=== PATIENT | female | born 1990 | race Caucasian/White ===

== ENCOUNTER 2024-05-09 13:50 | Outpatient (AMB) | payer BC, SELFPAY ==
[2024-05-09 14:04] VITALS: BP 120/70; PULSE 84; O2SAT 98; BMI 37.8
--- NOTE | 2024-05-09 14:04 | A.OFFVIS_ITS ---
Vital Signs 05/09/24 14:04 Height 5 ft 4 in Weight 220 lb 3.869 oz BMI 37.8 BP 120/70 Blood Pressure Location Lt brachial Position Sitting Pulse 84 Pulse Source Pulse Oximeter Pulse Oximetry (%) 98 Oxygen Delivery Method Room Air Intake Visit Reasons: Lupus//RECORDS RECEVED Allergies No Known Allergies Allergy (Verified 05/09/24 14:04) HPI [facility] Lupus//RECORDS RECEVED: Details: History systemic lupus erythematosus on hydroxychloroquine 400 mg daily and Raynaud's phenomenon on amlodipine 5 mg daily. She currently feels well. She has noted in the last couple of weeks as she has had erythema on her cheeks with pruritus. Denies fevers, oral ulcers, urinary symptoms, dyspnea, chest pain. Records reviewed from arthritis treatment center. Rheumatology history: Systemic lupus erythematosus onset 2010. 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 During she had thrombocytopenia and leukopenia prior to SOB diagnosis. G6PD deficiency. Hydroxychloroquine started 2014. Benlysta treatment 2015 to 06/09/2021 -she did not restart when she established care at [facility] from [facility] as patient was clinically quiescent. Methotrexate added for inflammatory arthritis but DC 2 month after due to leukopenia noted on labs (white cell count did not decrease significantly). Review of Systems Const All systems reviewed & are unremarkable except as noted in HPI and below Physical Exam Vital Signs: Last Vital Signs Pulse 84 05/09/24 14:04 BP 120/70 05/09/24 14:04 Pulse Ox 98 05/09/24 14:04 Oxygen Delivery Method Room Air 05/09/24 14:04 BMI result Body Mass Index 37.8 Resp Effort & Inspection: normal respiratory effort Auscultation: clear to auscultation bilaterally Cardio Rate: regular rate Rhythm: regular rhythm Heart sounds: S1 normal heart sound present and S2 normal heart sound present Skin Other: Slight malar erythema. Extrem Other: No synovitis. No tender joints. Range of motion intact in upper extremity lower extremity. Results Reviewed Results Reviewed: Labs reviewed from [facility]. Assessment & Plan Assessment & Plan (1) Systemic lupus erythematosus (SLE) in adult: Comment: Slight exacerbation of malar rash. Code(s): M32.9 - Systemic lupus erythematosus, unspecified Category: Medical Plan: Labs for disease and drug monitoring ordered. We discussed her skin care routine. She will use at least 50 SPF. She will apply 1% hydrocortisone to her cheeks daily for 2 weeks maximum Continue hydroxychloroquine 300 mg daily. She will be calling Dr. Ellsworth's office for eye exam for hydroxychloroquine surveillance. Return to clinic 3 months (2) Other fpc (current) drug therapy: Code(s): Z79.899 - Other assistant terminal manager (current) drug therapy Category: Medical Plan: See above (3) Raynaud disease: Comment: Controlled on amlodipine 5 mg daily Code(s): I73.00 - Raynaud's syndrome without gangrene Category: Medical Plan: Continue amlodipine 5 mg daily Plan . Orders: Orders Alanine Aminotransferase 05/09/24 I73.00 - Raynaud's syndrome without gangrene, M32.9 - Systemic lupus erythematosus, unspecified, Z79.899 - Other assistant terminal manager (current) drug therapy Anti DNA DS Antibody 05/09/24 M32.9 - Systemic lupus erythematosus, unspecified, Z79.899 - Other assistant terminal manager (current) drug therapy C Reactive Protein 05/09/24 I73.00 - Raynaud's syndrome without gangrene, M32.9 - Systemic lupus erythematosus, unspecified, Z79.899 - Other fpc (current) drug therapy Complement C3 05/09/24 I73.00 - Raynaud's syndrome without gangrene, M32.9 - Systemic lupus erythematosus, unspecified, Z79.899 - Other assistant terminal manager (current) drug therapy Complete Blood Count Auto Diff 05/09/24 I73.00 - Raynaud's syndrome without gangrene, M32.9 - Systemic lupus erythematosus, unspecified, Z79.899 - Other fpc (current) drug therapy Protein Creatinine Ratio, Ur 05/09/24 I73.00 - Raynaud's syndrome without gangrene, M32.9 - Systemic lupus erythematosus, unspecified, Z79.899 - Other assistant terminal manager (current) drug therapy Hepatitis B,C Profile 05/09/24 I73.00 - Raynaud's syndrome without gangrene, M32.9 - Systemic lupus erythematosus, unspecified, Z79.899 - Other fpc (current) drug therapy Aspartate Amino Transferase 05/09/24 I73.00 - Raynaud's syndrome without gangrene, M32.9 - Systemic lupus erythematosus, unspecified, Z79.899 - Other fpc (current) drug therapy Complement C4 05/09/24 I73.00 - Raynaud's syndrome without gangrene, M32.9 - Systemic lupus erythematosus, unspecified, Z79.899 - Other assistant terminal manager (current) drug therapy Creatinine 05/09/24 I73.00 - Raynaud's syndrome without gangrene, M32.9 - Systemic lupus erythematosus, unspecified, Z79.899 - Other fpc (current) drug therapy Erythrocyte Sedimentation Rate 05/09/24 I73.00 - Raynaud's syndrome without gangrene, M32.9 - Systemic lupus erythematosus, unspecified, Z79.899 - Other fpc (current) drug therapy T Spot TB 05/09/24 I73.00 - Raynaud's syndrome without gangrene, M32.9 - Systemic lupus erythematosus, unspecified, Z79.899 - Other fpc (current) drug therapy UA w Microscopic 05/09/24 I73.00 - Raynaud's syndrome without gangrene, M32.9 - Systemic lupus erythematosus, unspecified, Z79.899 - Other assistant terminal manager (current) drug therapy Medications: New amlodipine Take 1 tablet daily 5 mg PO DAILY 30 tabs 11RF Coding Level of Care Code Est Pt Level 4 (80538) Complex EM visit Add On G2211 Diagnoses Systemic lupus erythematosus (SLE) in adult M32.9 Other fpc (current) drug therapy Z79.899 Raynaud disease I73.00
== END 2024-05-09 14:40 | disposition home or self-care (01) ==
PROVIDERS: Visit Provider Internal Medicine Rheumatology
DX: M32.9 Systemic lupus erythematosus, unspecified (principal); Z79.899 Other long term (current) drug therapy; I73.00 Raynaud's syndrome without gangrene
CPT/HCPCS: 99214

== ENCOUNTER 2024-05-12 09:42 | Outpatient (REF) | payer BC, SELFPAY ==
[2024-05-12 10:57] LABS: Appearance Urine Clear; Color Urine Yellow; Glucose Urine UA Negative (Negative); Leukocyte Esterase Urine Negative (Negative); Nitrite Urine Negative (Negative); PH 5.5 (5.0-9.0); Specific Gravity - Urine 1.025 (1.005-1.025); Urine Blood Negative (Negative); Urine Ketones Negative (Negative); Urine Protein Negative (Neg-Trace)
[2024-05-12 11:00] LABS: Bacteria Urine None Seen (None Seen); Hyaline Casts Urine 0-2 /LPF (0-2); RBC Urine 0-2 /HPF (0-2); WBC Urine 0-5 /HPF (0-5)
[2024-05-12 11:26] LABS: Basophils Percent Auto 0.5 % (0-2); Eosinophils Absolute Auto 0.1 X10*3/uL (0.0-0.4); Eosinophils Percent Auto 4.1 % (0-4); Hematocrit 36.1 % (37.0-47.0); Hemoglobin 12.4 g/dl (12.0-16.0); Lymphocytes Absolute Auto 1.1 X10*3/uL (1.2-4.9); Lymphocytes Percent Auto 48.9 % (20-40); MANUAL DIFF FLAG SCAN; Mean Corpuscular HGB Conc 34.3 g/dl (31.0-35.0); Mean Corpuscular Hemoglobin 30.3 pg (27.0-33.0); Mean Corpuscular Volume 88.3 fL (80.0-98.0); Mean Platelet Volume 10.8 fL (9.4-12.3); Monocytes Absolute Auto 0.3 X10*3/uL (0.1-1.2); Monocytes Percent Auto 13.6 % (2-11); Neutrophils Absolute Auto 0.7 x10*3/uL (2.0-8.3); Neutrophils Percent Auto 32.9 % (45-73); Platelet Count 182 X10*3/uL (160-400); Red Blood Count 4.09 X10*6/uL (4.20-5.50); Red Cell Distribution Width 11.6 % (11.0-16.0); SCAN SMEAR FLAG 1
[2024-05-12 11:30] LABS: Estimated Average Glucose 82 mg/dL; Hemoglobin A1C 84.4525 umol/L; Hemoglobin A1c % 4.5 % (<6.0); Total Hemoglobin (HGBA1C) 3230.7957 umol/L
[2024-05-12 11:31] LABS: White Blood Count 2.2 X10*3/uL (4.8-10.8)
[2024-05-12 12:11] LABS: SLIDE REVIEW VERIFIED
[2024-05-12 12:17] LABS: Erythrocyte Sedimentation Rate 9 MM/HR (0-20)
[2024-05-12 12:21] LABS: Creatinine Urine 201.22 mg/dL; Protein/Creatinine Ratio, Ur 0.04 (<0.2); Total Protein Urine Random 8 mg/dL (<12)
[2024-05-12 12:23] LABS: Alanine Aminotransferase 14 U/L (0-31); Aspartate Amino Transferase 18 U/L (5-31); C Reactive Protein 0.52 mg/dL (< or = 0.50); Estimated Glomerular Filt Rate > 60
[2024-05-12 12:28] LABS: TSH reflex Free T4 1.86 uIU/mL (0.32-4.0)
[2024-05-12 12:32] LABS: HBc Num1 0.19 S/CO (0.00-0.79); HBsAGNum1 0.39 S/CO (0.00-0.99); Hepatitis B Core Antibody Nonreactive (Nonreactive); Hepatitis B Surface Antigen Negative (Negative); ~HepC Num1 0.18 S/CO (0.00-0.79); ~Hepatitis B Surface Antibody NONREACTIVE (Nonreactive); ~Hepatitis C Antibody Nonreactive (Nonreactive)
[2024-05-15 09:04] LABS: Complement C3 79 mg/dL (83-193)
[2024-05-15 10:43] LABS: TS Negative Control Passed; TS Panel A 0; TS Panel B 0; TS Positive Control Passed; TSpotTB Negative (Negative)
[2024-05-16 14:03] LABS: Anti DNA DS Antibody 73 IU/mL
== END 2024-05-12 09:43 | disposition home or self-care (01) ==
LOC: HO.HHCL 09:42
PROVIDERS: General Practice; Visit Provider Internal Medicine Rheumatology
DX: E66.812 Obesity, class 2 (principal); Z68.37 Body mass index [BMI] 37.0-37.9, adult; M32.9 Systemic lupus erythematosus, unspecified; Z79.899 Other long term (current) drug therapy; I73.00 Raynaud's syndrome without gangrene
CPT/HCPCS: 36415; 81001; 82565; 82570; 83036; 84156; 84443; 84450; 84460; 85025; 85652; 86140; 86160; 86225; 86481; 86704; 86706; 86803; 87340

== ENCOUNTER 2024-07-31 13:25 | Outpatient (REF) | payer BC, SELFPAY ==
--- OUTSIDE RECORDS SUMMARY | 2024-07-31 14:26 | XMS_ITS | Data Portability ---
Author Organization RAYMOND Whittaker [facility], [address] Address [address] [place] [address] Assessment No assessment recorded. Plan of Treatment Reminders Order Date Submit Date Provider Last Modified By Organization Details Last Modified Time Details Appointments None recorded. Lab rapid strep group A, throat 2022 023 [email or web address] [facility] [address], [address] [place], [address], 3 10:04:56 streptococc us group A, culture, throat 2022 023 AIKEN [facility] ([facility], [address] [place] [address], [place], [address], 3 10:06:02 rapid flu (A+B) 2023 024 [email or web address] [facility] [address], [address] [place], [address], 4 10:08:03 SARS CoV 2 (COVID-19) Ag, QL, IA, upper respiratory specimen 2023 024 [email or web address] [facility] [address], [address] [place], [address], 4 10:08:02 Referral None recorded. Procedures None recorded. Surgeries None recorded. Imaging None recorded. Medication Orders polymyxin B sulfate 10,000 unit-trimet hoprim 1 mg/mL eye drops [address] [id number], [address] [place], [address], 4 09:07:51 fexofenadin e-pseudoeph edrine ER 180 mg-240 mg tablet,ext. release [address] [id number], [address] [place], [address], 4 09:08:10 prednisone 20 mg tablet [facility] [id number], [address] [place], [address], 4 09:07:47 Patient TargetsNo targets recorded. Patient Instructions Encounter Date Encounter Id Patient Instructions Last Modified By Organization Details Last Modified Time 07/24/2022 [id number] sore throat: car e instructions [email or web address] Not available 07/24/2022 10:04:56 - Use the medications prescribed. - Decongestants if tolerated. - Recommend recheck if fever develops or no improvement in 5-7 days. - Use saline nasal spray or neti-pot flushes once to twice a day to loosen mucus in sinuses. - I recommend having your ear rechecked in in 2 weeks with your primary provider to verify infection has resolved. -.Use a cool mist humidifier in the room that you sleep to add moisture to the air, which should soothe the airways and help loosen any mucus that may be present. -Call 911 or proceed to nearest Emergency Department if you develop shortness of breath, chest pain, severe headache or other symptoms that concern you. [email or web address] Not available 07/24/2022 10:03:28 Apply warm, mois t compresses over closed eyes 3-4 times per day for 10-15 minutes at a time. Do not return to work until after using the antibiotic drops for 24 hours. If your symptoms do not improve, worsen at any time, or if intense pain, redness, or burning occurs with use of the eye drops, stop the drops immediately and go to the ER. If you wear contact lenses, do not wear them for 2 days. after symptoms resolved. If you have disposable contacts, discard the pair you were wearing and start with a new pair. If they are not disposable, clean thoroughly before using again. Use over the counter medications for your sore throat. Basic lozenges (cough drops) or lozenges with an anesthetic (numbing agent) can be used as needed for quick results; look for the active ingredient, benzocaine, for numbing lozenges (like Cepacol Extra or Chloraseptic Max). Gargling with warm salt water can also relieve pain. Dissolve 1/4 to 1/2 teaspoon in 8-ounces of warm water; gargle and spit salt solution every hour, as needed. Sore throat pain can also be reduced by taking regular doses of acetaminophen (tylenol) or ibuprofen (Advil); if you are given a prescription of PREDNISONE, you may continue to take acetaminophen, but do not take ibuprofen or naprosyn. While this isn't quick, it can significantly reduce pain within an hour after taking. Please switch toothbrush after being on antibiotic for 24 hrs. You should follow-up with your PCP in days, or at any time if your condition does not improve or worsens. Any acute change should prompt a visit to the nearest Emergency Department. . [email or web address] Not available 07/24/2022 10:03:45 08/15/2023 [id number] upper respirator y infection (cold): care instructions Not available 08/15/2023 10:08:01 As we discussed your symptoms are consistent with a viral respiratory infection other than COVID or flu. Treatment is symptomatic which your body takes care of the virus. Drink plenty of fluids and rest when you can. Treat fever or pain with tylenol and or ibuprofen. You can try other over the counter medications to target certain symptoms if you want. Follow up with your PCP. Not available 08/15/2023 10:08:00 Reason for Referral None Reported. Results Created Date Observation Date Name Description Value Unit Range Abnormal Flag Note LastModifiedBy Organization Detail LastModifiedTime 07/24/19 23 07/27/2022 BETA STREP GP A CULTU RE beta strep gp A culture NEGATI VE Refer ence Range : Negat ricardo Not Available [facility] ([facility]) [address] [place], [address], 07/27/2022 10:06:02 07/24/19 23 07/24/2022 rapid strep group A, throa t Unknown Analyte Normal = Negati ve Not Available [facility] [address] [place], [address], 07/24/2022 09:35:00 07/24/19 23 07/24/2022 rapid strep group A, throa t Unknown Analyte negati ve Not Available [facility] [address] [place], [address], 07/24/2022 09:35:00 08/15/19 24 08/15/2023 SARS CoV 2 (COVI D-19) Ag, QL, IA, upper respi rator y speci men Unknown Analyte negati ve Not Available [facility] [address] [place], [address], 08/15/2023 09:34:18 08/15/19 24 08/15/2023 SARS CoV 2 (COVI D-19) Ag, QL, IA, upper respi rator y speci men Unknown Analyte negati ve Not Available [facility] [address] [place], [address], 08/15/2023 09:34:18 08/15/19 24 08/15/2023 SARS CoV 2 (COVI D-19) Ag, QL, IA, upper respi rator y speci men Unknown Analyte yes Not Available [facility] [address] [place], [address], 08/15/2023 09:34:18 08/15/19 24 08/15/2023 rapid flu (A+B) Unknown Analyte negati ve Not Available [facility] [address] [place], [address], 08/15/2023 09:33:44 08/15/19 24 08/15/2023 rapid flu (A+B) Unknown Analyte negati ve Not Available [facility] [address] [place], [address], 08/15/2023 09:33:44 08/15/19 24 08/15/2023 rapid flu (A+B) Unknown Analyte negati ve Not Available [address] [address] [address] [place], [address], 08/15/2023 09:33:44 08/15/19 24 08/15/2023 rapid flu (A+B) Unknown Analyte yes Not Available [facility] [address] [place], [address], 08/15/2023 09:33:44 Result Notes None recorded. Problems Name Problem SNOMED Code Status Onset Date Resolution Date Notes Provider Name and Address Organization Details Recorded Time Raynaud's disease 385435001 Active 2023 RAYMOND Pettit [facility] 4 09:08:49 Lupus erythematosus 868008247 Active 2022 DEVANG merritt PA [facility] 3 09:37:23 Gastroesophag eal reflux disease 399763539 Active 2022 DEVANG merritt PA - [facility] 3 09:37:28 Problem Notes None recorded. Procedures Surgical History Date Name Laterality Status Provider Name and Address Organization Details Recorded Time section completed DEVANG Whittaker [facility] 07/24/2022 09:37:42 Imaging Results None recorded. Procedure Notes None recorded. Medical Equipment None Reported. Allergies No known drug allergies Medications Name Sig Start Date Stop Date Status Note LastModified by Organization Details LastModified Time acetic acid 2 % ear solution USE 5 DROP(S) AFFECTED EAR TWO TIMES A DAY FOR 5 DAYS 07/24 completed Not Available Not Available Not Available prednisone 20 mg tablet Take 2 tablets every day by oral route in the morning for 4 days. 08/15 completed Not Available Not Available Not Available amlodipine 2.5 mg tablet Take 1 tablet every day by oral route. active Not Available Not Available No t Available pantoprazol e 20 mg tablet,waqas yed release TAKE 1 TABLET BY MOUTH EVERY DAY active Not Available Not Available No t Available polymyxin B sulfate 10,000 unit-trimet hoprim 1 mg/mL eye drops INSTILL 1 DROP INTO AFFECTED EYE(S) BY OPHTHALMI C ROUTE EVERY 6 HOURS 08/15 completed Not Available Not Available Not Available hydroxychlo roquine 200 mg tablet TAKE 2 TABLETS BY MOUTH EVERY DAY active Not Available Not Available No t Available amoxicillin 875 mg-potassiu m clavulanate 125 mg tablet TAKE 1 TABLET BY MOUTH 2 TIMES PER DAY FOR 10 DAYS WITH FOOD 07/24 completed Not Available Not Available Not Available ciprofloxac in 0.3 %-dexametha sone 0.1 % ear drops,suspe nsion INSTILL 4 DROPS INTO AFFECTED EAR(S) TWICE DAILY FOR 7 DAYS 07/24 completed Not Available Not Available Not Available fexofenadin e-pseudoeph edrine ER 180 mg-240 mg tablet,ext. release 24 hr Take 1 tablet every day by oral route in the evening for 10 days. 08/15 completed Not Available Not Available Not Available Nexplanon active Not Available Not Alana ilable Not Available Vitals Date Recorded Body height Body mass index (BMI) Body weight Pain severity - 0-10 verbal numeric rating [Score] - Reported Respiratory rate Body temperature Heart rate Oxygen saturation Oxygen saturation in Arterial blood by Pulse oximetry Systolic blood pressure Diastolic blood pressure Provider Name and Address Organization Details Last Updated DateTime 4 162.56 cm 36.9 kg/m2 88996.3 6 g 6 18 /min 98.1 [degF] 86 /min 97 % 97 % 120 mm[Hg] 82 mm[Hg] Erna ANDRADE - [facility] 4 09:13:12 Date Recorded Body height Body mass index (BMI) Body weight Oxygen saturation Oxygen saturation in Arterial blood by Pulse oximetry Heart rate Respiratory rate Body temperature Pain severity - 0-10 verbal numeric rating [Score] - Reported Systolic blood pressure Diastolic blood pressure Provider Name and Address Organization Details Last Updated DateTime 3 162.56 cm 36.9 kg/m2 40371.3 6 g 99 % 99 % 83 /min 16 /min 98.1 [degF] 5 118 mm[Hg] 82 mm[Hg] DEVANG KHOI PA - [facility] 09:36:06 Social History Question Answer Notes LastModified by Organizat ion Details LastModified Time Tobacco Smoking Status Never Smoker DEVANG merritt, PA - [facility] 07/24/2022 09:37:37 What Is Your Level Of Alcohol Consumption? Occasional Socially Information not available 08/15/2023 Which Illicit Or Recreational Drugs Have You Used? Recreational Marijuana Information not available 07/24/2022 Have You Had Direct Contact, Or Contact During Intimacy, With Monkeypox Rash, Scabs, Or Body Fluids From A Person With Monkeypox? No Information not available 08/15/2023 What Was The Date Of Your Most Recent Tobacco Screening? 08/15/2023 Information not available 08/15/2023 Do You Use Any Illicit Or Recreational Drugs? Yes Information not available 07/24/2022 Have You Recently Traveled Abroad? No Information not available 07/24/2022 Do You Or Have You Ever Used Any Other Forms Of Tobacco Or Nicotine? No Information not available 07/24/2022 Sex: Unknown Functional Status None recorded. Mental Status None recorded. Family History Relationship Description Onset Age of this Age Resolved Age Notes LastModified by Organization Details LastModified Time Father No current problems or disability [email or web address] Not available 07/24 09:37:30 Mother No current problems or disability [email or web address] Not available 07/24 09:37:30 Medical History No medical history recorded. Gynecological History Statement/Question Response Date of LMP 08/10/2023 Is there any chance of ? No Obstetrics History GPAL:G 0 P 0 0 0 0 Immunizations Vaccine Type Date Status Note Provider Nam e and Address Organization Details Recorded Time Influenza, MDCK, quadrivalent, PF 0 completed DEVANG MACHNACZ null, PA - [facility] 07/24/2022 09:36:33 Influenza, MDCK, quadrivalent, PF 1 completed DEVANG MACHNACZ null, PA - [facility] 07/24/2022 09:36:33 Influenza, MDCK, quadrivalent, preservative 2 completed DEVANG MACHNACZ null, PA - [facility] 07/24/2022 09:36:33 COVID-19, mRNA, LNP-S, PF, 30 mcg/0.3 mL dose 1 completed DEVANG MACHNACZ null, PA - [facility] 07/24/2022 09:36:33 COVID-19, mRNA, LNP-S, PF, 30 mcg/0.3 mL dose 1 completed DEVANG MACHNACZ null, PA - [facility] 07/24/2022 09:36:33 COVID-19, mRNA, LNP-S, PF, 30 mcg/0.3 mL dose, ron-sucrose 2 completed DEVANG MACHNACZ null, PA - [facility] 07/24/2022 09:36:33 Influenza, MDCK, quadrivalent, PF 9 completed Ernasamantha Smith null, PA - [facility] 08/15/2023 09:07:27 Influenza, MDCK, quadrivalent, preservative 8 completed Erna Smith null, PA - [facility] 08/15/2023 09:07:27 MMR 2 completed Erna Smith null, PA - [facility] 08/15/2023 09:07:27 pneumococcal polysaccharide PPV23 5 completed Ernasamantha Broussarder null, PA - [facility] 08/15/2023 09:07:27 Hep B, unspecified formulation 2 completed Erna Smith null, PA - [facility] 08/15/2023 09:07:27 Influenza, split virus, trivalent, preservative 6 completed [facility] 08/15/2023 09:07:27 Influenza, split virus, trivalent, preservative 5 completed RAYMOND Pettit [facility] 08/15/2023 09:07:27 Past Encounters Encounter ID Performer Location Encounter Start Date Encounter Closed Date Diagnosis/Indication Diagnosis SNOMED-CT Code Diagnosis ICD10 Code Diagnosis Note [id number] [address] [place] [address] 12/20/2020 15:53:04 12/20/2020 19:11:57 [id number] [address] [place] [address] 12/12/2021 08:51:04 12/12/2021 16:06:55 [id number] [address] [place] [address] 01/14/2022 11:38:31 01/14/2022 11:58:35 [id number] Harish Lemos, RECONDITIONING ASSOCIATE [address] [place] [address] 07/24/2022 08:37:38 07/24/2022 10:08:18 Pharyngitis 679671079 J02.9 Acute sinusitis 77373080 J01.90 Acute conj unctivitis of bilateral eyes 2332554936 04169 H10.33 [id number] RAYMOND Stoll [address] [place] [address] 08/15/2023 08:44:09 08/15/2023 10:08:54 Acute pharyngitis 665201500 J02.9 Upper resp iratory infection 35868477 J06.9 Health Concerns Section Related Observation LastModified by Organization Detai ls LastModified Time None Recorded Concern Status LastModified by Organization Details LastModified Time None Recorded Advance Directives Directive None Recorded Payers Encounter Date Sequence Insurance Name Policy Number Policy Schaefer Covered Member ID Schaefer Member ID Guarantor Name 12/20/2020 1 [facility] [id number] Marni Hernandez [id number] Marni Hernandez 12/12/2021 1 [facility] [id number] Marni Hernandez [id number] Marni Hernandez 07/24/2022 1 [facility] [id number] Marni Hernandez [id number] Marni Hernandez 08/15/2023 1 [id number] Marni Hernandez [id number] Marni Hernandez Notes Date Note Type Note Provider Name and Address Organization Details Recorded Time 07/24/19 23 text/htm l Eye problemsReported bypatient.source of patient informationInformation obtained from patient; Patient arrived at Urgent Care ambulatory; learning styles: auditory Location:[facility] Symptoms:no pain in the eyes;sensitivity to light;redness;blurred vision;discharge Severity:moderate Onset/Timindays Modifying Factors:nothing gives relief aretha Aggravating factors:bright light makes it worseCongestionReported bypatient.Notes:nasal congestion with post nasal drip x 3 days. denies any fever or fever with chills. no SOB or respiratory distress. Harish Lemos NP [address] [place], [address], [employer] 07/24/2022 10:05:28 08/15/19 24 text/htm l CongestionReported bypatient.Quality:pressure; ache Severity:moderate Duration:3 days Context:states get sinus infection 2-3 times per year Aggravating Factors:none Alleviating Factors:none Associated Symptoms:no fever; no chills; no hemoptysis; no shortness of breath;cough; sore throat RAYMOND Mercado [address] [place], [address], [employer] 08/15/2023 10:08:22 OBGyn Episode No OBEpisode recorded.
--- OUTSIDE RECORDS SUMMARY | 2024-07-31 14:26 | XMS_ITS | Clinical Summary ---
[facility] Organization [facility] Address [address] [place] [address] Care Team Providers Care Line Tender Name Role Phone Unavailable Primary Care Provider Unavailabl e Allergies No known active allergies Medications Medication Sig Dispensed Refills Start Date End Date Status etonogestrel (NEXPLANON) 68 MG IMPL subcutaneous implant Inject under the skin. 0 Active hydroxychloroquine (PLAQUENIL) 200 MG tablet Take 1 tablet by mouth daily. 0 01/30/2021 Active Active Problems Problem Noted Date Diagnosed Date Other neutropenia 06/25/2021 Anxiety and depression 02/16/2019 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 Raynaud's phenomenon without gangrene 07/23/2017 Pulmonary nodules/lesions, multiple 09/12/2015 Overview: Stable [address] Systemic lupus erythematosus with glomerular dis ease 04/18/2015 Overview: Onset ~ 2010 Hydroxychloroquine 2015,for a while then restarted 2016- eye exam OK 11/07, 11/2020 Treatment with azathioprine avoided because of baseline leukopenia Benlysta (IV) since January 2018 (SC did not work as well) - added to hydroxychloroquine Class V lupus nephritis on kidney biopsy in March 2015. 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 Family History Medical History Relation Name Comments No Sig Med Hx Father Ovarian cancer Maternal Grandmother Stroke Mother Other Sister kidney stones Relation Name Status Comments Child G6PD deficiency Alive Father Alive Maternal Grandmother Mother Alive Sister Alive Social History Tobacco Use Types Packs/Day Years Used Date Smoking Tobacco: Never Smokeless Tobacco: Never Alcohol Use Standard Drinks/Week Comments Yes 0 (1 standard drink = 0.6 oz pur e alcohol) socially Sex and Gender Information Value Date Recorded Sex Assigned at Not on file Gender Identity Not on file Sexual Orientation Not on file Last Filed Vital Signs Vital Sign Reading Time Taken Comments Blood Pressure 140/73 07/18/2021 10:04 AM EST Pulse 107 07/18/2021 10:04 AM EST Temperature 36.8 ??C (98.3 ??F) 07/18/2021 10:[address] Respiratory Rate - - Oxygen Saturation 98% 07/18/2021 10:04 AM EST Inhaled Oxygen Concentration - - Weight 94.8 kg (209 lb) 07/18/2021 10:04 AM EST Height 165.1 cm (5' 5 ) 07/18/2021 10:04 AM EST Body Mass Index 34.78 07/18/2021 10:04 AM EST Plan of Treatment Health Maintenance Due Date Last Done Comments Hepatitis B Vaccines (1 of 3 - 3-dose series) 1992 Hepatitis C Screening 1992 COVID-19 Vaccine (#1) 1997 Depression Screening 2004 Preventative Health Evaluation 2010 DTap / Tdap / Td (1 - Tdap) 2011 Cervical Cancer Screening (Pap Smear) 2013 Pneumococcal Vaccine (2 of 2 - PCV) 06/17/2016 06/17/2015 Influenza Vaccine (#1) 2024 1, 02/20/2020, 02/24/2019, Additional history exists RSV Ped < 20 months Aged Out No longe r eligible based on patient's age to complete this topic
--- OUTSIDE RECORDS SUMMARY | 2024-07-31 14:26 | XMS_ITS | Encounter Summary ---
Author Organization [employer] Address [address] [place] [address] Care Team Providers Care Audit Machine Operator Name Role Phone Chioma Connelly MD Primary Care Provider [phone] Reason for Visit * Reason Comments UTI Encounter Details Date Type Department Care Team ([facility] st Contact Info) Description 07/31/2024 9:40 AM EST Office Visit [facility] [address] [place] [address] [phone] Shamika Guillen MD [address] [place] [id number] Acute cystitis with hematuria (Primary Dx); Dysuria Social History Tobacco Use Types Packs/Day Years Used Date Smoking Tobacco: Never Passive Smoke Exposure: Never Smokeless Tobacco: Never Tobacco Cessation:Counseling Given: Not Answered Alcohol Use Standard Drinks/Week Comments Yes 0 (1 standard drink = 0.6 oz pur e alcohol) oc Depression Answer Date Recorded Patient Health Questionnaire-9 Score 0 05/12/2024 Patient Health Questionnaire-9 Score 0 05/12/2024 Last PHQ-9: Questionnaire Data Not on file 1 07/12/2023 Housing Stability Answer Date Recorded What is your housing situation today? I have valentino kaplan 05/12/[address] you li ve. Do you have problems with any of the following? None of the above 05/12/2024 Food Insecurity Answer Date Recorded Within the past 12 months, y ou worried that your food would run out before you got money to buy more: Never True 05/12/2024 Within the past 12 months,th e food you bought just didn't last and you didn't have enough money to get more: Never True Transportation Answer Date Recorded In the past 12 months, has l ack of transportation kept you from medical appts, meetings, work or from getting things needed for daily living? No 05/12/2024 Utilities Answer Date Recorded In the past 12 months, has t he electric, gas, oil or water company threatened to shut off services in your home? No 05/12/2024 Depression Answer Date Recorded Patient Health Questionnaire-2 Score 0 05/12/2024 Internet Access Answer Date Recorded Internet Access Q1 Yes 07/11/2024 Internet Access Q2 I do not want or need it 06/22 Comments No Sex and Gender Information Value Date Recorded Sex Assigned at Female 01/25/2024 1:32 PM EDT Legal Sex Female 1:27 PM EDT Gender Identity Female 05/12/2024 9:05 AM EST Sexual Orientation Straight 05/10/2024 9: 52 AM EST documented as of this encounter Last Filed Vital Signs Vital Sign Reading Time Taken Comments Blood Pressure 121/86 07/31/2024 9:19 AM EST Pulse 106 07/31/2024 9:19 AM EST Temperature 37.1 ??C (98.7 ??F) 07/31/2024 9:19 AM ES T Respiratory Rate 16 07/31/2024 9:19 AM EST Oxygen Saturation - - Inhaled Oxygen Concentration - - Weight 97.3 kg (214 lb 9.6 oz) 07/31/2024 9:19 A M EST Height 162.6 cm (5' 4 ) 07/31/2024 9:19 AM EST Body Mass Index 36.84 07/31/2024 9:19 AM EST documented in this encounter Progress Notes * Shamika Guillen MD - 07/31/2024 9:40 AM EST SUBJECTIVE: Marni Hernandez is a 34 y.o. year old female who presents for Walk In Center/uti sxs . Denies recent illness, injury, or hospitalization. Acute Concerns: Patient complaining of increased urinary frequency x 3 days associated to lower abdominal pain. No vaginal discharge, no vaginal pruritus, negative low back pain, fever, chills. LMP 2w ago, has Nexplanon for BC. She took OTC UTI kit from the pharmacy and symptoms did not improve. 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 Review of Systems Constitutional: Negative for chills, fatigue and fever. HENT: Negative for congestion, ear pain, nosebleeds, rhinorrhea, sinus pressure, sore throat and trouble swallowing. Eyes: Negative for pain and discharge. Respiratory: Negative for cough, chest tightness and shortness of breath. Cardiovascular: Negative for chest pain, palpitations and leg swelling. Gastrointestinal: Negative for abdominal pain, blood in stool, constipation, diarrhea and nausea. Endocrine: Negative for polydipsia and polyuria. Genitourinary: Positive for frequency and urgency. Negative for dysuria, genital sores, pelvic painand vaginal discharge. Musculoskeletal: Negative for back pain and neck pain. Skin: Negative for rash. Allergic/Immunologic: Negative for environmental allergies. Neurological: Negative for dizziness, seizures, weakness, light-headedness and headaches. Hematological: Negative for adenopathy. Psychiatric/Behavioral: Negative for agitation, behavioral problems, self-injury and suicidal ideas. OBJECTIVE: Vitals: 07/31/24 0919 BP: 121/86 Pulse: 106 Resp: 16 Temp: 98.7 ??F (37.1 ??C) Physical Exam HENT: Right Ear: Tympanic membrane and ear canal normal. Left Ear: Tympanic membrane and ear canal normal. Mouth/Throat: Mouth: Mucous membranes are moist. Pharynx: No oropharyngeal exudate or posterior oropharyngeal erythema. Eyes: Pupils: Pupils are equal, round, and reactive to light. Cardiovascular: Rate and Rhythm: Regular rhythm. Pulses: Normal pulses. Heart sounds: Normal heart sounds. No murmur heard. Pulmonary: Breath sounds: Normal breath sounds. Abdominal: General: Bowel sounds are normal. Palpations: Abdomen is soft. Tenderness: There is abdominal tenderness in the suprapubic area. There is no right CVA tenderness or left CVA tenderness. Musculoskeletal: General: Normal range of motion. Cervical back: Neck supple. Skin: General: Skin is warm. Neurological: General: No focal deficit present. Mental Status: She is alert and oriented to person, place, and time. Psychiatric: Mood and Affect: Mood normal. Behavior: Behavior normal. Office Visit on 07/31/2024 Component Date Value Ref Range Status Color, UA 07/31/2024 Dark Mayelin Final Clarity, UA 07/31/2024 Cloudy Final Glucose, UA 07/31/2024 Negative Final Bilirubin, UA 07/31/2024 Negative Final Ketones, UA 07/31/2024 Negative Final Spec Grav, UA 07/31/2024 1.030 Final Blood, UA 07/31/2024 Positive (A) Negative, None Detected Final LARGE pH, UA 07/31/2024 6.0 Final Protein, UA 07/31/2024 Trace Final 300 mg/dl Urobilinogen, UA 07/31/2024 0.2 Final Leukocytes, UA 07/31/2024 Moderate (A) Negative, Rare, Trace Final LARGE Nitrite, UA 07/31/2024 Negative Negative, None Detected Final Preg Test, Ur 07/31/2024 Negative Negative, Indeterminate, None Detected, Invalid, Specimen unsatisfactory for evaluation, Weakly Positive Final Problem List Items Addressed This Visit Acute cystitis with hematuria - Primary Advised to drink p.o. fluids and cranberry juice. Use Bactrim DS x 5 days, advised about potential increased vaginal discharge/vaginal candidiasis, she can get OTC antifungal vaginal cream or call back as needed Take Tylenol as needed abdominal pain Other Visit Diagnoses Dysuria Relevant Orders POCT urinalysis dipstick manually resulted (Completed) Culture, Urine, Routine POCT , urine manually resulted (Completed) Follow Up: Current Outpatient Medications on File Prior to Visit Medication Sig Dispense Refill amLODIPine (Norvasc) 2.5 MG tablet Take 2.5 mg by mouth Once per day. amLODIPine (Norvasc) 5 MG tablet Take 5 mg by mouth Once per day. cetirizine (ZyrTEC) 10 MG tablet Take 1 tablet (10 mg) by mouth Once per day. 90 tablet 2 Etonogestrel (NEXPLANON SC) fluticasone (Flonase) 50 MCG/ACT nasal spray Administer 1-2 sprays into each nostril Once per day. Shake gently. Before first use, prime pump. After use, clean tip and replace cap. 16 g 3 hydroxychloroquine (Plaquenil) 200 MG tablet Take 2 tablets by mouth Once per day. omeprazole (PriLOSEC) [address] capsule Take 1 capsule by mouth Once per day. Omeprazole 20 MG tablet delayed-release Take 1 tablet (20 mg) by mouth Once per day. 90 tablet 3 pantoprazole (ProtoNix) 20 MG EC tablet Take 20 mg by mouth Once per day. phentermine 15 MG capsule Take 1 capsule (15 mg) by mouth before breakfast. 90 capsule 0 predniSONE (Deltasone) 5 MG tablet TAKE 2 TABLETS BY MOUTH EVERY DAY FOR 1 WEEK, THEN 1 TABLET EVERY DAY FOR 1 WEEK. THEN STOP. TAKE WITH FOOD No current facility-administered medications on file prior to visit. documented in this encounter Miscellaneous Notes * Assessment & Plan Note - Shamika Guillen MD - 07/31/2024 12:05 PM EST Associated Problem(s): Acute cystitis with hematuria Advised to drink p.o. fluids and cranberry juice. Use Bactrim DS x 5 days, advised about potential increased vaginal discharge/vaginal candidiasis, she can get OTC antifungal vaginal cream or call back as needed Take Tylenol as needed abdominal pain documented in this encounter Plan of Treatment Scheduled Orders Name Type Priority Associated Diagnoses Orde r Schedule Culture, Urine, Routine Microbiology Routine Dysuria Ordered: 07/31/2024 documented as of this encounter Procedures Procedure Name Priority Date/Time Associated Diagnosis Comments POCT , URINE Routine 07/31/2024 9:28 AM EST Dysuria POCT URINALYSIS DIPSTICK Routine 07/31/2024 9:26 AM EST Dysuria documented in this encounter Results * POCT , urine manually resulted (07/31/2024 9:28 AM EST) Preg Test, Ur Negative Negative, Indeterminate, None Detected, Invalid, Specimen unsatisfactory for evaluation, Weakly Positive Urine 07/31/2024 9:28 AM EST Shamika Guillen MD POINT OF CARE TEST ENTER /EDIT ORDERABLES Final Result * (ABNORMAL) POCT urinalysis dipstick manually resulted (07/31/2024 9:26 AM EST) Color, UA Dark Mayelin Clarity, UA Cloudy Glucose, UA Negative Bilirubin, UA Negative Ketones, UA Negative Spec Grav, UA 1.030 Blood, UA Positive(A) Negative, None Detected Comment:LARGE pH, UA 6.0 Protein, UA Trace Comment:300 mg/dl Urobilinogen, UA 0.2 Leukocytes, UA Moderate(A) Negative, Rare, Trace Comment:LARGE Nitrite, UA Negative Negative, None Detected Urine 07/31/2024 9:26 AM EST Shamika Guillen MD POINT OF CARE TEST ENTER /EDIT ORDERABLES Final Result documented in this encounter Visit Diagnoses Diagnosis Acute cystitis with hematuria- Primary Dysuria documented in this encounter Additional Health Concerns Assessment Noted Time PHQ-9 Depression Total Score: 0 05/12/20 9:01 AM EST documented as of this encounter Care Teams Audit Machine Operator Relationship Specialty Start Date End Date Chioma Connelly MD [address] [place] [id number] PCP - General Family Medicine 05/12/24 documented as of this encounter
--- OUTSIDE RECORDS SUMMARY | 2024-07-31 14:26 | XMS_ITS | Encounter Summary ---
Author Organization [employer] Address [address] [facility] [address] [place] [address] Care Team Providers Care Universal Worker Assisted Living Name Role Phone Chioma Connelly MD Primary Care Provider [phone] Reason for Visit * Reason Onset Date Comments Med Refill 07/31/2024 Encounter Details Date Type Department Care Team ([facility] st Contact Info) Description 07/31/2024 Refill [facility] [address] [place], [place] [phone] Chioma Connelly MD [address] [place] [address] Body mass index (BMI) 36.0-36.9, adult Social History Tobacco Use Types Packs/Day Years Used Date Smoking Tobacco: Never Passive Smoke Exposure: Never Smokeless Tobacco: Never Alcohol Use Standard [...] AM EST documented as of this encounter Plan of Treatment Not on file documented as of this encounter Visit Diagnoses Diagnosis Body mass index (BMI) 36.0-36.9, adult documented in this encounter Additional Health Concerns Assessment Noted Time PHQ-9 Depression Total Score: 0 05/12/20 9:01 AM EST documented as of this encounter Care Teams Universal Worker Assisted Living Relationship Specialty Start Date End Date Chioma Connelly MD [address] [place] [id number] PCP - General Family Medicine 05/12/24 documented as of this encounter
--- OUTSIDE RECORDS SUMMARY | 2024-07-31 14:26 | XMS_ITS | Clinical Summary ---
[facility] Organization [facility] Address [address] [place] [address] Care Team Providers Care Goring Cutter Name Role Phone Janie Pulliam MD Primary Care Provider [phone] Allergies No known active allergies Medications etonogestrel-eluti ng contraceptive device 68 mg implant subdermal implant Inject under the skin. Active hydroxychloroquine (PLAQUENIL) 200 mg tablet Take 1 tablet (200 mg total) by mouth 1 (one) time each day. 1 Active pantoprazole (PROTONIX) 20 mg EC tablet Take 1 tablet (20 mg total) by mouth 1 (one) time each day. 2 Active Active Problems Problem Noted Date Diagnosed Date G6PD deficiency 12/29/2021 Generalized abdominal pain 01/30/2021 Overview (06/11/2024): Last Assessment & Plan: I explained cyst is unlikely related based on imaging and location of pain. I agree that ongoing GI evaluation would likely be helpful. Right ovarian cyst 01/30/2021 Overview (06/11/2024): Last Assessment & Plan: Again reviewed likely a follicle. She will have repeat US in May and will discuss results when available. COVID-19 virus infection 09/13/2020 Overview (06/11/2024): Tested positive 09/13/20at [facility] pharmacy. Leukopenia 07/28/2019 Overview (06/11/2024): Chronic, no depression of other cell lines, both lymphocytes and neutrophils are low. Probably due to SLE. Anxiety and depression 02/16/2019 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 Raynaud's phenomenon without gangrene 07/23/2017 Pulmonary nodules/lesions, multiple 09/12/2015 Overview (06/11/2024): Stable [address] SLE (systemic lupus erythematosus) 04/18/2015 Overview (06/11/2024): Onset ~ 2010 Hydroxychloroquine 2015,for a while then restarted 2016- eye exam OK 11/07, 11/2020 Treatment with azathioprine avoided because of baseline leukopenia Benlysta (IV) since January 2018 (SC did not work as well) - added to hydroxychloroquine Class V lupus nephritis on kidney biopsy in March 2015. 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 Immunizations Name Administration Dates Next Due Influenza Quadravalent, MDCK , 0.5ml, preservative free (Flucelvax) 6mo and older 04/23/2021,02/20/2020,02/24/2019,03/28 Influenza Quadravalent, MDCK , 0.5ml, with preservative (Flucelvax) 6mo and older 02/24/2018 Influenza trivalent, with pr eservative (Fluzone; Afluria) 6mo and older 03/17/2016,04/18/2015 PPD Test 09/29/2017,03/07/2015 Pneumococcal polysaccharide 23 valent (Pneumovax 23) 2yo and older 06/17/2015 Surgical History Surgery Date Site/Laterality Comments SECTION 06/2010 PROCEDURE: HISTORICAL OTHER SURGICAL HISTORY 03/25/2015 Left PROCEDURE: IA RENAL BIOPSY SURG EXPOSURE KIDNEY; COMMENT: lupus nephritis, membranous type, ISN/RPS class V; chronic changes of parenchyma (done at [facility]) SECTION 2017 PROCEDURE: HISTORICAL DELIVERY ESOPHAGOGASTRODUODENOSCOPY 03/12/2021 PROCEDURE: IA EGD TRANSORAL BIOPSY SINGLE/MULTIPLE; COMMENT: biopsy shows no specific pathologic changes. Negative for H. pylori or Alejandre's esophagus. Medical History Medical History Date Comments Anemia DX:Anemia Depression with anxiety DX:Depre ssion with anxiety; COMMENT: nondiagnosed Lupus DX:Lupus; COMMEN T: gets mouth ulcers, joint problems Leukopenia 07/28/2019 DX:Leukopenia; C OMMENT: Chronic, no depression of other cell lines, both lymphocytes and neutrophils are low. Probably due to SLE. G6PD deficiency 12/29/2021 DX:G6PD deficien cy Family History Medical History Relation Name Comments Other: ovarian cancer Maternal Grandmother s/p surgical management Ovarian cancer Maternal Grandmother passe d from leukemia Asthma Mother Depression Mother's side aunts and uncl es Diabetes Paternal Grandmother Hypertension Paternal Grandmother Breast cancer Neg Hx Colon cancer Neg Hx Pancreatic cancer Neg Hx Prostate cancer Neg Hx Uterine cancer Neg Hx Relation Name Status Comments Brother Alive Father Alive Maternal Grandmother Mother Alive Mother's side Paternal Grandmother Sister Alive kidney problems Son Alive Social History Tobacco Use Types Packs/Day Years Used Date Smoking Tobacco: Never Smokeless Tobacco: Never Alcohol Use Standard Drinks/Week Comments Yes 0 (1 standard drink = 0.6 oz pur e alcohol) Comments Unknown Sex and Gender Information Value Date Recorded Sex Assigned at Not on file Legal Sex Female 6:15 PM EST Gender Identity Not on file Sexual Orientation Not on file Obstetrics History Plan of Treatment Health Maintenance Due Date Last Done Comments DTaP,Tdap,and Td Vaccines (1 - Tdap) 1999 Hepatitis B Vaccines (1 of 3 - 19+ 3-dose series) 2011 Pneumococcal Vaccine: Pediatrics (0 to 5 Years) and At-Risk Patients (6 to 64 Years) (2 of 2 - PCV) 06/17/2016 06/17/2015 COVID-19 Vaccine (3 - Pfizer risk series) 12/17/2020 11/19/2020, 10/29/2020 Depression Screening 05/23/2022 Social Influencers of Health Screening 05/23/2022 Influenza Vaccine (#1) 2024 , 02/20/2020, 02/24/2019, Additional history exists Cervical Cancer Screening: Pap Smear 04/23/2024 04/23/2021, 04/23/2021 HIV Screening Completed 09/20/2017 Hepatitis C Screening Completed 09/20/2017 HIB Vaccines Aged Out No longer eligi ble based on patient's age to complete this topic HPV Vaccines Aged Out No longer eligi ble based on patient's age to complete this topic Hepatitis A Vaccines Aged Out No long er eligible based on patient's age to complete this topic IPV Vaccines Aged Out No longer eligi ble based on patient's age to complete this topic MMR Vaccines Aged Out No longer eligi ble based on patient's age to complete this topic Meningococcal ACWY Vaccine Aged Out N o longer eligible based on patient's age to complete this topic Meningococcal B Vacine Aged Out No lo nger eligible based on patient's age to complete this topic RSV Immunization Patients Under 20 months Aged Out No longer eligible based on patient's age to complete this topic Varicella Vaccines Aged Out No longer eligible based on patient's age to complete this topic Procedures Procedure Name Priority Date/Time Associated Diagnosis Comments PAP SMEAR Routine 04/23/2021 HEPATITIS C SCREENING Routine 09/20/2017 HIV SCREENING Routine 09/20/2017 from Last 3 Months or Most Recently Relevant to Health Maintenance Results * Pap smear (04/23/2021) 04/23/2021 Narrative HISTORICAL TESTING LAB RESULTING AGENCY - 05/09/2021 3:21 PM EST [id number] THINPREP PAP, IMAGED: NEGATIVE FOR SQUAMOUS INTRAEPITHELIAL LESION AND MALIGNANCY . CHASITY IS PRESENT. NOTE: THE PAP TEST IS A SCREENING TEST WITH AN INHERENT FALSE NEGATIVE RATE. AUTOMATED PRESCREENING OF ALL LIQUID BASED SPECIMENS IS PERFORMED BY THE THINPREP IMAGING SYSTEM UNLESS OTHERWISE STATED. PHUONG SWAN(ASCP) (CASE ELECTRONICALLY SIGNED 05 09 2021) ADEQUACY: SATISFACTORY ENDOCERVICAL/TRANSFORMATION ZONE COMPONENT PRESENT. SOURCE: THINPREP PAP HPV IF ASCUS, CERVICAL, IMAGED CLINICAL INFORMATION: HPV IF DIAGNOSIS OF ASCUS. Z12.4 Ella Jonas MD LAB CYTOLOGY ORDERABLES Fin al Result HISTORICAL TESTING LAB RESULTING AGENCY * HIV Screening (09/20/2017) Pathologist [facility] HIV Screening ABSTRACTED Historical Provider HEALTH MAINTENANCE Final Result * Hepatitis C Screening (09/20/2017) Hepatitis C Screening ABSTRACTED us Historical Provider HEALTH MAINTENANCE Final Result from Last 3 Months or Most Recently Relevant to Health Maintenance Care Teams Goring Cutter Relationship Specialty Start Date End Date Janie Pulliam MD PCP - General Internal Medicine 01/26/22
--- OUTSIDE RECORDS SUMMARY | 2024-07-31 14:26 | XMS_ITS | Clinical Summary ---
Author Organization [employer] Address [address] [facility] 7t [place] [address] Care Team Providers Care Hand Meat Salter Name Role Phone Chioma Connelly MD Primary Care Provider Allergies No known active allergies Medications Omeprazole 20 MG tablet delayed-releas e Take 1 tablet (20 mg) by mouth Once per day. 90 tablet 3 05/12/20 24 025 Active amLODIPine (Norvasc) 5 MG tablet Take 5 mg by mouth Once per day. 04/05/20 24 Active Etonogestrel (NEXPLANON SC) Activ e hydroxychloroq uine (Plaquenil) 200 MG tablet Take 2 tablets by mouth Once per day. 01/31/20 21 Active phentermine 15 MG capsuleIndicat ions:Body mass index (BMI) 36.0-36.9, adult Take 1 capsule (15 mg) by mouth before breakfast. 90 capsule 07/21/19 25 025 Active fluticasone (Flonase) 50 MCG/ACT nasal spray Administer 1-2 sprays into each nostril Once per day. Shake gently. Before first use, prime pump. After use, clean tip and replace cap. 16 g 3 07/21/19 25 026 Active cetirizine (ZyrTEC) 10 MG tablet Take 1 tablet (10 mg) by mouth Once per day. 90 tablet 2 07/21/19 25 025 Active pantoprazole (ProtoNix) 20 MG EC tablet Take 20 mg by mouth Once per day. 12/30/19 22 Active predniSONE (Deltasone) 5 MG tablet TAKE 2 TABLETS BY MOUTH EVERY DAY FOR 1 WEEK, THEN 1 TABLET EVERY DAY FOR 1 WEEK. THEN STOP. TAKE WITH FOOD 05/22/20 Active amLODIPine (Norvasc) 2.5 MG tablet Take 2.5 mg by mouth Once per day. Active omeprazole (PriLOSEC) [address] capsule Take 1 capsule by mouth Once per day. 05/12/20 24 Active sulfamethoxazo le-trimethopri m (Bactrim DS) 800-160 MG tablet Take 1 tablet by mouth 2 times daily for 5 days. 10 tablet 07/31/19 25 025 Active phentermine 15 MG capsuleIndicat ions:Class 2 severe obesity with serious comorbidity and body mass index (BMI) of 37.0 to 37.9 in adult, unspecified obesity type (CMS/HCC) Take 1 capsule (15 mg) by mouth before breakfast. 30 capsule 07/03/19 025 Discontinued(Re order (will not trigger notification to Pharmacy)) Active Problems Problem Noted Date Diagnosed Date Acute cystitis with hematuria 07/31/2024 Assessment & Plan (07/31/2024 12:05 PM EST): Advised to drink p.o. fluids and cranberry juice. Use Bactrim DS x 5 days, advised about potential increased vaginal discharge/vaginal candidiasis, she can get OTC antifungal vaginal cream or call back as needed Take Tylenol as needed abdominal pain Body mass index (BMI) 36.0-36.9, adult 5 Gastroesophageal reflux disease 07/24/2022 G6PD deficiency 12/29/2021 Other neutropenia 06/25/2021 Generalized abdominal pain 01/30/2021 Overview (05/14/2024): S/p normal EGD and colonscopy Assessment & Plan (05/14/2024 4:25 PM EST): Continue PPI prn Consider food diary and nutritional approaches to pain Nexplanon in place 01/30/2021 Overview (05/14/2024): Placed 11/2017 Pt is happy with method Will have replaced in 11/2024 Right ovarian cyst 01/30/2021 Overview (05/14/2024): Last Assessment & Plan: Again reviewed likely a follicle. She will have repeat US in May and will discuss results when available. COVID-19 virus infection 09/13/2020 Overview (05/14/2024): Tested positive 09/13/20at [facility] pharmacy. Leukopenia 07/28/2019 Overview (05/14/2024): Chronic, no depression of other cell lines, both lymphocytes and neutrophils are low. Probably due to SLE. 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 Resolved Problems Problem Noted Date Diagnosed Date Resolved Date Other forms of systemic lupus erythematosus 05/14/2024 05/14/2024 Raynaud's disease 08/15/2023 05/14/2024 Encounters Date Type Department Care Team Description 07/31/2024 9:40 AM EST Office Visit [facility] [address] [place] [phone] Shamika Guillen MD Acute cystitis with hematuria (Primary Dx); Dysuria 07/31/2024 Refill [facility] [address] [place] [phone] Chioma Connelly MD Body mass index (BMI) 36.0-36.9, adult 07/21/2024 9:45 AM EST Office Visit [address] [address] Chioma Connelly MD Raynaud's phenomenon without gangrene (Primary Dx); Encounter for immunization; Body mass index (BMI) 36.0-36.9, adult; Dietary counseling; Exercise counseling; Lupus nephritis, ISN/RPS class V (CMS/HCC); Pulmonary nodules/lesions, multiple; 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, unspecified SLE type (CMS/HCC) 07/21/2024 Travel 07/20/[address] [address] Chioma Connelly MD chart prep 07/19/2024 Travel 07/11/2024 Patient Outreach [address] [address] Chioma Connelly MD Pre-visit Planning (SDOH screening negative and tobacco screening negative) 07/03/2024 Orders Only [address] [address] Chioma Connelly MD Class 2 severe obesity with serious comorbidity and body mass index (BMI) of 37.0 to 37.9 in adult, unspecified obesity type (CMS/HCC) (Primary Dx) 06/13/[address] [address] Cris Campa [place] Lab Orders 06/13/2024 Orders Only [address] [address] Chioma Connelly MD Need for viral immunization (Primary Dx) 06/12/[address] [address] Cris Campa [place] Appointment Request 05/12/2024 9:00 AM EST Office Visit [address] [address] Chioma Connelly MD Class 2 obesity without serious comorbidity with body mass index (BMI) of 37.0 to 37.9 in adult, unspecified obesity type (Primary Dx); Dietary counseling; Exercise counseling; Inadequate housing utilities; 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, unspecified SLE type (CMS/HCC); Nexplanon in place; Lupus nephritis, ISN/RPS class V (CMS/HCC); Generalized abdominal pain; Raynaud's phenomenon without gangrene 05/12/2024 Travel 05/04/2024 Patient Outreach [facility] [address] [place] [address] [phone] Chioma Connelly MD Pre-visit Planning ((Unable to reach for PVP screening, LVM)) from Last 3 Months Immunizations Name Administration Dates Next Due Hep B, Unspecified 12/01/2011 Hep B, adult 07/21/2024 INFLUENZA INJECTABLE QUADRIV ALANT CCIIV4 MDCK Multi-dose vial 06/11/2022,02/24/2018 Influenza Injectable Quadriv alant Preservative Free IIV4 MDCK 04/23/2021,02/20/2020,02/24/2019,03/28 Influenza, IIV3, injectable 03/17/2016, 5 Influenza, seasonal, injecta ble, preservative free 07/21/2024,03/17/2016,04/18/2015 MMR 12/01/2011 PPD Test 09/29/2017,03/07/2015 Pneumococcal Conjugate PCV 20 07/21/2024 Pneumococcal Polysaccharide PPSV23 06/17/2015 Tdap 07/21/2024 Social History Tobacco Use Types Packs/Day Years [...] Orientation Straight 05/10/2024 9: 52 AM EST Last Filed Vital Signs Vital Sign Reading Time Taken Comments Blood Pressure 121/86 07/31/2024 9:19 AM EST Pulse 106 07/31/2024 9:19 AM EST Temperature 37.1 ??C (98.7 ??F) 07/31/2024 9:19 AM ES T Respiratory Rate 16 07/31/2024 9:19 AM EST Oxygen Saturation 98% 07/21/2024 9:57 AM EST Inhaled Oxygen Concentration - - Weight 97.3 kg (214 lb 9.6 oz) 07/31/2024 9:19 A M EST Height 162.6 cm (5' 4 ) 07/31/2024 9:19 AM EST Body Mass Index 36.84 07/31/2024 9:19 AM EST Plan of Treatment Health Maintenance Due Date Last Done Comments HIV Screening 1992 Lipid Panel 1992 Hepatitis C Screening 2010 Zoster Vaccines (1 of 2) 2011 Pap Smear 2013 Cervical Cancer Screening 2022 HPV/Cotest 2022 COVID-19 Vaccine ( season) 2024 08/29/2021, 11/19/2020, 10/29/2020 Hepatitis B Vaccines (3 of 3 - 19+ 3-dose series) 09/15/2024 07/21/2024, 12/01/2011 Alcohol/Substance Use Screening 05/12/2025 05/12/2024 Depression Screening 05/12/2025 05/12/2024, 05/12/20 24 SDOH Screening 07/11/2025 07/11/2024 Family Planning (PISQ) 07/21/2025 07/21/2024 Tobacco Screening 07/31/2025 07/31/2024 DTaP/Tdap/Td Vaccines (2 - Td or Tdap) 07/21/2034 07/21/2024 RSV Patients and Patients Aged 60 years or older (1 - 1-dose 75+ series) 2067 Influenza Vaccine Completed 07/21/2024, , 04/23/2021, Additional history exists Pneumococcal Vaccine: Pediatrics (0 to 5 Years) and At-Risk Patients (6 to 49) Years) Completed 07/21/2024, 06/17/2015 HIB Vaccines Aged Out No longer eligi [...] patient's age to complete this topic Meningococcal Vaccine Aged Out No simin richard eligible based on patient's age to complete this topic RSV under 20 months Aged Out No longe r eligible based on patient's age to complete this topic Rotavirus Vaccines Aged Out No longer eligible based on patient's age to complete this topic Procedures Procedure Name Priority Date/Time Associated Diagnosis Comments POCT , URINE Routine 07/31/2024 9:28 AM EST Dysuria POCT URINALYSIS DIPSTICK Routine 07/31/2024 9:26 AM EST Dysuria HEPATITIS B SURFACE ANTIBODY, QUALITATIVE Routine 07/04/2024 9:30 AM EST Need for viral immunization HEMOGLOBIN A1C Routine 05/12/2024 9:46 AM EST Class 2 obesity without serious comorbidity with body mass index (BMI) of 37.0 to 37.9 in adult, unspecified obesity type from Last 3 Months Results * POCT , urine manually resulted (07/31/2024 9:28 AM EST) Preg Test, Ur Negative Negative, Indeterminate, None Detected, Invalid, Specimen unsatisfactory for evaluation, Weakly Positive Urine 07/31/2024 9:28 AM EST Shamika Guillen MD POINT OF CARE TEST ENTER /EDIT ORDERABLES Final Result * (ABNORMAL) POCT urinalysis dipstick manually resulted (07/31/2024 9:26 AM EST) Pathologist [facility] Color, UA Dark Mayelin Clarity, UA Cloudy [...] TEST ENTER /EDIT ORDERABLES Final Result * Hepatitis B Surface Antibody, Qualitative (07/04/2024 9:30 AM EST) Pathologist [facility] ~Hepatitis B Surface Antibody NONREACTIVE Nonreactive [facility] Comment:Nonreactive: < 8.00 mIU/mL Blood Venous blood specimen / Unknown 07/04/2024 9:30 AM EST 07/04/2024 11:19 AM EST Chioma Connelly MD LAB BLOOD ORDERABLES Final Res ult [facility] [address] [place] [phone] * Hemoglobin A1c (05/12/2024 9:46 AM EST) Hemoglobin A1c 4.5 <6.0 % [facility] Comment:Hemoglobin A1C Refer ence Range Adults: 4.8 - 6.0 % Non diabetic: < 6.0 % Goal: < 7.0 %Additional Action Suggested: > 8.0 %Note: Hemoglobin A1c results are invalid for patients with abnormal amounts of HbF. Blood transfusions may impact the HbA1c concentration in the patient sample. Estimated Average Glucose 82 mg/dL [facility] Comment:eAG = Estimated ave rage glucose which is %A1C expressed asaverage glucose, using the formula of the G2W-DplqgmuKxgglmp Glucose study (ADAG), Diabetes Care, Vol.31,#8,2007 Blood Venous blood specimen / Unknown 05/12/2024 9:46 AM EST 05/12/2024 10:55 AM EST us Chioma Connelly MD LAB BLOOD ORDERABLES Final Res ult Performing Organization Address City/State/[facility] Co de Phone Number [facility] [address] [place] [address] [phone] from Last 3 Months Insurance [facility] PPO Care Teams Hand Meat Salter Relationship Specialty Start Date End Date Chioma Connelly MD [address] [place] [phone] PCP - General Family Medicine 05/12/24
--- OUTSIDE RECORDS SUMMARY | 2024-07-31 14:26 | XMS_ITS | Encounter Summary ---
Author Organization [employer] Address [address] [facility] 7t [place] [address] Care Team Providers Care Hand Shoe Cutter Name Role Phone Chioma Connelly MD Primary Care Provider [phone] Encounter Details Date Type Department Care Team (Late st Contact Info) Description 06/13/2024 Orders Only [facility] [address] [place], [place] [phone] Chioma Connelly MD [address] [place], [place] [phone] Need for viral immunization (Primary Dx) Social History Tobacco Use Types Packs/Day Years [...] Access Answer Date Recorded Internet Access Q1 No 05/12/2024 Internet Access Q2 I do not want or need it 04/22 Comments No Sex and Gender Information Value Date Recorded Sex Assigned at Female 01/25/2024 1:32 PM EDT Legal Sex Female 1:27 PM EDT Gender Identity Female 05/12/2024 9:05 AM EST Sexual Orientation Straight 05/10/2024 9: 52 AM EST documented as of this encounter Plan of Treatment Not on file documented as of this encounter Procedures Procedure Name Priority Date/Time Associated Diagnosis Comments HEPATITIS B SURFACE ANTIBODY, QUALITATIVE Routine 07/04/2024 9:30 AM EST Need for viral immunization documented in this encounter Results * Hepatitis B Surface Antibody, Qualitative (07/04/2024 9:30 AM EST) ~Hepatitis B Surface Antibody NONREACTIVE Nonreactive [facility] Comment:Nonreactive: < 8.00 mIU/mL Blood Venous blood specimen / Unknown 07/04/2024 9:30 AM EST 07/04/2024 11:19 AM EST us Chioma Connelly MD LAB BLOOD ORDERABLES Final Res ult [facility] [address] [place] [address] [phone] documented in this encounter Visit Diagnoses Diagnosis Need for viral immunization- Primary Need for prophylactic vaccination and inoculation against other viral diseases documented in this encounter Additional Health Concerns Assessment Noted Time PHQ-9 Depression Total Score: 0 05/12/20 9:01 AM EST documented as of this encounter Care Teams Hand Shoe Cutter Relationship Specialty Start Date End Date Chioma Connelly MD [address] [place] [phone] PCP - General Family Medicine 05/12/24 documented as of this encounter
--- OUTSIDE RECORDS SUMMARY | 2024-07-31 14:27 | XMS_ITS | Encounter Summary ---
Author Organization [facility] [employer] Address [address] [facility] 7t [place] [address] Care Team Providers Care Outside Sales Account Representative Name Role Phone Chioma Connelly MD Primary Care Provider [phone] Reason for Visit * Reason Comments Pre-visit Planning SDOH screening negat ricardo and tobacco screening negative Encounter Details Date Type Department Care Team ([facility] st Contact Info) Description 07/11/2024 Patient Outreach [facility] [address] [place] [address] [phone] Chioma Connelly MD [address] [place], [place] [phone] Pre-visit Planning (SDOH screening negative and tobacco screening negative) Social History Tobacco Use Types Packs/Day Years [...] is your housing situation today? I have valentinokuldeep kaplan 05/12/[address] you [...] AM EST documented as of this encounter Progress Notes * Carissa Mann - 07/11/2024 12:53 PM EST CC Carissa placed successful outbound call to patient for pre-visit planning. Patient name and confirmed. Patient confirms appt date and time, and has transportation. Biggest concern for appointment at this time is none Patient advised to bring to appointment a photo id and insurance card. Appropriate screenings completed in anticipation of appointment. documented in this encounter Plan of Treatment Not on file documented as of this encounter Visit Diagnoses Not on filedocumented in this encounter Additional Health Concerns Assessment Noted Time PHQ-9 Depression Total Score: 0 05/12/20 9:01 AM EST documented as of this encounter Care Teams Outside Sales Account Representative Relationship Specialty Start Date End Date Chioma Connelly MD [address] [place] [address] PCP - General Family Medicine 05/12/24 documented as of this encounter
--- OUTSIDE RECORDS SUMMARY | 2024-07-31 14:27 | XMS_ITS | Encounter Summary ---
Author Organization [employer] Address [address] [facility] 7t [place] [address] Care Team Providers Care Fry Cook Name Role Phone Chioma Connelly MD Primary Care Provider [phone] Reason for Visit * Reason Onset Date Comments chart prep 07/20/2024 Encounter Details Date Type Department Care Team ([facility] st Contact Info) Description 07/20/[address] [facility] [address] [place], [place] [phone] Chioma Connelly MD [address] [place], [place] [phone] chart prep Social History Tobacco Use Types Packs/Day Years [...] AM EST documented as of this encounter Miscellaneous Notes * Telephone Encounter - Renetta Recinos MA - 07/20/2024 11:09 AM EST Chart Prep Labs: done Images: not applicable Vaccines due: yes Referrals: NA Screenings: pap smear Overdue care gaps: Sbirt, PHQ-9, Oral Health documented in this encounter Plan of Treatment Not on file documented as of this encounter Visit Diagnoses Not on filedocumented in this encounter Additional Health Concerns Assessment Noted Time PHQ-9 Depression Total Score: 0 05/12/20 9:01 AM EST documented as of this encounter Care Teams Fry Cook Relationship Specialty Start Date End Date Chioma Connelly MD [address] [place] [phone] PCP - General Family Medicine 05/12/24 documented as of this encounter
--- OUTSIDE RECORDS SUMMARY | 2024-07-31 14:27 | XMS_ITS | Encounter Summary ---
Author Organization [employer] Address [address] [facility] 7t [place] [address] Care Team Providers Care Shop Clerk Name Role Phone Chioma Connelly MD Primary Care Provider [phone] Reason for Visit * Reason Comments Follow-up Encounter Details Date Type Department Care Team (Latest Contact Info) Description 07/21/2024 9:45 AM EST Office Visit [facility] [address] [place], [place] [phone] Chioma Connelly MD [address] [place], [place] [phone] Raynaud's phenomenon without gangrene (Primary Dx); Encounter for immunization; Body mass index (BMI) 36.0-36.9, adult; Dietary counseling; Exercise counseling; Lupus nephritis, ISN/RPS class V (CMS/HCC); Pulmonary nodules/lesions, multiple; 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, unspecified SLE type (CMS/HCC) Social History Tobacco Use Types Packs/Day Years [...] the past 12 months, has t he [employer], gas, oil or water [employer] threatened to shut off services in your [...] Sign Reading Time Taken Comments Blood Pressure 112/76 07/21/2024 9:57 AM EST Pulse 88 07/21/2024 9:57 AM EST Temperature 36.9 ??C (98.4 ??F) 07/21/2024 9:57 AM ES T Respiratory Rate 15 07/21/2024 9:57 AM EST Oxygen Saturation 98% 07/21/2024 9:57 AM EST Inhaled Oxygen Concentration - - Weight 97.3 kg (214 lb 6.4 oz) 07/21/2024 9:57 A M EST Height 162.6 cm (5' 4 ) 07/21/2024 9:57 AM EST Body Mass Index 36.8 07/21/2024 9:57 AM EST documented in this encounter Progress Notes * Chioma Connelly MD - 07/21/2024 9:45 AM EST SUBJECTIVE: Marni Hernandez is a 34 y.o. year old female who presents for acute visit. Denies recent illness, ER visit, or hospitalization. Acute Concerns: Needs Hep B, Flu, PCV20, Td Interim Updates: SLE Field Scout is Dr. Gutierrez, moved her care [place] [facility] Increased Amlodipine to 7.5mg to address Raynauds Plaquenil 400mg BID Weight Losing weight with Phentermine 15mg Denies SE of [place], stomach upset, palpitations, anxiety Will continue with 90 day supply FH: thyroid, GM leukemia and maybe ovarian cancer, mother with fibroids and endometriosis Patient Active Problem List Diagnosis Anxiety and depression COVID-19 virus infection G6PD deficiency Gastroesophageal reflux disease Generalized abdominal pain Lupus nephritis, ISN/RPS class V (CMS/HCC) Nexplanon in place Leukopenia Other neutropenia (CMS/HCC) Pulmonary nodules/lesions, multiple Raynaud's phenomenon without gangrene Right ovarian cyst Systemic lupus erythematosus (CMS/HCC) Body mass index (BMI) 36.0-36.9, adult Past Surgical History: Procedure Laterality Date SECTION, LOW TRANSVERSE No family history on file. 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 Respiratory: Negative. Cardiovascular: Negative. Gastrointestinal: Negative. Psychiatric/Behavioral: Negative. OBJECTIVE: Vitals: 07/21/24 0957 BP: 112/76 BP Location: Left arm Patient Position: Sitting BP Cuff Size: Adult Pulse: 88 Resp: 15 Temp: 98.4 ??F (36.9 ??C) TempSrc: Temporal SpO2: 98% Weight: 214 lb 6.4 oz (97.3 kg) Height: 5' 4 (1.626 m) Physical Exam Vitals and nursing note reviewed. Constitutional: Appearance: Normal appearance. HENT: Head: Normocephalic and atraumatic. Pulmonary: Effort: Pulmonary effort is normal. Breath sounds: Normal breath sounds. Skin: General: Skin is warm and dry. Neurological: General: No focal deficit present. Mental Status: She is alert and oriented to person, place, and time. Psychiatric: Mood and Affect: Mood normal. Behavior: Behavior normal. ASSESSMENT/PLAN Problem List Items Addressed This Visit Lupus nephritis, ISN/RPS class V (CMS/HCC) Pulmonary nodules/lesions, multiple Overview Stable 2016 [address]scan Raynaud's phenomenon without gangrene - Primary Systemic lupus erythematosus (CMS/HCC) Overview Onset ~ 2010 Hydroxychloroquine 2015,for a while then restarted 2017- eye exam OK 11/07, 11/2020 Treatment with azathioprine avoided because of baseline leukopenia Benlysta (IV) since January 2018 (SC did not work as well) - added to hydroxychloroquine Class V lupus nephritis on kidney biopsy in March 2015. 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 Body mass index (BMI) 36.0-36.9, adult Relevant Medications phentermine 15 MG capsule Other Visit Diagnoses Encounter for immunization Relevant Orders Hepatitis B vaccine adult IM (Completed) Tdap vaccine greater than or equal to 7 years old IM (Completed) Flu vaccine greater than or equal to 6 months old, preservative free IM (Completed) PCV-20 VACCINE 6 wks + (Completed) Dietary counseling Exercise counseling Follow Up: 6 months or sooner prn No Known Allergies Current Outpatient Medications: omeprazole (PriLOSEC) [address] capsule, Take 1 capsule by mouth Once per day., Disp: , Rfl: pantoprazole (ProtoNix) 20 MG EC tablet, Take 20 mg by mouth Once per day., Disp: , Rfl: predniSONE (Deltasone) 5 MG tablet, TAKE 2 TABLETS BY MOUTH EVERY DAY FOR 1 WEEK, THEN 1 TABLET EVERY DAY FOR 1 WEEK. THEN STOP. TAKE WITH FOOD, Disp: , Rfl: amLODIPine (Norvasc) 2.5 MG tablet, Take 2.5 mg by mouth Once per day., Disp: , Rfl: amLODIPine (Norvasc) 5 MG tablet, Take 5 mg by mouth Once per day., Disp: , Rfl: cetirizine (ZyrTEC) 10 MG tablet, Take 1 tablet (10 mg) by mouth Once per day., Disp: 90 tablet, Rfl: 2 Etonogestrel (NEXPLANON SC), , Disp: , Rfl: fluticasone (Flonase) 50 MCG/ACT nasal spray, Administer 1-2 sprays into each nostril Once per day.Shake gently. Before first use, prime pump. After use, clean tip and replace cap., Disp: 16 g, Rfl:3 hydroxychloroquine (Plaquenil) 200 MG tablet, Take 2 tablets by mouth Once per day., Disp: , Rfl: Omeprazole 20 MG tablet delayed-release, Take 1 tablet (20 mg) by mouth Once per day., Disp: 90 tablet, Rfl: 3 phentermine 15 MG capsule, Take 1 capsule (15 mg) by mouth before breakfast., Disp: 90 capsule, Rfl: 0 Finnish Translation: Patient is bilingual and declines translation services documented in this encounter Plan of Treatment Not on file documented as of this encounter Visit Diagnoses Diagnosis Raynaud's phenomenon without gangrene- Primary Encounter for immunization Body mass index (BMI) 36.0-36.9, adult Dietary counseling Dietary surveillance and counseling Exercise counseling Lupus nephritis, ISN/RPS class V (CMS/HCC) Pulmonary nodules/lesions, multiple Other diseases of lung, not elsewhere classified 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
--- OUTSIDE RECORDS SUMMARY | 2024-07-31 14:27 | XMS_ITS | Encounter Summary ---
Author Organization [employer] Address [address] [facility] 7t [place] [address] Care Team Providers Care Utility Division Project Manager Name Role Phone Chioma Connelly MD Primary Care Provider [phone] Encounter Details Date Type Department Care Team (Latest Contact Info) Description 07/21/2024 Travel Social History Tobacco Use Types Packs/Day Years [...] documented as of this encounter Care Teams Utility Division Project Manager Relationship Specialty Start Date End Date Chioma Connelly MD [address] [place] [address] PCP - General Family Medicine 05/12/24 documented as of this encounter
--- OUTSIDE RECORDS SUMMARY | 2024-07-31 14:27 | XMS_ITS | Encounter Summary ---
Author Organization [employer] Address [address] [facility] 7t [place] [address] Care Team Providers Care Spectral Scientist Name Role Phone Chioma Connelly MD Primary Care Provider [phone] Encounter Details Date Type Department Care Team (Latest Contact Info) Description 07/19/2024 Travel Social History Tobacco Use Types Packs/Day [...] documented as of this encounter Care Teams Spectral Scientist Relationship Specialty Start Date End Date Chioma Connelly MD [address] [place] [address] PCP - General Family Medicine 05/12/24 documented as of this encounter
--- OUTSIDE RECORDS SUMMARY | 2024-07-31 14:27 | XMS_ITS | Encounter Summary ---
Author Organization [employer] Address [address] [facility] 7t [place] [address] Care Team Providers Care Director Biomedical Engineering Name Role Phone Chioma Connelly MD Primary Care Provider [phone] Encounter Details Date Type Department Care Team (Late st Contact Info) Description 07/03/2024 Orders Only [facility] MEDICINE [address] [place], [place] [phone] Chioma Connelly MD [address] [place], [place] [phone] Class 2 severe obesity with serious comorbidity and body mass index (BMI) of 37.0 to 37.9 in adult, unspecified obesity type (CMS/HCC) (Primary Dx) Social History Tobacco Use Types [...] as of this encounter Visit Diagnoses Diagnosis Class 2 severe obesity with serious comorbidity and body mass index (BMI) of 37.0 to 37.9 in adult, unspecified obesity type (CMS/HCC)- Primary documented in this encounter Additional Health Concerns Assessment Noted Time PHQ-9 Depression Total Score: 0 05/12/20 9:01 AM EST documented as of this encounter Care Teams Director Biomedical Engineering Relationship Specialty Start Date End Date Chioma Connelly MD [address] [place] [id number] PCP - General Family Medicine 05/12/24 documented as of this encounter
== END 2024-07-31 13:26 | disposition home or self-care (01) ==
LOC: HO.HHCLNP 13:25
PROVIDERS: Visit Provider Internal Medicine
DX: R30.0 Dysuria (principal)
CPT/HCPCS: 87086; 87088; 87186

== ENCOUNTER 2024-08-08 13:05 | Outpatient (AMB) | payer BC, SELFPAY ==
--- NOTE | 2024-08-08 13:06 | MHC.OFFVIS ---
Vital Signs 08/08/24 13:08 Height 5 ft 4 in Weight 213 lb BMI 36.6 BP 104/80 Blood Pressure Location Lt brachial Position Sitting Pulse 98 Pulse Source Pulse Oximeter Pulse Oximetry (%) 99 Oxygen Delivery Method Room Air Intake Visit Reasons: Follow Up 3mo Intake Note: Pt present today for Lupus. Parcel Carrier Required: No Allergies No Known Allergies Allergy (Verified 08/08/24 13:07) HPI HPI Follow Up 3mo: Details: In the last month she has been having red spots appear on her hands and toes. Red spots are painful. It usually occurs every winter but not to this extent. She usually has a few red spots, which are tolerable. In the past she was diagnosed with Raynaud's syndrome with a similar presentation. Sometimes her toes will be more pale but never purplish or red. Denies fevers, weight loss, oral ulcers, dyspnea, cough, pleurisy, urinary symptoms, sicca symptoms. There has been no change in symptoms in her hands and feet with increasing amlodipine from 5 mg daily to 7.5 mg daily. Over the weekend she felt very tired and was sleeping a lot. Denies any recent infections. She has been having joint pains more recently and has been using ibuprofen as needed for joint pain. Denies joint swelling. No sick contacts at home. Review of Systems Const All systems reviewed & are unremarkable except as noted in HPI and below Physical Exam Vital Signs: Last Vital Signs Pulse 98 08/08/24 13:08 BP 104/80 08/08/24 13:08 Pulse Ox 99 08/08/24 13:08 Oxygen Delivery Method Room Air 08/08/24 13:08 BMI result Body Mass Index 36.6 Const Other: General: Comfortable CVS: RRR Respiratory: clear to auscultation bilaterally. Good respiratory effort Skin: She has erythematous flat circles on multiple fingers and tips of toes. She has erythematous lesions on her malar region and along the nasal bridge appear similar to acne. No digital ulcers. No discoloration of fingertips or toes. MSK: No tenderness of any joints. No synovitis. Good range of motion of upper extremities and lower extremities. Assessment & Plan Assessment & Plan (1) Systemic lupus erythematosus (SLE) in adult: Comment: In the last month she has developed painful flat erythematous circles on palmar aspect of fingers and tips of toes of unclear etiology. These lesions occur every winter but not to this extent. These lesions do not represent classic Raynaud's phenomenon, which was discussed with patient. She has not had a recent viral illness to suggest vial related rash but they do appear similar to lesions seen and Coxsackie virus. I will further workup for possibility of small-vessel vasculitis with laboratory workup. I am recommending dermatology urgent evaluation and further management. Labs from 04/2024 revealed lupus disease activity with leukopenia, hypocomplementemia C3, elevated double-stranded DNA, and elevated inflammatory markers. I will be repeating labs this visit. Code(s): M32.9 - Systemic lupus erythematosus, unspecified Category: Medical Plan: Continue hydroxychloroquine 300 mg daily Labs ordered to evaluate for lupus disease activity and cryoglobulins Reduce amlodipine 5 mg daily Dermatology evaluation urgent. Requesting dermatology evaluation with MD/DO. Return to clinic in 1 month (2) Skin lesions: Code(s): L98.9 - Disorder of the skin and subcutaneous tissue, unspecified Category: Medical Plan: See above (3) Other adjunct faculty for medical terminology (current) drug therapy: Code(s): Z79.899 - Other half-way (current) drug therapy Category: Medical Plan: See above Plan See above Orders: Orders Alanine Aminotransferase Today Z79.60 - detention (current) use of unspecified immunomodulators and immunosuppressants Aspartate Amino Transferase Today Z79.60 - detention (current) use of unspecified immunomodulators and immunosuppressants Complete Blood Count Auto Diff Today Z79.60 - detention (current) use of unspecified immunomodulators and immunosuppressants Creatinine Today Z79.60 - middle or intermediate school principal (current) use of unspecified immunomodulators and immunosuppressants Erythrocyte Sedimentation Rate Today M32.9 - Systemic lupus erythematosus, unspecified C Reactive Protein Today M32.9 - Systemic lupus erythematosus, unspecified, Z79.899 - Other adjunct faculty for medical terminology (current) drug therapy Complement C3 Today M32.9 - Systemic lupus erythematosus, unspecified, Z79.899 - Other adjunct faculty for medical terminology (current) drug therapy Complement C4 Today M32.9 - Systemic lupus erythematosus, unspecified, Z79.899 - Other half-way (current) drug therapy Anti DNA DS Antibody Today M32.9 - Systemic lupus erythematosus, unspecified, Z79.899 - Other adjunct faculty for medical terminology (current) drug therapy Protein Creatinine Ratio, Ur Today M32.9 - Systemic lupus erythematosus, unspecified, Z79.899 - Other half-way (current) drug therapy UA w Microscopic Today M32.9 - Systemic lupus erythematosus, unspecified, Z79.899 - Other adjunct faculty for medical terminology (current) drug therapy Cryoglobulin Today M32.9 - Systemic lupus erythematosus, unspecified, Z79.899 - Other adjunct faculty for medical terminology (current) drug therapy Referrals Dermatology Referral L98.9 - Disorder of the skin and subcutaneous tissue, unspecified Coding Level of Care Code Est Pt Level 4 (08242) Complex EM visit Add On G2211 Diagnoses Systemic lupus erythematosus (SLE) in adult M32.9 Skin lesions L98.9 Other half-way (current) drug therapy Z79.899
[2024-08-08 13:08] VITALS: BP 104/80; PULSE 98; O2SAT 99; BMI 36.6
--- OUTSIDE RECORDS SUMMARY | 2024-08-08 14:02 | XMS_ITS | Encounter Summary ---
Author Organization [employer] Address [address] [facility] 7t [place] [address] Care Team Providers Care Guest Relations Receptionist Name Role Phone Chioma Connelly MD Primary Care Provider [phone] Reason for Visit * Reason Onset Date Comments Med Refill 07/31/2024 Encounter Details Date Type Department Care Team ([facility] st Contact Info) Description 07/31/2024 Refill [facility] MEDICINE [address] [place], [place] [phone] Chioma Connelly MD [address] [place] [address] Body mass index (BMI) 36.0-36.9, adult Social [...] documented as of this encounter Care Teams Guest Relations Receptionist Relationship Specialty Start Date End Date Chioma Connelly MD [address] [place] [id number] PCP - General Family Medicine 05/12/24 documented as of this encounter
--- OUTSIDE RECORDS SUMMARY | 2024-08-08 14:02 | XMS_ITS | Clinical Summary ---
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 Family History Medical History Relation Name Comments [...]
--- OUTSIDE RECORDS SUMMARY | 2024-08-08 14:02 | XMS_ITS | Clinical Summary ---
Author Organization [facility] Address [address] [place] [address] Care Team Providers Care Medical I D Sales Name Role Phone Janie Pulliam MD Primary Care Provider [phone] Allergies No known active allergies Medications etonogestrel-eluti [...] infection 09/13/2020 Overview (06/11/2024): Tested positive 09/13/20at [facility] pharmacy. 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 Immunizations Name Administration Dates Next Due Influenza [...] HISTORICAL OTHER SURGICAL HISTORY 03/25/2015 Left PROCEDURE: WI RENAL BIOPSY SURG EXPOSURE KIDNEY; COMMENT: lupus nephritis, membranous type, ISN/RPS class V; chronic changes of parenchyma (done at [facility]) SECTION 2017 PROCEDURE: HISTORICAL DELIVERY ESOPHAGOGASTRODUODENOSCOPY 03/12/2021 PROCEDURE: WI EGD TRANSORAL BIOPSY SINGLE/MULTIPLE; COMMENT: biopsy shows [...] Comments DTaP,Tdap,and Td Vaccines (1 - Tdap) 2011 Hepatitis B Vaccines (1 of 3 - [...] RESULTING AGENCY - 05/09/2021 3:21 PM EST [id number] THINPREP PAP, IMAGED: NEGATIVE FOR SQUAMOUS INTRAEPITHELIAL [...] RESULTING AGENCY * HIV Screening (09/20/2017) Pathologist [facility] HIV Screening ABSTRACTED Historical Provider HEALTH MAINTENANCE Final Result * Hepatitis C Screening (09/20/2017) Hepatitis C Screening ABSTRACTED us Historical Provider HEALTH MAINTENANCE Final Result from Last 3 Months or Most Recently Relevant to Health Maintenance Care Teams Medical I D Sales Relationship Specialty Start Date End Date Janie Pulliam MD PCP - General Internal Medicine 01/26/22
--- OUTSIDE RECORDS SUMMARY | 2024-08-08 14:02 | XMS_ITS | Encounter Summary ---
Author Organization [employer] Address [address] [facility] 7t [place] [address] Care Team Providers Care Computational Geneticist Name Role Phone Chioma Connelly MD Primary Care Provider [phone] Encounter Details Date Type Department Care Team (Late st Contact Info) Description 07/03/2024 Orders Only [facility] MEDICINE [address] [place], [place] [phone] Chioma Connelly MD [address] [place], [place] [phone] Class 2 severe obesity with serious comorbidity [...] documented as of this encounter Care Teams Computational Geneticist Relationship Specialty Start Date End Date Chioma Connelly MD [address] [place] [id number] PCP - General Family Medicine 05/12/24 documented as of this encounter
--- OUTSIDE RECORDS SUMMARY | 2024-08-08 14:02 | XMS_ITS | Encounter Summary ---
Author Organization [employer] Address [address] [facility] 7t [place] [address] Care Team Providers Care Facilities Custodian Name Role Phone Chioma Connelly MD Primary Care Provider [phone] Encounter Details Date Type Department Care Team [...] documented as of this encounter Care Teams Facilities Custodian Relationship Specialty Start Date End Date Chioma Connelly MD [address] [place] [address] PCP - General Family Medicine 05/12/24 documented as of this encounter
--- OUTSIDE RECORDS SUMMARY | 2024-08-08 14:02 | XMS_ITS | Encounter Summary ---
Author Organization [employer] Address [address] [facility] 7t [place] [address] Care Team Providers Care Core Analyst Name Role Phone Chioma Connelly MD Primary Care Provider [phone] Encounter Details Date Type Department Care Team (Late st Contact Info) Description 06/13/2024 Orders Only [facility] MEDICINE [address] [place], [place] [phone] Chioma Connelly MD [address] [place], [place] [phone] Need for viral immunization (Primary Dx) Social [...] EST) ~Hepatitis B Surface Antibody NONREACTIVE Nonreactive [facility] Comment:Nonreactive: < 8.00 mIU/mL Blood Venous blood specimen / Unknown 07/04/2024 9:30 AM EST 07/04/2024 11:19 AM EST us Chioma Connelly MD LAB BLOOD ORDERABLES Final Res ult [facility] [address] [place] [address] [phone] documented in this encounter Visit Diagnoses Diagnosis Need for viral immunization- Primary Need for prophylactic vaccination and inoculation against other viral diseases documented in this encounter Additional Health Concerns Assessment Noted Time PHQ-9 Depression Total Score: 0 05/12/20 9:01 AM EST documented as of this encounter Care Teams Core Analyst Relationship Specialty Start Date End Date Chioma Connelly MD [address] [place] [address] PCP - General Family Medicine 05/12/24 documented as of this encounter
--- OUTSIDE RECORDS SUMMARY | 2024-08-08 14:02 | XMS_ITS | Encounter Summary ---
Author Organization [employer] Address [address] [facility] [address]t [place] [address] Care Team Providers Care Insurance Specialist Name Role Phone Chioma Connelly MD Primary Care Provider [phone] Reason for Visit * Reason Comments Follow-up Encounter Details Date Type Department Care Team (Latest Contact Info) Description 07/21/2024 9:45 AM EST Office Visit [facility] MED[facility]INE [address] [place], [place] [phone] Chioma Connelly MD [address] [place], [place] [phone] Raynaud's phenomenon without gangrene (Primary Dx); Encounter [...] the past 12 months, has t he [employer], gas, oil or water [employer] threatened to shut off services in your [...] B, Flu, PCV20, Td Interim Updates: SLE Collection Systems Modeler is Dr. 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 Body mass index (BMI) 36.0-36.9, adult Relevant [...] before breakfast., Disp: 90 capsule, Rfl: 0 Israeli Translation: Patient is bilingual and declines translation [...] documented as of this encounter Care Teams Insurance Specialist Relationship Specialty Start Date End Date Chioma Connelly MD [address] [place] [address] PCP - General Family Medicine 05/12/24 documented as of this encounter
--- OUTSIDE RECORDS SUMMARY | 2024-08-08 14:02 | XMS_ITS | Encounter Summary ---
Author Organization [employer] Address [address] [facility] 7t [place] [address] Care Team Providers Care Divorce Attorney Name Role Phone Chioma Connelly MD Primary Care Provider [phone] Reason for Visit * Reason Comments UTI Encounter Details Date Type Department Care Team ([facility] st Contact Info) Description 07/31/2024 9:40 AM EST Office Visit [facility] [address] [place] [address] [phone] Shamika Guillen MD [address] [place] [phone] Acute cystitis with hematuria (Primary Dx); Dysuria [...] partner, 2 kids 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, 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 [...] DIPSTICK Routine 07/31/2024 9:26 AM EST Dysuria CULTURE, URINE, ROUTINE Routine 07/31/2024 9:26 AM EST Dysuria documented in this encounter Results * POCT , urine manually resulted (07/31/2024 9:28 AM EST) Preg Test, Ur Negative Negative, Indeterminate, None Detected, Invalid, Specimen unsatisfactory for evaluation, Weakly Positive Urine 07/31/2024 9:28 AM EST Shamika Guillen MD POINT OF CARE TEST ENTER /EDIT ORDERABLES Final Result * Culture, Urine, Routine (07/31/2024 9:26 AM EST) Urine Urine specimen obtained by clean catch procedure / Unknown 07/31/2024 9:26 AM EST 07/31/2024 1:26 PM EST Comment:UACC Narrative [facility] - 08/03/2024 7:56 AM EST Escherichia coli Quant 10,000 to 50,000 cfu/mL Escherichia coli: Ampicillin <=2(S) Escherichia coli: Cefazolin (Urine) <=1(S) Escherichia coli: Cefepime <=0.12(S) Escherichia coli: Ceftriaxone <=0.25(S) Escherichia coli: Ciprofloxacin <=0.06(S) Escherichia coli: Gentamicin <=1(S) Escherichia coli: Nitrofurantoin <=16(S) Escherichia coli: Trimethoprim/Sulfamethoxazole <=20(S) Specimen Source: Urine clean catch Shamika Guillen MD LAB MICROBIOLOGY - GENER AL ORDERABLES Final Result [facility] [address] [place] [address] [phone] * (ABNORMAL) POCT urinalysis dipstick manually resulted [...] documented as of this encounter Care Teams Divorce Attorney Relationship Specialty Start Date End Date Chioma Connelly MD [address] [place] [address] PCP - General Family Medicine 05/12/24 documented as of this encounter
--- OUTSIDE RECORDS SUMMARY | 2024-08-08 14:02 | XMS_ITS | Data Portability ---
Author Organization RAYMOND Whittaker [facility], [address] Address [address] [place] [address] Assessment No assessment recorded. Plan of Treatment Reminders Order Date Submit Date Provider Last Modified By Organization Details Last Modified Time Details Appointments None recorded. Lab rapid flu (A+B) 2023 024 [email or web address], [address] [place], [address], 4 10:08:03 SARS CoV 2 (COVID-19) Ag, QL, IA, upper respiratory specimen 2023 024 [email or web address], [address] [place], [address], 4 10:08:02 rapid strep group A, throat 2022 023 [email or web address] [facility], [address] [place], [address], 3 10:04:56 streptococc us group A, culture, throat 2022 023 [place], [address] [place] [address], [place], [address], 3 10:06:02 Referral None recorded. Procedures None recorded. Surgeries None recorded. Imaging None recorded. Medication Orders polymyxin B sulfate 10,000 unit-trimet hoprim 1 mg/mL eye drops 2022 023 [facility] #[id number], [address] [place], [address], 4 09:07:51 fexofenadin e-pseudoeph edrine ER 180 mg-240 mg tablet,ext. release 24 hr 2022 023 [facility][id number], [address] [place], [address], 4 09:08:10 prednisone 20 mg tablet 2022 023 [email or web address] #[id number], [address] [place], [address], 4 09:07:47 Patient TargetsNo targets recorded. Patient Instructions Encounter Date Encounter Id Patient Instructions Last Modified By Organization Details Last Modified Time 07/24/2022 [id number] sore throat: car e instructions [email or web address] Not [...] . [email or web address] Not available 07/24/2022 10:03:45 08/15/2023 [id number] upper respirator y infection (cold): care instructions [...] Range : Negat ricardo Not Available [facility] ([facility]) [address] [place], [address], 07/27/2022 10:06:02 07/24/19 23 07/24/2022 rapid strep group A, throa t Unknown Analyte Normal = Negati ve Not Available [facility] [address] [place], [address], 07/24/2022 09:35:00 07/24/19 23 07/24/2022 rapid strep group A, throa t Unknown Analyte negati ve Not Available [facility] [address] [place], [address], 07/24/2022 09:35:00 08/15/19 24 08/15/2023 SARS CoV 2 (COVI D-19) Ag, QL, IA, upper respi rator y speci men Unknown Analyte negati ve Not Available [facility] [address] [place], [address], 08/15/2023 09:34:18 08/15/19 24 08/15/2023 SARS CoV 2 (COVI D-19) Ag, QL, IA, upper respi rator y speci men Unknown Analyte negati ve Not Available [facility] [address] [place], [address], 08/15/2023 09:34:18 08/15/19 24 08/15/2023 SARS CoV 2 (COVI D-19) Ag, QL, IA, upper respi rator y speci men Unknown Analyte yes Not Available [facility] [address] [place], [address], 08/15/2023 09:34:18 08/15/19 24 08/15/2023 rapid flu (A+B) Unknown Analyte negati ve Not Available [facility] [address] [place], [address], 08/15/2023 09:33:44 08/15/19 24 08/15/2023 rapid flu (A+B) Unknown Analyte negati ve Not Available [facility] [address] [place], [address], 08/15/2023 09:33:44 08/15/19 24 08/15/2023 rapid flu (A+B) Unknown Analyte negati ve Not Available [facility] [address] [place], [address], 08/15/2023 09:33:44 08/15/19 24 08/15/2023 rapid flu (A+B) Unknown Analyte yes Not Available [facility] [address] [place], [address], 08/15/2023 09:33:44 Result Notes None recorded. Problems Name Problem SNOMED Code Status Onset Date Resolution Date Notes Provider Name and Address Organization Details Recorded Time Raynaud's disease 614771357 Active 2023 RAYMOND Pettit [facility] 4 09:08:49 Lupus erythematosus 741516150 Active 2022 DEVANG merritt PA [facility] 3 09:37:23 Gastroesophag eal reflux disease 599839278 Active 2022 DEVANG merritt PA - [facility] [...] Updated DateTime 4 162.56 cm 36.9 kg/m2 02720.3 6 g 6 18 /min 98.1 [degF] [...] Updated DateTime 3 162.56 cm 36.9 kg/m2 35924.3 6 g 99 % 99 % 83 /min 16 /min 98.1 [degF] 5 118 mm[Hg] 82 mm[Hg] DEVANG KHOI PA - [facility] 09:36:06 Social History Question Answer Notes [...] SNOMED-CT Code Diagnosis ICD10 Code Diagnosis Note [id number] [address] [facility] [place] [address] 12/20/2020 15:53:04 12/20/2020 19:11:57 [id number] [address] [facility] [place] [address] 12/12/2021 08:51:04 12/12/2021 16:06:55 [id number] [address] [facility] [place] [address] 01/14/2022 11:38:31 01/14/2022 11:58:35 [id number] Harish Lemos, STOCKHOLDER [address] [facility] [place] [address] 07/24/2022 08:37:38 07/24/2022 10:08:18 Pharyngitis 716395299 J02.9 Acute sinusitis 26861506 J01.90 Acute conj unctivitis of bilateral eyes 1028188635 61457 H10.33 [id number] RAYMOND Stoll [address] [facility] [place] [address] 08/15/2023 08:44:09 08/15/2023 10:08:54 Acute pharyngitis 429282274 J02.9 Upper resp iratory infection 96608781 J06.9 Health Concerns Section Related Observation LastModified by Organization Detai ls LastModified Time None Recorded Concern Status LastModified by Organization Details LastModified Time None Recorded Advance Directives Directive None Recorded Payers Encounter Date Sequence Insurance Name Policy Number Policy Schaefer Covered Member ID Schaefer Member ID Guarantor Name 12/20/2020 1 [facility] [id number] Marni Hernandez [id number] Marni Hernandez 12/12/2021 1 [facility] [id number] Marni Hernandez [id number] Marni Hernandez 07/24/2022 1 [facility] [id number] Marni Hernandez [id number] Marni Hernandez 08/15/2023 1 [id number] Marni Hernandez [id number] Marni Hernandez Notes Date Note Type Note [...] or respiratory distress. Harish Lemos NP [address] [place], [address], [employer] 07/24/2022 10:05:28 08/15/19 24 text/htm l CongestionReported bypatient.Quality:pressure; ache Severity:moderate Duration:3 days Context:states get sinus infection 2-3 times per year Aggravating Factors:none Alleviating Factors:none Associated Symptoms:no fever; no chills; no hemoptysis; no shortness of breath;cough; sore throat RAYMOND Mercado [address] [place], [address], Interview [facility] 08/15/2023 10:08:22 OBGyn Episode No OBEpisode recorded.
--- OUTSIDE RECORDS SUMMARY | 2024-08-08 14:02 | XMS_ITS | Clinical Summary ---
Author Organization [employer] Address [address] [facility] 7t [place] [address] Care Team Providers Care Hotel Baggage Handler Name Role Phone Chioma Connelly MD Primary Care Provider [phone] Allergies No known active allergies Medications Omeprazole [...] capsule by mouth Once per day. 05/12/20 Active phentermine 15 MG capsuleIndicat ions:Class 2 severe obesity with serious comorbidity and body mass index (BMI) of 37.0 to 37.9 in adult, unspecified obesity type (CMS/HCC) Take 1 capsule (15 mg) by mouth before breakfast. 30 capsule 07/03/19 25 025 Discontinued(Re order (will not trigger notification to Pharmacy)) sulfamethoxazo le-trimethopri m (Bactrim DS) 800-160 MG tablet Take 1 tablet by mouth 2 times daily for 5 days. 10 tablet 07/31/19 25 025 Active Problems Problem Noted Date Diagnosed Date [...] infection 09/13/2020 Overview (05/14/2024): Tested positive 09/13/20at [facility] pharmacy. 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 Resolved Problems Problem Noted Date Diagnosed Date Resolved Date Other forms of systemic lupus erythematosus 05/14/2024 05/14/2024 Raynaud's disease 08/15/2023 05/14/2024 Encounters Date Type Department Care Team Description 07/31/2024 9:40 AM EST Office Visit [facility] [address] [place] [address] Shamika Guillen MD Acute cystitis with hematuria (Primary Dx); Dysuria 07/31/2024 Refill [facility] [address] [place] [address] Chioma Connelly MD Body mass index (BMI) 36.0-36.9, adult 07/21/2024 9:45 AM EST Office Visit [address] [address] Chioma Connelly MD Raynaud's phenomenon without gangrene (Primary Dx); Encounter for immunization; Body mass index (BMI) 36.0-36.9, adult; Dietary counseling; Exercise counseling; Lupus nephritis, ISN/RPS class V (CMS/HCC); Pulmonary nodules/lesions, multiple; 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, unspecified SLE type (CMS/HCC) 07/21/2024 Travel 07/20/[address] [address] Chioma Connelly MD chart prep 07/19/2024 Travel 07/11/2024 Patient Outreach [address] [address] Chioma Connelly MD Pre-visit Planning (SDOH screening negative and tobacco screening negative) 07/03/2024 Orders Only [address] [address] Chioma Connelly MD Class 2 severe obesity with serious comorbidity and body mass index (BMI) of 37.0 to 37.9 in adult, unspecified obesity type (CMS/HCC) (Primary Dx) 06/13/[address] [address] Cris Campa [place] Lab Orders 06/13/2024 Orders Only [address] [address] Chioma Connelly MD Need for viral immunization (Primary Dx) 06/12/[address] [address] Cris [place] Appointment Request 05/12/2024 9:00 AM EST Office Visit [address] [address] Chioma Connelly MD Class 2 obesity without serious comorbidity with body mass index (BMI) of 37.0 to 37.9 in adult, unspecified obesity type (Primary Dx); Dietary counseling; Exercise counseling; Inadequate housing utilities; 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, unspecified SLE type (CMS/HCC); Nexplanon in place; Lupus nephritis, ISN/RPS class V (CMS/HCC); Generalized abdominal pain; Raynaud's phenomenon without gangrene 05/12/2024 Travel from Last 3 Months Immunizations Name Administration [...] 05/12/2025 05/12/2024 Depression Screening 05/12/2025 05/12/2024, 05/12/20 SDOH Screening 07/11/2025 07/11/2024 Family Planning (PISQ) [...] ROUTINE Routine 07/31/2024 9:26 AM EST Dysuria HEPATITIS [...] 9:26 AM EST 07/31/2024 1:26 PM EST Comment:[facility] Narrative [facility] - 08/03/2024 7:56 AM EST Escherichia coli Quant 10,000 to 50,000 cfu/mL Escherichia coli: Ampicillin <=2(S) Escherichia coli: Cefazolin (Urine) <=1(S) Escherichia coli: Cefepime <=0.12(S) Escherichia coli: Ceftriaxone <=0.25(S) Escherichia coli: Ciprofloxacin <=0.06(S) Escherichia coli: Gentamicin <=1(S) Escherichia coli: Nitrofurantoin <=16(S) Escherichia coli: Trimethoprim/Sulfamethoxazole <=20(S) Specimen Source: Urine clean catch Shamika Guillen MD LAB MICROBIOLOGY - GENER AL ORDERABLES Final Result Performing Organization Address [facility] Co de Phone Number [facility] [address] [place] [phone] * Hepatitis B Surface Antibody, Qualitative (07/04/2024 9:30 AM EST) ~Hepatitis B Surface Antibody NONREACTIVE Nonreactive [facility] Comment:Nonreactive: < 8.00 mIU/mL Blood Venous blood specimen / Unknown 07/04/2024 9:30 AM EST 07/04/2024 11:19 AM EST Chioma Connelly MD LAB BLOOD ORDERABLES Final Res ult Performing Organization Address [facility] Phone Number [facility] [address] [place] [phone] * Hemoglobin A1c (05/12/2024 9:46 AM EST) Hemoglobin A1c 4.5 <6.0 % [facility] Comment:Hemoglobin A1C Refer ence Range Adults: 4.8 - 6.0 % Non diabetic: < 6.0 % Goal: < 7.0 %Additional Action Suggested: > 8.0 %Note: Hemoglobin A1c results are invalid for patients with abnormal amounts of HbF. Blood transfusions may impact the HbA1c concentration in the patient sample. Estimated Average Glucose 82 mg/dL [facility] Comment:eAG = Estimated ave rage glucose which is %A1C expressed asaverage glucose, using the formula of the A8L-JytxxatQmqtogs Glucose study (ADAG), Diabetes Care, Vol.31,#8,Jan. 2007 Blood Venous blood specimen / Unknown 05/12/2024 9:46 AM EST 05/12/2024 10:55 AM EST Chioma Connelly MD LAB BLOOD ORDERABLES Final Res ult Performing Organization Address [facility] de Phone Number [facility] [address] [place] [phone] from Last 3 Months Insurance [facility] PPO Care Teams Hotel Baggage Handler Relationship Specialty Start Date End Date Chioma Connelly MD [address] [place] [phone] PCP - General Family Medicine 05/12/24
--- OUTSIDE RECORDS SUMMARY | 2024-08-08 14:03 | XMS_ITS | Encounter Summary ---
Author Organization [employer] Address [address] [facility] 7t [place] [address] Care Team Providers Care Communication Lecturer Name Role Phone Chioma Connelly MD Primary Care Provider [phone] Reason for Visit * Reason Onset Date Comments chart prep 07/20/2024 Encounter Details Date Type Department Care Team ([facility] st Contact Info) Description 07/20/2024 Telephone [facility] [address] [place], [place] [phone] Chioma Connelly MD [address] [place], [place] [phone] chart prep Social History Tobacco Use Types [...] documented as of this encounter Care Teams Communication Lecturer Relationship Specialty Start Date End Date Chioma Connelly MD [address] [place] [phone] PCP - General Family Medicine 05/12/24 documented as of this encounter
--- OUTSIDE RECORDS SUMMARY | 2024-08-08 14:03 | XMS_ITS | Encounter Summary ---
Author Organization [employer] Address [address] [facility] 7t [place] [address] Care Team Providers Care Negative Turner Apprentice Name Role Phone Chioma Connelly MD Primary Care Provider [phone] Encounter Details Date Type Department Care Team [...] documented as of this encounter Care Teams Negative Turner Apprentice Relationship Specialty Start Date End Date Chioma Connelly MD [address] [place] [address] PCP - General Family Medicine 05/12/24 documented as of this encounter
--- OUTSIDE RECORDS SUMMARY | 2024-08-08 14:03 | XMS_ITS | Encounter Summary ---
Author Organization [employer] Address [address] [facility] 7t [place] [address] Care Team Providers Care Human Geography Instructor Name Role Phone Chioma Connelly MD Primary Care Provider [phone] Reason for Visit * Reason Comments Pre-visit Planning SDOH screening negat ricardo and tobacco screening negative Encounter Details Date Type Department Care Team ([facility] st Contact Info) Description 07/11/2024 Patient Outreach [facility] [address] [place] [address] [phone] Chioma Connelly MD [address] [place], [place] [phone] Pre-visit Planning (SDOH screening negative and tobacco [...] documented as of this encounter Care Teams Human Geography Instructor Relationship Specialty Start Date End Date Chioma Connelly MD [address] [place] [address] PCP - General Family Medicine 05/12/24 documented as of this encounter
== END 2024-08-08 13:44 | disposition home or self-care (01) ==
PROVIDERS: PCP Physician Assistant; Visit Provider Internal Medicine Rheumatology
DX: M32.9 Systemic lupus erythematosus, unspecified (principal); L98.9 Disorder of the skin and subcutaneous tissue, unspecified; Z79.899 Other long term (current) drug therapy
CPT/HCPCS: 99214

== ENCOUNTER → 2024-08-08 13:05 | Outpatient (BNVA) | payer BC, SELFPAY | PROVIDERS: Visit Provider Internal Medicine Rheumatology ==

== ENCOUNTER 2024-08-08 14:22 | Outpatient (REF) | payer BC, SELFPAY ==
--- OUTSIDE RECORDS SUMMARY | 2024-08-08 15:24 | XMS_ITS | Encounter Summary ---
Author Organization [employer] Address 75 [facility] 7t [place] [address] Care Team Providers Care Etl Application Developer Name Role Phone Chioma Connelly MD Primary Care Provider [phone] Reason for Visit * Reason Comments UTI Encounter Details Date Type Department Care Team ([facility] st Contact Info) Description 07/31/2024 9:40 AM EST Office Visit 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 [...] * Assessment & Plan Note - Shamika Giullen MD - 07/31/2024 12:05 PM EST Associated [...] EST 07/31/2024 1:26 PM EST Comment:[facility] Narrative [facility] - 08/03/2024 7:56 AM EST Escherichia coli Quant 10,000 to 50,000 cfu/mL Escherichia coli: Ampicillin <=2(S) Escherichia coli: Cefazolin (Urine) <=1(S) Escherichia coli: Cefepime <=0.12(S) Escherichia coli: Ceftriaxone <=0.25(S) Escherichia coli: Ciprofloxacin <=0.06(S) Escherichia coli: Gentamicin <=1(S) Escherichia coli: Nitrofurantoin <=16(S) Escherichia coli: Trimethoprim/Sulfamethoxazole <=20(S) Specimen Source: Urine clean catch Shamika Guillen MD LAB MICROBIOLOGY - GENER AL ORDERABLES Final Result [facility] [address] [place] [address] [phone] * (ABNORMAL) POCT urinalysis dipstick manually [...] None Detected Urine 07/31/2024 9:26 AM EST Shamiak Guillen MD POINT OF CARE TEST ENTER /EDIT ORDERABLES Final Result documented in this encounter Visit Diagnoses Diagnosis Acute cystitis with hematuria- Primary Dysuria documented in this encounter Additional Health Concerns Assessment Noted Time PHQ-9 Depression Total Score: 0 05/12/20 9:01 AM EST documented as of this encounter Care Teams Etl Application Developer Relationship Specialty Start Date End Date Chioma Connelly MD [address] [place] [address] PCP - General Family Medicine 05/12/24 documented as of this encounter
--- OUTSIDE RECORDS SUMMARY | 2024-08-08 15:24 | XMS_ITS | Encounter Summary ---
Author Organization [employer] Address 75 [facility] 7t [place] [address] Care Team Providers Care Print Shop Stenographer Name Role Phone Chioma Connelly MD Primary Care Provider [phone] Encounter Details Date Type Department Care Team [...] documented as of this encounter Care Teams Print Shop Stenographer Relationship Specialty Start Date End Date Chioma Connelly MD [address] [place] [address] PCP - General Family Medicine 05/12/24 documented as of this encounter
--- OUTSIDE RECORDS SUMMARY | 2024-08-08 15:24 | XMS_ITS | Encounter Summary ---
Author Organization [email or web address] Address 75 [facility] 7t [place] [address] Care Team Providers Care Premium Card Cancellation Clerk Name Role Phone Cihoma Connelly MD Primary Care Provider [phone] Reason for Visit * Reason Onset Date Comments chart prep 07/20/2024 Encounter Details Date Type Department Care Team ([facility] st Contact Info) Description 07/20/2024 Telephone [facility] [address] [place], [place] [phone] Chioma Connelly MD [address] [place], [place] [phone] chart prep Social History Tobacco Use Types [...] documented as of this encounter Care Teams Premium Card Cancellation Clerk Relationship Specialty Start Date End Date Chioma Connelly MD [address] [place] [phone] PCP - General Family Medicine 05/12/24 documented as of this encounter
--- OUTSIDE RECORDS SUMMARY | 2024-08-08 15:24 | XMS_ITS | Encounter Summary ---
Author Organization [employer] Address [address] [facility] 7t [place] [address] Care Team Providers Care Tube Backer Name Role Phone Chioma Connelly MD Primary Care Provider [phone] Encounter Details Date Type Department Care Team (Late st Contact Info) Description 07/03/2024 Orders Only [facility] [address] [place], [place] [phone] Chioma Connelly MD [address] [place], [place] [phone] Class 2 severe obesity with serious comorbidity [...] documented as of this encounter Care Teams Tube Backer Relationship Specialty Start Date End Date Chioma Connelly MD [address] [place] [phone] PCP - General Family Medicine 05/12/24 documented as of this encounter
--- OUTSIDE RECORDS SUMMARY | 2024-08-08 15:24 | XMS_ITS | Clinical Summary ---
Author Organization [facility] Address [address] [place] [address] Care Team Providers Care Coverage Specialist Name Role Phone Janie Pulliam MD Primary Care Provider [phone] Allergies No known active allergies Medications etonogestrel-eluti [...] infection 09/13/2020 Overview (06/11/2024): Tested positive 09/13/20at [facility] pharmacy. 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 Immunizations Name Administration Dates Next Due Influenza [...] HISTORICAL OTHER SURGICAL HISTORY 03/25/2015 Left PROCEDURE: DE RENAL BIOPSY SURG EXPOSURE KIDNEY; COMMENT: lupus nephritis, membranous type, ISN/RPS class V; chronic changes of parenchyma (done at [facility]) SECTION 2017 PROCEDURE: HISTORICAL DELIVERY ESOPHAGOGASTRODUODENOSCOPY 03/12/2021 PROCEDURE: DE EGD TRANSORAL BIOPSY SINGLE/MULTIPLE; COMMENT: biopsy shows [...] RESULTING AGENCY - 05/09/2021 3:21 PM EST [id number] THINPREP PAP, IMAGED: NEGATIVE FOR SQUAMOUS INTRAEPITHELIAL [...] RESULTING AGENCY * HIV Screening (09/20/2017) Pathologist [facility] HIV Screening ABSTRACTED Historical Provider HEALTH MAINTENANCE Final Result * Hepatitis C Screening (09/20/2017) Hepatitis C Screening ABSTRACTED us Historical Provider HEALTH MAINTENANCE Final Result from Last 3 Months or Most Recently Relevant to Health Maintenance Care Teams Coverage Specialist Relationship Specialty Start Date End Date Janie Pulliam MD PCP - General Internal Medicine 01/26/22
--- OUTSIDE RECORDS SUMMARY | 2024-08-08 15:24 | XMS_ITS | Clinical Summary ---
Author Organization [employer] Address [address] [facility] 7t [place] [address] Care Team Providers Care Gang Knife Fish Chopper Name Role Phone Chioma Connelly MD Primary Care Provider [phone] Allergies No known active allergies Medications Omeprazole [...] infection 09/13/2020 Overview (05/14/2024): Tested positive 09/13/20at [facility] pharmacy. 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 Resolved Problems Problem Noted Date Diagnosed Date Resolved Date Other forms of systemic lupus erythematosus 05/14/2024 05/14/2024 Raynaud's disease 08/15/2023 05/14/2024 Encounters Date Type Department Care Team Description 07/31/2024 9:40 AM EST Office Visit [facility] [address] [place] [address] Shamika Guillen MD Acute cystitis with hematuria (Primary Dx); Dysuria 07/31/2024 Refill [facility] [address] [place] [address] Chioma Connelly MD Body mass index (BMI) 36.0-36.9, adult 07/21/2024 9:45 AM EST Office Visit [address] [address] Chioma Connelly MD Raynaud's phenomenon without gangrene (Primary Dx); Encounter for immunization; Body mass index (BMI) 36.0-36.9, adult; Dietary counseling; Exercise counseling; Lupus nephritis, ISN/RPS class V (CMS/HCC); Pulmonary nodules/lesions, multiple; 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, unspecified SLE type (CMS/HCC) 07/21/2024 Travel 07/20/[address] [address] Chioma Connelly MD chart prep 07/19/2024 Travel 07/11/2024 Patient Outreach [address] [address] Chioma Connelly MD Pre-visit Planning (SDOH screening negative and tobacco screening negative) 07/03/2024 Orders Only [address] [address] Chioma Connelly MD Class 2 severe obesity with serious comorbidity and body mass index (BMI) of 37.0 to 37.9 in adult, unspecified obesity type (CMS/HCC) (Primary Dx) 06/13/[address] [address] Cris Campa [place] Lab Orders 06/13/2024 Orders Only [address] [address] Chioma Connelly MD Need for viral immunization (Primary Dx) 06/12/[address] [address] Cris Campa [place] Appointment Request 05/12/2024 9:00 AM EST Office Visit [address] [address] Chioma Connelly MD Class 2 obesity without [...] 9:26 AM EST 07/31/2024 1:26 PM EST Comment:[facility] Narrative [facility] - 08/03/2024 7:56 AM EST [...] AL ORDERABLES Final Result Performing Organization Address [facility] Co de Phone Number [facility] [address] [place] [phone] * Hepatitis B Surface Antibody, Qualitative (07/04/2024 9:30 AM EST) ~Hepatitis B Surface Antibody NONREACTIVE Nonreactive [facility] Comment:Nonreactive: < 8.00 mIU/mL Blood Venous blood specimen / Unknown 07/04/2024 9:30 AM EST 07/04/2024 11:19 AM EST Chioma Connelly MD LAB BLOOD ORDERABLES Final Res ult Performing Organization Address [facility] Phone Number [facility] [address] [place] [phone] * Hemoglobin A1c (05/12/2024 9:46 AM EST) Hemoglobin A1c 4.5 <6.0 % [facility] Comment:Hemoglobin A1C Refer ence Range Adults: 4.8 - 6.0 % Non diabetic: < 6.0 % Goal: < 7.0 %Additional Action Suggested: > 8.0 %Note: Hemoglobin A1c results are invalid for patients with abnormal amounts of HbF. Blood transfusions may impact the HbA1c concentration in the patient sample. Estimated Average Glucose 82 mg/dL [facility] Comment:eAG = Estimated ave rage glucose which is %A1C expressed asaverage glucose, using the formula of the C1H-AwnixigQiszeob Glucose study (ADAG), Diabetes Care, Vol.31,#8,Jan. 2007 Blood Venous blood specimen / Unknown 05/12/2024 9:46 AM EST 05/12/2024 10:55 AM EST Chioma Connelly MD LAB BLOOD ORDERABLES Final Res ult Performing Organization Address [facility] de Phone Number [facility] [address] [place] [phone] from Last 3 Months Insurance [facility] PPO Care Teams Gang Knife Fish Chopper Relationship Specialty Start Date End Date Chioma Connelly MD [address] [place] [phone] PCP - General Family Medicine 05/12/24
--- OUTSIDE RECORDS SUMMARY | 2024-08-08 15:24 | XMS_ITS | Encounter Summary ---
Author Organization [employer] Address [address] [facility] 7t [place] [address] Care Team Providers Care Reception Interviewer Name Role Phone Chioma Connelly MD Primary Care Provider [phone] Encounter Details Date Type Department Care Team (Late st Contact Info) Description 06/13/2024 Orders Only [facility] [address] [place], [place] [phone] Chioma Connelly MD [address] [place], [place] [phone] Need for viral immunization (Primary Dx) Social [...] EST) ~Hepatitis B Surface Antibody NONREACTIVE Nonreactive [facility] Comment:Nonreactive: < 8.00 mIU/mL Blood Venous blood specimen / Unknown 07/04/2024 9:30 AM EST 07/04/2024 11:19 AM EST us Chioma Connelly MD LAB BLOOD ORDERABLES Final Res ult [facility] [address] [place] [address] [phone] documented in this encounter Visit Diagnoses Diagnosis Need for viral immunization- Primary Need for prophylactic vaccination and inoculation against other viral diseases documented in this encounter Additional Health Concerns Assessment Noted Time PHQ-9 Depression Total Score: 0 05/12/20 9:01 AM EST documented as of this encounter Care Teams Reception Interviewer Relationship Specialty Start Date End Date Chioma Connelly MD [address] [place] [address] PCP - General Family Medicine 05/12/24 documented as of this encounter
--- OUTSIDE RECORDS SUMMARY | 2024-08-08 15:24 | XMS_ITS | Encounter Summary ---
Author Organization [employer] Address 75 [facility] 7t [place] [address] Care Team Providers Care Elementary School Music Teacher Name Role Phone Chioma Connelly MD Primary Care Provider Reason for Visit * Reason Onset Date Comments Med Refill 07/31/2024 Encounter Details Date Type Department Care Team ([facility] st Contact Info) Description 07/31/2024 Refill [facility] [address] [place], [place] [phone] Chioma Connelly MD [address] [place] [address] Body mass index (BMI) 36.0-36.9, adult Social [...] documented as of this encounter Care Teams Elementary School Music Teacher Relationship Specialty Start Date End Date Chioma Connelly MD [address] [place] [address] PCP - General Family Medicine 05/12/24 documented as of this encounter
--- OUTSIDE RECORDS SUMMARY | 2024-08-08 15:24 | XMS_ITS | Encounter Summary ---
Author Organization [employer] Address [address] [facility] 7t [place] [address] Care Team Providers Care Practical Nursing Instructor Name Role Phone Chioma Connelly MD Primary Care Provider [phone] Reason for Visit * Reason Comments Follow-up Encounter Details Date Type Department Care Team (Latest Contact Info) Description 07/21/2024 9:45 AM EST Office Visit [facility] [address] [place], [place] [phone] Chioma Connelly MD [address] [place], [place] [phone] Raynaud's phenomenon without gangrene (Primary Dx); Encounter [...] the past 12 months, has t he [employer], gas, oil or water [employer] threatened to shut off services in your [...] B, Flu, PCV20, Td Interim Updates: SLE Artificial Marble Worker is Dr. 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 Body mass index (BMI) 36.0-36.9, adult Relevant [...] before breakfast., Disp: 90 capsule, Rfl: 0 Mauritanian Translation: Patient is bilingual and declines translation [...] documented as of this encounter Care Teams Practical Nursing Instructor Relationship Specialty Start Date End Date Chioma Connelly MD [address] [place] [address] PCP - General Family Medicine 05/12/24 documented as of this encounter
--- OUTSIDE RECORDS SUMMARY | 2024-08-08 15:24 | XMS_ITS | Encounter Summary ---
Author Organization [employer] Address [address] [facility] 7t [place] [address] Care Team Providers Care Stitch Wheeler Name Role Phone Chioma Connelly MD Primary Care Provider [phone] Encounter Details Date Type Department Care Team [...] documented as of this encounter Care Teams Stitch Wheeler Relationship Specialty Start Date End Date Chioma Connelly MD [address] [place] [address] PCP - General Family Medicine 05/12/24 documented as of this encounter
--- OUTSIDE RECORDS SUMMARY | 2024-08-08 15:24 | XMS_ITS | Clinical Summary ---
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 Family History Medical History Relation Name Comments [...]
--- OUTSIDE RECORDS SUMMARY | 2024-08-08 15:24 | XMS_ITS | Encounter Summary ---
Author Organization [employer] Address 75 [facility] 7t [place] [address] Care Team Providers Care Entry Level Marketing Assistant Name Role Phone Chioma Connelly MD Primary Care Provider [phone] Reason for Visit * Reason Comments Pre-visit Planning SDOH screening negat ricardo and tobacco screening negative Encounter Details Date Type Department Care Team ([facility] st Contact Info) Description 07/11/2024 Patient Outreach [facility] [address] [place] [address] [phone] Chioma Connelly MD [address] [place], [place] [phone] Pre-visit Planning (SDOH screening negative and tobacco [...] documented as of this encounter Care Teams Entry Level Marketing Assistant Relationship Specialty Start Date End Date Chioma Connelly MD [address] [place] [address] PCP - General Family Medicine 05/12/24 documented as of this encounter
[2024-08-08 15:35] LABS: Basophils Percent Auto 0.8 % (0-2); Eosinophils Absolute Auto 0.1 X10*3/uL (0.0-0.4); Eosinophils Percent Auto 2.9 % (0-4); Hematocrit 31.7 % (37.0-47.0); Lymphocytes Absolute Auto 1.2 X10*3/uL (1.2-4.9); MANUAL DIFF FLAG SCAN; Mean Corpuscular HGB Conc 34.7 g/dl (31.0-35.0); Mean Corpuscular Hemoglobin 30.1 pg (27.0-33.0); Mean Corpuscular Volume 86.8 fL (80.0-98.0); Mean Platelet Volume 10.6 fL (9.4-12.3); Monocytes Absolute Auto 0.2 X10*3/uL (0.1-1.2); Neutrophils Absolute Auto 0.9 x10*3/uL (2.0-8.3); Neutrophils Percent Auto 35.3 % (45-73); Platelet Count 165 X10*3/uL (160-400); Red Blood Count 3.65 X10*6/uL (4.20-5.50); Red Cell Distribution Width 11.6 % (11.0-16.0); SCAN SMEAR FLAG 1
[2024-08-08 15:41] LABS: White Blood Count 2.4 X10*3/uL (4.8-10.8)
[2024-08-08 16:00] LABS: SLIDE REVIEW VERIFIED
[2024-08-08 16:04] LABS: Alanine Aminotransferase 24 U/L (0-31); Aspartate Amino Transferase 27 U/L (5-31); C Reactive Protein 0.49 mg/dL (< or = 0.50); Estimated Glomerular Filt Rate > 60
[2024-08-08 16:19] LABS: Erythrocyte Sedimentation Rate 12 MM/HR (0-20)
[2024-08-09 21:18] LABS: Anti DNA DS Antibody 64 IU/mL
[2024-08-09 22:54] LABS: Complement C3 70 mg/dL (83-193)
[2024-08-14 22:14] LABS: Cryoglobulin, Qual Negative (Negative)
== END 2024-08-08 14:23 | disposition home or self-care (01) ==
LOC: HO.HHCL 14:22
PROVIDERS: Visit Provider Internal Medicine Rheumatology
DX: M32.9 Systemic lupus erythematosus, unspecified (principal); L98.9 Disorder of the skin and subcutaneous tissue, unspecified; Z79.60 Long term (current) use of unspecified immunomodulators and immunosuppressants; Z79.899 Other long term (current) drug therapy
CPT/HCPCS: 36415; 82565; 82595; 84450; 84460; 85025; 85652; 86140; 86160; 86225

== ENCOUNTER 2024-08-10 14:42 | Outpatient (REF) | payer BC, SELFPAY ==
[2024-08-10 15:51] LABS: Bilirubin Direct 0.1 mg/dL (0.0-0.5); Bilirubin Total 0.3 mg/dL (0.0-1.0); Haptoglobin 147 mg/dL (35-250); Lactate Dehydrogenase 182 U/L (122-220)
[2024-08-10 15:54] LABS: Rheumatoid Factor < 13.0 IU/mL (<15.0)
--- OUTSIDE RECORDS SUMMARY | 2024-08-10 15:54 | XMS_ITS | Encounter Summary ---
Author Organization [employer] Address [address] [facility] 7t [place] [address] Care Team Providers Care Heel Caser Name Role Phone Chioma Connelly MD Primary Care Provider [phone] Reason for Visit * Reason Comments Follow-up Encounter Details Date Type Department Care Team (Latest Contact Info) Description 07/21/2024 9:45 AM EST Office Visit [facility] [address] [place], [place] [phone] Chioma Connelly MD [address] [place], [place] [phone] Raynaud's phenomenon without gangrene (Primary Dx); Encounter [...] the past 12 months, has t he [employer], gas, oil or water [employer] threatened to shut off services in your [...] B, Flu, PCV20, Td Interim Updates: SLE Crystalizer Tender is Dr. 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 Body mass index (BMI) 36.0-36.9, adult Relevant [...] before breakfast., Disp: 90 capsule, Rfl: 0 Citizen [place] Translation: Patient is bilingual and declines translation [...] documented as of this encounter Care Teams Heel Caser Relationship Specialty Start Date End Date Chioma Connelly MD [address] [place] [address] PCP - General Family Medicine 05/12/24 documented as of this encounter
--- OUTSIDE RECORDS SUMMARY | 2024-08-10 15:54 | XMS_ITS | Encounter Summary ---
Author Organization [employer] Address [address] [facility] 7t [place] [address] Care Team Providers Care Publications Manager Name Role Phone Chioma Connelly MD Primary Care Provider [phone] Encounter Details Date Type Department Care Team [...] documented as of this encounter Care Teams Publications Manager Relationship Specialty Start Date End Date Chioma Connelly MD [address] [place] [address] PCP - General Family Medicine 05/12/24 documented as of this encounter
--- OUTSIDE RECORDS SUMMARY | 2024-08-10 15:54 | XMS_ITS | Encounter Summary ---
Author Organization [employer] Address [address] [facility] 7t [place] [address] Care Team Providers Care Resume Specialist Name Role Phone Chioma Connelly MD Primary Care Provider [phone] Encounter Details Date Type Department Care Team (Late st Contact Info) Description 06/13/2024 Orders Only [facility] [address] [place], [place] [phone] Chioma Connelly MD [address] [place], [place] [phone] Need for viral immunization (Primary Dx) Social [...] EST) ~Hepatitis B Surface Antibody NONREACTIVE Nonreactive [facility] Comment:Nonreactive: < 8.00 mIU/mL Blood Venous blood specimen / Unknown 07/04/2024 9:30 AM EST 07/04/2024 11:19 AM EST us Chioma Connelly MD LAB BLOOD ORDERABLES Final Res ult [facility] [address] [place] [phone] [phone] documented in this encounter Visit Diagnoses Diagnosis Need for viral immunization- Primary Need for prophylactic vaccination and inoculation against other viral diseases documented in this encounter Additional Health Concerns Assessment Noted Time PHQ-9 Depression Total Score: 0 05/12/20 9:01 AM EST documented as of this encounter Care Teams Resume Specialist Relationship Specialty Start Date End Date Chioma Connelly MD [address] [place] [address] PCP - General Family Medicine 05/12/24 documented as of this encounter
--- OUTSIDE RECORDS SUMMARY | 2024-08-10 15:54 | XMS_ITS | Encounter Summary ---
Author Organization [employer] Address [address] [facility] 7t [place] [address] Care Team Providers Care Predictive Maintenance Technician Name Role Phone Chioma Connelly MD Primary Care Provider [phone] Encounter Details Date Type Department Care Team [...] documented as of this encounter Care Teams Predictive Maintenance Technician Relationship Specialty Start Date End Date Chioma Connelly MD [address] [place] [address] PCP - General Family Medicine 05/12/24 documented as of this encounter
--- OUTSIDE RECORDS SUMMARY | 2024-08-10 15:54 | XMS_ITS | Data Portability ---
Author Organization RAYMOND Whittaker [facility] Address [address] [place] [address] Assessment No assessment recorded. Plan of Treatment Reminders Order Date Submit Date Provider Last Modified By Organization Details Last Modified Time Details Appointments None recorded. Lab rapid flu (A+B) 2023 024 [email or web address], [address] [place], [address], 4 10:08:03 SARS CoV 2 (COVID-19) Ag, QL, IA, upper respiratory specimen 2023 024 [email or web address], [address] [place], [address], 4 10:08:02 rapid strep group A, throat 2022 023 [email or web address], [address] [place], [address], 3 10:04:56 streptococc us group A, culture, throat 2022 023 [facility], [address] [place] [address], [place], [address], 3 10:06:02 Referral None recorded. Procedures None recorded. Surgeries None recorded. Imaging None recorded. Medication Orders polymyxin B sulfate 10,000 unit-trimet hoprim 1 mg/mL eye drops 2022 023 [id number], [address] [place], [address], 4 09:07:51 fexofenadin e-pseudoeph edrine ER 180 mg-240 mg tablet,ext. release 24 hr 2022 023 [id number], [address] [place], [address], 4 09:08:10 prednisone 20 mg tablet 2022 023 [id number], [address] [place], [address], 4 09:07:47 Patient TargetsNo targets recorded. Patient Instructions Encounter Date Encounter Id Patient Instructions Last Modified By Organization Details Last Modified Time 07/24/2022 [id number] sore throat: car e instructions [email or web address] Not [...] . [email or web address] Not available 07/24/2022 10:03:45 08/15/2023 [id number] upper respirator y infection (cold): care instructions [...] Range : Negat ricardo Not Available [facility] ([facility]) [address] [place], [address], 07/27/2022 10:06:02 07/24/19 23 07/24/2022 rapid strep group A, throa t Unknown Analyte Normal = Negati ve Not Available [facility] [address] [place], [address], 07/24/2022 09:35:00 07/24/19 23 07/24/2022 rapid strep group A, throa t Unknown Analyte negati ve Not Available [facility] [address] [place], [address], 07/24/2022 09:35:00 08/15/19 24 08/15/2023 SARS CoV 2 (COVI D-19) Ag, QL, IA, upper respi rator y speci men Unknown Analyte negati ve Not Available [facility] [address] [place], [address], 08/15/2023 09:34:18 08/15/19 24 08/15/2023 SARS CoV 2 (COVI D-19) Ag, QL, IA, upper respi rator y speci men Unknown Analyte negati ve Not Available [facility] [address] [place], [address], 08/15/2023 09:34:18 08/15/19 24 08/15/2023 SARS CoV 2 (COVI D-19) Ag, QL, IA, upper respi rator y speci men Unknown Analyte yes Not Available [facility] [address] [address] [place], [address], 08/15/2023 09:34:18 08/15/19 24 08/15/2023 rapid flu (A+B) Unknown Analyte negati ve Not Available [facility] [address] [place], [address], 08/15/2023 09:33:44 08/15/19 24 08/15/2023 rapid flu (A+B) Unknown Analyte negati ve Not Available [facility] [address] [place], [address], 08/15/2023 09:33:44 08/15/19 24 08/15/2023 rapid flu (A+B) Unknown Analyte negati ve Not Available [facility] [address] [place], [address], 08/15/2023 09:33:44 08/15/19 24 08/15/2023 rapid flu (A+B) Unknown Analyte yes Not Available [facility] [address] [address] [place], [address], 08/15/2023 09:33:44 Result Notes None recorded. Problems Name Problem SNOMED Code Status Onset Date Resolution Date Notes Provider Name and Address Organization Details Recorded Time Raynaud's disease 055362411 Active 2023 RAYMOND Pettit [facility] 4 09:08:49 Lupus erythematosus 937587440 Active 2022 DEVANG merritt PA [employer] [facility] 3 09:37:23 Gastroesophag eal reflux disease 555174414 Active 2022 DEVANG merritt PA - [facility] [...] Updated DateTime 4 162.56 cm 36.9 kg/m2 34164.3 6 g 6 18 /min 98.1 [degF] [...] Updated DateTime 3 162.56 cm 36.9 kg/m2 03194.3 6 g 99 % 99 % 83 /min 16 /min 98.1 [degF] 5 118 mm[Hg] 82 mm[Hg] DEVANG KHOI PA - [facility] 09:36:06 Social History Question Answer Notes [...] SNOMED-CT Code Diagnosis ICD10 Code Diagnosis Note [id number] [address] [facility] [place] [address] 12/20/2020 15:53:04 12/20/2020 19:11:57 [id number] [address] [facility] [place] [address] 12/12/2021 08:51:04 12/12/2021 16:06:55 [id number] [address] [facility] [place] [address] 01/14/2022 11:38:31 01/14/2022 11:58:35 [id number] Harish Lemos, ELECTRONICS ENGINEERING TECHNOLOGIST [address] [facility] [place] [address] 07/24/2022 08:37:38 07/24/2022 10:08:18 Pharyngitis 029345634 J02.9 Acute sinusitis 02234585 J01.90 Acute conj unctivitis of bilateral eyes 3284051269 28577 H10.33 [id number] RAYMOND Stoll [address] [facility] [place] [address] 08/15/2023 08:44:09 08/15/2023 10:08:54 Acute pharyngitis 304174707 J02.9 Upper resp iratory infection 66405301 J06.9 Health Concerns Section Related Observation LastModified by Organization Detai ls LastModified Time None Recorded Concern Status LastModified by Organization Details LastModified Time None Recorded Advance Directives Directive None Recorded Payers Encounter Date Sequence Insurance Name Policy Number Policy Schaefer Covered Member ID Schaefer Member ID Guarantor Name 12/20/2020 1 [facility] [id number] Marni Hernandez [id number] Marni Hernandez 12/12/2021 1 [facility] [id number] Marni Hernandez [id number] Marni Hernandez 07/24/2022 1 [facility] [id number] Marni Hernandez [id number] Marni Hernandez 08/15/2023 1 [id number] Marni Hernandez [id number] Marni Hernandez Notes Date Note Type Note [...] [address] [place], [address], [facility] [employer] [facility] 07/24/2022 10:05:28 08/15/19 24 text/htm l CongestionReported bypatient.Quality:pressure; ache Severity:moderate Duration:3 days Context:states get sinus infection 2-3 times per year Aggravating Factors:none Alleviating Factors:none Associated Symptoms:no fever; no chills; no hemoptysis; no shortness of breath;cough; sore throat RAYMOND Mercado [address] [place], [address], [facility] 08/15/2023 10:08:22 OBGyn Episode No OBEpisode recorded.
--- OUTSIDE RECORDS SUMMARY | 2024-08-10 15:54 | XMS_ITS | Encounter Summary ---
Author Organization [employer] Address 75 [facility] 7t [place] [address] Care Team Providers Care Field Crop I Farmworker Name Role Phone Chioma Connelly MD Primary Care Provider [phone] Reason for Visit * Reason Comments Pre-visit Planning SDOH screening negat ricardo and tobacco screening negative Encounter Details Date Type Department Care Team ([facility] st Contact Info) Description 07/11/2024 Patient Outreach [facility] [address] [place] [phone] Chioma Connelly MD [address] [place], [place] [phone] Pre-visit Planning (SDOH screening negative and tobacco [...] documented as of this encounter Care Teams Field Crop I Farmworker Relationship Specialty Start Date End Date Chioma Connelly MD [address] [place] [address] PCP - General Family Medicine 05/12/24 documented as of this encounter
--- OUTSIDE RECORDS SUMMARY | 2024-08-10 15:54 | XMS_ITS | Encounter Summary ---
Author Organization [employer] Address 75 [facility] 7t [place] [address] Care Team Providers Care Air Crew Supervisor Name Role Phone Chioma Connelly MD Primary Care Provider [phone] Reason for Visit * Reason Onset Date Comments chart prep 07/20/2024 Encounter Details Date Type Department Care Team ([facility] st Contact Info) Description 07/20/2024 Telephone [facility] [address] [place], [place] [phone] Chioma Connelly MD 230 [place], [place] [phone] chart prep Social History Tobacco Use Types [...] documented as of this encounter Care Teams Air Crew Supervisor Relationship Specialty Start Date End Date Chioma Connelly MD [address] [place] [address] PCP - General Family Medicine 05/12/24 documented as of this encounter
--- OUTSIDE RECORDS SUMMARY | 2024-08-10 15:54 | XMS_ITS | Clinical Summary ---
Author Organization [facility] Address [address] [place] [address] Care Team Providers Care Engineering Technologist Name Role Phone Janie Pulliam MD Primary Care Provider [phone] Allergies No known active allergies Medications etonogestrel-eluti [...] infection 09/13/2020 Overview (06/11/2024): Tested positive 09/13/20at [facility] pharmacy. 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 Immunizations Name Administration Dates Next Due Influenza [...] V; chronic changes of parenchyma (done at [facility]) SECTION 2017 PROCEDURE: HISTORICAL DELIVERY ESOPHAGOGASTRODUODENOSCOPY 03/12/2021 [...] RESULTING AGENCY - 05/09/2021 3:21 PM EST [id number] THINPREP PAP, IMAGED: NEGATIVE FOR SQUAMOUS INTRAEPITHELIAL [...] RESULTING AGENCY * HIV Screening (09/20/2017) Pathologist [facility] HIV Screening ABSTRACTED Historical Provider HEALTH MAINTENANCE Final Result * Hepatitis C Screening (09/20/2017) Hepatitis C Screening ABSTRACTED us Historical Provider HEALTH MAINTENANCE Final Result from Last 3 Months or Most Recently Relevant to Health Maintenance Care Teams Engineering Technologist Relationship Specialty Start Date End Date Janie Pulliam MD PCP - General Internal Medicine 01/26/22
--- OUTSIDE RECORDS SUMMARY | 2024-08-10 15:54 | XMS_ITS | Encounter Summary ---
Author Organization [employer] Address 75 [facility] 7t [place] [address] Care Team Providers Care Transit Mixer Driver Name Role Phone Chioma Connelly MD Primary Care Provider [phone] Reason for Visit * Reason Onset Date Comments Med Refill 07/31/2024 Encounter Details Date Type Department Care Team ([facility] st Contact Info) Description 07/31/2024 Refill [facility] [address] [place], [place] [phone] Chioma Connelly MD 230 [place] [address] Body mass index (BMI) 36.0-36.9, adult Social [...] documented as of this encounter Care Teams Transit Mixer Driver Relationship Specialty Start Date End Date Chioma Connelly MD [address] [place] [address] PCP - General Family Medicine 05/12/24 documented as of this encounter
--- OUTSIDE RECORDS SUMMARY | 2024-08-10 15:54 | XMS_ITS | Clinical Summary ---
Author Organization [employer] Address [address] [facility] 7t [place] [address] Care Team Providers Care Director Of Strategic Initiatives Name Role Phone Chioma Connelly MD Primary Care Provider [phone] Allergies No known active allergies Medications Omeprazole [...] infection 09/13/2020 Overview (05/14/2024): Tested positive 09/13/20at [facility] pharmacy. 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 Resolved Problems Problem Noted Date Diagnosed Date Resolved Date Other forms of systemic lupus erythematosus 05/14/2024 05/14/2024 Raynaud's disease 08/15/2023 05/14/2024 Encounters Date Type Department Care Team Description 08/10/2024 Orders Only GENERIC EXTERNAL DATA DEPARTMENT Provider, Generic External Data 07/31/2024 9:40 AM EST Office Visit [facility] [address] [place] [address] Shamika Guillen MD Acute cystitis with hematuria (Primary Dx); Dysuria 07/31/2024 Refill [facility] [address] [place] [address] Chioma Connelly MD Body mass index (BMI) 36.0-36.9, adult 07/21/2024 9:45 AM EST Office Visit [address] [address] Chioma Connelly MD Raynaud's phenomenon without gangrene (Primary Dx); Encounter for immunization; Body mass index (BMI) 36.0-36.9, adult; Dietary counseling; Exercise counseling; Lupus nephritis, 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); Pulmonary nodules/lesions, multiple; 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, unspecified SLE type (CMS/HCC) 07/21/2024 Travel 07/20/[address] [address] Chioma Connelly MD chart prep 07/19/2024 Travel 07/11/2024 Patient Outreach [address] [address] Chioma Connelly MD Pre-visit Planning (SDOH screening negative and tobacco screening negative) 07/03/2024 Orders Only [address] [address] Chioma Connelly MD Class 2 severe obesity with serious comorbidity and body mass index (BMI) of 37.0 to 37.9 in adult, unspecified obesity type (CMS/HCC) (Primary Dx) 06/13/[address] [address] Cris Campa [place] Lab Orders 06/13/2024 Orders Only [address] [address] Chioma Connelly MD Need for viral immunization (Primary Dx) 06/12/[address] [address] Cris Camp[place] Appointment Request 05/12/2024 9:00 AM EST Office Visit [address] [address] Chioma Connelly MD Class 2 obesity without serious comorbidity with body mass index (BMI) of 37.0 to 37.9 in adult, unspecified obesity type (Primary Dx); Dietary counseling; Exercise counseling; Inadequate housing utilities; 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, unspecified SLE type ([facility]); Nexplanon in place; Lupus nephritis, ISN/RPS class V ([facility]); Generalized abdominal pain; Raynaud's phenomenon without gangrene [...] Procedure Name Priority Date/Time Associated Diagnosis Comments HAPTOGLOBIN Routine 08/10/2024 3:02 PM EST LD Routine 08/10/2024 3:02 PM EST BILIRUBIN, DIRECT Routine 08/10/2024 3:0 2 PM EST BILIRUBIN, TOTAL Routine 08/10/2024 3:02 PM EST POCT , URINE Routine 07/31/2024 9:28 AM [...] type from Last 3 Months Results * Lactate Dehydrogenase (LD) (08/10/2024 3:02 PM EST) Lactate Dehydrogenase 182 122 - 220 U/L [facility] 08/10/2024 3:02 PM EST 08/10/2024 3:02 PM EST Generic External Data Provider LAB BLOOD ORDERAB LES Final Result Performing Organization Address [facility]/ZIP Co de Phone Number [facility] [address] [place] [phone] * Haptoglobin (08/10/2024 3:02 PM EST) Haptoglobin 147 35 - 250 mg/dL [facility] 08/10/2024 3:02 PM EST 08/10/2024 3:02 PM EST Generic External Data Provider LAB BLOOD ORDERAB LES Final Result Performing Organization Address [facility]/RUST Co de Phone Number [facility] [address] [place] [phone] * Bilirubin, Direct (08/10/2024 3:02 PM EST) Bilirubin, Direct 0.1 0.0 - 0.5 mg/dL [facility] 08/10/2024 3:02 PM EST 08/10/2024 3:02 PM EST us Generic External Data Provider LAB BLOOD ORDERAB LES Final Result Performing Organization Address City/[facility]/ZIP Co de Phone Number [facility] [address] [place] [phone] * Bilirubin, Total (08/10/2024 3:02 PM EST) Bilirubin, Total 0.3 0.0 - 1.0 mg/dL [facility] 08/10/2024 3:02 PM EST 08/10/2024 3:02 PM EST Generic External Data Provider LAB BLOOD ORDERAB LES Final Result Performing Organization Address [facility]/RUST Co de Phone Number [facility] [address] [place] [phone] * POCT , urine manually resulted (07/31/2024 9:28 AM EST) Preg Test, Ur Negative Negative, Indeterminate, None Detected, Invalid, Specimen unsatisfactory for evaluation, Weakly Positive Urine 07/31/2024 9:28 AM EST Result [facility] Shamika Guillen MD POINT OF CARE TEST ENTER /EDIT ORDERABLES Final Result * (ABNORMAL) POCT urinalysis dipstick manually resulted (07/31/2024 9:26 AM EST) Pathologist [facility] Color, UA Dark Mayelin Clarity, UA Cloudy [...] EST 07/31/2024 1:26 PM EST Comment:UACC Narrative [facility] - 08/03/2024 7:56 AM EST Escherichia coli Quant 10,000 to 50,000 cfu/mL Escherichia coli: Ampicillin <=2(S) Escherichia coli: Cefazolin (Urine) <=1(S) Escherichia coli: Cefepime <=0.12(S) Escherichia coli: Ceftriaxone <=0.25(S) Escherichia coli: Ciprofloxacin <=0.06(S) Escherichia coli: Gentamicin <=1(S) Escherichia coli: Nitrofurantoin <=16(S) Escherichia coli: Trimethoprim/Sulfamethoxazole <=20(S) Specimen Source: Urine clean catch us Shamika Guillen MD LAB MICROBIOLOGY - GENER AL ORDERABLES Final Result Performing Organization Address City/[facility]/ZIP Co de Phone Number [facility] [address] [place] [phone] * Hepatitis B Surface Antibody, Qualitative (07/04/2024 9:30 AM EST) ~Hepatitis B Surface Antibody NONREACTIVE Nonreactive [facility] Comment:Nonreactive: < 8.00 mIU/mL Blood Venous blood specimen / Unknown 07/04/2024 9:30 AM EST 07/04/2024 11:19 AM EST us Chioma Connelly MD LAB BLOOD ORDERABLES Final Res ult Performing Organization Address [facility]/ZIP Co de Phone Number [facility] [address] [place] [phone] * Hemoglobin A1c (05/12/2024 9:46 AM EST) Hemoglobin A1c 4.5 <6.0 % [facility] Comment:Hemoglobin A1C Refer ence Range Adults: 4.8 - 6.0 % Non diabetic: < 6.0 % Goal: < 7.0 %Additional Action Suggested: > 8.0 %Note: Hemoglobin A1c results are invalid for patients with abnormal amounts of HbF. Blood transfusions may impact the HbA1c concentration in the patient sample. Estimated Average Glucose 82 mg/dL [facility] Comment:eAG = Estimated ave rage glucose which is %A1C expressed asaverage glucose, using the formula of the S3A-PsuaxcrGubsbud Glucose study (ADAG), Diabetes Care, Vol.31,#8,2007 Blood Venous blood specimen / Unknown 05/12/2024 9:46 AM EST 05/12/2024 10:55 AM EST us Chioma Connelly MD LAB BLOOD ORDERABLES Final Res ult [facility] [address] [place] [phone] from Last 3 Months Insurance BCBS PPO Care Teams Director Of Strategic Initiatives Relationship Specialty Start Date End Date Chioma Connelly MD [address] [place] [address] PCP - General Family Medicine 05/12/24
--- OUTSIDE RECORDS SUMMARY | 2024-08-10 15:54 | XMS_ITS | Encounter Summary ---
Author Organization [employer] Address 75 [facility] 7t [place] [address] Care Team Providers Care Warp Dyeing Vat Tender Name Role Phone Chioma Connelly MD Primary Care Provider [phone] Encounter Details Date Type Department Care Team (Late st Contact Info) Description 07/03/2024 Orders Only [facility] [address] [place], [place] [phone] Chioma Connelly MD [address] [place], [place] [phone] Class 2 severe obesity with serious comorbidity [...] documented as of this encounter Care Teams Warp Dyeing Vat Tender Relationship Specialty Start Date End Date Chioma Connelly MD [address] [place] [address] PCP - General Family Medicine 05/12/24 documented as of this encounter
--- OUTSIDE RECORDS SUMMARY | 2024-08-10 15:54 | XMS_ITS | Clinical Summary ---
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 Family History Medical History Relation Name Comments [...]
--- OUTSIDE RECORDS SUMMARY | 2024-08-10 15:54 | XMS_ITS | Encounter Summary ---
Author Organization [employer] Address 75 [facility] 7t [place] [address] Care Team Providers Care Police Service Technician Name Role Phone Chioma Connelly MD Primary Care Provider [phone] Reason for Visit * Reason Comments UTI Encounter Details Date Type Department Care Team ([facility] st Contact Info) Description 07/31/2024 9:40 AM EST Office Visit [facility] [address] [place] [address] [phone] Shamika Guillen MD [address] [place] [phone] Acute cystitis with hematuria (Primary Dx); Dysuria [...] MD - 07/31/2024 9:40 AM EST SUBJECTIVE: Mrani Hernandez is a 34 y.o. 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 [...] EST 07/31/2024 1:26 PM EST Comment:UACC Narrative [facility] - 08/03/2024 7:56 AM EST Escherichia coli Quant 10,000 to 50,000 cfu/mL Escherichia coli: Ampicillin <=2(S) Escherichia coli: Cefazolin (Urine) <=1(S) Escherichia coli: Cefepime <=0.12(S) Escherichia coli: Ceftriaxone <=0.25(S) Escherichia coli: Ciprofloxacin <=0.06(S) Escherichia coli: Gentamicin <=1(S) Escherichia coli: Nitrofurantoin <=16(S) Escherichia coli: Trimethoprim/Sulfamethoxazole <=20(S) Specimen Source: Urine clean catch Shamika Guillen MD LAB MICROBIOLOGY - GENER AL ORDERABLES Final Result [facility] [address] [place] [address] [phone] * (ABNORMAL) POCT urinalysis dipstick manually [...] documented as of this encounter Care Teams Police Service Technician Relationship Specialty Start Date End Date Chioma Connelly MD [address] [place] [address] PCP - General Family Medicine 05/12/24 documented as of this encounter
[2024-08-11 21:13] LABS: Antibody to SS-A Antigen >8.0 POS AI (<1.0 NEG); Antibody to SS-B Antigen <1.0 NEG AI (<1.0 NEG); Cardiolipin IgG Ab <2.0 GPL-U/mL; Cardiolipin IgM Ab <2.0 MPL-U/mL
[2024-08-11 22:54] LABS: Prot Elec - Albumin 3.8 g/dL (3.8-4.8); Prot Elec - Alpha1 0.3 g/dL (0.2-0.3); Prot Elec - Alpha2 0.6 g/dL (0.5-0.9); Prot Elec - Beta 1 0.4 g/dL (0.4-0.6); Prot Elec - Beta 2 0.2 g/dL (0.2-0.5); Prot Elec - Gamma 1.3 g/dL (0.8-1.7); Prot Elec - Total Protein 6.6 g/dL (6.1-8.1)
[2024-08-13 22:33] LABS: Beta-2 Glycoprotein IgA <2.0 U/mL (<20.0); Beta-2 Glycoprotein IgG <2.0 U/mL (<20.0); Beta-2 Glycoprotein IgM <2.0 U/mL (<20.0)
[2024-08-14 01:23] LABS: IgA 183 mg/dL (47-310); IgG 1571 mg/dL (600-1640); IgM 60 mg/dL (50-300)
[2024-08-17 09:04] LABS: PTT (LAC) Screen 32 sec (<=40)
== END 2024-08-10 14:43 | disposition home or self-care (01) ==
LOC: HO.LAB 14:42
PROVIDERS: PCP General Practice; Visit Provider Internal Medicine Rheumatology
DX: L98.9 Disorder of the skin and subcutaneous tissue, unspecified (principal); M32.9 Systemic lupus erythematosus, unspecified; D64.9 Anemia, unspecified
CPT/HCPCS: 36415; 82247; 82248; 82784; 83010; 83615; 84165; 85597; 85598; 85613; 85730; 86146; 86147; 86235; 86334; 86431; 86880

== ENCOUNTER 2024-08-14 10:12 | Outpatient (REF) | payer BC, SELFPAY ==
[2024-08-14 11:15] LABS: Appearance Urine Clear; Color Urine Yellow; Glucose Urine UA Negative (Negative); Leukocyte Esterase Urine Negative (Negative); Nitrite Urine Negative (Negative); Specific Gravity - Urine 1.025 (1.005-1.025); Urine Blood Negative (Negative); Urine Ketones Negative (Negative); Urine Protein Trace mg/dL (Neg-Trace)
[2024-08-14 11:18] LABS: Bacteria Urine None Seen (None Seen); Hyaline Casts Urine 0-2 /LPF (0-2); RBC Urine 0-2 /HPF (0-2); Squamous Epithelial Cell Urine 0-2 /HPF (0-2); WBC Urine 0-5 /HPF (0-5)
--- OUTSIDE RECORDS SUMMARY | 2024-08-14 11:25 | XMS_ITS | Encounter Summary ---
Author Organization [employer] Address 75 [facility] 7t [place] [address] Care Team Providers Care Religious Education Director Name Role Phone Chioma Connelly MD Primary Care Provider [phone] Encounter Details Date Type Department Care Team (Late st Contact Info) Description 07/03/2024 Orders Only [facility] [address] [place], [place] [phone] Chioma Connelly MD [address] [place], [place] [phone] Class 2 severe obesity with serious comorbidity [...] documented as of this encounter Care Teams Religious Education Director Relationship Specialty Start Date End Date Chioma Connelly MD [address] [place] [address] PCP - General Family Medicine 05/12/24 documented as of this encounter
--- OUTSIDE RECORDS SUMMARY | 2024-08-14 11:25 | XMS_ITS | Encounter Summary ---
Author Organization [employer] Address 75 [facility] 7t [place] [address] Care Team Providers Care Color Paste Mixer Name Role Phone Chioma Connelly MD Primary Care Provider [phone] Reason for Visit * Reason Onset Date Comments chart prep 07/20/2024 Encounter Details Date Type Department Care Team ([facility] st Contact Info) Description 07/20/2024 Telephone [facility] [address] [place], [place] [phone] Chioma Connelly MD [address] [place], [place] [phone] chart prep Social History Tobacco Use Types [...] is your housing situation today? I have valentnio kaplan 05/12/[address] you [...] documented as of this encounter Care Teams Color Paste Mixer Relationship Specialty Start Date End Date Chioma Connelly MD [address] [place] [address] PCP - General Family Medicine 05/12/24 documented as of this encounter
--- OUTSIDE RECORDS SUMMARY | 2024-08-14 11:25 | XMS_ITS | Encounter Summary ---
Author Organization [employer] Address 75 [facility] 7t [place] [address] Care Team Providers Care Farmworker Dairy Name Role Phone Chioma Connelly MD Primary Care Provider [phone] Encounter Details Date Type Department Care Team [...] documented as of this encounter Care Teams Farmworker Dairy Relationship Specialty Start Date End Date Chioma Connelly MD [address] [place] [address] PCP - General Family Medicine 05/12/24 documented as of this encounter
--- OUTSIDE RECORDS SUMMARY | 2024-08-14 11:25 | XMS_ITS | Clinical Summary ---
Author Organization [facility] Address [address] [place] [address] Care Team Providers Care Concrete Paver Name Role Phone Janie Pulliam MD Primary Care Provider [phone] Allergies No known active allergies Medications etonogestrel-eluti [...] infection 09/13/2020 Overview (06/11/2024): Tested positive 09/13/20at [facility] pharmacy. 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 Immunizations Name Administration Dates Next Due Influenza [...] HISTORICAL OTHER SURGICAL HISTORY 03/25/2015 Left PROCEDURE: CO RENAL BIOPSY SURG EXPOSURE KIDNEY; COMMENT: lupus nephritis, membranous type, ISN/RPS class V; chronic changes of parenchyma (done at [facility]) SECTION 2017 PROCEDURE: HISTORICAL DELIVERY ESOPHAGOGASTRODUODENOSCOPY 03/12/2021 PROCEDURE: CO EGD TRANSORAL BIOPSY SINGLE/MULTIPLE; COMMENT: biopsy shows [...] RESULTING AGENCY - 05/09/2021 3:21 PM EST [id number] THINPREP PAP, IMAGED: NEGATIVE FOR SQUAMOUS INTRAEPITHELIAL [...] AGENCY * HIV Screening (09/20/2017) Pathologist [facility] HIV Screening ABSTRACTED Historical Provider HEALTH MAINTENANCE Final Result * Hepatitis C Screening (09/20/2017) Hepatitis C Screening ABSTRACTED us Historical Provider HEALTH MAINTENANCE Final Result from Last 3 Months or Most Recently Relevant to Health Maintenance Care Teams Concrete Paver Relationship Specialty Start Date End Date Janie Pulliam MD PCP - General Internal Medicine 01/26/22
--- OUTSIDE RECORDS SUMMARY | 2024-08-14 11:25 | XMS_ITS | Encounter Summary ---
Author Organization [employer] Address 75 [facility] 7t [place] [address] Care Team Providers Care Submarine Cable Equipment Technician Name Role Phone Chioma Connelly MD Primary Care Provider Encounter Details Date Type Department Care Team [...] documented as of this encounter Care Teams Submarine Cable Equipment Technician Relationship Specialty Start Date End Date Chioma Connelly MD [address] [place] [address] PCP - General Family Medicine 05/12/24 documented as of this encounter
--- OUTSIDE RECORDS SUMMARY | 2024-08-14 11:25 | XMS_ITS | Encounter Summary ---
Author Organization [employer] Address [address] [facility] [address] 7t [place] [address] Care Team Providers Care Boilermaker Helper Name Role Phone Chioma Connelly MD Primary Care Provider [phone] Encounter Details Date Type Department Care Team (Late st Contact Info) Description 06/13/2024 Orders Only [facility] [address] [place], [place] [phone] Chioma Connelly MD 230 [place], [place] [phone] Need for viral immunization (Primary Dx) Social [...] EST) ~Hepatitis B Surface Antibody NONREACTIVE Nonreactive [facility] Comment:Nonreactive: < 8.00 mIU/mL Blood Venous blood specimen / Unknown 07/04/2024 9:30 AM EST 07/04/2024 11:19 AM EST us Chioma Connelly MD LAB BLOOD ORDERABLES Final Res ult [facility] [address] [place] [phone] [phone] documented in this encounter Visit Diagnoses Diagnosis Need for viral immunization- Primary Need for prophylactic vaccination and inoculation against other viral diseases documented in this encounter Additional Health Concerns Assessment Noted Time PHQ-9 Depression Total Score: 0 05/12/20 9:01 AM EST documented as of this encounter Care Teams Boilermaker Helper Relationship Specialty Start Date End Date Chioma Connelly MD [address] [place] [phone] PCP - General Family Medicine 05/12/24 documented as of this encounter
--- OUTSIDE RECORDS SUMMARY | 2024-08-14 11:25 | XMS_ITS | Encounter Summary ---
Author Organization [employer] Address 75 [facility] 7t [place] [address] Care Team Providers Care Critical Systems Technician Name Role Phone Chioma Connelly MD Primary Care Provider [phone] Reason for Visit * Reason Onset Date Comments Med Refill 07/31/2024 Encounter Details Date Type Department Care Team ([facility] st Contact Info) Description 07/31/2024 Refill [facility] [address] [place], [place] [phone] Chioma Connelly MD [address] [place] [address] Body mass index (BMI) 36.0-36.9, adult Social [...] documented as of this encounter Care Teams Critical Systems Technician Relationship Specialty Start Date End Date Chioma Connelly MD [address] [place] [address] PCP - General Family Medicine 05/12/24 documented as of this encounter
--- OUTSIDE RECORDS SUMMARY | 2024-08-14 11:25 | XMS_ITS | Clinical Summary ---
Author Organization [employer] Address [address] [facility] 7t [place] [address] Care Team Providers Care Sales Representative Health Insurance Name Role Phone Chioma Connelly MD Primary Care Provider [phone] Allergies No known active allergies Medications Omeprazole [...] infection 09/13/2020 Overview (05/14/2024): Tested positive 09/13/20at [facility] pharmacy. 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 Resolved Problems Problem Noted Date Diagnosed Date Resolved Date Other forms of systemic lupus erythematosus 05/14/2024 05/14/2024 Raynaud's disease 08/15/2023 05/14/2024 Encounters Date Type Department Care Team Description 08/10/2024 Orders Only GENERIC EXTERNAL DATA DEPARTMENT Provider, Generic External Data 07/31/2024 9:40 AM EST Office Visit [facility] [address] [place] [address] Shamika Guillen MD Acute cystitis with hematuria (Primary Dx); Dysuria 07/31/2024 Refill [facility] MED[facility] [address] [place] [address] Chioma Connelly MD Body mass index (BMI) 36.0-36.9, adult 07/21/2024 9:45 AM EST Office Visit [address] [address] Chioma Connelly MD Raynaud's phenomenon without gangrene (Primary Dx); Encounter for immunization; Body mass index (BMI) 36.0-36.9, adult; Dietary counseling; Exercise counseling; Lupus nephritis, ISN/RPS class V ([facility]/HCC); Pulmonary nodules/lesions, multiple; 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, unspecified SLE type (CMS/HCC) 07/21/2024 Travel 07/20/[address] [address] Chioma Connelly MD chart prep 07/19/2024 Travel 07/11/2024 Patient Outreach [address] [address] Chioma Connelly MD Pre-visit Planning (SDOH screening negative and tobacco screening negative) 07/03/2024 Orders Only [address] [address] Chioma Connelly MD Class 2 severe obesity with serious comorbidity and body mass index (BMI) of 37.0 to 37.9 in adult, unspecified obesity type ([facility]/HCC) (Primary Dx) 06/13/[address] [address] Cris Campa [place] Lab Orders 06/13/2024 Orders Only [address] [address] Chioma Connelly MD Need for viral immunization (Primary Dx) 06/12/[address] [address] Cris Camp[place] Appointment Request from Last 3 Months Immunizations Name Administration [...] Procedure Name Priority Date/Time Associated Diagnosis Comments IMMUNOFIXATION, SERUM Routine 08/10/2024 3:02 PM EST EVPS-9-COLADDEVNZYZ I ANTIBODIES (IGG, IGA, IGM) Routine 08/10/2024 3:02 PM EST PROTEIN, TOTAL AND PROTEIN ELECTROPHORESIS Routine 08/10/2024 3:02 PM EST SJOGREN'S ANTIBODIES (SS-A,SS-B) Routine 08/10/2024 3:02 PM EST CARDIOLIPIN AB (IGA,IGG,IGM) Routine 08/10/2024 3:02 PM EST DIRECT ANTIGLOBULIN TEST (TEREZA) Routine 08/10/2024 3:02 PM EST RHEUMATOID FACTOR Routine 08/10/2024 3:0 2 PM EST HAPTOGLOBIN Routine 08/10/2024 3:02 PM EST LD Routine 08/10/2024 3:02 PM EST BILIRUBIN, DIRECT Routine 08/10/2024 3:0 2 PM EST BILIRUBIN, TOTAL Routine 08/10/2024 3:02 PM EST POCT , URINE Routine 07/31/2024 9:28 AM EST Dysuria POCT URINALYSIS DIPSTICK Routine 07/31/2024 9:26 AM EST Dysuria CULTURE, URINE, ROUTINE Routine 07/31/19 9:26 AM EST Dysuria HEPATITIS B SURFACE ANTIBODY, QUALITATIVE Routine 07/04/2024 9:30 AM EST Need for viral immunization from Last 3 Months Results * Nsvr-3-Rbdetcgryati I Antibodies (IgG, IgA, IgM) (08/10/2024 3:02 PM EST) B2 Glycoprotein I IgG Antibody <2.0 <20.0 U/mL [facility] Comment:Value Interpretation ----- < 20.0 Antibody not detected> or = 20.0 Antibody detected B2 Glycoprotein I IgM Antibody <2.0 <20.0 U/mL [facility] Comment:Value Interpretation ----- < 20.0 Antibody not detected> or = 20.0 Antibody detected B2 Glycoprotein I IgA Antibody <2.0 <20.0 U/mL [facility] Comment: Value ?Interpretation----- ? < 20.0 ? Antibody not detected> or = 20.0 ?Antibody detectedThe antiphospholipid antibody syndrome (APS) is aclinical-pathologic correlation that includes aclinical event (e.g. arterial or venous thrombosis, morbidity) and persistent positiveantiphospholipid antibodies (IgM, IgG Cardiolipin hzb9PQL antibodies greater than the 99th percentile;or a lupus anticoagulant). International consensusguidelines for APS suggest waiting at least 12 weeksbefore retesting to confirm antibody persistence.The Systemic Lupus International Collaborating Clinicsimmunological classification criteria for systemiclupus erythematosus (SLE) include testing forisotype IgA, which has yet to be incorporated intoAPS criteria. Low level antiphospholipid antibodiesmay sometimes be detected in the setting of infection,drug therapy or aging.For additional information, please refer tohttp://education.PixelSteam/faq/MXR783(This link is being provided for informational/educational purposes only.)THIS TEST WAS PERFORMED AT:[facility] [id number] [place], [place] ??[id number] MARTIN MD,PHD 08/10/2024 3:02 PM EST 08/10/2024 3:02 PM EST us Generic External Data Provider LAB BLOOD ORDERAB LES Final Result Performing Organization Address City/State/[facility] Co de Phone Number [facility] [address] [place] [phone] * Cardiolipin Antibodies (IgA,IgG,IgM) (08/10/2024 3:02 PM EST) Cardiolipin Antibody (IgG) <2.0 GPL-U/mL [facility] Comment:Value Interpretation ----- < 20.0 Antibody not detected> or = 20.0 Antibody detected Cardiolipin Antibody (IgM) <2.0 MPL-U/mL [facility] Comment: Value ?Interpretation----- ? < 20.0 ? Antibody not detected> or = 20.0 ?Antibody detectedThe antiphospholipid antibody syndrome (APS) is aclinical-pathologic correlation that includes aclinical event (e.g. arterial or venous thrombosis, morbidity) and persistent positiveantiphospholipid antibodies (IgM, IgG Cardiolipin gwv0VBR antibodies greater than the 99th percentile; ora lupus anticoagulant). International consensusguidelines for APS suggest waiting at least 12 weeksbefore retesting to confirm antibody persistence.The Systemic Lupus International CollaboratingClinics immunological classification criteria forsystemic lupus erythematosus (SLE) include testing forisotype IgA, which has yet to be incorporated intoAPS criteria. Low level antiphospholipid antibodiesmay sometimes be detected in the setting of infection,drug therapy or aging.For additional information, please refer tohttp://education.PixelSteam/faq/OKJ766(This link is being provided for informational/educational purposes only.)THIS TEST WAS PERFORMED AT:[facility] [address] ??[phone]JAYLA LEES MD 08/10/2024 3:02 PM EST 08/10/2024 3:02 PM EST us Generic External Data Provider LAB BLOOD ORDERAB LES Final Result Performing Organization Address [facility] Co de Phone Number [facility] [address] [place] [phone] * Direct Antiglobulin Test (TEREZA) (08/10/2024 3:02 PM EST) TEREZA Result Polyspecific NEGATIVE [facility] TEREZA Result Comment TNP [facility] Comment:TEST NOT INDICATED 08/10/2024 3:02 PM EST 08/10/2024 3:02 PM EST Generic External Data Provider LAB BLOOD ORDERAB LES Final Result Performing Organization Address [facility] de Phone Number [facility] [address] [place] [phone] * Rheumatoid Factor (08/10/2024 3:02 PM EST) Rheumatoid Factor <13.0 <15.0 IU/mL [facility] 08/10/2024 3:02 PM EST 08/10/2024 3:02 PM EST Generic External Data Provider LAB BLOOD ORDERAB LES Final Result Performing Organization Address [facility] Co de Phone Number [facility] [address] [place] [phone] * Lactate Dehydrogenase (LD) (08/10/2024 3:02 PM EST) Lactate Dehydrogenase 182 122 - 220 U/L [facility] 08/10/2024 3:02 PM EST 08/10/2024 3:02 PM EST Generic External Data Provider LAB BLOOD ORDERAB LES Final Result Performing Organization Address City/[facility]/ZIP Co de Phone Number [facility] [address] [place] [phone] * Haptoglobin (08/10/2024 3:02 PM EST) Haptoglobin 147 35 - 250 mg/dL [facility] 08/10/2024 3:02 PM EST 08/10/2024 3:02 PM EST us Generic External Data Provider LAB BLOOD ORDERAB LES Final Result Performing Organization Address [facility] Co de Phone Number [facility] [address] [place] [phone] * Bilirubin, Direct (08/10/2024 3:02 PM EST) Bilirubin, Direct 0.1 0.0 - 0.5 mg/dL [facility] 08/10/2024 3:02 PM EST 08/10/2024 3:02 PM EST Generic External Data Provider LAB BLOOD ORDERAB LES Final Result Performing Organization Address [facility] Co de Phone Number [facility] [address] [place] [phone] * Bilirubin, Total (08/10/2024 3:02 PM EST) Bilirubin, Total 0.3 0.0 - 1.0 mg/dL [facility] 08/10/2024 3:02 PM EST 08/10/2024 3:02 PM EST Generic External Data Provider LAB BLOOD ORDERAB LES Final Result [facility] [address] [place] [phone] * POCT , urine manually resulted [...] EST 07/31/2024 1:26 PM EST Comment:UACC Narrative [facility] - 08/03/2024 7:56 AM EST Escherichia [...] AL ORDERABLES Final Result Performing Organization Address [facility] Co de Phone Number [facility] [address] [place] [phone] * Hepatitis B Surface Antibody, Qualitative (07/04/2024 9:30 AM EST) ~Hepatitis B Surface Antibody NONREACTIVE Nonreactive [facility] Comment:Nonreactive: < 8.00 mIU/mL Blood Venous blood specimen / Unknown 07/04/2024 9:30 AM EST 07/04/2024 11:19 AM EST us Chioma Connelly MD LAB BLOOD ORDERABLES Final Res ult Performing Organization Address [facility] de Phone Number [facility] [address] [place] [phone] from Last 3 Months Insurance [facility] PPO Care Teams Sales Representative Health Insurance Relationship Specialty Start Date End Date Chioma Connelly MD [address] [place] [phone] PCP - General Family Medicine 05/12/24
--- OUTSIDE RECORDS SUMMARY | 2024-08-14 11:25 | XMS_ITS | Encounter Summary ---
Author Organization [employer] Address [address] [facility] [address] [place] [address] Care Team Providers Care Warp Changer Name Role Phone Chioma Connelly MD Primary Care Provider [phone] Reason for Visit * Reason Comments UTI Encounter Details Date Type Department Care Team ([facility] st Contact Info) Description 07/31/2024 9:40 AM EST Office Visit [facility] [address] [place] [phone] Shamika Guillen MD [address] [place] [phone] Acute cystitis with hematuria (Primary Dx); Dysuria [...] AMAB partner, 2 kids 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 Works 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, 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 [...] * Assessment & Plan Note - Shamika Guillne MD - 07/31/2024 12:05 PM EST Associated [...] EST 07/31/2024 1:26 PM EST Comment:UACC Narrative [facility] - 08/03/2024 7:56 AM EST Escherichia coli Quant 10,000 to 50,000 cfu/mL Escherichia coli: Ampicillin <=2(S) Escherichia coli: Cefazolin (Urine) <=1(S) Escherichia coli: Cefepime <=0.12(S) Escherichia coli: Ceftriaxone <=0.25(S) Escherichia coli: Ciprofloxacin <=0.06(S) Escherichia coli: Gentamicin <=1(S) Escherichia coli: Nitrofurantoin <=16(S) Escherichia coli: Trimethoprim/Sulfamethoxazole <=20(S) Specimen Source: Urine clean catch Shamika Guillen MD LAB MICROBIOLOGY - GENER AL ORDERABLES Final Result [facility] [address] [place] [address] [phone] * (ABNORMAL) POCT urinalysis dipstick manually [...] as of this encounter Care Teams Warp Changer Relationship Specialty Start Date End Date Chioma Connelly MD [address] [place] [address] PCP - General Family Medicine 05/12/24 documented as of this encounter
--- OUTSIDE RECORDS SUMMARY | 2024-08-14 11:25 | XMS_ITS | Data Portability ---
Author Organization RAYMOND Whittaker [facility], [address] Address [address] [place] [address] Assessment No assessment recorded. Plan of Treatment Reminders Order Date Submit Date Provider Last Modified By Organization Details Last Modified Time Details Appointments None recorded. Lab rapid flu (A+B) 2023 024 [email or web address] [address], [address] [place], [address], 4 10:08:03 SARS CoV 2 (COVID-19) Ag, QL, IA, upper respiratory specimen 2023 024 [email or web address] [address], [address] [place], [address], 4 10:08:02 rapid strep group A, throat 2022 023 [email or web address] [address], [address] [place], [address], 3 10:04:56 streptococc us group A, culture, throat 2022 023 [facility], [address] [place] [address], [place], [address], 3 10:06:02 Referral None recorded. Procedures None recorded. Surgeries None recorded. Imaging None recorded. Medication Orders polymyxin B sulfate 10,000 unit-trimet hoprim 1 mg/mL eye drops 2022 023 [facility] #[id number], [address] [place], [address], 4 09:07:51 fexofenadin e-pseudoeph edrine ER 180 mg-240 mg tablet,ext. release 24 hr 2022 023 [facility][id number], [address] [place], [address], 4 09:08:10 prednisone 20 mg tablet 2022 023 [id number], [address] [place], [address], 4 09:07:47 Patient TargetsNo targets recorded. Patient Instructions Encounter Date Encounter Id Patient Instructions Last Modified By Organization Details Last Modified Time 07/24/2022 [id number] sore throat: car e instructions [email or web address] Not [...] . [email or web address] Not available 07/24/2022 10:03:45 08/15/2023 [id number] upper respirator y infection (cold): care instructions [...] Range : Negat ricardo Not Available [facility] ([facility]) [address] [place], [address], 07/27/2022 10:06:02 07/24/19 23 07/24/2022 rapid strep group A, throa t Unknown Analyte Normal = Negati ve Not Available [facility] [address] [place], [address], 07/24/2022 09:35:00 07/24/19 23 07/24/2022 rapid strep group A, throa t Unknown Analyte negati ve Not Available [facility] [address] [place], [address], 07/24/2022 09:35:00 08/15/19 24 08/15/2023 SARS CoV 2 (COVI D-19) Ag, QL, IA, upper respi rator y speci men Unknown Analyte negati ve Not Available [facility] [address] [place], [address], 08/15/2023 09:34:18 08/15/19 24 08/15/2023 SARS CoV 2 (COVI D-19) Ag, QL, IA, upper respi rator y speci men Unknown Analyte negati ve Not Available [facility] [address] [place], [address], 08/15/2023 09:34:18 08/15/19 24 08/15/2023 SARS CoV 2 (COVI D-19) Ag, QL, IA, upper respi rator y speci men Unknown Analyte yes Not Available [facility] [address] [place], [address], 08/15/2023 09:34:18 08/15/19 24 08/15/2023 rapid flu (A+B) Unknown Analyte negati ve Not Available [facility] [address] [place], [address], 08/15/2023 09:33:44 08/15/19 24 08/15/2023 rapid flu (A+B) Unknown Analyte negati ve Not Available [facility] [address] [place], [address], 08/15/2023 09:33:44 08/15/19 24 08/15/2023 rapid flu (A+B) Unknown Analyte negati ve Not Available [address] [place], [address], 08/15/2023 09:33:44 08/15/19 24 08/15/2023 rapid flu (A+B) Unknown Analyte yes Not Available [facility] [address] [place], [address], 08/15/2023 09:33:44 Result Notes None recorded. Problems Name Problem SNOMED Code Status Onset Date Resolution Date Notes Provider Name and Address Organization Details Recorded Time Raynaud's disease 456131308 Active 2023 RAYMOND Pettit [facility] 4 09:08:49 Lupus erythematosus 516640038 Active 2022 DEVANG merritt PA [facility] [facility] 3 09:37:23 Gastroesophag eal reflux disease 458932998 Active 2022 DEVANG merritt PA - [facility] [...] Updated DateTime 4 162.56 cm 36.9 kg/m2 13892.3 6 g 6 18 /min 98.1 [degF] [...] Updated DateTime 3 162.56 cm 36.9 kg/m2 97358.3 6 g 99 % 99 % 83 /min 16 /min 98.1 [degF] 5 118 mm[Hg] 82 mm[Hg] DEVANG KHOI PA - [facility] 09:36:06 Social History Question Answer Notes [...] SNOMED-CT Code Diagnosis ICD10 Code Diagnosis Note [id number] [address] [place] [address] 12/20/2020 15:53:04 12/20/2020 19:11:57 [id number] [address] [place] [address] 12/12/2021 08:51:04 12/12/2021 16:06:55 [id number] [address] [place] [address] 01/14/2022 11:38:31 01/14/2022 11:58:35 [id number] Harish Lemos, [employer] SLIP COVER INSTALLER [address] [place] [address] 07/24/2022 08:37:38 07/24/2022 10:08:18 Pharyngitis 888668186 J02.9 Acute sinusitis 93410675 J01.90 Acute conj unctivitis of bilateral eyes 4931552882 45797 H10.33 [id number] RAYMOND Stoll [address] [place] [address] 08/15/2023 08:44:09 08/15/2023 10:08:54 Acute pharyngitis 060611396 J02.9 Upper resp iratory infection 13507396 J06.9 Health Concerns Section Related Observation LastModified by Organization Detai ls LastModified Time None Recorded Concern Status LastModified by Organization Details LastModified Time None Recorded Advance Directives Directive None Recorded Payers Encounter Date Sequence Insurance Name Policy Number Policy Schaefer Covered Member ID Schaefer Member ID Guarantor Name 12/20/2020 1 [facility] [id number] Marni Hernandez [id number] Marni Hernandez 12/12/2021 1 [facility] [id number] Marni Hernandez [id number] Marni Hernandez 07/24/2022 1 [facility] [id number] Marni Hernandez [id number] Marni Hernandez 08/15/2023 1 [id number] Marni Hernandez [id number] Marni Hernandez Notes Date Note Type Note [...] or respiratory distress. Harish Lemos NP [address] [place], [address], [place] 07/24/2022 10:05:28 08/15/19 24 text/htm l CongestionReported bypatient.Quality:pressure; ache Severity:moderate Duration:3 days Context:states get sinus infection 2-3 times per year Aggravating Factors:none Alleviating Factors:none Associated Symptoms:no fever; no chills; no hemoptysis; no shortness of breath;cough; sore throat RAYMOND Mercado [address] [place], [address], [employer] 08/15/2023 10:08:22 OBGyn Episode No OBEpisode recorded.
--- OUTSIDE RECORDS SUMMARY | 2024-08-14 11:25 | XMS_ITS | Encounter Summary ---
Author Organization [employer] Address [address] [facility] [address]t [place] [address] Care Team Providers Care Home Health Physical Therapist Name Role Phone Chioma Connelly MD Primary Care Provider [phone] Reason for Visit * Reason Comments Follow-up Encounter Details Date Type Department Care Team (Latest Contact Info) Description 07/21/2024 9:45 AM EST Office Visit [facility] [address] [place], [place] [phone] Chioma Connelly MD [address] [place], [place] [phone] Raynaud's phenomenon without gangrene (Primary Dx); Encounter [...] the past 12 months, has t he [employer], gas, oil or water [employer] threatened to shut off services in your [...] B, Flu, PCV20, Td Interim Updates: SLE Basketball Assembler is Dr. 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 Body mass index (BMI) 36.0-36.9, adult Relevant [...] before breakfast., Disp: 90 capsule, Rfl: 0 Cuban Translation: Patient is bilingual and declines translation [...] documented as of this encounter Care Teams Home Health Physical Therapist Relationship Specialty Start Date End Date Chioma Connelly MD [address] [place] [address] PCP - General Family Medicine 05/12/24 documented as of this encounter
--- OUTSIDE RECORDS SUMMARY | 2024-08-14 11:25 | XMS_ITS | Encounter Summary ---
Author Organization [facility] Address [address] [facility] 7[address] [place] [address] Care Team Providers Care Pneumatic Drum Sander Name Role Phone Chioma Connelly MD Primary Care Provider [phone] Encounter Details Date Type Department Care Team (Late st Contact Info) Description 08/10/2024 Orders Only GENERIC EXTERNAL DATA DEPARTMENT Provider, Generic External Data Social History Tobacco Use Types Packs/Day Years [...] as of this encounter Plan of Treatment Pending Results Name Type Priority Associated Diagnoses Date /Time Sjogren's Antibodies (SS-A,SS-B) Lab Routine 08/10/2024 3:02 PM EST Protein, Total and Protein??Electrophoresis Lab Routine 025 3:02 PM EST Immunofixation, Serum Lab Routine 3:02 PM EST documented as of this encounter Procedures Procedure Name Priority Date/Time Associated Diagnosis Comments [id number] I ANTIBODIES (IGG, IGA, IGM) Routine 08/10/2024 3:02 PM EST SJOGREN'S ANTIBODIES (SS-A,SS-B) Routine 08/10/2024 3:02 PM EST CARDIOLIPIN AB (IGA,IGG,IGM) Routine 08/10/2024 3:02 PM EST DIRECT ANTIGLOBULIN TEST (TEREZA) Routine 08/10/2024 3:02 PM EST RHEUMATOID FACTOR Routine 08/10/2024 3:0 2 PM EST IMMUNOFIXATION, SERUM Routine 08/10/2024 3:02 PM EST PROTEIN, TOTAL AND PROTEIN ELECTROPHORESIS Routine 08/10/2024 3:02 PM EST LD Routine 08/10/2024 3:02 PM EST HAPTOGLOBIN Routine 08/10/2024 3:02 PM EST BILIRUBIN, DIRECT Routine 08/10/2024 3:0 2 PM EST BILIRUBIN, TOTAL Routine 08/10/2024 3:02 PM EST documented in this encounter Results * Rnhj-9-Nxieqlhtmebh I Antibodies (IgG, IgA, IgM) (08/10/2024 3:02 PM EST) B2 Glycoprotein I IgG Antibody <2.0 <20.0 U/mL [facility] Comment:Value Interpretation ----- < 20.0 Antibody not detected> or = 20.0 Antibody detected B2 Glycoprotein I IgM Antibody <2.0 <20.0 U/mL [facility] Comment:Value Interpretation ----- < 20.0 Antibody not detected> or = 20.0 Antibody detected B2 Glycoprotein I IgA Antibody <2.0 <20.0 U/mL [facility] Comment: Value ?Interpretation----- ? < 20.0 ? Antibody not detected> or = 20.0 ?Antibody detectedThe antiphospholipid antibody syndrome (APS) is aclinical-pathologic correlation that includes aclinical event (e.g. arterial or venous thrombosis, morbidity) and persistent positiveantiphospholipid antibodies (IgM, IgG Cardiolipin znh4UGI antibodies greater than the 99th percentile;or a [...] therapy or aging.For additional information, please refer tohttp://education.[employer]/faq/OEG650(This link is being provided for informational/educational purposes only.)THIS TEST WAS PERFORMED AT:[employer] [id number] [place], [place] ??[id number] W. MASON,MD,PHD 08/10/2024 3:02 PM EST 08/10/2024 3:02 PM EST us Generic External Data Provider LAB BLOOD ORDERAB LES Final Result [facility] [address] [place] [address] [phone] * Cardiolipin Antibodies (IgA,IgG,IgM) (08/10/2024 3:02 PM EST) Cardiolipin Antibody (IgG) <2.0 GPL-U/mL [facility] Comment:Value Interpretation ----- < 20.0 Antibody not detected> or = 20.0 Antibody detected Cardiolipin Antibody (IgM) <2.0 MPL-U/mL [facility] Comment: Value ?Interpretation----- ? < 20.0 ? Antibody not detected> or = 20.0 ?Antibody detectedThe antiphospholipid antibody syndrome (APS) is aclinical-pathologic correlation that includes aclinical event (e.g. arterial or venous thrombosis, morbidity) and persistent positiveantiphospholipid antibodies (IgM, IgG Cardiolipin nah0MBE antibodies greater than the 99th percentile; ora [...] therapy or aging.For additional information, please refer tohttp://education.[employer]/faq/WLB584(This link is being provided for informational/educational purposes only.)THIS TEST WAS PERFORMED AT:[employer] [place] [address] ??[id number] LEES MD 08/10/2024 3:02 PM EST 08/10/2024 3:02 PM EST us Generic External Data Provider LAB BLOOD ORDERAB LES Final Result Performing Organization Address [facility] de Phone Number [facility] [address] [place] [phone] * Direct Antiglobulin Test (TEREZA) (08/10/2024 3:02 PM EST) TEREAZ Result Polyspecific NEGATIVE [facility] TEREZA Result Comment TNP [facility] Comment:TEST NOT INDICATED 08/10/2024 3:02 PM EST 08/10/2024 3:02 PM EST us Generic External Data Provider LAB BLOOD ORDERAB LES Final Result Performing Organization Address [facility] Phone Number [facility] [address] [place] [phone] * Rheumatoid Factor (08/10/2024 3:02 PM EST) Rheumatoid Factor <13.0 <15.0 IU/mL [facility] 08/10/2024 3:02 PM EST 08/10/2024 3:02 PM EST us Generic External Data Provider LAB BLOOD ORDERAB LES Final Result Performing Organization Address [facility] de Phone Number [facility] [address] [place] [phone] * Haptoglobin (08/10/2024 3:02 PM EST) Haptoglobin 147 35 - 250 mg/dL [facility] 08/10/2024 3:02 PM EST 08/10/2024 3:02 PM EST Generic External Data Provider LAB BLOOD ORDERAB LES Final Result Performing Organization Address [facility]/ZIP Co de Phone Number [facility] [address] [place] [phone] * Lactate Dehydrogenase (LD) (08/10/2024 3:02 PM EST) Lactate Dehydrogenase 182 122 - 220 U/L [facility] 08/10/2024 3:02 PM EST 08/10/2024 3:02 PM EST us Generic External Data Provider LAB BLOOD ORDERAB LES Final Result Performing Organization Address [facility] Co de Phone Number [facility] [address] [place] [phone] * Bilirubin, Direct (08/10/2024 3:02 PM EST) Bilirubin, Direct 0.1 0.0 - 0.5 mg/dL [facility] 08/10/2024 3:02 PM EST 08/10/2024 3:02 PM EST us Generic External Data Provider LAB BLOOD ORDERAB LES Final Result Performing Organization Address [facility] Co de Phone Number [facility] [address] [place] [phone] * Bilirubin, Total (08/10/2024 3:02 PM EST) Bilirubin, Total 0.3 0.0 - 1.0 mg/dL [facility] 08/10/2024 3:02 PM EST 08/10/2024 3:02 PM EST us Generic External Data Provider LAB BLOOD ORDERAB LES Final Result Performing Organization Address [facility] Co de Phone Number [facility] [address] [place] [phone] documented in this encounter Visit Diagnoses Not on filedocumented in this encounter Additional Health Concerns Assessment Noted Time PHQ-9 Depression Total Score: 0 05/12/20 24 9:01 AM EST documented as of this encounter Care Teams Pneumatic Drum Sander Relationship Specialty Start Date End Date Chioma Connelly MD [address] [place] [address] PCP - General Family Medicine 05/12/24 documented as of this encounter
[2024-08-14 12:25] LABS: Creatinine Urine 187.48 mg/dL; Protein/Creatinine Ratio, Ur 0.05 (<0.2); Total Protein Urine Random 10 mg/dL (<12)
== END 2024-08-14 10:13 | disposition home or self-care (01) ==
LOC: HO.HHCL 10:12
PROVIDERS: Visit Provider Internal Medicine Rheumatology
DX: M32.9 Systemic lupus erythematosus, unspecified (principal); Z79.899 Other long term (current) drug therapy
CPT/HCPCS: 81001; 82570; 84156

== ENCOUNTER 2024-08-19 14:15 | Outpatient (REF) | payer BC, SELFPAY | END 2024-08-19 14:16 | disposition home or self-care (01) | LOC: HO.HHCLNP 14:15 | PROVIDERS: Visit Provider Family Medicine | DX: R30.0 Dysuria (principal) | CPT/HCPCS: 87086 ==

== ENCOUNTER 2024-08-24 09:15 | Outpatient (AMB) | payer BC, SELFPAY ==
--- NOTE | 2024-08-24 09:20 | MHC.OFFVIS ---
Vital Signs 08/24/24 09:22 Height 5 ft 4 in Weight 213 lb BMI 36.6 BP 90/70 Blood Pressure Location Rt brachial Position Sitting Intake Visit Reasons: blood pressure check Intake Note: bp check pt states that since she has been on nefidipine she has had no pain andis doing really good Allergies No Known Allergies Allergy (Verified 08/24/24 09:21) HPI HPI blood pressure check: Details: She saw Dermatology last Wednesday and had biopsy of left thumb lesion palmar aspect. She was prescribed topical steroid. She has been on nifedipine 30 mg ER with benefit. She has been taking hydroxychloroquine 400 mg daily and now 300 mg daily as prescribed. She saw sheet rock finisher/pharmacist critical care yesterday and has an appointment September 01 and another 1 in September for HCQ surveillance exams. Lesions are not as painful and are improving. Physical Exam Vital Signs: Last Vital Signs BP 90/70 08/24/24 09:22 BMI result Body Mass Index 36.6 Const Other: General: Comfortable Skin: She has erythematous flat circles on multiple fingers and tips of toes. She has erythematous lesions on her malar region and along the nasal bridge appear similar to acne. No digital ulcers. Tips of toes have purplish hue. MSK: No tenderness of any joints. No synovitis. Good range of motion of upper extremities and lower extremities. Assessment & Plan Assessment & Plan (1) Systemic lupus erythematosus (SLE) in adult: Comment: Skin lesions of unclear etiology are improving with topical steroid. She has been on nifedipine 30 mg daily XL. Blood pressure today is 90/70 asymptomatic. Laboratory workup has revealed active lupus disease activity (leukopenia, anemia, hypocomplementemia C3, elevated double-stranded DNA and inflammatory markers). Dermatology evaluated patient last Wednesday with biopsy pending. A PS workup negative. Cryoglobulins negative. Positive SSA antibody. No indication of hemolysis present. Differential diagnosis for cutaneous lesions is broad and includes cutaneous vasculitis such as leukocytoclastic vasculitis, chilblains lupus erythematosus (uncommon variant of cutaneous lupus erythematosus), urticaria vasculitis, less likely cutaneous thrombosis and cutaneous manifestation of cold agglutinin disease based on current workup. History: In the last month she has developed painful flat erythematous circles on palmar aspect of fingers and tips of toes of unclear etiology. These lesions occur every winter but not to this extent. These lesions do not represent classic Raynaud's phenomenon, which was discussed with patient. She has not had a recent viral illness to suggest vial related rash but they do appear similar to lesions seen and Coxsackie virus. I will further workup for possibility of small-vessel vasculitis with laboratory workup. Code(s): M32.9 - Systemic lupus erythematosus, unspecified Category: Medical Plan: Continue hydroxychloroquine 400 mg daily. Patient is in the process of having surveillance exam for HCQ ocular toxicity monitoring Discontinue nifedipine Continue to use topical steroid prescribed by Dermatology. I have asked her to have a follow up with Dermatology to aid in management of malar rash. Return to clinic in 2-3 weeks to follow up on biopsy results (2) Skin lesions: Code(s): L98.9 - Disorder of the skin and subcutaneous tissue, unspecified Category: Medical Plan: See above (3) Other detention (current) drug therapy: Code(s): Z79.899 - Other detention (current) drug therapy Category: Medical Plan: See above Plan See above Medications: Changed From hydroxychloroquine (Plaquenil) 300 mg (1.5 x 200 mg) PO DAILY 135 tabs 0RF To hydroxychloroquine (Plaquenil) 400 mg (2 x 200 mg) PO DAILY 180 tabs 1RF 90 days Discontinued nifedipine ER Replace amlodipine Discontinued Reason: Doctor's Order 30 mg PO DAILY 30 tabs 11RF Coding Level of Care Code Est Pt Level 3 (04900) Complex EM visit Add On G2211 Diagnoses Systemic lupus erythematosus (SLE) in adult M32.9 Skin lesions L98.9 Other superintendent container terminal (current) drug therapy Z79.899
[2024-08-24 09:22] VITALS: BP 90/70; BMI 36.6
--- OUTSIDE RECORDS SUMMARY | 2024-08-24 10:16 | XMS_ITS | Encounter Summary ---
Author Organization [facility] Address [address] [place] [address] Care Team Providers Care Baker Name Role Phone Name, Rony NIXON Primary Care Provider Valeriano Laboy MD Primary Care Provider [phone] Janie Pulliam MD Primary Care Provider [phone] Encounter Details Date Type Department Care Team Description 01/24/2015 Telephone Adult Medicine [address] [address] Name, MD Rony Social History Tobacco Use Types Packs/Day Years Used Date Smoking Tobacco: Never Alcohol Use Standard Drinks/Week Comments Not Asked 0 (1 standard drink = 0.6 oz pur e alcohol) Sex Assigned at Date Recorded Female 05/14/2019 10:11 PM EST Job Start Date Occupation Industry Not on file Not on file Not on file documented as of this encounter Miscellaneous Notes * Telephone Encounter - Jocelyne Campa L.P.N. - 01/24/2015 1:37 PM EDT Message left for patient to return my call. [phone] documented in this encounter Plan of Treatment Not on file documented as of this encounter Visit Diagnoses Not on filedocumented in this encounter Care Teams Baker Relationship Specialty Start Date End Date Name, MD Rony PCP - General Internal Medicine 04/08/12 05/05/15 Valeriano Hawk MD [address] [place] [address] PCP - General Internal Medicine 05/06/15 01/25/22 Janie Pulliam MD [address] [place] [address] PCP - General Internal Medicine 01/26/22 documented as of this encounter
--- OUTSIDE RECORDS SUMMARY | 2024-08-24 10:16 | XMS_ITS | Encounter Summary ---
Author Organization [facility] Address [address] [place] [address] Care Team Providers Care Lead Setter Name Role Phone Valeriano Hawk MD Primary Care Provider [phone] Janie Pulliam MD Primary Care Provider [phone] Reason for Visit * Reason Comments E-prescribe Rx Request Encounter Details Date Type Department Care Team Description 12/27/2021 Refill Gastroenterology - [address] [place] [phone] Grant Sánchez PA-C E-prescribe Rx Request Social History Tobacco Use Types Packs/Day Years Used Date Smoking Tobacco: Never Smokeless Tobacco: Never Alcohol Use Standard Drinks/Week Comments Yes 0 (1 standard drink = 0.6 oz pur e alcohol) occasional Sex Assigned at Date Recorded Female 05/14/2019 10:11 PM EST Job Start Date Occupation Industry Not on file Not on file Not on file documented as of this encounter Miscellaneous Notes * Telephone Encounter - Bri Laguna - 12/29/2021 1:37 PM EDT Left message for pt to book a f/u appt. * Telephone Encounter - James Latham PA-C - 12/29/2021 12:53 PM EDT Refilled. Please have pt be seen in office to f/u. documented in this encounter Plan of Treatment Not on file documented as of this encounter Visit Diagnoses Not on filedocumented in this encounter Care Teams Lead Setter Relationship Specialty Start Date End Date Valeriano Hawk MD [address] [place] [phone] PCP - General Internal Medicine 05/06/15 01/25/22 Janie Pulliam MD [address] [place] [phone] PCP - General Internal Medicine 01/26/22 documented as of this encounter
--- OUTSIDE RECORDS SUMMARY | 2024-08-24 10:16 | XMS_ITS | Encounter Summary ---
Author Organization [facility] Address [address] [place] [address] Care Team Providers Care Tank Setter Name Role Phone Valeriano Hawk MD Primary Care Provider [phone] Janie Pulliam MD Primary Care Provider [phone] Encounter Details Date Type Department Care Team Description 05/04/2018 Pt. Non Urgent Medic al Question Rheumatology - [address] [address] Esther Harrington DO Social History Tobacco Use Types Packs/Day Years Used Date Smoking Tobacco: Never Smokeless Tobacco: Never Alcohol Use Standard Drinks/Week Comments Yes 0 (1 standard drink = 0.6 oz pur e alcohol) occasional Sex Assigned at Date Recorded Female 05/14/2019 10:11 PM EST Job Start Date Occupation Industry Not on file Not on file Not on file documented as of this encounter Progress Notes * Nathaly Ford L.P.N. - 05/04/2018 9:43 AM ESTFrom: Marni Schmitz To: Esther Chaidez DO Sent: 05/04/2018 9:40 AM EST Subject: Care after your departure [place] Doctor Dm Whittaker I was wondering if there are any other doctors/facility you could refer me to for care after your departure next month. Thanks! Nimisha documented in this encounter Plan of Treatment Not on file documented as of this encounter Visit Diagnoses Not on filedocumented in this encounter Care Teams Tank Setter Relationship Specialty Start Date End Date Valeriano Hawk MD [address] [place] [phone] PCP - General Internal Medicine 05/06/15 01/25/22 Janie Pulliam MD [address] [place] [phone] PCP - General Internal Medicine 01/26/22 documented as of this encounter
--- OUTSIDE RECORDS SUMMARY | 2024-08-24 10:16 | XMS_ITS | Encounter Summary ---
Author Organization [facility] Address [address] [place] [address] Care Team Providers Care Solar Development Engineer Name Role Phone Valeriano Hawk MD Primary Care Provider [phone] Janie Pulliam MD Primary Care Provider [phone] Encounter Details Date Type Department Care Team Description 07/24/2019 Transfer Records Medical Records [address] [place] [phone] Abstract, Provider Social History Tobacco Use Types Packs/Day Years Used Date Smoking Tobacco: Never Smokeless Tobacco: Never Alcohol Use Standard Drinks/Week Comments Yes 0 (1 standard drink = 0.6 oz pur e alcohol) occasional Sex Assigned at Date Recorded Female 05/14/2019 10:11 PM EST Job Start Date Occupation Industry Not on file Not on file Not on file documented as of this encounter Plan of Treatment Not on file documented as of this encounter Visit Diagnoses Not on filedocumented in this encounter Care Teams Solar Development Engineer Relationship Specialty Start Date End Date Valeriano Hawk MD [address] [place] [phone] PCP - General Internal Medicine 05/06/15 01/25/22 Janie Pulliam MD [address] [place] [phone] PCP - General Internal Medicine 01/26/22 documented as of this encounter
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
--- OUTSIDE RECORDS SUMMARY | 2024-08-24 10:16 | XMS_ITS | Encounter Summary ---
Author Organization [facility] Address [address] [facility] [address] [place] [address] Care Team Providers Care Psychosocial Rehabilitation Counselor Name Role Phone Chioma Connelly MD Primary Care Provider [phone] Reason for Visit * Reason Comments UTI Encounter Details Date Type Department Care Team ([facility] st Contact Info) Description 07/31/2024 9:40 AM EST Office Visit [facility] [address] [place] [address] [phone] Shamika Guillen MD [address] [place] [phone] Acute cystitis with hematuria (Primary Dx); Dysuria [...] AMAB partner, 2 kids 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, then comes [...] EST 07/31/2024 1:26 PM EST Comment:UACC Narrative [facility] - 08/03/2024 7:56 AM EST Escherichia coli Quant 10,000 to 50,000 cfu/mL Escherichia coli: Ampicillin <=2(S) Escherichia coli: Cefazolin (Urine) <=1(S) Escherichia coli: Cefepime <=0.12(S) Escherichia coli: Ceftriaxone <=0.25(S) Escherichia coli: Ciprofloxacin <=0.06(S) Escherichia coli: Gentamicin <=1(S) Escherichia coli: Nitrofurantoin <=16(S) Escherichia coli: Trimethoprim/Sulfamethoxazole <=20(S) Specimen Source: Urine clean catch Shamika Guillen MD LAB MICROBIOLOGY - GENER AL ORDERABLES Final Result [facility] [address] [place] [phone] * (ABNORMAL) POCT urinalysis dipstick manually [...] documented as of this encounter Care Teams Psychosocial Rehabilitation Counselor Relationship Specialty Start Date End Date Chioma Connelly MD [address] [place] [address] PCP - General Family Medicine 05/12/24 documented as of this encounter
--- OUTSIDE RECORDS SUMMARY | 2024-08-24 10:16 | XMS_ITS | Encounter Summary ---
Author Organization [facility] Address [address] [place] [address] Care Team Providers Care Lead Generation Specialist Name Role Phone Name, Rony NIXON Primary Care Provider Valeriano Laboy MD Primary Care Provider + [phone] Janie Pulliam MD Primary Care Provider [phone] Reason for Visit * Reason Onset Date Comments pain, chest 03/15/2014 Encounter Details Date Type Department Care Team Description 03/15/2014 Telephone Adult [address] [address] Name, MD Rony pain, chest Social History Tobacco Use Types Packs/Day Years [...] encounter Miscellaneous Notes * Telephone Encounter - Denise Briseno R.N. - 03/15/2014 9:23 AM EDT Pt has had cough for 4 Days C/O chest wall pain with deep breath and cough, denies SOB, able to speak in full sentences and hasno audible wheezing, cough is non productive for Sputum, has a fever (100.8) able to take PO with no difficulty, denies N/V/D, Advised homecare following the cough Protocol. RN reinforced telephone consultation and advice. Reviewed with the patient the signs and symptoms to watch for that would require immediate attention. If symptoms change, worsen or increase in intensity, to call back immediately. Appointment at 2:15 today with reilly brian * Telephone Encounter - Hakan Marte - 03/15/2014 8:42 AM EDT Patient called stated her phone didn't ring * Telephone Encounter - Denise Briseno R.N. - 03/15/2014 8:39 AM EDT I left a message for the patient to return my call. * Telephone Encounter - Sherita Pickard - 03/15/2014 8:34 AM EDT Symptoms patient is presenting: having a hard time breathing, feels tight when taking a deep breath How long has patient had these symptoms?: few days PCP: Rony Name Payor: [employer] FFS / Plan: FFS HMO $0 [employer] [id number] / Product Type: MEDICAID RISK documented in this encounter Plan of Treatment Not on file documented as of this encounter Visit Diagnoses Not on filedocumented in this encounter Care Teams Lead Generation Specialist Relationship Specialty Start Date End Date Name, MD Rony PCP - General Internal Medicine 04/08/12 05/05/15 Valeriano Hawk MD [address] [place] [address] PCP - General Internal Medicine 05/06/15 01/25/22 Janie Pulliam MD [address] [place] [address] PCP - General Internal Medicine 01/26/22 documented as of this encounter
--- OUTSIDE RECORDS SUMMARY | 2024-08-24 10:16 | XMS_ITS | Encounter Summary ---
Author Organization [employer] Address [address] [facility] 7t [place] [address] Care Team Providers Care Software Applications Architect Name Role Phone Chioma Connelly MD Primary Care Provider [phone] Encounter Details Date Type Department Care Team [...] Procedure Name Priority Date/Time Associated Diagnosis Comments UBIN-7-BCIMCQEPEGEE I ANTIBODIES (IGG, IGA, IGM) Routine 08/10/2024 3:02 PM EST SJOGREN'S ANTIBODIES (SS-A,SS-B) Routine 08/10/2024 3:02 PM EST LUPUS ANTICOAGULANT EVALUATION WITH REFLEX Routine 08/10/2024 3:02 PM EST CARDIOLIPIN AB [...] EST documented in this encounter Results * Lupus Anticoagulant Evaluation with Reflex (08/10/2024 3:02 PM EST) Pathologist [facility] Lupus Interpretation see note [facility] Comment:A Lupus Anticoagulan t is not detected.Reference Range: Not DetectedFor additional information, please refer tohttp://education.[employer]/faq/YER40w3(This link is being provided for informational/educational purposes only.)This interpretation is based on the following testresults. PTT (LAC) Screen 32 <=40 sec [facility] DRVVT Screen 31 <=45 sec [facility] Comment:THIS TEST WAS PERFOR MED AT:[employer] [id number] [place] [address]KVCDDNRFELIPE MARTIN MD,PHD dRVVT Confirmation TNP [facility] dRVVT 1:1 [facility] 1:1 Mix Interpretation [facility] Hexagonal Phase Neutralization TNP [facility] Thrombin Clotting Time [facility] 08/10/2024 3:02 PM EST 08/10/2024 3:02 PM EST us Generic External Data Provider LAB BLOOD ORDERAB LES Final Result [facility] [address] [place] [address] [phone] * Immunofixation, Serum (08/10/2024 3:02 PM EST) Pathologist [facility] IMMUNOGLOBULIN G 1571 600 - 1640 mg/dL [facility] IMMUNOGLOBULIN A 183 47 - 310 mg/dL [facility] Immunoglobulin M 60 50 - 300 mg/dL [facility] Comment:THIS TEST WAS PERFOR MED AT:[facility] [address] [id number] LEES MD Immunofixation Result SEE NOTE [facility] Comment:Normal pattern. No m onoclonal proteins detected. 08/10/2024 3:02 PM EST 08/10/2024 3:02 PM EST us Generic External Data Provider LAB BLOOD ORDERAB LES Final Result [facility] [address] [place] [address] [phone] * Stas-5-Xzxpdjbjqjjp I Antibodies (IgG, IgA, IgM) (08/10/2024 3:02 PM EST) B2 Glycoprotein I IgG Antibody <2.0 <20.0 U/mL [facility] Comment:Value Interpretatio n----- < 20.0 Antibody not detected> or = 20.0 Antibody detected B2 Glycoprotein I IgM Antibody <2.0 <20.0 U/mL [facility] Comment:Value Interpretation ----- < 20.0 Antibody not detected> or = 20.0 Antibody detected B2 Glycoprotein I IgA Antibody <2.0 <20.0 U/mL [facility] Comment: Value ?Interpretation----- ? < 20.0 ? Antibody not detected> or = 20.0 ?Antibody detectedThe antiphospholipid antibody syndrome (APS) is aclinical-pathologic correlation that includes aclinical event (e.g. arterial or venous thrombosis, morbidity) and persistent positiveantiphospholipid antibodies (IgM, IgG Cardiolipin ktz6HGP antibodies greater than the 99th percentile;or a [...] therapy or aging.For additional information, please refer tohttp://education.quest[employer].com/faq/ACA051(This link is being provided for informational/educational purposes only.)THIS TEST WAS PERFORMED AT:[facility]/[address] [id number] [place], [place] ??[phone] MARTIN MD,PHD 08/10/2024 3:02 PM EST 08/10/2024 3:02 PM EST us Generic External Data Provider LAB BLOOD ORDERAB LES Final Result [facility] [address] [place] [phone] * Protein, Total and Protein??Electrophoresis (08/10/2024 3:02 PM EST) Prot Elec - Total Protein 6.6 6.1 - 8.1 g/dL [facility] Prot Elec - Albumin 3.8 3.8 - 4.8 g/dL [facility] Prot Elec - Alpha1 0.3 0.2 - 0.3 g/dL [facility] Prot Elec - Alpha2 0.6 0.5 - 0.9 g/dL [facility] Prot Elec - Beta 1 0.4 0.4 - 0.6 g/dL [facility] Prot Elec - Beta 2 0.2 0.2 - 0.5 g/dL [facility] Prot Elec - Gamma 1.3 0.8 - 1.7 g/dL [facility] PES - Abn Protein Band 1 WAP [facility] PES-Abn Protein Band 2 [facility] PES-Abn Protein Band 3 [facility] Prot Elec - Interpretation SEE NOTE [facility] Comment:Normal Serum Protein Electrophoresis Pattern.No abnormal protein bands (M-protein) detected.THIS TEST WAS PERFORMED AT:[facility] [address] [phone] LEES MD 08/10/2024 3:02 PM EST 08/10/2024 3:02 PM EST us Generic External Data Provider LAB BLOOD ORDERAB LES Final Result Performing Organization Address [facility] Co de Phone Number [facility] [address] [place] [phone] * (ABNORMAL) Sjogren's Antibodies (SS-A,SS-B) (08/10/2024 3:02 PM EST) Sjogren's Antibody (SS-A) >8.0 POS(A) <1.0 NEG [facility] Sjogren's Antibody (SS-B) <1.0 NEG <1.0 NEG [facility] Comment:THIS TEST WAS PERFOR MED AT:[facility] [place] [phone] LEES MD 08/10/2024 3:02 PM EST 08/10/2024 3:02 PM EST Generic External Data Provider LAB BLOOD ORDERAB LES Final Result Performing Organization Address [facility] Co de Phone Number [facility] [address] [place] [phone] * Cardiolipin Antibodies (IgA,IgG,IgM) (08/10/2024 3:02 PM EST) Cardiolipin Antibody (IgG) <2.0 GPL-U/mL [facility] Comment:Value Interpretation ----- < 20.0 Antibody not detected> or = 20.0 Antibody detected Cardiolipin Antibody (IgM) <2.0 MPL-U/mL [facility] Comment: Value ?Interpretation----- ? < 20.0 ? Antibody not detected> or = 20.0 ?Antibody detectedThe antiphospholipid antibody syndrome (APS) is aclinical-pathologic correlation that includes aclinical event (e.g. arterial or venous thrombosis, morbidity) and persistent positiveantiphospholipid antibodies (IgM, IgG Cardiolipin tkp0HOL antibodies greater than the 99th percentile; ora [...] therapy or aging.For additional information, please refer tohttp://education.[employer]/faq/SOG705(This link is being provided for informational/educational purposes only.)THIS TEST WAS PERFORMED AT:[facility] [place] [address] [phone] LEES MD 08/10/2024 3:02 PM EST 08/10/2024 3:02 PM EST Generic External Data Provider LAB BLOOD ORDERAB LES Final Result Performing Organization Address City/[facility]/ZIP Co de Phone Number [facility] [address] [place] [phone] * Direct Antiglobulin Test (TEREZA) (08/10/2024 3:02 PM EST) Pathologist [facility] TEREZA Result Polyspecific NEGATIVE [facility] TEREZA Result Comment TNP [facility] Comment:TEST NOT INDICATED 08/10/2024 3:02 PM EST 08/10/2024 3:02 PM EST Generic External Data Provider LAB BLOOD ORDERAB LES Final Result Performing Organization Address [facility]/ZIP Co de Phone Number [facility] [address] [place] [phone] * Rheumatoid Factor (08/10/2024 3:02 PM EST) Pathologist [facility] Rheumatoid Factor <13.0 <15.0 IU/mL [facility] 08/10/2024 3:02 PM EST 08/10/2024 3:02 PM EST us Generic External Data Provider LAB BLOOD ORDERAB LES Final Result Performing Organization Address [facility] Co de Phone Number [facility] [address] [place] [phone] * Haptoglobin (08/10/2024 3:02 PM EST) Haptoglobin 147 35 - 250 mg/dL [facility] 08/10/2024 3:02 PM EST 08/10/2024 3:02 PM EST us Generic External Data Provider LAB BLOOD ORDERAB LES Final Result Performing Organization Address [facility] Co de Phone Number [facility] [address] [place] [phone] * Lactate Dehydrogenase (LD) (08/10/2024 3:02 PM EST) Lactate Dehydrogenase 182 122 - 220 U/L [facility] 08/10/2024 3:02 PM EST 08/10/2024 3:02 PM EST us Generic External Data Provider LAB BLOOD ORDERAB LES Final Result Performing Organization Address [facility] Co de Phone Number [facility] [address] [place] [phone] * Bilirubin, Direct (08/10/2024 3:02 PM EST) Bilirubin, Direct 0.1 0.0 - 0.5 mg/dL [facility] 08/10/2024 3:02 PM EST 08/10/2024 3:02 PM EST us Generic External Data Provider LAB BLOOD ORDERAB LES Final Result Performing Organization Address City/[facility] Co de Phone Number [facility] [address] [place] [address] [phone] * Bilirubin, Total (08/10/2024 3:02 PM EST) Bilirubin, Total 0.3 0.0 - 1.0 mg/dL [facility] 08/10/2024 3:02 PM EST 08/10/2024 3:02 PM EST Generic External Data Provider LAB BLOOD ORDERAB LES Final Result Performing Organization Address [facility] de Phone Number [facility] [address] [place] [address] [phone] documented in this encounter Visit Diagnoses Not on filedocumented in this encounter Additional Health Concerns Assessment Noted Time PHQ-9 Depression Total Score: 0 05/12/20 9:01 AM EST documented as of this encounter Care Teams Software Applications Architect Relationship Specialty Start Date End Date Chioma Connelly MD [address] [place] [address] PCP - General Family Medicine 05/12/24 documented as of this encounter
--- OUTSIDE RECORDS SUMMARY | 2024-08-24 10:16 | XMS_ITS | Encounter Summary ---
Author Organization [facility] Address [address] [place] [address] Care Team Providers Care Web Operations Manager Name Role Phone Valeriano Hawk MD Primary Care Provider + [phone] Janie Pulliam MD Primary Care Provider [phone] Reason for Visit * Reason Onset Date Comments Prior Authorization 10/25/2019 Kaylin ELLE ROFÁTIMA Encounter Details Date Type Department Care Team Description 10/25/2019 Telephone Rheumatology - [address] [address] Ced Wen MD Prior Authorization ([employer] APPROVED) Social History Tobacco Use Types Packs/Day Years [...] encounter Miscellaneous Notes * Telephone Encounter - Louise Maldonado M.A. - 10/25/2019 3:36 PM EDT [employer] Vial approved from 10/27/19 to 10/26/20. PA # [id number] PA done through [employer] (paper form) ID# [id number] Script to [facility] on June 2020. Approval faxed to Jahaira at [facility]. Papers filed. Pt notified via [employer] documented in this encounter Plan of Treatment Not on file documented as of this encounter Visit Diagnoses Not on filedocumented in this encounter Care Teams Web Operations Manager Relationship Specialty Start Date End Date Valeriano Hawk MD [address] [place] [address] PCP - General Internal Medicine 05/06/15 01/25/22 Janie Pulliam MD [address] [place] [address] PCP - General Internal Medicine 01/26/22 documented as of this encounter
--- OUTSIDE RECORDS SUMMARY | 2024-08-24 10:16 | XMS_ITS | Encounter Summary ---
Author Organization [employer] Address [address] [facility] [address] [place] [address] Care Team Providers Care Lathe Setup Operator Name Role Phone Chioma Connelly MD Primary Care Provider [phone] Reason for Visit * Reason Onset Date Comments Med Refill 07/31/2024 Encounter Details Date Type Department Care Team (Late st Contact Info) Description 07/31/2024 Refill [facility] [address] [place], [place] [phone] Chioma Connelly MD [address] [place] [address] Body mass index (BMI) 36.0-36.9, adult Social [...] documented as of this encounter Care Teams Lathe Setup Operator Relationship Specialty Start Date End Date Chioma Connelly MD [address] [place] [address] PCP - General Family Medicine 05/12/24 documented as of this encounter
--- OUTSIDE RECORDS SUMMARY | 2024-08-24 10:16 | XMS_ITS | Encounter Summary ---
Author Organization [facility] Address [address] [place] [address] Care Team Providers Care Solar Thermal Technician Name Role Phone Valeriano Hawk MD Primary Care Provider + [phone] Janie Pulliam MD Primary Care Provider [phone] Reason for Visit * Reason Comments E-prescribe Rx Request Encounter Details Date Type Department Care Team Description 01/31/2019 Refill Adult Medicine [address] [address] Mignon Howard PA [address] [place] [address] E-prescribe Rx Request Social History Tobacco Use [...] encounter Miscellaneous Notes * Telephone Encounter - Carolyn Chapin M.A. - 02/01/2019 11:05 AM EDT Faxed to pharmacy * Telephone Encounter - Carolyn Chapin M.A. - 02/01/2019 10:19 AM EDT Please review for Care Team. Lab Results Component Value Date NA 142 11/22/2018 K 4.1 11/22/2018 CO2 25 11/22/2018 CL 111 11/22/2018 BUN 13 11/22/2018 CREAT 0.68 11/22/2018 GLU 81 11/22/2018 CA 8.8 11/22/2018 GFR > 60 11/22/2018 * Telephone Encounter - Shanita Carl - 02/01/2019 8:59 AM EDT Patient would like script to be: E-PRESCRIBED/FAXED TO PHARMACY WHEN WAS THE PATIENT'S LAST APPOINTMENT IN ADULT MEDICINE? 01/26/19 WHEN WAS THE LAST TIME THE PATIENT SAW THEIR PCP? Never Does patient have an upcoming appointment? Yes 02/16/19 (THE MEDICATION REQUESTED IS ON THE MED LIST ABOVE) All of the medications requested were on the CURRENT MEDS list Did you check the Pharmacy information above?: YES Patient wants: 30 -day supply Is this a mail order prescription request ? NO If the refill is from a FAXED refill request what is the RX # listed on the fax? N/A Patients current insurance carrier is: Payor: [employer] / Plan: [employer] INSURANCE / Product Type: OTHER Insurance ID #: [id number] documented in this encounter Plan of Treatment Not on file documented as of this encounter Visit Diagnoses Not on filedocumented in this encounter Care Teams Solar Thermal Technician Relationship Specialty Start Date End Date Valeriano Hawk MD [address] [place] [address] PCP - General Internal Medicine 05/06/15 01/25/22 Janie Pulliam MD [address] [place] [address] PCP - General Internal Medicine 01/26/22 documented as of this encounter
--- OUTSIDE RECORDS SUMMARY | 2024-08-24 10:16 | XMS_ITS | Encounter Summary ---
Author Organization [facility] Address [address] [place] [address] Care Team Providers Care Glass Inspector Name Role Phone Valeriano Hawk MD Primary Care Provider + [phone] Janie Pulliam MD Primary Care Provider [phone] Reason for Visit * Reason Comments E-prescribe Rx Request Encounter Details Date Type Department Care Team Description 06/10/2019 Refill Adult Medicine [address] [address] Mignon Howard PA [address] [place] [address] E-prescribe Rx Request Social History Tobacco Use [...] encounter Miscellaneous Notes * Telephone Encounter - Silvestre Ayala M.A. - 06/15/2019 4:27 PM EST Faxed to pharmacy * Telephone Encounter - RAYMOND Khan - 06/15/2019 3:59 PM EST Rx adjusted and signed * Telephone Encounter - Carolyn Chapin M.A. - 06/15/2019 2:51 PM EST Spoke with pt and she is on the 2 tabs daily, pt requests a 90 day supply if agreeable thank you. Script has been updated. * Telephone Encounter - Carolyn Chapin M.A. - 06/12/2019 3:20 PM EST Telephone Information: LM for pt to return our call [phone], or Mignon Howard's [place]. * Telephone Encounter - RAYMOND Khan - 06/12/2019 2:48 PM EST Yes, this medication was recently added. Please contact patient to ensure that she is now taking 2 tablets daily. If so we will refill at correct dose. * Telephone Encounter - Carolyn Chapin M.A. - 06/12/2019 1:19 PM EST Last refill 05/17/19, looks like this may be a short term script? Please review for refill approval, thank you. * Telephone Encounter - Erna Evans - 06/12/2019 11:45 AM EST Patient would like script to be: E-PRESCRIBED/FAXED TO PHARMACY WHEN WAS THE PATIENT'S LAST APPOINTMENT IN ADULT MEDICINE? 05/19/19 WHEN WAS THE LAST TIME THE PATIENT SAW THEIR PCP? Has not seen pcp Does patient have an upcoming appointment? Yes 06/16/19 (THE MEDICATION REQUESTED IS ON THE MED [...] N/A Patients current insurance carrier is: Payor: [employer] / Plan: [employer] INSURANCE / Product Type: OTHER Insurance ID #: [id number] documented in this encounter Plan of Treatment Not on file documented as of this encounter Visit Diagnoses Not on filedocumented in this encounter Care Teams Glass Inspector Relationship Specialty Start Date End Date Valeriano Hawk MD [address] [place] [address] PCP - General Internal Medicine 05/06/15 01/25/22 Janie Pulliam MD [address] [place] [address] PCP - General Internal Medicine 01/26/22 documented as of this encounter
--- OUTSIDE RECORDS SUMMARY | 2024-08-24 10:16 | XMS_ITS | Encounter Summary ---
Author Organization [facility] Address [address] [place] [address] Care Team Providers Care Instructional Coordinator Name Role Phone Valerinao Hawk MD Primary Care Provider + [phone] Janie Pulliam MD Primary Care Provider [phone] Encounter Details Date Type Department Care Team Description 05/23/2021 Pt. Non Urgent Medical Question Rheumatology - [address] [address] Ced Wen MD Social History Tobacco Use Types Packs/Day Years Used Date Smoking Tobacco: Never Smokeless Tobacco: Never Alcohol Use Standard Drinks/Week Comments Yes 0 (1 standard drink = 0.6 oz pur e alcohol) occasional Sex Assigned at Date Recorded Female 05/14/2019 10:11 PM EST Job Start Date Occupation Industry Not on file Not on file Not on file COVID-19 Exposure Response Date Recorded In the last month, have you been in contact with someone who was confirmed or suspected to have Coronavirus / COVID-19? No / Unsure 04/23/2021 8:49 AM EDT documented as of this encounter Plan of Treatment Not on file documented as of this encounter Visit Diagnoses Not on filedocumented in this encounter Care Teams Instructional Coordinator Relationship Specialty Start Date End Date Valeriano Hawk MD [address] [place] [address] PCP - General Internal Medicine 05/06/15 01/25/22 Janie Pulliam MD [address] [place] [address] PCP - General Internal Medicine 01/26/22 documented as of this encounter
--- OUTSIDE RECORDS SUMMARY | 2024-08-24 10:16 | XMS_ITS | Encounter Summary ---
Author Organization [facility] Address [address] [place] [address] Care Team Providers Care Landscape Manager Name Role Phone Valeriano Hawk MD Primary Care Provider [phone] Janie Pulliam MD Primary Care Provider [phone] Encounter Details Date Type Department Care Team Description 10/25/2018 Briar Cutter Report Medical Records [address] [place] [address] Blanca Pinzon MD Social History Tobacco Use Types Packs/Day [...] on filedocumented in this encounter Care Teams Landscape Manager Relationship Specialty Start Date End Date Valeriano Hawk MD [address] [place] [address] PCP - General Internal Medicine 05/06/15 01/25/22 Janie Pulliam MD [address] [place] [address] PCP - General Internal Medicine 01/26/22 documented as of this encounter
--- OUTSIDE RECORDS SUMMARY | 2024-08-24 10:17 | XMS_ITS | Clinical Summary ---
Author Organization [employer] Address [address] [facility] [address] [place] [address] Care Team Providers Care Community Health Coordinator Name Role Phone Chioma Connelly MD Primary Care Provider [phone] Allergies No known active allergies Medications Omeprazole 20 MG tablet delayed-release Take 1 tablet (20 mg) by mouth Once per day. 90 tablet 3 4 05/12/20 25 Active amLODIPine (Norvasc) 5 MG tablet Take 5 mg by mouth Once per day. 4 Active Etonogestrel (NEXPLANON SC) Activ e hydroxychloroqu ine (Plaquenil) 200 MG tablet Take 2 tablets by mouth Once per day. 1 Active phentermine 15 MG capsuleIndicati ons:Body mass index (BMI) 36.0-36.9, adult Take 1 capsule (15 mg) by mouth before breakfast. 90 capsule 5 10/20/19 25 Active fluticasone (Flonase) 50 MCG/ACT nasal spray Administer 1-2 sprays into each nostril Once per day. Shake gently. Before first use, prime pump. After use, clean tip and replace cap. 16 g 3 5 07/21/19 26 Active cetirizine (ZyrTEC) 10 MG tablet Take 1 tablet (10 mg) by mouth Once per day. 90 tablet 2 5 04/17/20 25 Active pantoprazole (ProtoNix) 20 MG EC tablet Take 20 mg by mouth Once per day. 2 Active predniSONE (Deltasone) 5 MG tablet TAKE 2 TABLETS BY MOUTH EVERY DAY FOR 1 WEEK, THEN 1 TABLET EVERY DAY FOR 1 WEEK. THEN STOP. TAKE WITH FOOD 4 Active amLODIPine (Norvasc) 2.5 MG tablet Take 2.5 mg by mouth Once per day. Active omeprazole (PriLOSEC) [address] capsule Take 1 capsule by mouth Once per day. 4 Active cephalexin (Keflex) 500 MG capsuleIndicati ons:Acute cystitis with hematuria Take 1 capsule (500 mg) by mouth 2 times daily for 7 days. 14 capsule 5 08/27/19 25 Active sulfamethoxazol e-trimethoprim (Bactrim DS) 800-160 MG tablet Take 1 tablet by mouth 2 times daily for 5 days. 10 tablet 5 08/05/19 25 Active Problems Problem Noted Date Diagnosed Date [...] infection 09/13/2020 Overview (05/14/2024): Tested positive 09/13/20at [facility] pharmacy. Leukopenia 07/28/2019 Overview (05/14/2024): [...] , proteinuria, hematurias, + anti Sm, +anti- SAP BASIS. Resolved Problems Problem Noted Date Diagnosed Date Resolved Date Other forms of systemic lupus erythematosus 05/14/2024 05/14/2024 Raynaud's disease 08/15/2023 05/14/2024 Encounters Date Type Department Care Team Description 08/19/2024 12:00 PM EST Office Visit [facility] [address] [place] [address] Bartolo Fragoso MD Acute cystitis with hematuria 08/19/2024 Orders Only [facility] [address] [place] [address] Bartolo Fragoso MD 08/10/2024 Orders Only GENERIC EXTERNAL DATA DEPARTMENT Provider, Generic External Data 07/31/2024 9:40 AM EST Office Visit [facility] [address] [place] [address] Shamika Guillen MD Acute cystitis with hematuria (Primary Dx); Dysuria 07/31/[address] [address] Chioma Connelly MD Body mass index (BMI) 36.0-36.9, adult 07/21/2024 9:45 AM EST Office Visit [address] [place] [address] Chioma Connelly MD Raynaud's phenomenon without gangrene (Primary Dx); Encounter for immunization; Body mass index (BMI) 36.0-36.9, adult; Dietary counseling; Exercise counseling; Lupus nephritis, ISN/RPS class V (CMS/HCC); Pulmonary nodules/lesions, multiple; 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, unspecified SLE type (CMS/HCC) 07/21/2024 Travel 07/20/[address] [address] Chioma Connelly MD chart prep 07/19/2024 Travel 07/11/2024 Patient Outreach [address] [address] Chioma Connelly MD Pre-visit Planning (SDOH screening negative and tobacco screening negative) 07/03/2024 Orders Only [address] [address] Chioma Connelly MD Class 2 severe obesity with serious comorbidity and body mass index (BMI) of 37.0 to 37.9 in adult, unspecified obesity type ([facility]/HCC) (Primary Dx) 06/13/[address] [address] Cris Campa [place] Lab Orders 06/13/2024 Orders Only [address] [address] Chioma Connelly MD Need for viral immunization (Primary Dx) 06/12/[address] [address] Cris Campa [place] Appointment Request from Last [...] Sign Reading Time Taken Comments Blood Pressure 106/71 08/19/2024 11:53 AM EST Pulse 121 08/19/2024 11:53 AM EST Temperature 36.6 ??C (97.9 ??F) 08/19/2024 11:[address] Respiratory Rate 26 08/19/2024 11:53 AM EST Oxygen Saturation 98% 07/21/2024 9:57 AM EST Inhaled Oxygen Concentration - - Weight 99 kg (218 lb 3.2 oz) 08/19/2024 11:53 AM EST Height 162.6 cm (5' 4 ) 08/19/2024 11:53 AM EST Body Mass Index 37.45 08/19/2024 11:53 AM EST Plan of Treatment Health Maintenance [...] Procedure Name Priority Date/Time Associated Diagnosis Comments CULTURE, URINE, ROUTINE Routine 08/20/19 12:13 PM EST POCT URINALYSIS DIPSTICK Routine 08/19/2024 12:07 PM EST Acute cystitis with hematuria LUPUS ANTICOAGULANT EVALUATION WITH REFLEX Routine 08/10/2024 3:02 PM EST IMMUNOFIXATION, SERUM Routine 08/10/2024 3:02 PM EST [id number] I ANTIBODIES (IGG, IGA, IGM) Routine 08/10/2024 [...] immunization from Last 3 Months Results * Culture, Urine, Routine (08/19/2024 12:13 PM EST) Only the most recent of2 resultswithin the time period is included. Urine Urine specimen obtained by clean catch procedure / Unknown 08/19/2024 12:13 PM EST 08/19/2024 2:16 PM EST Comment:[facility] - 08/21/2024 8:45 AM EST Urine Culture Report Result Urine Culture < 10,000 cfu/ml Specimen Source: Urine clean catch us Bartolo Fragoso MD LAB MICROBIOLOGY - GENERAL ORDER CHARLY Final Result [facility] [address] [place] [phone] * (ABNORMAL) POCT Urinalysis (08/19/2024 12:07 PM EST) Only the most recent of2 resultswithin the time period is included. Color, UA Yellow Clarity, UA Clear Glucose, UA Negative Bilirubin, UA Trace Comment:small Ketones, UA Negative Spec Grav, UA 1.030 Blood, UA Positive(A) Negative, None Detected Comment:small pH, UA 6.0 Protein, UA Trace Comment:100mg/dl Urobilinogen, UA 1.0 Leukocytes, UA Many(A) Negative, Rare, Trace Nitrite, UA Negative Negative, None Detected Appearance, UA clear QC Media Lot # [id number] Lot# Expiration Date Urine 08/19/2024 12:0 7 PM EST Bartolo Fragoso MD POINT OF CARE TEST ENTER/EDIT OR DERABLES Final Result * Tvhb-5-Loieakuairwn I Antibodies (IgG, IgA, IgM) (08/10/2024 3:02 PM EST) B2 Glycoprotein I IgG Antibody <2.0 <20.0 U/mL [facility] Comment:Value Interpretation ----- < 20.0 Antibody not detected> or = 20.0 Antibody detected B2 Glycoprotein I IgM Antibody <2.0 <20.0 U/mL [facility] Comment:Value Interpretation ----- < 20.0 Antibody not detected> or = 20.0 Antibody detected B2 Glycoprotein I IgA Antibody <2.0 <20.0 U/mL [facility] Comment: Value ?Interpretation----- ? < 20.0 ? Antibody not detected> or = 20.0 ?Antibody detectedThe antiphospholipid antibody syndrome (APS) is aclinical-pathologic correlation that includes aclinical event (e.g. arterial or venous thrombosis, morbidity) and persistent positiveantiphospholipid antibodies (IgM, IgG Cardiolipin [id number] antibodies greater than the 99th percentile;or a [...] therapy or aging.For additional information, please refer tohttp://education.[employer]/faq/MGJ485(This link is being provided for informational/educational purposes only.)THIS TEST WAS PERFORMED AT:[employer] [id number] [place], [place] ??[phone] W. MASON,MD,PHD 08/10/2024 3:02 PM EST 08/10/2024 3:02 PM EST Generic External Data Provider LAB BLOOD ORDERAB LES Final Result Performing Organization Address [facility]/ZIP Co de Phone Number [facility] [address] [place] [address] [phone] * (ABNORMAL) Sjogren's Antibodies (SS-A,SS-B) (08/10/2024 3:02 PM EST) Sjogren's Antibody (SS-A) >8.0 POS(A) <1.0 NEG AI [facility] Sjogren's Antibody (SS-B) <1.0 NEG <1.0 NEG [facility] Comment:THIS TEST WAS PERFOR MED AT:[employer] [address] [phone] LEES MD 08/10/2024 3:02 PM EST 08/10/2024 3:02 PM EST Generic External Data Provider LAB BLOOD ORDERAB LES Final Result Performing Organization Address [facility]/ZIP Co de Phone Number [facility] [address] [place] [phone] * Lupus Anticoagulant Evaluation with Reflex (08/10/2024 3:02 PM EST) Lupus Interpretation see note [facility] Comment:A Lupus Anticoagulan t is not detected.Reference Range: Not DetectedFor additional information, please refer tohttp://education.[employer]/faq/YKM03i7(This link is being provided for informational/educational purposes only.)This interpretation is based on the following testresults. PTT (LAC) Screen 32 <=40 sec [facility] DRVVT Screen 31 <=45 sec [facility] Comment:THIS TEST WAS PERFOR MED AT:[employer] [id number] [place] [address]KVUYFNGFELIPE MARTIN MD,PHD dRVVT Confirmation [facility] dRVVT 1:1 Mix [facility] DRVVT 1:[address] [facility] Hexagonal Phase Neutralization [facility] Thrombin Clotting Time [facility] 08/10/2024 3:02 PM EST 08/10/2024 3:02 PM EST us Generic External Data Provider LAB BLOOD ORDERAB LES Final Result [facility] [address], [place] [phone] * Cardiolipin Antibodies (IgA,IgG,IgM) (08/10/2024 3:02 PM EST) Cardiolipin Antibody (IgG) <2.0 GPL-U/mL [facility] Comment:Value Interpretation ----- < 20.0 Antibody not detected> or = 20.0 Antibody detected Cardiolipin Antibody (IgM) <2.0 MPL-U/mL [facility] Comment: Value ?Interpretation----- ? < 20.0 ? Antibody not detected> or = 20.0 ?Antibody detectedThe antiphospholipid antibody syndrome (APS) is aclinical-pathologic correlation that includes aclinical event (e.g. arterial or venous thrombosis, morbidity) and persistent positiveantiphospholipid antibodies (IgM, IgG Cardiolipin [id number] antibodies greater than the 99th percentile; ora [...] therapy or aging.For additional information, please refer tohttp://education.[employer]/faq/XZX672(This link is being provided for informational/educational purposes only.)THIS TEST WAS PERFORMED AT:[employer] [place] [address] ??[phone] LEES MD 08/10/2024 3:02 PM EST 08/10/2024 3:02 PM EST Generic External Data Provider LAB BLOOD ORDERAB LES Final Result Performing Organization Address [facility] Co de Phone Number [facility] [address] [place] [phone] * Direct Antiglobulin Test (TEREZA) (08/10/2024 3:02 PM EST) TEREZA Result Polyspecific NEGATIVE [facility] TEREZA Result Comment TNP [facility] Comment:TEST NOT INDICATED 08/10/2024 3:02 PM EST 08/10/2024 3:02 PM EST [employer] External Data Provider LAB BLOOD ORDERAB LES Final Result Performing Organization Address [facility] de Phone Number [facility] [address] [place] [phone] * Rheumatoid Factor (08/10/2024 3:02 PM EST) Pathologist [facility] Rheumatoid Factor <13.0 <15.0 IU/mL [facility] 08/10/2024 3:02 PM EST 08/10/2024 3:02 PM EST Generic External Data Provider LAB BLOOD ORDERAB LES Final Result Performing Organization Address [facility] de Phone Number [facility] [address] [place] [phone] * Immunofixation, Serum (08/10/2024 3:02 PM EST) [facility] IMMUNOGLOBULIN G 1571 600 - 1640 mg/dL [facility] IMMUNOGLOBULIN A 183 47 - 310 mg/dL [facility] Immunoglobulin M 60 50 - 300 mg/dL [facility] Comment:THIS TEST WAS PERFOR MED AT:[employer] [place] [phone] LEES MD Immunofixation Result SEE NOTE [facility] Comment:Normal pattern. No m onoclonal proteins detected. 08/10/2024 3:02 PM EST 08/10/2024 3:02 PM EST Generic External Data Provider LAB BLOOD ORDERAB LES Final Result Performing Organization Address [facility] Co de Phone Number [facility] [address] [place] [phone] * Protein, Total and Protein??Electrophoresis (08/10/2024 3:02 PM EST) Pathologist [facility] Prot Elec - Total Protein 6.6 6.1 - 8.1 g/dL [facility] Prot Elec - Albumin 3.8 3.8 - 4.8 g/dL [facility] Prot Elec - Alpha1 0.3 0.2 - 0.3 g/dL [facility] Prot Elec - Alpha2 0.6 0.5 - 0.9 g/dL [facility] Prot Elec - Beta 1 0.4 0.4 - 0.6 g/dL [facility] Prot Elec - Beta 2 0.2 0.2 - 0.5 g/dL [facility] Prot Elec - Gamma 1.3 0.8 - 1.7 g/dL [facility] PES - Abn Protein Band 1 TNP [facility] PES-Abn Protein Band 2 [facility] PES-Abn Protein Band [address] [facility] Prot Elec - Interpretation SEE NOTE [facility] Comment:Normal Serum Protein Electrophoresis Pattern.No abnormal protein bands (M-protein) detected.THIS TEST WAS PERFORMED AT:[employer] [place] [phone] LEES MD 08/10/2024 3:02 PM EST 08/10/2024 3:02 PM EST Generic External Data Provider LAB BLOOD ORDERAB LES Final Result Performing Organization Address [facility] Co de Phone Number [facility] [address] [place] [phone] * Lactate Dehydrogenase (LD) (08/10/2024 3:02 PM EST) Lactate Dehydrogenase 182 122 - 220 U/L [facility] 08/10/2024 3:02 PM EST 08/10/2024 3:02 PM EST [employer] External Data Provider LAB BLOOD ORDERAB LES Final Result Performing Organization Address [facility] Co de Phone Number [facility] [address] [place] [phone] * Haptoglobin (08/10/2024 3:02 PM EST) Haptoglobin 147 35 - 250 mg/dL [facility] 08/10/2024 3:02 PM EST 08/10/2024 3:02 PM EST us Generic External Data Provider LAB BLOOD ORDERAB LES Final Result Performing Organization Address [facility] Co de Phone Number [facility] [address] [place] [phone] * Bilirubin, Direct (08/10/2024 3:02 PM EST) Bilirubin, Direct 0.1 0.0 - 0.5 mg/dL [facility] 08/10/2024 3:02 PM EST 08/10/2024 3:02 PM EST Generic External Data Provider LAB BLOOD ORDERAB LES Final Result Performing Organization Address [facility] Co de Phone Number [facility] [address] [place] [phone] * Bilirubin, Total (08/10/2024 3:02 PM EST) Bilirubin, Total 0.3 0.0 - 1.0 mg/dL [facility] 08/10/2024 3:02 PM EST 08/10/2024 3:02 PM EST Generic External Data Provider LAB BLOOD ORDERAB LES Final Result Performing Organization Address [facility] Co de Phone Number [facility] [address] [place] [phone] * POCT , urine manually resulted (07/31/2024 9:28 AM EST) Preg Test, Ur Negative Negative, Indeterminate, None Detected, Invalid, Specimen unsatisfactory for evaluation, Weakly Positive Urine 07/31/2024 9:28 AM EST Shamika Guillen MD POINT OF CARE TEST ENTER /EDIT ORDERABLES Final Result * Hepatitis B Surface Antibody, Qualitative (07/04/2024 9:30 AM EST) ~Hepatitis B Surface Antibody NONREACTIVE Nonreactive [facility] Comment:Nonreactive: < 8.00 mIU/mL Blood Venous blood specimen / Unknown 07/04/2024 9:30 AM EST 07/04/2024 11:19 AM EST us Chioma Connelly MD LAB BLOOD ORDERABLES Final Res ult [facility] [address] [place] [phone] from Last 3 Months Insurance BCBS PPO Care Teams Community Health Coordinator Relationship Specialty Start Date End Date Chioma Connelly MD [address] [place] [phone] PCP - General Family Medicine 05/12/24
--- OUTSIDE RECORDS SUMMARY | 2024-08-24 10:17 | XMS_ITS | Encounter Summary ---
Author Organization [facility] Address [address] [place] [address] Care Team Providers Care Commercial Insulator Name Role Phone Valeriano Hawk MD Primary Care Provider [phone] Janie Pulliam MD Primary Care Provider [phone] Reason for Visit * Reason Onset Date Comments Medication 01/18/2017 Encounter Details Date Type Department Care Team Description 01/18/2017 Telephone Rheumatology - [address] [address] Esther Harrington DO Medication Social History Tobacco Use Types Packs/Day Years [...] encounter Miscellaneous Notes * Telephone Encounter - Shantal Carcamo M.A. - 01/18/2017 2:35 PM EDT Pharmacy called and informed. * Telephone Encounter - Esther Harrington DO - 01/18/2017 2:22 PM EDT Spoke with patient. Methotrexate and Xeljanz not to be ordered for her. Will discontinue. Pharmacy to be notified also. * Telephone Encounter - Shantal Carcamo M.A. - 01/18/2017 2:10 PM EDT Pt was called and informed. When I mentioned the mentioned the Methotrexate she stated she was toldin the past that if she were to get she would not be taking this medication. She does not feel comfortable at this time taking the medication. Can you please review. * Telephone Encounter - Esther Harrington DO - 01/18/2017 1:12 PM EDT I ordered Xeljanz 5 mg po [facility] her [facility]. She will take this with methotrexate 10 mg weekly. We can do the prior authorization form once the pharmacy faxes it here. Thanks. documented in this encounter Plan of Treatment Not on file documented as of this encounter Visit Diagnoses Diagnosis Seropositive rheumatoid arthritis (HCC)- Primary Rheumatoid arthritis Severe needle phobia documented in this encounter Care Teams Commercial Insulator Relationship Specialty Start Date End Date Valeriano Hawk MD [address] [place] [phone] PCP - General Internal Medicine 05/06/15 01/25/22 Janie Pulliam MD [address] [place] [phone] PCP - General Internal Medicine 01/26/22 documented as of this encounter
--- OUTSIDE RECORDS SUMMARY | 2024-08-24 10:17 | XMS_ITS | Clinical Summary ---
Author Organization [facility] Address [address] [place] [address] Care Team Providers Care Publications Designer Name Role Phone Janie Pulliam MD Primary Care Provider [phone] Allergies No known active allergies Medications etonogestrel-eluti [...] infection 09/13/2020 Overview (06/11/2024): Tested positive 09/13/20at [facility] pharmacy. Leukopenia 07/28/2019 Overview (06/11/2024): Chronic, [...] , proteinuria, hematurias, + anti Sm, +anti- RIVER GUIDE. Immunizations Name Administration Dates Next Due Influenza [...] HISTORICAL OTHER SURGICAL HISTORY 03/25/2015 Left PROCEDURE: CA RENAL BIOPSY SURG EXPOSURE KIDNEY; COMMENT: lupus nephritis, membranous type, ISN/RPS class V; chronic changes of parenchyma (done at [facility]) SECTION 2017 PROCEDURE: HISTORICAL DELIVERY ESOPHAGOGASTRODUODENOSCOPY 03/12/2021 PROCEDURE: CA EGD TRANSORAL BIOPSY SINGLE/MULTIPLE; COMMENT: biopsy shows [...] RESULTING AGENCY - 05/09/2021 3:21 PM EST [id number] THINPREP PAP, IMAGED: NEGATIVE FOR SQUAMOUS INTRAEPITHELIAL [...] * HIV Screening (09/20/2017) Pathologist [facility] HIV Screening ABSTRACTED Historical Provider HEALTH MAINTENANCE Final Result * Hepatitis C Screening (09/20/2017) Hepatitis C Screening ABSTRACTED us Historical Provider HEALTH MAINTENANCE Final Result from Last 3 Months or Most Recently Relevant to Health Maintenance Care Teams Publications Designer Relationship Specialty Start Date End Date Janie Pulliam MD PCP - General Internal Medicine 01/26/22
--- OUTSIDE RECORDS SUMMARY | 2024-08-24 10:17 | XMS_ITS | Encounter Summary ---
Author Organization [facility] Address [address] [place] [address] Care Team Providers Care Rodeo Performer Name Role Phone Valeriano Hawk MD Primary Care Provider [phone] Janie Pulliam MD Primary Care Provider [phone] Encounter Details Date Type Department Care Team Description 01/30/2021 Pt. Non Urgent Medic al Question Gastroenterology [address] [place] [phone] Grant Sánchez PA-C Social History Tobacco Use Types Packs/Day Years [...] have Coronavirus / COVID-19? No / Unsure 01/30/2021 8:09 AM EDT documented as of this encounter Plan of Treatment Not on file documented as of this encounter Visit Diagnoses Not on filedocumented in this encounter Care Teams Rodeo Performer Relationship Specialty Start Date End Date Valeriano Hawk MD [address] [place] [phone] PCP - General Internal Medicine 05/06/15 01/25/22 Janie Pulliam MD [address] [place] [address] PCP - General Internal Medicine 01/26/22 documented as of this encounter
--- OUTSIDE RECORDS SUMMARY | 2024-08-24 10:17 | XMS_ITS | Data Portability ---
Author Organization RAYMOND Whittaker [facility], [address] Address [address] [place] [address] Assessment No assessment recorded. Plan of Treatment Reminders Order Date Submit Date Provider Last Modified By Organization Details Last Modified Time Details Appointments None recorded. Lab rapid flu (A+B) 2023 024 [email or web address] [facility], [address] [place], [address], 4 10:08:03 SARS CoV 2 (COVID-19) Ag, QL, IA, upper respiratory specimen 2023 024 [email or web address] [facility], [address] [place], [address], 4 10:08:02 rapid strep group A, throat 2022 023 [email or web address] [facility], [address] [place], [address], 3 10:04:56 streptococc us group A, culture, throat 2022 023 [facility], [address] [place] [address], [place], [address], 3 10:06:02 Referral None recorded. Procedures None recorded. Surgeries None recorded. Imaging None recorded. Medication Orders polymyxin B sulfate 10,000 unit-trimet hoprim 1 mg/mL eye drops 2022 023 [id number], [address] [place], [address], 4 09:07:51 fexofenadin e-pseudoeph edrine ER 180 mg-240 mg tablet,ext. release 24 hr 2022 023 [id number], [address] [place], [address], 4 09:08:10 prednisone 20 mg tablet 2022 023 [id number], [address] [place], [address], 4 09:07:47 Patient TargetsNo targets recorded. Patient Instructions Encounter Date Encounter Id Patient Instructions Last Modified By Organization Details Last Modified Time 07/24/2022 [id number] sore throat: car e instructions [email or web address] Not [...] . [email or web address] Not available 07/24/2022 10:03:45 08/15/2023 [id number] upper respirator y infection (cold): care instructions [...] Range : Negat ricardo Not Available [facility] ([facility]) [address] [place], [address], 07/27/2022 10:06:02 07/24/19 23 07/24/2022 rapid strep group A, throa t Unknown Analyte Normal = Negati ve Not Available [facility] [address] [place], [address], 07/24/2022 09:35:00 07/24/19 23 07/24/2022 rapid strep group A, throa t Unknown Analyte negati ve Not Available [facility] [address] [place], [address], 07/24/2022 09:35:00 08/15/19 24 08/15/2023 SARS CoV 2 (COVI D-19) Ag, QL, [place], upper respi rator y speci men Unknown Analyte negati ve Not Available [facility] [address] [place], [address], 08/15/2023 09:34:18 08/15/19 24 08/15/2023 SARS CoV 2 (COVI D-19) Ag, QL, IA, upper respi rator y speci men Unknown Analyte negati ve Not Available [facility] [address] [place], [address], 08/15/2023 09:34:18 08/15/19 24 08/15/2023 SARS CoV 2 (COVI D-19) Ag, QL, IA, upper respi rator y speci men Unknown Analyte yes Not Available [facility] [address] [place], [address], 08/15/2023 09:34:18 08/15/19 24 08/15/2023 rapid flu (A+B) Unknown Analyte negati ve Not Available [facility] [address] [place], [address], 08/15/2023 09:33:44 08/15/19 24 08/15/2023 rapid flu (A+B) Unknown Analyte negati ve Not Available [facility] [address] [place], [address], 08/15/2023 09:33:44 08/15/19 24 08/15/2023 rapid flu (A+B) Unknown Analyte negati ve Not Available [address] [address] [place], [address], 08/15/2023 09:33:44 08/15/19 24 08/15/2023 rapid flu (A+B) Unknown Analyte yes Not Available [facility] [address] [place], [address], 08/15/2023 09:33:44 Result Notes None recorded. Problems Name Problem SNOMED Code Status Onset Date Resolution Date Notes Provider Name and Address Organization Details Recorded Time Raynaud's disease 359776093 Active 2023 RAYMOND Pettit [facility] 4 09:08:49 Lupus erythematosus 440113203 Active 2022 DEVANG merritt PA [facility] 3 09:37:23 Gastroesophag eal reflux disease 294339618 Active 2022 DEVANG merritt PA - [facility] [...] Updated DateTime 4 162.56 cm 36.9 kg/m2 04547.3 6 g 6 18 /min 98.1 [degF] [...] Updated DateTime 3 162.56 cm 36.9 kg/m2 39500.3 6 g 99 % 99 % 83 /min 16 /min 98.1 [degF] 5 118 mm[Hg] 82 mm[Hg] DEVANG KHOI PA - [facility] 09:36:06 Social History Question Answer Notes [...] SNOMED-CT Code Diagnosis ICD10 Code Diagnosis Note [id number] [address] [facility] [place] [address] 12/20/2020 15:53:04 12/20/2020 19:11:57 [id number] [address] [facility] [place] [address] 12/12/2021 08:51:04 12/12/2021 16:06:55 [id number] [address] [facility] [place] [address] 01/14/2022 11:38:31 01/14/2022 11:58:35 [id number] Harish Lemos, DANCE COACH [address] [facility] [place] [address] 07/24/2022 08:37:38 07/24/2022 10:08:18 Pharyngitis 388553656 J02.9 Acute sinusitis 67074012 J01.90 Acute conj unctivitis of bilateral eyes 5697280675 00790 H10.33 [id number] RAYMOND Stoll [address] [facility] [place] [address] 08/15/2023 08:44:09 08/15/2023 10:08:54 Acute pharyngitis 573377737 J02.9 Upper resp iratory infection 43046047 J06.9 Health Concerns Section Related Observation LastModified by Organization Detai ls LastModified Time None Recorded Concern Status LastModified by Organization Details LastModified Time None Recorded Advance Directives Directive None Recorded Payers Encounter Date Sequence Insurance Name Policy Number Policy Schaefer Covered Member ID Schaefer Member ID Guarantor Name 12/20/2020 1 [facility] [id number] Marni Hernandez [id number] Marni Hernandez 12/12/2021 1 [facility] [id number] Marni Hernandez [id number] Marni Hernandez 07/24/2022 1 [facility] [id number] Marni Hernandez [id number] Marni Hernandez 08/15/2023 1 [id number] Marni Hernandez [id number] Marni Hernandez Notes Date Note Type Note [...] or respiratory distress. Harish Lemos NP [address] [place], [address], [employer] 07/24/2022 10:05:28 08/15/19 24 text/htm l CongestionReported bypatient.Quality:pressure; ache Severity:moderate Duration:3 days Context:states get sinus infection 2-3 times per year Aggravating Factors:none Alleviating Factors:none Associated Symptoms:no fever; no chills; no hemoptysis; no shortness of breath;cough; sore throat RAYMOND Mercado [address] [place], [address], [employer] 08/15/2023 10:08:22 OBGyn Episode No OBEpisode recorded.
--- OUTSIDE RECORDS SUMMARY | 2024-08-24 10:17 | XMS_ITS | Clinical Summary ---
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 Family History Medical History Relation Name Comments [...]
--- OUTSIDE RECORDS SUMMARY | 2024-08-24 10:17 | XMS_ITS | Encounter Summary ---
Author Organization [facility] Address [address] [place] [address] Care Team Providers Care Nascar Driver Name Role Phone Valeriano Hawk MD Primary Care Provider [phone] Janie Pulliam MD Primary Care Provider [phone] Encounter Details Date Type Department Care Team Description 08/19/2020 Old Medical Records Medical Records [address] [place] [id number] Abstract, Provider Social History Tobacco Use Types [...] have Coronavirus / COVID-19? No / Unsure 08/19/2020 3:44 PM EST documented as of this encounter Plan of Treatment Not on file documented as of this encounter Visit Diagnoses Not on filedocumented in this encounter Care Teams Nascar Driver Relationship Specialty Start Date End Date Valeriano Hawk MD [address] [place] [address] PCP - General Internal Medicine 05/06/15 01/25/22 Janie Pulliam MD [address] [place] [address] [phone] PCP - General Internal Medicine 01/26/22 documented as of this encounter
--- OUTSIDE RECORDS SUMMARY | 2024-08-24 10:17 | XMS_ITS | Encounter Summary ---
Author Organization [employer] Address [address] [facility] 7t [place] [address] Care Team Providers Care Bridal Service Sales And Management Name Role Phone Chioma Connelly MD Primary Care Provider [phone] Encounter Details Date Type Department Care Team (Late st Contact Info) Description 06/13/2024 Orders Only [facility] [address] [place], [place] [phone] hCioma Connelly MD [address] [place], [place] [phone] Need for viral immunization (Primary Dx) Social [...] ~Hepatitis B Surface Antibody NONREACTIVE Nonreactive [facility] Comment:Nonreactive: < 8.00 mIU/mL Blood Venous blood specimen / Unknown 07/04/2024 9:30 AM EST 07/04/2024 11:19 AM EST us Chioma Connelly MD LAB BLOOD ORDERABLES Final Res ult [facility] [address] [place] [address] [phone] documented in this encounter Visit Diagnoses Diagnosis Need for viral immunization- Primary Need for prophylactic vaccination and inoculation against other viral diseases documented in this encounter Additional Health Concerns Assessment Noted Time PHQ-9 Depression Total Score: 0 05/12/20 9:01 AM EST documented as of this encounter Care Teams Bridal Service Sales And Management Relationship Specialty Start Date End Date Chioma Connelly MD [address] [place] [address] PCP - General Family Medicine 05/12/24 documented as of this encounter
--- OUTSIDE RECORDS SUMMARY | 2024-08-24 10:17 | XMS_ITS | Encounter Summary ---
Author Organization [facility] Address [address] [place] [address] Care Team Providers Care Barge Pilot Name Role Phone Valeriano Hawk MD Primary Care Provider [phone] Janie Pulliam MD Primary Care Provider [phone] Encounter Details Date Type Department Care Team Description 02/23/2017 Pt. Non Urgent Medic al Question Rheumatology - [address] [address] Esther Harrington DO Social History Tobacco Use [...] on filedocumented in this encounter Care Teams Barge Pilot Relationship Specialty Start Date End Date Valeriano Hawk MD [address] [place] [address] PCP - General Internal Medicine 05/06/15 01/25/22 Janie Pulliam MD [address] [place] [address] PCP - General Internal Medicine 01/26/22 documented as of this encounter
--- OUTSIDE RECORDS SUMMARY | 2024-08-24 10:17 | XMS_ITS | Encounter Summary ---
Author Organization [employer] Address [address] [facility] [address]t [place] [address] Care Team Providers Care Plane Tender Name Role Phone Chioma Connelly MD Primary Care Provider [phone] Encounter Details Date Type Department Care Team (Late st Contact Info) Description 08/19/2024 Orders Only [facility] [address] [place], [place] [phone] Bartolo Fragoso MD [address] [place], [place] [phone] Social History Tobacco Use Types Packs/Day Years [...] is your housing situation today? I have valention kaplan 05/12/[address] you [...] Associated Diagnosis Comments CULTURE, URINE, ROUTINE Routine 08/19/2024 12:13 PM EST documented in this encounter Results * Culture, Urine, Routine (08/19/2024 12:13 PM EST) Urine Urine specimen obtained by clean catch procedure / Unknown 08/19/2024 12:13 PM EST 08/19/2024 2:16 PM EST Comment:UACC Narrative [facility] - 08/21/2024 8:45 AM EST Urine Culture Report Result Urine Culture < 10,000 cfu/ml Specimen Source: Urine clean catch us Bartolo Fragoso MD LAB MICROBIOLOGY - GENERAL ORDER CHARLY Final Result Performing Organization Address City/State/[facility] Co de Phone Number [facility] [address] [place] [phone] documented in this encounter Visit Diagnoses Not on filedocumented in this encounter Additional Health Concerns Assessment Noted Time PHQ-9 Depression Total Score: 0 05/12/20 9:01 AM EST documented as of this encounter Care Teams Plane Tender Relationship Specialty Start Date End Date Chioma Connelly MD [address] [place] [address] PCP - General Family Medicine 05/12/24 documented as of this encounter
--- OUTSIDE RECORDS SUMMARY | 2024-08-24 10:17 | XMS_ITS | Encounter Summary ---
Author Organization [employer] Address [address] [facility] 7t [place] [address] Care Team Providers Care Brush Trimming Machine Setter Name Role Phone Chioma Connelly MD Primary Care Provider [phone] Reason for Visit * Reason Comments UTI Encounter Details Date Type Department Care Team ([facility] st Contact Info) Description 08/19/2024 12:00 PM EST Office Visit [facility] [address] [place] [address] [phone] Bartolo Fragoso MD [address] [place], [place] [phone] Acute cystitis with hematuria Social History Tobacco Use Types Packs/Day Years [...] 26 08/19/2024 11:53 AM EST Oxygen Saturation - - Inhaled Oxygen Concentration - - Weight 99 kg (218 lb 3.2 oz) 08/19/2024 11:53 AM EST Height 162.6 cm (5' 4 ) 08/19/2024 11:53 AM EST Body Mass Index 37.45 08/19/2024 11:53 AM EST documented in this encounter Progress Notes * Bartolo Fragoso MD - 08/19/2024 12:00 PM EST Subjective History was provided by the patient. Nimisha Hernandez is a 34 y.o. female who presents for evaluation of dysuria for 4 days. Denies abdominal pain or back pain. Denies F/C/N/V/D. Underlying SLE, Lupus nephritis, Raynaud's, and G6PD deficiency. Recently was diagnosed with acute cystitis on 07/31/2024, treated with Bactrim DS 5-day course. Symptoms improved afterward. Urine Culture grew avery-sensitive E. coli. Followed by [facility] Rheumatology. Recent Cr 0.64 (08/08/2024). Objective Vitals: 08/19/24 1153 BP: 106/71 BP Location: Right arm Patient Position: Sitting BP Cuff Size: Adult Pulse: (!) 121 Resp: 26 Temp: 97.9 ??F (36.6 ??C) TempSrc: Oral Weight: 218 lb 3.2 oz (99 kg) Height: 5' 4 (1.626 m) Physical Exam Vitals reviewed. Constitutional: General: She is not in acute distress. Appearance: Normal appearance. She is not ill-appearing, toxic-appearing or diaphoretic. HENT: Head: Normocephalic and atraumatic. Right Ear: External ear normal. Left Ear: External ear normal. Nose: Nose normal. Mouth/Throat: Pharynx: Oropharynx is clear. Eyes: Conjunctiva/sclera: Conjunctivae normal. Pulmonary: Effort: Pulmonary effort is normal. Abdominal: General: Abdomen is flat. Musculoskeletal: General: Normal range of motion. Cervical back: Neck supple. Skin: General: Skin is warm and dry. Neurological: General: No focal deficit present. Mental Status: She is alert and oriented to person, place, and time. Psychiatric: Mood and Affect: Mood normal. Behavior: Behavior normal. Office Visit on 08/19/2024 Component Date Value Ref Range Status Color, UA 08/19/2024 Yellow Final Clarity, UA 08/19/2024 Clear Final Glucose, UA 08/19/2024 Negative Final Bilirubin, UA 08/19/2024 Trace Final small Ketones, UA 08/19/2024 Negative Final Spec Grav, UA 08/19/2024 1.030 Final Blood, UA 08/19/2024 Positive (A) Negative, None Detected Final small pH, UA 08/19/2024 6.0 Final Protein, UA 08/19/2024 Trace Final 100mg/dl Urobilinogen, UA 08/19/2024 1.0 Final Leukocytes, UA 08/19/2024 Many (A) Negative, Rare, Trace Final Nitrite, UA 08/19/2024 Negative Negative, None Detected Final Appearance, UA 08/19/2024 clear Final QC Media Lot # 08/19/2024 [id number] Final Lot# Expiration Date 08/19/2024 [id number] Final Marni was seen today for uti. Diagnoses and all orders for this visit: Acute cystitis with hematuria - POCT Urinalysis - Culture, Urine, Routine - cephalexin (Keflex) 500 MG capsule; Take 1 capsule (500 mg) by mouth 2 times daily for 7 days. Patient with a clinical presentation of acute UTI Unlikely treatment failure given improved symptoms with Bactrim 5-day course No clinical evidence of acute abdomen or pyelonephritis Will send out UCx and start antibiotic medication Underlying G6PD deficiency (would avoid FQ, Nitrofurantoin, and Pyridium) Will treat with Cephalexin 500mg BID for 7 days Underlying Lupus nephritis with normal Cr 0.64 (08/08/2024) Potential adverse effects of the medication reviewed Probiotic use discussed Allergies reviewed Discussed strategies to prevent future infections Advised to contact the clinic if no improvement of symptoms Indications for UC/ER use reviewed documented in this encounter Plan of Treatment Scheduled Orders Name Type Priority Associated Diagnoses Orde r Schedule Culture, Urine, Routine Microbiology Routine Acute cystitis with hematuria Ordered: 08/19/2024 documented as of this encounter Procedures Procedure Name Priority Date/Time Associated Diagnosis Comments POCT URINALYSIS DIPSTICK Routine 08/19/2024 12:07 PM EST Acute cystitis with hematuria documented in this encounter Results * (ABNORMAL) POCT Urinalysis (08/19/2024 12:07 PM EST) Color, UA Yellow Clarity, UA Clear Glucose, [...] CARE TEST ENTER/EDIT OR DERABLES Final Result documented in this encounter Visit Diagnoses Diagnosis Acute cystitis with hematuria documented in this encounter Additional Health Concerns Assessment Noted Time PHQ-9 Depression Total Score: 0 05/12/20 9:01 AM EST documented as of this encounter Care Teams Brush Trimming Machine Setter Relationship Specialty Start Date End Date Chioma Connelly MD [address] [place] [address] PCP - General Family Medicine 05/12/24 documented as of this encounter
--- OUTSIDE RECORDS SUMMARY | 2024-08-24 10:17 | XMS_ITS | Encounter Summary ---
Author Organization [employer] Address [address] [facility] 7t [place] [address] Care Team Providers Care Cement Paver Name Role Phone Chioma Connelly MD Primary Care Provider [phone] Encounter Details Date Type Department Care Team (Late st Contact Info) Description 07/03/2024 Orders Only [facility] [address] [place], [place] [phone] Chioma Connelly MD [address] [place], [place] [phone] Class 2 severe obesity with serious comorbidity [...] documented as of this encounter Care Teams Cement Paver Relationship Specialty Start Date End Date Chioma Connelly MD [address] [place] [address] PCP - General Family Medicine 05/12/24 documented as of this encounter
--- OUTSIDE RECORDS SUMMARY | 2024-08-24 10:18 | XMS_ITS | Encounter Summary ---
Author Organization [facility] Address [address] [place] [address] Care Team Providers Care Center Director Lead Teacher Name Role Phone Valeriano Hawk MD Primary Care Provider [phone] Janie Pulliam MD Primary Care Provider [phone] Reason for Visit * Reason Onset Date Comments Medical Records 01/14/2021 Encounter Details Date Type Department Care Team Description 01/14/2021 Telephone OBGYN - [address] [address] Ella Jonas MD [address] [place] [phone] Medical Records Social History Tobacco Use Types Packs/Day Years [...] have Coronavirus / COVID-19? No / Unsure 01/09/2021 8:58 AM EDT documented as of this encounter Miscellaneous Notes * Telephone Encounter - Ashanti Edwards - 01/14/2021 10:10 AM EDT [facility] records received, and placed in Dr. Mittal bin patient has appointment on 01/30/21 ak documented in this encounter Plan of Treatment Not on file documented as of this encounter Visit Diagnoses Not on filedocumented in this encounter Care Teams Center Director Lead Teacher Relationship Specialty Start Date End Date Valeriano Hawk MD [address] [place] [address] PCP - General Internal Medicine 05/06/15 01/25/22 Janie Pulliam MD [address] [place] [address] PCP - General Internal Medicine 01/26/22 documented as of this encounter
--- OUTSIDE RECORDS SUMMARY | 2024-08-24 10:18 | XMS_ITS | Encounter Summary ---
Author Organization [facility] Address [address] [place] [address] Care Team Providers Care Express Manager Name Role Phone Valeriano Hawk MD Primary Care Provider [phone] Janie Pulliam MD Primary Care Provider [phone] Encounter Details Date Type Department Care Team Description 11/26/2020 Pt. Non Urgent Medical Question Adult Medicine [address] [address] Valeriano Hawk MD [address] [place] [address] [phone] Social History Tobacco Use Types Packs/Day Years [...] on filedocumented in this encounter Care Teams Express Manager Relationship Specialty Start Date End Date Valeriano Hawk MD [address] [place] [address] [phone] PCP - General Internal Medicine 05/06/15 01/25/22 Janie Pulliam MD [address] [place] [address] PCP - General Internal Medicine 01/26/22 documented as of this encounter
== END 2024-08-24 09:43 | disposition home or self-care (01) ==
PROVIDERS: PCP General Practice
DX: M32.9 Systemic lupus erythematosus, unspecified (principal); L98.9 Disorder of the skin and subcutaneous tissue, unspecified; Z79.899 Other long term (current) drug therapy
CPT/HCPCS: 99213

== ENCOUNTER → 2024-08-24 09:15 | Outpatient (BNVA) | payer BC, SELFPAY | PROVIDERS: PCP General Practice | DX: M32.9 Systemic lupus erythematosus, unspecified (principal); L98.9 Disorder of the skin and subcutaneous tissue, unspecified; Z79.899 Other long term (current) drug therapy ==

== ENCOUNTER 2024-09-13 13:16 | Outpatient (AMB) | payer BC, SELFPAY ==
--- NOTE | 2024-09-13 13:21 | MHC.OFFVIS ---
Vital Signs 09/13/24 13:25 Height 5 ft 4 in Weight 208 lb 12.444 oz BMI 35.8 BP 100/76 Blood Pressure Location Lt brachial Position Sitting Pulse 91 Pulse Source Pulse Oximeter Pulse Oximetry (%) 95 Oxygen Delivery Method Room Air Intake Visit Reasons: 1 Month Intake Note: Pt present today for Lupus. Accompanied by: Self / Same As Patient Allergies No Known Allergies Allergy (Verified 09/13/24 13:21) HPI HPI 1 Month: Details: Increase hand pain and shoulder pain. Less swelling in joints. No fevers, night sweats, dyspnea, pleurisy. Recurrent UTIx2. No urinary symptoms. +sicca symptoms. Hand lesions improved with topical steroid prescribed by Dermatology. Review of Systems Const All systems reviewed & are unremarkable except as noted in HPI and below Physical Exam Vital Signs: Last Vital Signs Pulse 91 09/13/24 13:25 BP 100/76 09/13/24 13:25 Pulse Ox 95 09/13/24 13:25 Oxygen Delivery Method Room Air 09/13/24 13:25 BMI result Body Mass Index 35.8 Const Other: General: Comfortable Skin: Resolution of erythematous spots. No digital ulcers. No discoloration of fingertips. MSK: Tenderness of bilateral MCPs, PIP, IP. She has synovitis right 5th PIP, 3rd PIP, IP. Normal range of motion of upper extremities and lower extremities. Assessment & Plan Assessment & Plan (1) Systemic lupus erythematosus (SLE) in adult: Comment: Skin lesions on fingers and palms have resolved with topical steroid. Skin biopsy confirms that the skin lesions are a cutaneous manifestation of lupus. 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 There was no mention of findings suggestive of cutaneous vasculitis. Inflammatory arthritis is not controlled. Laboratory workup has revealed active lupus disease activity (leukopenia, anemia, hypocomplementemia C3, elevated double-stranded DNA and inflammatory markers). SLEDAI-2K 11 high disease activity. Benlysta is indicated. Rheumatology history: Onset of systemic lupus erythematosus in 2010. 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 During she had thrombocytopenia and leukopenia prior to SLE diagnosis. Methotrexate was added for inflammatory arthritis but discontinued after a month due to leukopenia noted on labs (WCC did not decrease significantly). HCQ 2015 (G6PD deficient). Benlysta 2017 to 05/2021 initially on subcutaneous injection then switch to infusions with improved efficacy. Patient was afraid of the Benlysta subcutaneous injection needle. Benlysta was not restarted when she switched to [facility] from [facility] (Dr. Hannon) as patient was clinically quiescent. Code(s): M32.9 - Systemic lupus erythematosus, unspecified Category: Medical Plan: Continue hydroxychloroquine 400 mg daily. Surveillance exam for HCQ ocular toxicity monitoring schedule 10/2024 Continue to use topical steroid prescribed by Dermatology PRN skin lesions. Benlysta infusion PA RTC 3 months (2) Skin lesions: Code(s): L98.9 - Disorder of the skin and subcutaneous tissue, unspecified Category: Medical Plan: See above (3) Other watermaster (current) drug therapy: Code(s): Z79.899 - Other detention (current) drug therapy Category: Medical Plan: See above Plan See above Orders: Referrals Infusion Center Notification M32.9 - Systemic lupus erythematosus, unspecified Coding Level of Care Code Est Pt Level 4 (95377) Complex EM visit Add On G2211 Diagnoses Systemic lupus erythematosus (SLE) in adult M32.9 Skin lesions L98.9 Other detention (current) drug therapy Z79.899
[2024-09-13 13:25] VITALS: BP 100/76; PULSE 91; O2SAT 95; BMI 35.8
--- OUTSIDE RECORDS SUMMARY | 2024-09-13 15:46 | XMS_ITS | Clinical Summary ---
Author Organization [facility] Address [address] [place] [address] Care Team Providers Care Home Specialist Name Role Phone Janie Pulliam MD Primary Care Provider [phone] Allergies No known active allergies Medications etonogestrel-eluti [...] infection 09/13/2020 Overview (06/11/2024): Tested positive 09/13/20at [facility] pharmacy. 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 Immunizations Name Administration Dates Next Due Influenza [...] HISTORICAL OTHER SURGICAL HISTORY 03/25/2015 Left PROCEDURE: FL RENAL BIOPSY SURG EXPOSURE KIDNEY; COMMENT: lupus nephritis, membranous type, ISN/RPS class V; chronic changes of parenchyma (done at [facility]) SECTION 2017 PROCEDURE: HISTORICAL DELIVERY ESOPHAGOGASTRODUODENOSCOPY 03/12/2021 PROCEDURE: FL EGD TRANSORAL BIOPSY SINGLE/MULTIPLE; COMMENT: biopsy shows [...] RESULTING AGENCY - 05/09/2021 3:21 PM EST [id number] THINPREP PAP, IMAGED: NEGATIVE FOR SQUAMOUS INTRAEPITHELIAL [...] Recently Relevant to Health Maintenance Care Teams Home Specialist Relationship Specialty Start Date End Date Janie Pulliam MD PCP - General Internal Medicine 01/26/22
--- OUTSIDE RECORDS SUMMARY | 2024-09-13 15:46 | XMS_ITS | Clinical Summary ---
Author Organization [employer] Address [address] [facility] 7[address] [place] [address] Care Team Providers Care Member Services Representative Name Role Phone Chioma Connelly MD Primary Care Provider [phone] Allergies No known active allergies Medications Omeprazole [...] days. 14 capsule 5 08/27/19 25 Active Problems Problem Noted Date Diagnosed [...] infection 09/13/2020 Overview (05/14/2024): Tested positive 09/13/20at [facility] pharmacy. 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 Resolved Problems Problem Noted Date Diagnosed Date Resolved Date Other forms of systemic lupus erythematosus 05/14/2024 05/14/2024 Raynaud's disease 08/15/2023 05/14/2024 Encounters Date Type Department Care Team Description 08/19/2024 12:00 PM EST Office Visit [facility] [address] [place] [address] Bartolo Fragoso MD Acute cystitis with hematuria 08/19/2024 Orders Only [facility] [address] [place] [address] Bartolo Fragoso MD 08/10/2024 Orders Only GENERIC EXTERNAL DATA DEPARTMENT Provider, Generic External Data 07/31/2024 9:40 AM EST Office Visit [facility] [address] [place] [address] Shamika Guillen MD Acute cystitis with hematuria (Primary Dx); Dysuria 07/31/2024 Refill [facility] [address] [place] [address] Chioma Connelly MD Body mass index (BMI) 36.0-36.9, adult 07/21/2024 9:45 AM EST Office Visit [address] [address] Chioma Connelly MD Raynaud's phenomenon without gangrene (Primary Dx); Encounter for immunization; Body mass index (BMI) 36.0-36.9, adult; Dietary counseling; Exercise counseling; Lupus nephritis, ISN/RPS class V ([facility]/HCC); Pulmonary nodules/lesions, multiple; 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, unspecified SLE type (CMS/HCC) 07/21/2024 Travel 07/20/[address] [address] Chioma Connelly MD chart prep 07/19/2024 Travel 07/11/2024 Patient Outreach [address] [address] Chioma Connelly MD Pre-visit Planning (SDOH screening negative and tobacco screening negative) 07/03/2024 Orders Only [address] [address] Chioma Connelly MD Class 2 severe obesity with serious comorbidity and body mass index (BMI) of 37.0 to 37.9 in adult, unspecified obesity type ([facility]/HCC) (Primary Dx) from Last 3 Months Immunizations Name Administration [...] IMMUNOFIXATION, SERUM Routine 08/10/2024 3:02 PM EST [id number] I ANTIBODIES (IGG, IGA, IGM) Routine 08/10/2024 [...] EST 08/19/2024 2:16 PM EST Comment:UACC Narrative [facility] - 08/21/2024 8:45 AM EST Urine Culture Report Result Urine Culture < 10,000 cfu/ml Specimen Source: Urine clean catch us Bartolo Fragoso MD LAB MICROBIOLOGY - GENERAL ORDER CHARLY Final Result [facility] [address] [place] [phone] * (ABNORMAL) POCT Urinalysis (08/19/2024 12:07 [...] Media Lot # [id number] Lot# Expiration Date 113, Urine 08/19/2024 12:0 7 PM EST us Bartolo Fragoso MD POINT OF CARE TEST ENTER/EDIT OR DERABLES Final Result * [id number] I Antibodies (IgG, IgA, IgM) (08/10/2024 3:02 PM EST) B2 Glycoprotein I IgG Antibody <2.0 <20.0 U/mL [facility] Comment:Value Interpretation ----- < 20.0 Antibody not detected> or = 20.0 Antibody detected B2 Glycoprotein I IgM Antibody <2.0 <20.0 U/mL [facility] Comment:Value Interpretation ----- < 20.0 Antibody not detected> or = 20.0 Antibody detected B2 Glycoprotein I IgA Antibody <2.0 <20.0 U/mL [facility] Comment: Value ?Interpretation----- ? < 20.0 ? Antibody not detected> or = 20.0 ?Antibody detectedThe antiphospholipid antibody syndrome (APS) is aclinical-pathologic correlation that includes aclinical event (e.g. arterial or venous thrombosis, morbidity) and persistent positiveantiphospholipid antibodies (IgM, IgG Cardiolipin bmb9WLC antibodies greater than the 99th percentile;or a [...] therapy or aging.For additional information, please refer tohttp://education.Nuji/faq/IYH024(This link is being provided for informational/educational purposes only.)THIS TEST WAS PERFORMED AT:[facility] [id number] [place], [place] ??[phone] MARTIN MD,PHD 08/10/2024 3:02 PM EST 08/10/2024 3:02 PM EST Generic External Data Provider LAB BLOOD ORDERAB LES Final Result Performing Organization Address [facility] de Phone Number [facility] [address] [place] [phone] * (ABNORMAL) Sjogren's Antibodies (SS-A,SS-B) (08/10/2024 3:02 PM EST) Sjogren's Antibody (SS-A) >8.0 POS(A) <1.0 NEG [facility] Sjogren's Antibody (SS-B) <1.0 NEG <1.0 NEG [facility] Comment:THIS TEST WAS PERFOR MED AT:[facility] [address] [address]SIPVVJAYLA LEES MD 08/10/2024 3:02 PM EST 08/10/2024 3:02 PM EST Generic External Data Provider LAB BLOOD ORDERAB LES Final Result Performing Organization Address [facility] de Phone Number [facility] [address] [place] [phone] * Lupus Anticoagulant Evaluation with Reflex (08/10/2024 3:02 PM EST) Lupus Interpretation see note [facility] Comment:A Lupus Anticoagulan t is not detected.Reference Range: Not DetectedFor additional information, please refer tohttp://education.Nuji/faq/PAZ63m0(This link is being provided for informational/educational purposes only.)This interpretation is based on the following testresults. PTT (LAC) Screen 32 <=40 sec [facility] DRVVT Screen 31 <=45 sec [facility] Comment:THIS TEST WAS PERFOR MED AT:[facility]/[id number] [place] [address]DDWIVBUFELIPE MARTIN MD,PHD dRVVT Confirmation TNP [facility] dRVVT 1:1 Mix TNP [facility] DRVVT 1:1 Mix Interpretation [facility] Hexagonal Phase Neutralization [facility] Thrombin Clotting Time [facility] 08/10/2024 3:02 PM EST 08/10/2024 3:02 PM EST us Generic External Data Provider LAB BLOOD ORDERAB LES Final Result Performing Organization Address City/State/[facility] Co de Phone Number [facility] [address] [place] [address] [phone] * Cardiolipin Antibodies (IgA,IgG,IgM) (08/10/2024 3:02 PM EST) Cardiolipin Antibody (IgG) <2.0 GPL-U/mL [facility] Comment:Value Interpretation ----- < 20.0 Antibody not detected> or = 20.0 Antibody detected Cardiolipin Antibody (IgM) <2.0 MPL-U/mL [facility] Comment: Value ?Interpretation----- ? < 20.0 ? Antibody not detected> or = 20.0 ?Antibody detectedThe antiphospholipid antibody syndrome (APS) is aclinical-pathologic correlation that includes aclinical event (e.g. arterial or venous thrombosis, morbidity) and persistent positiveantiphospholipid antibodies (IgM, IgG Cardiolipin ime0YXK antibodies greater than the 99th percentile; ora [...] therapy or aging.For additional information, please refer tohttp://education.Nuji/faq/VZR867(This link is being provided for informational/educational purposes only.)THIS TEST WAS PERFORMED AT:[facility] [address] ??[phone] LEES MD 08/10/2024 3:02 PM EST 08/10/2024 3:02 PM EST Generic External Data Provider LAB BLOOD ORDERAB LES Final Result Performing Organization Address [facility] de Phone Number [facility] [address] [place] [phone] * Direct Antiglobulin Test (TEREZA) (08/10/2024 3:02 PM EST) TEREZA Result Polyspecific NEGATIVE [facility] TEREZA Result Comment TNP [facility] Comment:TEST NOT INDICATED 08/10/2024 3:02 PM EST 08/10/2024 3:02 PM EST Generic External Data Provider LAB BLOOD ORDERAB LES Final Result Performing Organization Address [facility] Phone Number [facility] [address] [place] [phone] * Rheumatoid Factor (08/10/2024 3:02 PM EST) Rheumatoid Factor <13.0 <15.0 IU/mL [facility] 08/10/2024 3:02 PM EST 08/10/2024 3:02 PM EST Generic External Data Provider LAB BLOOD ORDERAB LES Final Result Performing Organization Address [facility] de Phone Number [facility] [address] [place] [phone] * Immunofixation, Serum (08/10/2024 3:02 PM EST) IMMUNOGLOBULIN G 1571 600 - 1640 mg/dL [facility] IMMUNOGLOBULIN A 183 47 - 310 mg/dL [facility] Immunoglobulin M 60 50 - 300 mg/dL [facility] Comment:THIS TEST WAS PERFOR MED AT:[facility] [place] [phone] LEES MD Immunofixation Result SEE NOTE [facility] Comment:Normal pattern. No m onoclonal proteins detected. 08/10/2024 3:02 PM EST 08/10/2024 3:02 PM EST us Generic External Data Provider LAB BLOOD ORDERAB LES Final Result [facility] [address] [place] [phone] * Protein, Total and Protein??Electrophoresis (08/10/2024 3:02 PM EST) Prot Elec - Total Protein 6.6 6.1 - 8.1 g/dL [facility] Prot Elec - Albumin 3.8 3.8 - 4.8 g/dL [facility] Prot Elec - Alpha1 0.3 0.2 - 0.3 g/dL [facility] Prot Elec - Alpha2 0.6 0.5 - 0.9 g/dL [facility] Prot Elec - Beta 1 0.4 0.4 - 0.6 g/dL [facility] Prot Elec - Beta 2 0.2 0.2 - 0.5 g/dL [facility] Prot Elec - Gamma 1.3 0.8 - 1.7 g/dL [facility] PES - Abn Protein Band 1 [facility] PES-Abn Protein Band 2 [facility] PES-Abn Protein Band 3 [facility] Prot Elec - Interpretation SEE NOTE [facility] Comment:Normal Serum Protein Electrophoresis Pattern.No abnormal protein bands (M-protein) detected.THIS TEST WAS PERFORMED AT:[facility] [address] [phone] LEES MD 08/10/2024 3:02 PM EST 08/10/2024 3:02 PM EST Generic External Data Provider LAB BLOOD ORDERAB LES Final Result Performing Organization Address [facility] de Phone Number [facility] [address] [place] [phone] * Lactate Dehydrogenase (LD) (08/10/2024 3:02 PM EST) Lactate Dehydrogenase 182 122 - 220 U/L [facility] 08/10/2024 3:02 PM EST 08/10/2024 3:02 PM EST Generic External Data Provider LAB BLOOD ORDERAB LES Final Result Performing Organization Address [facility] de Phone Number [facility] [address] [place] [phone] * Haptoglobin (08/10/2024 3:02 PM EST) Haptoglobin 147 35 - 250 mg/dL [facility] 08/10/2024 3:02 PM EST 08/10/2024 3:02 PM EST Generic External Data Provider LAB BLOOD ORDERAB LES Final Result Performing Organization Address [facility] Phone Number [facility] [address] [place] [phone] * Bilirubin, Direct (08/10/2024 3:02 PM EST) Bilirubin, Direct 0.1 0.0 - 0.5 mg/dL [facility] 08/10/2024 3:02 PM EST 08/10/2024 3:02 PM EST us Generic External Data Provider LAB BLOOD ORDERAB LES Final Result Performing Organization Address [facility] Co de Phone Number [facility] [address] [place] [phone] * Bilirubin, Total (08/10/2024 3:02 PM EST) Pathologist [facility] Bilirubin, Total 0.3 0.0 - 1.0 mg/dL [facility] 08/10/2024 3:02 PM EST 08/10/2024 3:02 PM EST us Generic External Data Provider LAB BLOOD ORDERAB LES Final Result Performing Organization Address [facility] Phone Number [facility] [address] [place] [phone] * POCT , urine manually resulted (07/31/2024 9:28 AM EST) [facility] Preg Test, Ur Negative Negative, Indeterminate, None Detected, Invalid, Specimen unsatisfactory for evaluation, Weakly Positive Urine 07/31/2024 9:28 AM EST us Shamika Guillen MD POINT OF CARE TEST ENTER /EDIT ORDERABLES Final Result * Hepatitis B Surface Antibody, Qualitative (07/04/2024 9:30 AM EST) [facility] ~Hepatitis B Surface Antibody NONREACTIVE Nonreactive [facility] Comment:Nonreactive: < 8.00 mIU/mL Blood Venous blood specimen / Unknown 07/04/2024 9:30 AM EST 07/04/2024 11:19 AM EST us Chioma Connelly MD LAB BLOOD ORDERABLES Final Res ult Performing Organization Address [facility] Co de Phone Number [facility] [address] [place] [phone] from Last 3 Months Insurance [facility] PPO Care Teams Member Services Representative Relationship Specialty Start Date End Date Chioma Connelly MD [address] [place] [address] PCP - General Family Medicine 05/12/24
--- OUTSIDE RECORDS SUMMARY | 2024-09-13 15:46 | XMS_ITS | Encounter Summary ---
Author Organization [employer] Address [address] [facility] 7t [place] [address] Care Team Providers Care Digital Research Analyst Name Role Phone Chioma Connelly MD Primary Care Provider [phone] Reason for Visit * Reason Onset Date Comments Med Refill 07/31/2024 Encounter Details Date Type Department Care Team ([facility] st Contact Info) Description 07/31/2024 Refill [facility] [address] [place], [place] [phone] Chioma Connelly MD [address] [place] [address] Body mass index (BMI) 36.0-36.9, adult Social [...] documented as of this encounter Care Teams Digital Research Analyst Relationship Specialty Start Date End Date Chioma Connelly MD [address] [place] [phone] PCP - General Family Medicine 05/12/24 documented as of this encounter
--- OUTSIDE RECORDS SUMMARY | 2024-09-13 15:46 | XMS_ITS | Clinical Summary ---
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 Family History Medical History Relation Name Comments [...]
--- OUTSIDE RECORDS SUMMARY | 2024-09-13 15:46 | XMS_ITS | Encounter Summary ---
Author Organization [employer] Address [address] [facility] 7t [place] [address] Care Team Providers Care Refrigerator Crater Name Role Phone Chioma Connelly MD Primary Care Provider [phone] Encounter Details Date Type Department Care Team (Late st Contact Info) Description 07/03/2024 Orders Only [facility] [address] [place], [place] [phone] Chioma Connelly MD [address] [place], [place] [phone] Class 2 severe obesity with serious comorbidity [...] documented as of this encounter Care Teams Refrigerator Crater Relationship Specialty Start Date End Date Chioma Connelly MD [address] [place] [phone] PCP - General Family Medicine 05/12/24 documented as of this encounter
--- OUTSIDE RECORDS SUMMARY | 2024-09-13 15:46 | XMS_ITS | Encounter Summary ---
Author Organization [employer] Address [address] [facility] [address] [place] [address] Care Team Providers Care Glass Edger Name Role Phone Chioma Connelly MD Primary Care Provider [phone] Encounter Details Date Type Department Care Team (Late st Contact Info) Description 06/13/[address] [facility] [address] [place], [place] [phone] Chioma Connelly MD [address] [place], [place] [phone] Need for viral immunization (Primary Dx) Social [...] EST) ~Hepatitis B Surface Antibody NONREACTIVE Nonreactive [facility] Comment:Nonreactive: < 8.00 mIU/mL Blood Venous blood specimen / Unknown 07/04/2024 9:30 AM EST 07/04/2024 11:19 AM EST us Chioma Connelly MD LAB BLOOD ORDERABLES Final Res ult [facility] [address] [place] [phone] documented in this encounter Visit Diagnoses Diagnosis Need for viral immunization- Primary Need for prophylactic vaccination and inoculation against other viral diseases documented in this encounter Additional Health Concerns Assessment Noted Time PHQ-9 Depression Total Score: 0 05/12/20 9:01 AM EST documented as of this encounter Care Teams Glass Edger Relationship Specialty Start Date End Date Chioma Connelly MD [address] [place] [phone] PCP - General Family Medicine 05/12/24 documented as of this encounter
--- OUTSIDE RECORDS SUMMARY | 2024-09-13 15:47 | XMS_ITS | Encounter Summary ---
Author Organization [employer] Address [address] [facility] 7t [place] [address] Care Team Providers Care Captain Room Service Name Role Phone Chioma Connelly MD Primary Care Provider [phone] Reason for Visit * Reason Comments UTI Encounter Details Date Type Department Care Team ([facility] st Contact Info) Description 08/19/2024 12:00 PM EST Office Visit [facility] [address] [place] [address] [phone] Bartolo Fragoso MD [address] [place], [place] [phone] Acute cystitis with hematuria Social History Tobacco [...] Culture grew avery-sensitive E. coli. [place] [facility]. Recent Cr 0.64 (08/08/2024). Objective Vitals: [...] documented as of this encounter Care Teams Captain Room Service Relationship Specialty Start Date End Date Chioma Connelly MD [address] [place] [address] PCP - General Family Medicine 05/12/24 documented as of this encounter
--- OUTSIDE RECORDS SUMMARY | 2024-09-13 15:47 | XMS_ITS | Encounter Summary ---
Author Organization [employer] Address [address] [facility] [address] [place] [address] Care Team Providers Care Production Associate Name Role Phone Chioma Connelly MD Primary Care Provider [phone] Encounter Details Date Type Department Care Team (Late st Contact Info) Description 08/19/2024 Orders Only [facility] [address] [place], [place] [phone] Bartolo Fragoso MD [address] [place], [place] [phone] Social History Tobacco Use Types Packs/Day Years [...] EST 08/19/2024 2:16 PM EST Comment:UACC Narrative [facility] - 08/21/2024 8:45 AM EST Urine Culture Report Result Urine Culture < 10,000 cfu/ml Specimen Source: Urine clean catch us Bartolo Fragoso MD LAB MICROBIOLOGY - GENERAL ORDER CHARLY Final Result Performing Organization Address City/State/[facility] Co de Phone Number [facility] [address] [place] [phone] documented in this encounter Visit Diagnoses Not on filedocumented in this encounter Additional Health Concerns Assessment Noted Time PHQ-9 Depression Total Score: 0 05/12/20 9:01 AM EST documented as of this encounter Care Teams Production Associate Relationship Specialty Start Date End Date Chioma Connelly MD [address] [place] [phone] PCP - General Family Medicine 05/12/24 documented as of this encounter
== END 2024-09-13 14:01 | disposition home or self-care (01) ==
LOC: HO.RHES 13:17
PROVIDERS: PCP General Practice; Visit Provider Internal Medicine Rheumatology
DX: M32.9 Systemic lupus erythematosus, unspecified (principal); L98.9 Disorder of the skin and subcutaneous tissue, unspecified; Z79.899 Other long term (current) drug therapy
CPT/HCPCS: 99214

== ENCOUNTER → 2024-09-13 13:16 | Outpatient (BNVA) | payer BC, SELFPAY | PROVIDERS: PCP General Practice; Visit Provider Internal Medicine Rheumatology ==

== ENCOUNTER 2024-12-21 14:28 | Outpatient (REF) | payer BC, SELFPAY ==
--- OUTSIDE RECORDS SUMMARY | 2024-12-21 14:31 | XMS_ITS | Referral Summary ---
Author Organization [facility] Address [address] [place] [address] Care Team Providers Care Dray Truck Driver Name Role Phone Chioma Connelly Primary Care Provider [phone] Encounters Date Type Department Care Team Description 11/15/2024 Research Encounter [facility] [address] [place] [address] Pipe Out Worker: Tam Lees MD Other systemic lupus erythematosus with other organ involvement (HCC) (Primary Dx); Sicca syndrome (HCC) from Last 3 Months Allergies Active Allergy Reactions Criticality Noted Date Comments Sulfa (Sulfonamide Antibiotics) Unknown 10/20 Medications etonogestreL (NEXPLANON) 68 mg implant 68 mg by subdermal route once. Active cetirizine (ZyrTEC) 10 mg tablet Take 10 mg by mouth daily. 5 04/17/20 25 Active amLODIPine (NORVASC) 2.5 mg tablet Take 2.5 mg by mouth once a day. Active fluticasone propionate (FLONASE) 50 mcg/actuation nasal spray Administer 1-2 sprays into each nostril daily. 5 07/21/19 26 Active hydroxychloroqu ine (PLAQUENIL) 200 mg tablet Take 400 mg by mouth once a day. Active NIFEdipine CC (ADALAT CC) 30 mg 24 hr tablet Take 30 mg by mouth once a day. [address] (PROTONIX) 20 mg tablet Take 20 mg by mouth once a day. Active phentermine 15 mg capsule Take 15 mg by mouth every morning. 5 Active tacrolimus (PROTOPIC) 0.1 % ointment Apply 1 application. topically to the affected area 2 times a day as needed (rash). 5 Active clobetasoL (TEMOVATE) 0.05% ointment Apply 1 application. topically to the affected area 2 times a day as needed (rash). 5 Active Active Problems Problem Noted Date Diagnosed Date Systemic lupus erythematosus 11/15/2024 Assessment & Plan (11/23/2024 2:21 PM EDT): Ms. Hernandez has systemic lupus erythematosus with circulating antinuclear antibodies, manifested with fatigue, photosensitivity, malar rash, joint inflammation causing limitation of functional range of motion and in performance of activities of daily living, alopecia with thinning of her eyebrows, acrocyanosis of her fingers and toes, right upper quadrant abdominal pain likely due to serositis, and sicca syndrome. She reviewed the informed consent document and I addressed all questions that she and her had about the clinical trial. She signed the informed consent document, indicating her consent to participate in the [employer] [id number] [facility] clinical trial. A screening examination was performed, an electrocardiogram was performed, and laboratory studies were drawn. She will return for her baseline visit in about 4 weeks, pending receipt of the results of her screening evaluation. Sicca syndrome 11/15/2024 Gastroesophageal reflux disease 07/24/2022 G6PD deficiency 12/29/2021 Generalized abdominal pain 01/30/2021 Overview (11/15/2024): Last Assessment & Plan: I explained cyst is unlikely related based on imaging and location of pain. I agree that ongoing GI evaluation would likely be helpful. Nexplanon in place 01/30/2021 Overview (11/15/2024): Placed 11/2017 Pt is happy with method Will have replaced in 11/2024 Right ovarian cyst 01/30/2021 Overview (11/15/2024): Last Assessment & Plan: Again reviewed likely a follicle. She will have repeat US in May and will discuss results when available. Leukopenia 07/28/2019 Overview (11/15/2024): Chronic, no depression of other cell lines, both lymphocytes and neutrophils are low. Probably due to SLE. 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 Raynaud's phenomenon without gangrene 07/23/2017 Pulmonary nodules/lesions, multiple 09/12/2015 Overview (11/15/2024): Stable 2016 on CTscan Immunizations Immunization Administration Dates Next Due Hepatitis B Vaccine, Unspeci fied Formulation 12/01/2011 Hepatitis B adult (ENGERIX-B ADULT) vaccine 1 mL IM 07/21/2024 INFLUENZA, SPLIT VIRUS, TRIVALENT, PF 07/21/2024 Influenza, Injectable, Madin Dacia Canine Kidney, Quadrivalent 06/11/2022,02/24/2018 Influenza, Injectable, Madin Dacia Canine Kidney, Preservative Free, Quadrivalent 04/23/2021,02/20/2020,02/24/2019,03/28 Influenza, Trivalent, MDV, Injectable 03/17/2016 ,04/18/2015 Measles, Mumps, and Rubella Vaccine 12/01/2011 Pneumococcal Polysaccharide Vaccine, 23 Valent 06/17/2015 Pneumococcal conjugate PCV20,polysaccharide [id number] conjugate, adjuvant, PF (Prevnar 20) 07/21/2024 Tetanus Toxoid, Reduced Diph theria Toxoid, and Acellular Pertussis Vaccine, Adsorbed 07/21/2024 Tuberculin Skin Test; Purifi ed Protein Derivative Solution, Intradermal 09/29/2017,03/07/2015 Social History Tobacco Use Types Packs/Day Years Used Date Smoking Tobacco: Never Smokeless Tobacco: Never Tobacco Cessation:Counseling Given: No Alcohol Use Standard Drinks/Week Comments Not Currently 0 (1 standard drink = 0.6 oz pur e alcohol) Comments Unknown Sex and Gender Information Value Date Recorded Sex Assigned at Female 11/15/2024 10:52 AM EDT Legal Sex Female 1:12 PM EDT Gender Identity Not on file Sexual Orientation Not on file Last Filed Vital Signs Vital Sign Reading Time Taken Comments Blood Pressure 110/72 11/15/2024 10:28 AM EDT Pulse 78 11/15/2024 10:28 AM EDT Temperature 36.7 C (98.1 F) 11/15/2024 10:28 AM EDT Respiratory Rate 16 11/15/2024 10:28 AM EDT Oxygen Saturation 99% 11/15/2024 10:28 AM EDT Inhaled Oxygen Concentration - - Weight 93.9 kg (207 lb) 11/15/2024 10:28 AM EDT Height 161.3 cm (5' 3.5 ) 11/15/2024 10:28 AM ED T Body Mass Index 36.09 11/15/2024 10:28 AM EDT Plan of Treatment Not on file Procedures * Due to [place] law, this organization might not be sharing negative HIV tests. Procedure Name Priority Date/Time Associated Diagnosis Comments QUANTIFERON-TB GOLD PLUS, 1 [id number] Routine 11/15/2024 10:53 AM EDT Other systemic lupus erythematosus with other organ involvement (HCC) LAB - SCANNED 11/15/2024 from Last 3 Months Results * Due to [place] law, this organization might not be sharing negative HIV tests. * QuantiFERON-TB Gold Plus, 1 Tube (11/15/2024 10:53 AM EDT) [facility] QuantiFERON-TB Gold Plus NEGATIVE NEGATIVE 11/19/2024 6:49 PM EDT [employer] Comment: Negative test result. M. tuberculosis complex infection unlikely. NIL 0.02 IU/mL 11/19/2024 6:49 PM EDT [employer] [facility] Mitogen-NIL 0.57 IU/mL 11/19/2024 6:49 PM EDT [employer] [facility] TB1-NIL 0.00 IU/mL 11/19/2024 6:49 PM EDT [employer] [facility] TB2-NIL 0.00 IU/mL 11/19/2024 6:49 PM EDT [employer] [facility] Comment: The Nil tube value reflects the background interferon gamma immune response of the patient's blood sample. This value has been subtracted from the patient's displayed TB and Mitogen results. Lower than expected results with the Mitogen tube prevent false-negative Quantiferon readings by detecting a patient with a potential immune suppressive condition and/or suboptimal pre-analytical specimen handling. The TB1 Antigen tube is coated with the M. tuberculosis-specific antigens designed to elicit responses from TB antigen primed CD4+ helper T-lymphocytes. The TB2 Antigen tube is coated with the M. tuberculosis-specific antigens designed to elicit responses from TB antigen primed CD4+ helper and CD8+ cytotoxic T-lymphocytes. For additional information, please refer to https://education.RegistryLove.[place]unction/faq/APP085 (This link is being provided for informational/ educational purposes only.) Blood Structure of peripheral vein / Unknown Venipuncture / Unknown 11/15/2024 10:53 AM EDT 11/15/2024 11:19 AM EDT Narrative [facility] - 11/19/2024 6:49 PM EDT [facility] Received Date:[id number] Tam Kessler MD LAB BLOOD ORDERABLES Final Resul t [facility] [address] [facility] [address], [place] [address], [place] [phone] [employer] [facility] [address] [facility] [address], [place] [address], [place] [phone] * LAB - SCANNED (11/15/2024) us Onbase Scan [facility] LAB HISTORICAL RESULTS Final Result from Last 3 Months Insurance BCBS OUT OF STATE PPO Care Teams Dray Truck Driver Relationship Specialty Start Date End Date Chioma Connelly [address] [place] [address] PCP - General 11/07/24
--- OUTSIDE RECORDS SUMMARY | 2024-12-21 14:31 | XMS_ITS | Encounter Summary ---
Author Organization [employer] Address [address] [facility] [address] [place] [address] Care Team Providers Care Hotel Or Motel Room Service Supervisor Name Role Phone Chioma Connelly MD Primary Care Provider [phone] Encounter Details Date Type Department Care Team ([facility] st Contact Info) Description 12/06/2024 Orders Only [facility] [address] [place], [place] [phone] Chioma Connelly MD [address] [place], [place] [phone] Social History Tobacco Use Types Packs/Day Years [...] as of this encounter Plan of Treatment Upcoming Encounters Date Type Department Care Team (Late st Contact Info) Description 01/04/2025 1:45 PM EDT Office Visit [facility] [address] [place] [address] Rachelle Bryan CNM [address] [place] [address] documented as of this encounter Visit Diagnoses Not on filedocumented in this encounter Additional Health Concerns Assessment Noted Time PHQ-9 Depression Total Score: 0 05/12/20 9:01 AM EST documented as of this encounter Care Teams Hotel Or Motel Room Service Supervisor Relationship Specialty Start Date End Date Chioma Connelly MD [address] [place] [address] PCP - General Family Medicine 05/12/24 documented as of this encounter
--- OUTSIDE RECORDS SUMMARY | 2024-12-21 14:31 | XMS_ITS | Encounter Summary ---
Author Organization [facility] Address [address] [place] [address] Care Team Providers Care Centrifugal Spinner Name Role Phone Valeriano Hawk MD Primary Care Provider [phone] Janie Pulliam MD Primary Care Provider [phone] Encounter Details Date Type Department Care Team Description 07/24/2019 Transfer Records Medical Records [address] [place] [id number] Abstract, Provider Social History Tobacco Use Types [...] on filedocumented in this encounter Care Teams Centrifugal Spinner Relationship Specialty Start Date End Date Valeriano Hawk MD [address] [place] [phone] PCP - General Internal Medicine 05/06/15 01/25/22 Janie Pulliam MD [address] [place] [phone] PCP - General Internal Medicine 01/26/22 documented as of this encounter
--- OUTSIDE RECORDS SUMMARY | 2024-12-21 14:31 | XMS_ITS | Clinical Summary ---
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 Family History Medical History Relation Name Comments [...] 107 07/18/2021 10:04 AM EST Temperature 36.8 C (98.3 F) 07/18/2021 10:04 AM EST Respiratory Rate - - Oxygen Saturation 98% [...] 2 - PCV) 06/17/2016 06/17/2015 Influenza Vaccine (Season Ended) 2025 04/23/2021, 02/20/2020, 02/24/2019, Additional history exists RSV Ped < 20 months Aged Out No longe r eligible based on patient's age to complete this topic
--- OUTSIDE RECORDS SUMMARY | 2024-12-21 14:31 | XMS_ITS | Clinical Summary ---
[facility] Organization [facility] Address [address] [place] [address] Care Team Providers Care Morning News Anchor Name Role Phone Janie Pulliam MD Primary Care Provider [phone] Allergies No known active allergies Medications etonogestrel-eluti [...] infection 09/13/2020 Overview (06/11/2024): Tested positive 09/13/20at [facility] pharmacy. Leukopenia 07/28/2019 Overview (06/11/2024): Chronic, no depression of other cell lines, both lymphocytes and neutrophils are low. Probably due to SLE. 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 Immunizations Name Administration Dates Next Due Influenza [...] HISTORICAL OTHER SURGICAL HISTORY 03/25/2015 Left PROCEDURE: OK RENAL BIOPSY SURG EXPOSURE KIDNEY; COMMENT: lupus nephritis, membranous type, ISN/RPS class V; chronic changes of parenchyma (done at [facility]) SECTION 2017 PROCEDURE: HISTORICAL DELIVERY ESOPHAGOGASTRODUODENOSCOPY 03/12/2021 PROCEDURE: OK EGD TRANSORAL BIOPSY SINGLE/MULTIPLE; COMMENT: biopsy shows [...] 05/23/2022 Social Influencers of Health Screening 05/23/2022 Cervical Cancer Screening: Pap Smear 04/23/2024 04/23/2021, 04/23/2021 Influenza Vaccine (#1) 2025 , 02/20/2020, 02/24/2019, Additional history exists HIV Screening Completed 09/20/2017 Hepatitis C Screening [...] age to complete this topic Meningococcal B Vaccine Aged Out No l onger eligible based on patient's age to complete [...] RESULTING AGENCY - 05/09/2021 3:21 PM EST [id number] THINPREP PAP, IMAGED: NEGATIVE FOR SQUAMOUS INTRAEPITHELIAL LESION AND MALIGNANCY . CHASITY IS PRESENT. NOTE: THE PAP TEST IS A SCREENING TEST WITH AN INHERENT FALSE NEGATIVE RATE. AUTOMATED PRESCREENING OF ALL LIQUID BASED SPECIMENS IS PERFORMED BY THE Eco ProductsPREP IMAGING SYSTEM UNLESS OTHERWISE STATED. PHUONG SWAN(ASCP) (CASE ELECTRONICALLY SIGNED 05 09 2021) ADEQUACY: SATISFACTORY ENDOCERVICAL/TRANSFORMATION ZONE COMPONENT PRESENT. SOURCE: THINPREP PAP HPV IF ASCUS, CERVICAL, IMAGED CLINICAL INFORMATION: HPV IF DIAGNOSIS OF ASCUS. Z12.4 us Elal Jonas MD LAB CYTOLOGY ORDERABLES Fin al Result HISTORICAL TESTING LAB RESULTING AGENCY * HIV Screening (09/20/2017) HIV Screening ABSTRACTED us Historical Provider HEALTH MAINTENANCE Final Result * Hepatitis C Screening (09/20/2017) Hepatitis C Screening ABSTRACTED us Historical Provider HEALTH MAINTENANCE Final Result from Last 3 Months or Most Recently Relevant to Health Maintenance Care Teams Morning News Anchor Relationship Specialty Start Date End Date Janie Pulliam MD PCP - General Internal Medicine 01/26/22
--- OUTSIDE RECORDS SUMMARY | 2024-12-21 14:31 | XMS_ITS | Data Portability ---
Author Organization RAYMOND Whittaker [facility], [address] Address [address] [place] [address] Assessment No assessment recorded. Plan of Treatment Reminders Order Date Submit Date Provider Last Modified By Organization Details Last Modified Time Details Appointments None recorded. Lab rapid flu (A+B) 2023 024 [email or web address] [facility] [address], [address] [place], [address], 4 10:08:03 SARS CoV 2 (COVID-19) Ag, QL, IA, upper respiratory specimen 2023 024 [email or web address] 2099[facility] [address], [address] [place], [address], 4 10:08:02 rapid strep group A, throat 2022 023 [email or web address] 2099[facility] [address], [address] [place], [address], 3 10:04:56 streptococc us group A, culture, throat 2022 023 [place] [facility] ([facility], [address] [place] [address], [place], [address], 3 10:06:02 Referral None recorded. Procedures None recorded. Surgeries None recorded. Imaging None recorded. Medication Orders polymyxin B sulfate 10,000 unit-trimet hoprim 1 mg/mL eye drops 2022 023 [id number], [address] [place], [address], 09:07:51 fexofenadin e-pseudoeph edrine ER 180 mg-240 mg tablet,ext. release 24 hr 2022 023 [id number], [address] [place], [address], 4 09:08:10 prednisone 20 mg tablet 2022 023 [id number], [address] [place], [address], 09:07:47 Patient TargetsNo targets recorded. Patient Instructions Encounter Date Encounter Id Patient Instructions Last Modified By Organization Details Last Modified Time 07/24/2022 [id number] sore throat: car e instructions [email or web address] Not [...] headache or other symptoms that concern you. Not available 07/24/2022 10:03:28 Apply warm, mois [...] visit to the nearest Emergency Department. . Not available 07/24/2022 10:03:45 08/15/2023 [id number] upper respirator y infection (cold): care instructions [...] Range : Negat ricardo Not Available [facility] ([facility]) [address], [place], [address], 07/27/2022 10:06:02 07/24/19 23 07/24/2022 rapid strep group A, throa t Unknown Analyte Normal = Negati ve Not Available [facility] [address] [place], [address], 07/24/2022 09:35:00 07/24/19 23 07/24/2022 rapid strep group A, throa t Unknown Analyte negati ve Not Available [facility] [place], [address], 07/24/2022 09:35:00 08/15/19 24 08/15/2023 SARS CoV 2 (COVI D-19) Ag, QL, IA, upper respi rator y speci men Unknown Analyte negati ve Not Available [facility] [address] [place], [address], 08/15/2023 09:34:18 08/15/19 24 08/15/2023 SARS CoV 2 (COVI D-19) Ag, QL, IA, upper respi rator y speci men Unknown Analyte negati ve Not Available [facility] [address] [place], [address], 08/15/2023 09:34:18 08/15/19 24 08/15/2023 SARS CoV 2 (COVI D-19) Ag, QL, IA, upper respi rator y speci men Unknown Analyte yes Not Available [facility] [address] [place], [address], 08/15/2023 09:34:18 08/15/19 24 08/15/2023 rapid flu (A+B) Unknown Analyte negati ve Not Available [facility] [address] [place], [address], 08/15/2023 09:33:44 08/15/19 24 08/15/2023 rapid flu (A+B) Unknown Analyte negati ve Not Available [facility] [address] [place], [address], 08/15/2023 09:33:44 08/15/19 24 08/15/2023 rapid flu (A+B) Unknown Analyte negati ve Not Available [address] [address] [place], [address], 08/15/2023 09:33:44 08/15/19 24 08/15/2023 rapid flu (A+B) Unknown Analyte yes Not Available [facility] [address] [place], [address], 08/15/2023 09:33:44 Result Notes None recorded. Problems Name Problem SNOMED Code Status Onset Date Resolution Date Notes Provider Name and Address Organization Details Recorded Time Raynaud's disease 826374605 Active 2023 Erna merritt PA - [facility] 4 09:08:49 Lupus erythematosus 024627253 Active 2022 DEVANG merritt PA - [facility] 3 09:37:23 Gastroesophag eal reflux disease 657512777 Active 2022 DEVANG merritt PA - [facility] 3 09:37:28 Problem Notes None recorded. Procedures Surgical History Date Name Laterality Status Provider Name and Address Organization Details Recorded Time section completed DEVANG WESTFALL PA - [facility] 07/24/2022 09:37:42 Imaging Results None [...] oximetry Heart rate Respiratory rate Body temperature Systolic blood pressure Diastolic blood pressure Provider Name and Address Organization Details Last Updated DateTime 3 162.56 cm 36.9 kg/m2 07382.3 6 g 99 % 99 % 83 /min 16 /min 98.1 [degF] 118 mm[Hg] 82 mm[Hg] DEVANG WESTFALL PA - [facility] 3 09:36:06 Date Recorded Body height Body mass index (BMI) Body weight Respiratory rate Body temperature Heart rate Oxygen saturation Oxygen saturation in Arterial blood by Pulse oximetry Systolic blood pressure Diastolic blood pressure Provider Name and Address Organization Details Last Updated DateTime 4 162.56 cm 36.9 kg/m2 13307.3 6 g 18 /min 98.1 [degF] 86 /min 97 % 97 % 120 mm[Hg] 82 mm[Hg] Erna Broussardhans Whittaker [facility] 4 09:13:12 Social History Question Answer Notes LastModified by Skyonic Details LastModified Time Tobacco Smoking Status Never Smoker R[facility]MOND [facility] 07/24/2022 09:37:37 Which Illicit Or Recreational Drugs Have You Used? Recreational Marijuana Information not available 07/24/2022 Have You Had Direct Contact, Or Contact During Intimacy, With Monkeypox Rash, Scabs, Or Body Fluids From A Person With Monkeypox? No Information not available 08/15/2023 What Was The Date Of Your Most Recent Tobacco Screening? 08/15/2023 Information not available 08/15/2023 Have You Recently Traveled Abroad? No Information not available 07/24/2022 Sex: Unknown Functional Status Question Answer Note LastModified by [email or web address] Details LastModified Time Do you use any illicit or recreational drugs? Yes Information not available 07/24/2022 Do you or have you ever used any other forms of tobacco or nicotine? No Information not available 07/24/2022 What is your level of alcohol consumption? Occasional socially Information not available 08/15/2023 Mental Status None recorded. Family History Relationship [...] 09:36:33 Influenza, MDCK, quadrivalent, PF 9 completed Erna Aartier null, PA - [facility] 08/15/2023 09:07:27 Influenza, MDCK, quadrivalent, preservative 8 completed Erna Smith null, PA - [facility] 08/15/2023 09:07:27 MMR 2 completed Ernasamantha Broussarder null, PA - [facility] 08/15/2023 09:07:27 pneumococcal polysaccharide PPV23 5 completed Ernasamantha Broussarder null, PA - [facility] 08/15/2023 09:07:27 Hep B, unspecified formulation 2 completed Ernasamantha Broussarder null, PA - [facility] 08/15/2023 09:07:27 Influenza, split virus, trivalent, preservative 6 completed Ernasamantha Broussarder null, PA - [facility] 08/15/2023 09:07:27 Influenza, split virus, trivalent, preservative 5 completed RAYMOND Pettit [facility] 08/15/2023 09:07:27 Past Encounters Encounter ID Performer Location Encounter Start Date Encounter Closed Date Diagnosis/Indication Diagnosis SNOMED-CT Code Diagnosis ICD10 Code Diagnosis Note [id number] [address] [place] [address] 12/20/2020 15:53:04 12/20/2020 19:11:57 [id number] [address] [place] [address] 12/12/2021 08:51:04 12/12/2021 16:06:55 [id number] [address] [place] [address] 01/14/2022 11:38:31 01/14/2022 11:58:35 [id number] Harish Lemos, BOX HINGE [employer]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 [address] [place] [address] 07/24/2022 08:37:38 07/24/2022 10:08:18 Pharyngitis 794727721 J02.9 Acute sinusitis 34482442 J01.90 Acute conj unctivitis of bilateral eyes 4768128429 79113 H10.33 [id number] RAYMOND Stoll [address] [place] [address] 08/15/2023 08:44:09 08/15/2023 10:08:54 Acute pharyngitis 009004661 J02.9 Upper resp iratory infection 03917541 J06.9 Health Concerns Section Related Observation LastModified by Organization Detai ls LastModified Time None Recorded Concern Status LastModified by Organization Details LastModified Time None Recorded Advance Directives Directive None Recorded Payers Insurance Date Sequence Insurance Name Policy Number Policy Schaefer Covered Member ID Schaefer Member ID Guarantor Name 01/25/2024 1 WEB-TPA RU Marni Hernandez [id number] Mrani Hernandez 08/15/2023 1 [employer] (PPO) RU Marni Hernandez [id number] Marni Hernandez 08/15/2023 1 [employer] [id number] Marni Hernandez [id number] Marni Hernandez 01/25/2024 1 WEB-TPA - [employer] (PPO) Marni Hernandez [id number] Marni Hernandez Notes Date Note Type Note [...] Lemos NP [address] [place], [address], [facility] [employer] [facility] 07/24/2022 10:05:28 08/15/19 24 text/htm l CongestionReported bypatient.Quality:pressure; ache Severity:moderate Duration:3 days Context:states get sinus infection 2-3 times per year Aggravating Factors:none Alleviating Factors:none Associated Symptoms:no fever; no chills; no hemoptysis; no shortness of breath;cough; sore throat RAYMOND Mercado [address] [place], [address], [place] [employer] [facility] 08/15/2023 10:08:22 OBGyn Episode No OBEpisode recorded.
[2024-12-21 20:16] LABS: Bacterial Vaginosis PCR NEGATIVE (Negative); Candida Group PCR DETECTED (Not Detect); Candida glab krusei PCR NOT DETECTED (Not Detect); Trichomonas vaginalis PCR NOT DETECTED (Not Detect)
[2024-12-26 00:08] LABS: Follicle Stimulating Hormone 4.6 mIU/mL
[2024-12-27 08:00] LABS: Estradiol Ultra Sensitive 275 pg/mL
== END 2024-12-21 14:29 | disposition home or self-care (01) ==
LOC: HO.HHCL 14:28
PROVIDERS: PCP General Practice; Visit Provider Advanced Practice Midwife
DX: N94.11 Superficial (introital) dyspareunia (principal); N89.8 Other specified noninflammatory disorders of vagina; R61 Generalized hyperhidrosis
CPT/HCPCS: 36415; 81515; 82670; 83001; 84443

== ENCOUNTER 2024-12-29 13:37 | Outpatient (REF) | payer BC, SELFPAY ==
[2024-12-29 17:41] LABS: Appearance Urine Clear; Glucose Urine UA Negative (Negative); PH 7.0 (5.0-9.0); Specific Gravity - Urine 1.010 (1.005-1.025)
[2024-12-29 17:42] LABS: Baso%MD 0.5 %; Eos%MD 1.8 %; Hematocrit 35.5 % (37.0-47.0); Hemoglobin 12.5 g/dl (12.0-16.0); IG%MD 0.0 %; Lymph%MD 52.7 %; Mean Corpuscular HGB Conc 35.2 g/dl (31.0-35.0); Mean Corpuscular Hemoglobin 30.6 pg (27.0-33.0); Mean Corpuscular Volume 87.0 fL (80.0-98.0); Mono%MD 9.5 %; NRBC Abs Auto 0.000 X10*3/uL (0.0-0.012); NRBC Pct Auto 0.0 /100WBC (0.0-0.2); Neut%MD 35.5 %; Platelet Count 177 X10*3/uL (160-400); Red Blood Count 4.08 X10*6/uL (4.20-5.50)
[2024-12-29 17:45] LABS: White Blood Count 2.2 X10*3/uL (4.8-10.8)
[2024-12-29 17:46] LABS: Total Protein Urine Random < 7 mg/dL (<12)
[2024-12-29 18:00] LABS: Alanine Aminotransferase 15 U/L (0-31); Aspartate Amino Transferase 21 U/L (5-31); Estimated Glomerular Filt Rate > 60
[2024-12-29 18:42] LABS: Atypical Lymphs Percent Manual 2 % (0-6); Band Neutrophils Percent 0 % (3-5); Basophils Percent Manual 2 % (0-2); Lymphocytes Absolute Manual 0.7 X10*3/uL (1.2-4.9); Lymphocytes Percent Manual 34 % (20-40); Monocytes Absolute Manual 0.3 X10*3/uL (0.1-1.2); Monocytes Percent Manual 12 % (2-11); Neutrophils Absolute Manual 1.1 X10*3/uL (2.0-8.3); Neutrophils Percent Manual 50 % (45-73)
[2024-12-29 18:43] LABS: RBC Morphology NORMAL
== END 2024-12-29 13:38 | disposition home or self-care (01) ==
LOC: HO.HKASLDS 13:37
PROVIDERS: PCP General Practice; Visit Provider Internal Medicine Rheumatology
DX: M32.9 Systemic lupus erythematosus, unspecified (principal); L98.9 Disorder of the skin and subcutaneous tissue, unspecified; Z79.899 Other long term (current) drug therapy; I73.00 Raynaud's syndrome without gangrene
CPT/HCPCS: 36415; 81001; 82565; 82570; 84156; 84450; 84460; 85007; 85027; 85652; 86140; 86160; 86225

== ENCOUNTER 2024-12-29 13:37 | Outpatient (AMB) | payer BC, SELFPAY ==
--- NOTE | 2024-12-29 13:40 | MHC.OFFVIS ---
Vital Signs 12/29/24 13:41 Height 5 ft 4 in Weight 205 lb 14.588 oz BMI 35.3 BP 102/62 Blood Pressure Location Lt brachial Position Sitting Pulse 88 Pulse Source Pulse Oximeter Pulse Oximetry (%) 99 Oxygen Delivery Method Room Air Intake Visit Reasons: 3 Months Intake Note: Pt present today for Lupus. Allergies No Known Allergies Allergy (Verified 12/29/24 13:44) HPI HPI 3 Months: Details: Increase activity over december 22 weekend with cookouts contributed to more skin lesions in her hand. She has joint pain in hands. She had increase pain the day after lifting weights (10-15lbs). +frothy urine. No fevers, dyspnea, plurisy, oral ulcers. Pain in hands when using iron to straighten her hair. She missed work a couple of days this week and slept. Toes and fingers turn purple with cold exposure with pins and needle feeling. Occurs throughout the day. Double and triple socks help. Space heater at work helps. She saw [facility] rheumatology for enrollment in a clinical trial. She has labs done in October and was told yesterday that her white cell count was low. Due to the low white cell count she has not illegible for enrollment in the clinical trial. She was prescribed a 10 day course of prednisone 10 mg daily, which she has not started. Physical Exam Vital Signs: Last Vital Signs Pulse 88 12/29/24 13:41 BP 102/62 12/29/24 13:41 Pulse Ox 99 12/29/24 13:41 Oxygen Delivery Method Room Air 12/29/24 13:41 BMI result Body Mass Index 35.3 Const Other: General: Comfortable Respiratory: Normal breath sounds Cardiovascular: Regular rate and rhythm, no murmurs Skin: She has a erythematous lesions on fingers palmar aspect. Purplish discoloration of toes. MSK: Tenderness of bilateral MCPs, right PIP, IP. She has synovitis right 3rd PIP, IP. Tender bilateral knees and ankles with synovitis of bilateral MTPs. Normal range of motion of upper extremities and lower extremities. Assessment & Plan Assessment & Plan (1) Systemic lupus erythematosus (SLE) in adult: Comment: SLE is uncontrolled. She has inflammatory arthritis, cutaneous lesions, and active Raynaud's phenomenon. Previous labs 06/2024 and 07/2024 have revealed leukopenia, elevated CRP, low C3 and elevated double-stranded DNA. She is currently on treatment for vaginal candidiasis. Benlysta infusion was approved but patient did not call back after multiple attempts to schedule infusion. She saw [facility] Rheumatology for enrollment in clinical trial because she was under the impression that she was going to have a high co-pay for Benlysta infusion as she did in the past ($5000/month), which she can not afford. She did not contact insurance to find out the cost of her co-pay for Benlysta infusion. Benlysta subcutaneous injections were painful for her in the past. She prefers infusion over subcutaneous injections. Rheumatology history: Onset of systemic lupus erythematosus in 2010. 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 During she had thrombocytopenia and leukopenia prior to SLE diagnosis. Methotrexate was added for inflammatory arthritis but discontinued after a month due to leukopenia noted on labs (WCC did not decrease significantly). HCQ 2014 (G6PD deficient). Benlysta 2017 to 05/2021 initially on subcutaneous injection then switch to infusions with improved efficacy. Patient was afraid of the Benlysta subcutaneous injection needle. Benlysta was not restarted when she switched to [facility] from [facility] (Dr. Hannon) as patient was clinically quiescent. 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 Code(s): M32.9 - Systemic lupus erythematosus, unspecified Category: Medical Plan: Continue hydroxychloroquine 400 mg daily. Requesting clinic note from surveillance exam for HCQ ocular toxicity the patient had done 10/2024 Continue to use topical steroid prescribed by Dermatology PRN skin lesions. We will look into the cost of Benlysta infusion. If she has a co-pay that is unaffordable for her, there is a Benlysta co-pay program that she can apply for. I do not recommend that she pursue clinical trial until we find out more information about the financial barrier with Benlysta infusion. If Benlysta is not an option for patient due to financial reasons, my next treatment of choice would be anifrolumab over clinical trial at [facility]. Prednisone course prescribed RTC 3 months (2) Skin lesions: Code(s): L98.9 - Disorder of the skin and subcutaneous tissue, unspecified Category: Medical Plan: See above (3) Other prison (current) drug therapy: Code(s): Z79.899 - Other manager long term care (current) drug therapy Category: Medical Plan: See above (4) Raynaud disease: Code(s): I73.00 - Raynaud's syndrome without gangrene Category: Medical Plan: Start nifedipine 30 mg XL daily Return to clinic in 3 months Plan See above Orders: Orders Alanine Aminotransferase Today M32.9 - Systemic lupus erythematosus, unspecified Creatinine Today M32.9 - Systemic lupus erythematosus, unspecified Protein Creatinine Ratio, Ur Today M32.9 - Systemic lupus erythematosus, unspecified Anti DNA DS Antibody Today M32.9 - Systemic lupus erythematosus, unspecified Complete Blood Count Man Dif Today M32.9 - Systemic lupus erythematosus, unspecified Aspartate Amino Transferase Today M32.9 - Systemic lupus erythematosus, unspecified C Reactive Protein Today M32.9 - Systemic lupus erythematosus, unspecified Erythrocyte Sedimentation Rate Today M32.9 - Systemic lupus erythematosus, unspecified UA w Microscopic Today M32.9 - Systemic lupus erythematosus, unspecified Complement C4 Today M32.9 - Systemic lupus erythematosus, unspecified Complement C3 Today M32.9 - Systemic lupus erythematosus, unspecified Medications: New nifedipine ER 30 mg PO DAILY 30 tabs 11RF nifedipine ER 30 mg PO DAILY 30 tabs 11RF prednisone Take 4 tablets daily 7 days, 3 tablets daily 7 days, 2 tablets daily 7 days, 1 tablet daily 7 days. 5 mg PO DIRECTED 70 tabs 0RF Discontinued amlodipine Take 7.5 mg daily. Dispense 90 day supply. Discontinued Reason: Doctor's Order 2.5 mg PO DAILY 90 tabs 3RF Coding Level of Care Code Est Pt Level 4 (98484) Complex EM visit Add On G2211 Diagnoses Systemic lupus erythematosus (SLE) in adult M32.9 Skin lesions L98.9 Other prison (current) drug therapy Z79.899 Raynaud disease I73.00
[2024-12-29 13:41] VITALS: BP 102/62; PULSE 88; O2SAT 99; BMI 35.3
--- OUTSIDE RECORDS SUMMARY | 2024-12-29 13:41 | XMS_ITS | Encounter Summary ---
Author Organization [employer] Address [address] [facility] [address] [facility] [address] [place] [address] Care Team Providers Care Grease And Tallow Pumper Name Role Phone Chioma Connelly MD Primary Care Provider [phone] Encounter Details Date Type Department Care Team ([facility] st Contact Info) Description 12/06/2024 Orders Only [facility] [address] [place], [place] [phone] Chioma Connelly MD [address] [place], [place] [phone] Social History Tobacco Use Types Packs/Day Years [...] Description 01/04/2025 1:45 PM EDT Office Visit [facility] [address] [place] [address] Rachelle Bryan CNM [address] [place] [address] documented as of this encounter Visit Diagnoses Not on filedocumented in this encounter Additional Health Concerns Assessment Noted Time PHQ-9 Depression Total Score: 0 05/12/20 9:01 AM EST documented as of this encounter Care Teams Grease And Tallow Pumper Relationship Specialty Start Date End Date Chioma Connelly MD [address] [place] [address] PCP - General Family Medicine 05/12/24 documented as of this encounter
--- OUTSIDE RECORDS SUMMARY | 2024-12-29 13:41 | XMS_ITS | Encounter Summary ---
Author Organization [facility] Address [address] [place] [address] Care Team Providers Care Glass Mold Repairer Name Role Phone Chioma Connelly Primary Care Provider [phone] Encounter Details Date Type Department Care Team (Late st Contact Info) Description 12/29/2024 Orders Only [facility] [address] [place] [address] [phone] [employer] Trap: Tam Lees MD [address] [place] [address] [phone] Lymphopenia (Primary Dx); Other forms of systemic lupus erythematosus, unspecified organ involvement status (HCC) Social History Tobacco Use Types Packs/Day Years Used Date Smoking Tobacco: Never Smokeless Tobacco: Never Alcohol Use Standard Drinks/Week Comments Not Currently 0 (1 standard drink = 0.6 oz pur e alcohol) Comments Unknown Sex and Gender Information Value Date Recorded Sex Assigned at Female 11/15/2024 10:52 AM EDT Legal Sex Female 1:12 PM EDT Gender Identity Not on file Sexual Orientation Not on file documented as of this encounter Progress Notes * Tam Kessler MD - 12/29/2024 9:57 AM EDT Ms. Hernandez has leukopenia due to her systemic lupus erythematosus. To treat her active disease, she will take prednisone 10 mg by mouth daily. I spoke with Ms. Hernandez and explained to her the benefits and risks of this treatment. She accepts these and is willing to take this treatment. Tam Kessler MD documented in this encounter Plan of Treatment Not on file documented as of this encounter Visit Diagnoses Diagnosis Lymphopenia- Primary Lymphocytopenia Other forms of systemic lupus erythematosus, unspecified organ involvement status (HCC) documented in this encounter Care Teams Glass Mold Repairer Relationship Specialty Start Date End Date Chioma Connelly [address] [place] [address] PCP - General 11/07/24 documented as of this encounter
--- OUTSIDE RECORDS SUMMARY | 2024-12-29 13:42 | XMS_ITS | Clinical Summary ---
Author Organization [facility] Address [address] [place] [address] Care Team Providers Care Property Disposal Manager Name Role Phone Janie Pulliam MD Primary Care Provider [phone] Allergies No known active allergies Medications etonogestrel-eluti [...] infection 09/13/2020 Overview (06/11/2024): Tested positive 09/13/20at [facility] pharmacy. Leukopenia 07/28/2019 Overview (06/11/2024): Chronic, no depression of other cell lines, both lymphocytes and neutrophils are low. Probably due to SLE. 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 Immunizations Name Administration Dates Next Due Influenza [...] HISTORICAL OTHER SURGICAL HISTORY 03/25/2015 Left PROCEDURE: [place] RENAL BIOPSY SURG EXPOSURE KIDNEY; COMMENT: lupus nephritis, membranous type, ISN/RPS class V; chronic changes of parenchyma (done at [facility]) SECTION 2017 PROCEDURE: HISTORICAL DELIVERY ESOPHAGOGASTRODUODENOSCOPY 03/12/2021 PROCEDURE: NH EGD TRANSORAL BIOPSY SINGLE/MULTIPLE; COMMENT: biopsy shows [...] 5 Years) and At-Risk Patients (6 to 49 Years) (2 of 2 - PCV) 06/17/2016 [...] RESULTING AGENCY - 05/09/2021 3:21 PM EST [id number] THINPREP PAP, IMAGED: NEGATIVE FOR SQUAMOUS INTRAEPITHELIAL LESION AND MALIGNANCY . CHASITY IS PRESENT. NOTE: THE PAP TEST IS A SCREENING TEST WITH AN INHERENT FALSE NEGATIVE RATE. AUTOMATED PRESCREENING OF ALL LIQUID BASED SPECIMENS IS PERFORMED BY THE ampricePREP IMAGING SYSTEM UNLESS OTHERWISE STATED. PHUONG SWNA(ASCP) (CASE ELECTRONICALLY SIGNED 05 09 2021) ADEQUACY: SATISFACTORY ENDOCERVICAL/TRANSFORMATION ZONE COMPONENT PRESENT. SOURCE: THINPREP PAP HPV IF ASCUS, CERVICAL, IMAGED CLINICAL INFORMATION: HPV IF DIAGNOSIS OF ASCUS. Z12.4 us Ella Jonas MD LAB CYTOLOGY ORDERABLES Fin al Result HISTORICAL TESTING LAB RESULTING AGENCY * HIV Screening (09/20/2017) HIV Screening ABSTRACTED us Historical Provider HEALTH MAINTENANCE Final Result * Hepatitis C Screening (09/20/2017) Hepatitis C Screening ABSTRACTED us Historical Provider HEALTH MAINTENANCE Final Result from Last 3 Months or Most Recently Relevant to Health Maintenance Care Teams Property Disposal Manager Relationship Specialty Start Date End Date Janie Pulliam MD PCP - General Internal Medicine 01/26/22
--- OUTSIDE RECORDS SUMMARY | 2024-12-29 13:42 | XMS_ITS | Clinical Summary ---
Author Organization [facility] Address [address] [place] [address] Care Team Providers Care Spinner Hand Name Role Phone Unavailable Primary Care Provider [...] , proteinuria, hematurias, + anti Sm, +anti- TREE FELLER. Family History Medical History Relation Name Comments [...] - PCV) 06/17/2016 06/17/2015 Influenza Vaccine (#1) 2025 1, 02/20/2020, 02/24/2019, Additional history exists RSV Ped < 20 months Aged Out No longe r eligible based on patient's age to complete this topic
== END 2024-12-29 14:32 | disposition home or self-care (01) ==
LOC: HO.RHES 13:37
PROVIDERS: PCP General Practice; Visit Provider Internal Medicine Rheumatology
DX: M32.9 Systemic lupus erythematosus, unspecified (principal); L98.9 Disorder of the skin and subcutaneous tissue, unspecified; Z79.899 Other long term (current) drug therapy; I73.00 Raynaud's syndrome without gangrene
CPT/HCPCS: 99214

== ENCOUNTER 2025-01-02 15:06 | Outpatient (REF) | payer BC, SELFPAY ==
--- NOTE | ~2025-01-02 | US_ITS ---
EXAMINATION: US PELVIS TRANSABDOMINAL AND TRANSVAGINAL HISTORY: pelvic pain COMPARISON: There are no prior studies available for comparison. TECHNIQUE: Transabdominal and endovaginal real-time 2D iniguez-scale ultrasound was performed. FINDINGS: Uterus: The uterus is normal in size, measuring 7.1 x 3.6 x 3.8 cm. Myometrium has a normal echotexture. No fibroids are identified. Endometrium: The endometrial stripe measures 9 mm in thickness. There is fluid in the cervix. Right ovary: The right ovary measures 3.1 x 3.0 x 3.8 cm. There is a complex cystic structure measuring 2.9 x 2.6 x 3.2 cm. This demonstrates septations and low-level internal echoes. Left ovary: The left ovary measures 2.3 x 1.9 x 1.3 cm. The left ovary is normal in size and echotexture. Pelvic fluid: none. US/US pelvic and transvaginal IMPRESSION: 1. 2.9 x 2.6 x 3.2 cm complex right ovarian cystic structure as described. A follow-up examination in 6 weeks, at a different time in the patient's menstrual cycle, is recommended. 2. Fluid in the cervix. Electronically signed by: Hubert Ogden MD 01/02/2025 03:33 PM EDT
--- OUTSIDE RECORDS SUMMARY | 2025-01-02 16:22 | XMS_ITS | Clinical Summary ---
Author Organization [facility] Address [address] [place] [address] Care Team Providers Care Wildlife Biology Technician Name Role Phone Janie Pulliam MD Primary Care Provider [phone] Allergies No known active allergies Medications etonogestrel-eluti [...] infection 09/13/2020 Overview (06/11/2024): Tested positive 09/13/20at [facility] pharmacy. Leukopenia 07/28/2019 Overview (06/11/2024): Chronic, no depression of other cell lines, both lymphocytes and neutrophils are low. Probably due to SLE. Anxiety and depression 02/16/2019 Lupus nephritis, ISN/RPS class V ([facility] V24, [facility] V28) 11/22/2018 Raynaud's phenomenon without gangrene 07/23/2017 Pulmonary nodules/lesions, multiple 09/12/2015 Overview (06/11/2024): Stable [address] SLE (systemic lupus erythema tosus) ([facility] V24, [facility] V28) 04/18/2015 Overview (06/11/2024): Onset ~ 2010 [...] , proteinuria, hematurias, + anti Sm, +anti- LINE PERSON. Immunizations Name Administration Dates Next Due Influenza [...] HISTORICAL OTHER SURGICAL HISTORY 03/25/2015 Left PROCEDURE: AL RENAL BIOPSY SURG EXPOSURE KIDNEY; COMMENT: lupus nephritis, membranous type, ISN/RPS class V; chronic changes of parenchyma (done at [facility]) SECTION 2017 PROCEDURE: HISTORICAL DELIVERY ESOPHAGOGASTRODUODENOSCOPY 03/12/2021 PROCEDURE: AL EGD TRANSORAL BIOPSY SINGLE/MULTIPLE; COMMENT: biopsy shows [...] RESULTING AGENCY - 05/09/2021 3:21 PM EST [id number] THINPREP PAP, IMAGED: NEGATIVE FOR SQUAMOUS INTRAEPITHELIAL LESION AND MALIGNANCY . CHASITY IS PRESENT. NOTE: THE PAP TEST IS A SCREENING TEST WITH AN INHERENT FALSE NEGATIVE RATE. AUTOMATED PRESCREENING OF ALL LIQUID BASED SPECIMENS IS PERFORMED BY THE [employer] MedicalPREP IMAGING SYSTEM UNLESS OTHERWISE STATED. PHUONG SWAN(ASCP) [...] Recently Relevant to Health Maintenance Care Teams Wildlife Biology Technician Relationship Specialty Start Date End Date Janie Pulliam MD PCP - General Internal Medicine 01/26/22
--- OUTSIDE RECORDS SUMMARY | 2025-01-02 16:22 | XMS_ITS | Encounter Summary ---
Author Organization [employer] Address [address] [facility] 7[address] [place] [address] Care Team Providers Care Senior Quality Assurance Analyst Name Role Phone Chioma Connelly MD Primary Care Provider [phone] Encounter Details Date Type Department Care Team (Late st Contact Info) Description 12/29/2024 Orders Only GENERIC EXTERNAL DATA DEPARTMENT Provider, [...] Description 01/04/2025 1:45 PM EDT Office Visit [facility] MED[facility]INE [address], [place] [phone] Rachelle Bryan CNM [address] [place] [address] documented as of this encounter Procedures Procedure Name Priority Date/Time Associated Diagnosis Comments PROTEIN CREATININE RATIO, URINE Routine 12/29/2024 2:55 PM EDT COMPLETE BLOOD COUNT MAN DIF Routine 12/29/2024 2:55 PM EDT CREATININE, SERUM Routine 12/29/2024 2:5 5 PM EDT URINALYSIS, COMPLETE Routine 12/29/2024 2:55 PM EDT SED RATE BY MODIFIED WESTERGREN Routine 12/29/2024 2:55 PM EDT COMPLEMENT COMPONENT C3C Routine 12/29/2024 2:55 PM EDT COMPLEMENT COMPONENT C4C Routine 12/29/2024 2:55 PM EDT C-REACTIVE PROTEIN Routine 12/29/2024 2: 55 PM EDT ALT Routine 12/29/2024 2:55 PM EDT AST Routine 12/29/2024 2:55 PM EDT documented in this encounter Results * Complement Component C4c (12/29/2024 2:55 PM EDT) Complement C4 21 15 - 57 mg/dL [facility] Comment:THIS TEST WAS PERFOR MED AT:[facility] [place] [phone] LEES MD 12/29/2024 2:55 PM EDT 12/29/2024 5:29 PM EDT Generic External Data Provider LAB BLOOD ORDERAB LES Final Result Performing Organization Address [facility]/ZIP Co de Phone Number [facility] [address] [place] [phone] * Complement Component C3c (12/29/2024 2:55 PM EDT) Complement C3 84 83 - 193 mg/dL [facility] Comment:THIS TEST WAS PERFOR MED AT:[facility] [place] [id number] LEES MD 12/29/2024 2:55 PM EDT 12/29/2024 5:29 PM EDT Generic External Data Provider LAB BLOOD ORDERAB LES Final Result Performing Organization Address City/[facility] Co de Phone Number [facility] [address] [place] [phone] * Sed Rate by Bindu Snow (12/29/2024 2:55 PM EDT) Erythrocyte Sedimentation Rate 6 0 - 20 MM/HR [facility] Comment:Patients with polycy themia and many hemoglobin abnormalitiesmay have depressed sed rates whereas patients with anemiamay have elevated sed rates. 12/29/2024 2:55 PM EDT 12/29/2024 5:29 PM EDT us Generic External Data Provider LAB BLOOD ORDERAB LES Final Result Performing Organization Address [facility] Co de Phone Number [facility] [address] [place] [phone] * C-reactive Protein (12/29/2024 2:55 PM EDT) C Reactive Protein 0.35 < or = 0.50 mg/dL [facility] 12/29/2024 2:55 PM EDT 12/29/2024 5:29 PM EDT Generic External Data Provider LAB BLOOD ORDERAB LES Final Result Performing Organization Address [facility] Phone Number [facility] [address] [place] [phone] * ALT (12/29/2024 2:55 PM EDT) Alanine Aminotransferase 15 0 - 31 U/L [facility] 12/29/2024 2:55 PM EDT 12/29/2024 5:29 PM EDT us Generic External Data Provider LAB BLOOD ORDERAB LES Final Result Performing Organization Address [facility] Co de Phone Number [facility] [address] [place] [phone] * AST (12/29/2024 2:55 PM EDT) Aspartate Amino Transferase 21 5 - 31 U/L [facility] 12/29/2024 2:55 PM EDT 12/29/2024 5:29 PM EDT Generic External Data Provider LAB BLOOD ORDERAB LES Final Result Performing Organization Address [facility] Co de Phone Number [facility] [address] [place] [phone] * Creatinine, Serum (12/29/2024 2:55 PM EDT) Creatinine, Serum 0.71 0.5 - 1.4 mg/dL [facility] Estimated Glomerular Filt Rate >60 [facility] Comment:Chronic Kidney Disea se: Estimated GFR < 60 mL/min/1.11u2Kjvpuu Kidney Disease: Estimated GFR < 15 mL/min/1.73m2 12/29/2024 2:55 PM EDT 12/29/2024 5:29 PM EDT Generic External Data Provider LAB BLOOD ORDERAB LES Final Result Performing Organization Address [facility]/ZIP Co de Phone Number [facility] [address] [place] [address] [phone] * Protein Creatinine Ratio, Urine (12/29/2024 2:55 PM EDT) Creatinine, Urine 65.45 mg/dL [facility] Protein, Total, Random Urine <7 <12 mg/dL [facility] Protein/Creatin ine Ratio, Ur TNP <0.2 [facility] Comment:Unable to calculate urine protein creatinine ratio due tolow creatinine or protein result. 12/29/2024 2:55 PM EDT 12/29/2024 5:28 PM EDT Generic External Data Provider LAB URINE ORDERAB LES Final Result Performing Organization Address City/[facility]/ZIP Co de Phone Number [facility] [address] [place] [phone] * (ABNORMAL) Complete Blood Count Manual Diff (12/29/2024 2:55 PM EDT) White Blood Count 2.2(L) 4.8 - 10.8 X10*3/uL [facility] Red Blood Count 4.08(L) 4.20 - 5.50 X10*6/uL [facility] Hemoglobin 12.5 12.0 - 16.0 g/dl [facility] Hematocrit 35.5(L) 37.0 - 47.0 % [facility] Mean Corpuscular Volume 87.0 80.0 - 98.0 fL [facility] Mean Corpuscular Hemoglobin 30.6 27.0 - 33.0 pg [facility] Mean Corpuscular HGB Conc 35.2(H) 31.0 - 35.0 g/dl [facility] Red Cell Distribution Width 11.5 11.0 - 16.0 % [facility] Platelet Count 177 160 - 400 X10*3/uL [facility] Mean Platelet Volume 10.9 9.4 - 12.3 fL [facility] NRBC Pct Auto 0.0 0.0 - 0.2 /100WBC [facility] NRBC Abs Auto 0.000 0.0 - 0.012 X10*3/uL [facility] Neutrophils % Manual 50 45 - 73 % [facility] Band Neutrophils Percent 0(L) 3 - 5 % [facility] Lymphocytes Percent Manual 34 20 - 40 % [facility] Atypical Lymphs Percent Manual 2 0 - 6 % [facility] Monocytes Percent Manual 12(H) 2 - 11 % [facility] BASOPHILS % MANUAL 2 0 - 2 % [facility] NEUTROPHILS ABSOLUTE MANUAL 1.1(L) 2.0 - 8.3 X10*3/uL [facility] LYMPHOCYTES ABSOLUTE MANUAL 0.7(L) 1.2 - 4.9 X10*3/uL [facility] MONOCYTES ABSOLUTE MANUAL 0.3 0.1 - 1.2 X10*3/uL [facility] Platelet Estimate NORMAL [facility] Platelet Morphology Comment NORMAL [facility] RBC Morphology NORMAL [facility] 12/29/2024 2:55 PM EDT 12/29/2024 5:29 PM EDT us Generic External Data Provider LAB BLOOD ORDERAB LES Final Result [facility] [address] [place] [phone] * Urinalysis Complete (12/29/2024 2:55 PM EDT) Color Urine Yellow [facility] Appearance Urine Clear [facility] PH 7.0 5.0 - 9.0 [facility] Glucose Urine UA Negative Negative mg/dL [facility] Urine Blood Negative Negative [facility] Specific Circle - Urine 1.010 1.005 - 1.025 [facility] Urine Protein Negative Neg-Trace mg/dL [facility] Urine Ketones Negative Negative mg/dL [facility] Nitrite Urine Negative Negative [facility] Leukocyte Esterase Urine Negative Negative [facility] RBC Urine 0-2 0 - 2 /HPF [facility] Urine WBC 0-5 0 - 5 /HPF [facility] Urine Squamous Epithelial Cell 0-2 0 - 2 /HPF [facility] Urine Bacteria None Seen None Seen [facility] Hyaline Casts, Urine 0-2 0 - 2 /LPF [facility] 12/29/2024 2:55 PM EDT 12/29/2024 5:28 PM EDT us Generic External Data Provider LAB URINE ORDERAB LES Final Result [facility] [address] [place] [phone] documented in this encounter Visit Diagnoses Not on filedocumented in this encounter Additional Health Concerns Assessment Noted Time PHQ-9 Depression Total Score: 0 05/12/20 24 9:01 AM EST documented as of this encounter Care Teams Senior Quality Assurance Analyst Relationship Specialty Start Date End Date Chioma Connelly MD [address] [place] [address] PCP - General Family Medicine 05/12/24 documented as of this encounter
--- OUTSIDE RECORDS SUMMARY | 2025-01-02 16:22 | XMS_ITS | Encounter Summary ---
Author Organization [facility] Address [address] [place] [address] Care Team Providers Care Wood Craftsman Name Role Phone Chioma Connelly Primary Care Provider [phone] Encounter Details Date Type Department Care Team (Late st Contact Info) Description 12/29/2024 Orders Only [facility] [address] [place] [phone] Pharmacy Technologist: Tam Lees MD [address] [place] [address] [phone] Lymphopenia (Primary Dx); Other forms of systemic [...] (HCC) documented in this encounter Care Teams Wood Craftsman Relationship Specialty Start Date End Date Chioma Connelly [address] [place] [address] PCP - General 11/07/24 documented as of this encounter
--- OUTSIDE RECORDS SUMMARY | 2025-01-02 16:22 | XMS_ITS | Clinical Summary ---
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 Family History Medical History Relation Name Comments [...]
--- OUTSIDE RECORDS SUMMARY | 2025-01-02 16:22 | XMS_ITS | Data Portability ---
Author Organization RAYMOND Whittaker [facility] [address] Address [address] [place] [address] Assessment No assessment recorded. Plan of Treatment Reminders Order Date Submit Date Provider Last Modified By Organization Details Last Modified Time Details Appointments None recorded. Lab rapid flu (A+B) 2023 024 [email or web address], [address] [place], [address], 4 10:08:03 SARS CoV 2 (COVID-19) Ag, QL, IA, upper respiratory specimen 2023 024 [email or web address] 2099[facility], [address] [place], [address], 4 10:08:02 rapid strep group A, throat 2022 023 [email or web address] [facility]99[facility] [address], [address] [place], [address], 3 10:04:56 streptococc us group A, culture, throat 2022 023 [place] ([facility], [address] [place] [address], [place], [address], 3 10:06:02 Referral None recorded. Procedures None recorded. Surgeries None recorded. Imaging None recorded. Medication Orders polymyxin B sulfate 10,000 unit-trimet hoprim 1 mg/mL eye drops 2022 023 [id number], [address] [place], [address], 09:07:51 fexofenadin e-pseudoeph edrine ER 180 mg-240 mg tablet,ext. release 24 hr 2022 023 [id number], [address] [place], [address], 4 09:08:10 prednisone 20 mg tablet 2022 023 [id number], [address] [place], [address], 09:07:47 Patient TargetsNo targets recorded. Patient Instructions Encounter Date Encounter Id Patient Instructions Last Modified By Organization Details Last Modified Time 07/24/2022 [id number] sore throat: car e instructions [email or web address] Not [...] Department. . Not available 07/24/2022 10:03:45 08/15/2023 [id number] upper respirator y infection (cold): care instructions [...] Range : Negat ricardo Not Available [facility] ([facility]) [address], [place], [address], 07/27/2022 10:06:02 07/24/19 23 07/24/2022 rapid strep group A, throa t Unknown Analyte Normal = Negati ve Not Available [facility] [address] [place], [address], 07/24/2022 09:35:00 07/24/19 23 07/24/2022 rapid strep group A, throa t Unknown Analyte negati ve Not Available [facility] [address] [place], [address], 07/24/2022 09:35:00 08/15/19 24 08/15/2023 SARS CoV 2 (COVI D-19) Ag, QL, IA, upper respi rator y speci men Unknown Analyte negati ve Not Available [facility] [address] [place], [address], 08/15/2023 09:34:18 08/15/19 24 08/15/2023 SARS CoV 2 (COVI D-19) Ag, QL, IA, upper respi rator y speci men Unknown Analyte negati ve Not Available [facility] [address] [place], [address], 08/15/2023 09:34:18 08/15/19 24 08/15/2023 SARS CoV 2 (COVI D-19) Ag, QL, IA, upper respi rator y speci men Unknown Analyte yes Not Available [facility] [address] [place], [address], 08/15/2023 09:34:18 08/15/19 24 08/15/2023 rapid flu (A+B) Unknown Analyte negati ve Not Available [facility] [address] [place], [address], 08/15/2023 09:33:44 08/15/19 24 08/15/2023 rapid flu (A+B) Unknown Analyte negati ve Not Available [facility] [place], [address], 08/15/2023 09:33:44 08/15/19 24 08/15/2023 rapid flu (A+B) Unknown Analyte negati ve Not Available [address] [place], [address], 08/15/2023 09:33:44 08/15/19 24 08/15/2023 rapid flu (A+B) Unknown Analyte yes Not Available [facility] [address] [place], [address], 08/15/2023 09:33:44 Result Notes None recorded. Problems Name Problem SNOMED Code Status Onset Date Resolution Date Notes Provider Name and Address Organization Details Recorded Time Raynaud's disease 588466449 Active 2023 Erna merritt PA - [facility] 4 09:08:49 Lupus erythematosus 860232964 Active 2022 DEVANG merritt PA - [facility] 3 09:37:23 Gastroesophag eal reflux disease 956256562 Active 2022 DEVANG merritt PA - [facility] [...] Heart rate Respiratory rate Body temperature Systolic And Diastolic Provider Name and Address Organization Details Last Updated DateTime 3 162.56 cm 36.9 kg/m2 95039.3 6 g 99 % 99 % 83 /min 16 /min 98.1 [degF] 118/82 mm[Hg] DEVANG WESTFALL PA - [facility] 3 09:36:06 Date Recorded Body height Body mass index (BMI) Body weight Respiratory rate Body temperature Heart rate Oxygen saturation Oxygen saturation in Arterial blood by Pulse oximetry Systolic And Diastolic Provider Name and Address Organization Details Last Updated DateTime 4 162.56 cm 36.9 kg/m2 44028.3 6 g 18 /min 98.1 [degF] 86 /min 97 % 97 % 120/82 mm[Hg] Erna Whittaker [facility] 4 09:13:12 Social History Question Answer Notes LastModified by [employer] Details LastModified Time Tobacco Smoking Status Never Smoker RAYMOND Caputo [facility] 07/24/2022 09:37:37 Which Illicit Or Recreational [...] Functional Status Question Answer Note LastModified by [employer] Details LastModified Time Do you use any [...] Immunizations Vaccine Type Date Status Note Provider Jaron lorenz and Address Organization Details Recorded Time Influenza, MDCK, quadrivalent, PF 0 completed RAYMOND Caputo [facility] 07/24/2022 09:36:33 Influenza, MDCK, quadrivalent, [...] Influenza, MDCK, quadrivalent, PF 9 completed Erna Marier null, PA - [facility] 08/15/2023 09:07:27 Influenza, MDCK, quadrivalent, preservative 8 completed Erna Smith null, PA - [facility] 08/15/2023 09:07:27 MMR 2 completed Erna Smith null, PA - [facility] 08/15/2023 09:07:27 pneumococcal polysaccharide PPV23 5 completed Erna Marier null, PA - [facility] 08/15/2023 09:07:27 Hep B, unspecified formulation 2 completed Ernasamantha Broussarder null, PA - [facility] 08/15/2023 09:07:27 Influenza, split virus, trivalent, preservative 6 completed Ernasamantha Smith null, PA - [facility] 08/15/2023 09:07:27 Influenza, split virus, trivalent, preservative 5 completed RAYMOND Pettit - [facility] 08/15/2023 09:07:27 Past Encounters Encounter ID Performer Location Encounter Start Date Encounter Closed Date Diagnosis/Indication Diagnosis SNOMED-CT Code Diagnosis ICD10 Code Diagnosis Note [id number] [address] [facility] [place] [address] 12/20/2020 15:53:04 12/20/2020 19:11:57 [id number] [address] [place] [address] 12/12/2021 08:51:04 12/12/2021 16:06:55 [id number] [address] [place] [address] 01/14/2022 11:38:31 01/14/2022 11:58:35 [id number] Harish Lemos, ADMINISTRATIVE SPECIALIST [address] [place] [address] 07/24/2022 08:37:38 07/24/2022 10:08:18 Pharyngitis 625373961 J02.9 Acute sinusitis 50077944 J01.90 Acute conj unctivitis of bilateral eyes 2181842924 43655 H10.33 [id number] RAYMOND Stoll [address] [place] [address] 08/15/2023 08:44:09 08/15/2023 10:08:54 Acute pharyngitis 936346298 J02.9 Upper resp iratory infection 23420918 J06.9 Health Concerns Section Related Observation LastModified by Organization Detai ls LastModified Time None Recorded Concern Status LastModified by Organization Details LastModified Time None Recorded Advance Directives Directive None Recorded Payers Insurance Date Sequence Insurance Name Policy Number Policy Schaefer Covered Member ID Schaefer Member ID Guarantor Name 01/25/2024 1 WEB-[id number] Marni Hernandez [id number] Marni Hernandez 08/15/2023 1 [employer] (PPO) [id number] Marni Hernandez [id number] Marni Hernandez 08/15/2023 1 [id number] Marni Hernandez [id number] Marni Hernandez 01/25/2024 1 WEB-TPA - [employer] (PPO) Marni Hernandez [id number] Marni Hernandez Notes Date Note Type Note [...] Lemos NP [address] [place], [phone], [employer] 07/24/2022 10:05:28 08/15/19 24 text/htm l CongestionReported bypatient.Quality:pressure; ache Severity:moderate Duration:3 days Context:states get sinus infection 2-3 times per year Aggravating Factors:none Alleviating Factors:none Associated Symptoms:no fever; no chills; no hemoptysis; no shortness of breath;cough; sore throat RAYMOND Mercado [address] [place], [phone], [employer] 08/15/2023 10:08:22 OBGyn Episode No OBEpisode recorded.
== END 2025-01-02 15:07 | disposition home or self-care (01) ==
LOC: HO.HMGCX 15:06
PROVIDERS: PCP General Practice; Visit Provider Advanced Practice Midwife
DX: R10.2 Pelvic and perineal pain (principal)
CPT/HCPCS: 76830; 76856

== ENCOUNTER → 2025-01-02 15:07 | Outpatient (BNV) | payer BC, SELFPAY | PROVIDERS: PCP General Practice; Visit Provider Radiology Diagnostic Radiology | DX: N83.201 Unspecified ovarian cyst, right side (principal); N88.8 Other specified noninflammatory disorders of cervix uteri | CPT/HCPCS: 76830; 76856 ==

== ENCOUNTER 2025-02-22 13:25 | Outpatient (REF) | payer BC, SELFPAY ==
--- NOTE | ~2025-02-22 | US_ITS ---
EXAMINATION: US PELVIS CLINICAL INFORMATION: Six-week follow-up of a 3.2 cm complex right ovarian cyst COMPARISON: None available. TECHNIQUE: Ultrasound of the pelvis is performed using both transabdominal and transvaginal transducers along with Doppler. Transvaginal imaging is performed due to inadequate visualization transabdominally. FINDINGS: Uterus: The uterus is anteverted and measures 6.5 x 3.6 x 3.7 cm. The double wall endometrial thickness is 4 mm. The uterus is smooth in contour and has normal myometrial echogenicity. No visible fibroid. Adnexa: Both ovaries are visualized. There is normal color flow to the adnexa. There is no ovarian torsion. There is no pelvic ascites or fluid collection. Right ovary measures 2.4 x 1.4 x 1.8 cm. Hemorrhagic cyst in the right ovary has resolved. Left ovary measures 4.2 x 2.6 x 2.9. cm. There is a 3.4 x 2.3 x 2.4 cm mostly anechoic cyst possibly with a thin septation that does not demonstrates blood flow on color Doppler. US/US pelvic and transvaginal IMPRESSION: New 3.4 cm indeterminate left ovarian cyst possibly with a hairline thin septation. Follow-up ultrasound in 6-12 weeks. Resolved complex right ovarian cyst. Electronically signed by: Eric Schaffer MD 02/22/2025 02:30 PM EDT
--- OUTSIDE RECORDS SUMMARY | 2025-02-22 14:41 | XMS_ITS | Encounter Summary ---
Author Organization [employer] Address [address] [facility] [address] [place] [address] Care Team Providers Care Cutter And Paster Press Clippings Name Role Phone Chioma Connelly MD Primary Care Provider [phone] Encounter Details Date Type Department Care Team ([facility] st Contact Info) Description 12/06/2024 Orders Only [facility] [address] [place], [place] [phone] Chioma Connelly MD [address] [place], [place] [phone] Social History Tobacco Use Types Packs/Day Years [...] documented as of this encounter Care Teams Cutter And Paster Press Clippings Relationship Specialty Start Date End Date Chioma Connelly MD [address] [place] [address] PCP - General Family Medicine 05/12/24 documented as of this encounter
--- OUTSIDE RECORDS SUMMARY | 2025-02-22 14:41 | XMS_ITS | Encounter Summary ---
Author Organization [employer] Address [address] [facility] 7t [place] [address] Care Team Providers Care Digital Media Planner Name Role Phone Chioma Connelly MD Primary Care Provider [phone] Encounter Details Date Type Department Care Team ([facility] st Contact Info) Description 06/13/2024 Orders Only [facility] MED[facility]INE [address] [place], [place] [phone] Chioma Connelly MD [address] [place], [place] [phone] Need for viral immunization (Primary Dx) Social [...] EST) ~Hepatitis B Surface Antibody NONREACTIVE Nonreactive [facility] Comment:Nonreactive: < 8.00 mIU/mL Blood Venous blood specimen / Unknown 07/04/2024 9:30 AM EST 07/04/2024 11:19 AM EST us Chioma Connelly MD LAB BLOOD ORDERABLES Final Res ult [facility] [address] [place] [address] [phone] documented in this encounter Visit Diagnoses Diagnosis Need for viral immunization- Primary Need for prophylactic vaccination and inoculation against other viral diseases documented in this encounter Additional Health Concerns Assessment Noted Time PHQ-9 Depression Total Score: 0 05/12/20 9:01 AM EST documented as of this encounter Care Teams Digital Media Planner Relationship Specialty Start Date End Date Chioma Connelly MD [address] [place] [address] PCP - General Family Medicine 05/12/24 documented as of this encounter
--- OUTSIDE RECORDS SUMMARY | 2025-02-22 14:41 | XMS_ITS | Encounter Summary ---
Author Organization [employer] Address [address] [facility] 7t [place] [address] Care Team Providers Care Slice Cutting Machine Operator Helper Name Role Phone Chioma Connelly MD Primary Care Provider [phone] Reason for Visit * Reason Onset Date Comments Med Refill 07/31/2024 Encounter Details Date Type Department Care Team (Late st Contact Info) Description 07/31/2024 Refill [facility] MEDICINE [address] [place], [place] [phone] Chioma Connelly MD [address] [place] [address] Body mass index (BMI) 36.0-36.9, adult Social [...] documented as of this encounter Care Teams Slice Cutting Machine Operator Helper Relationship Specialty Start Date End Date Chioma Connelly MD [address] [place] [id number] PCP - General Family Medicine 05/12/24 documented as of this encounter
--- OUTSIDE RECORDS SUMMARY | 2025-02-22 14:41 | XMS_ITS | Encounter Summary ---
Author Organization [email or web address] Address [address] [facility] 7t [place] [address] Care Team Providers Care Science Center Display Builder Name Role Phone Chioma Connelly MD Primary Care Provider [phone] Reason for Visit * Reason Onset Date Comments Med Refill 12/05/2024 Encounter Details Date Type Department Care Team (Late st Contact Info) Description 12/05/2024 Refill [facility] [address] [place] [address] Chioma Connelly MD [address] [place] [address] Social History Tobacco Use Types Packs/Day Years [...] documented as of this encounter Care Teams Science Center Display Builder Relationship Specialty Start Date End Date Chioma Connelly MD [address] [place] [address] PCP - General Family Medicine 05/12/24 documented as of this encounter
--- OUTSIDE RECORDS SUMMARY | 2025-02-22 14:41 | XMS_ITS | Encounter Summary ---
Author Organization [employer] Address [address] [facility] 7t [place] [address] Care Team Providers Care Quartz Miner Blasting Name Role Phone Chioma Connelly MD Primary Care Provider [phone] Reason for Visit * Reason Onset Date Comments Med Refill 12/15/2024 Encounter Details Date Type Department Care Team (Late st Contact Info) Description 12/15/2024 Refill [facility] MED & PEDS [address] [place] [address] Chioma Connelly MD [address] [place] [address] Social History Tobacco Use Types Packs/Day Years [...] documented as of this encounter Care Teams Quartz Miner Blasting Relationship Specialty Start Date End Date Chioma Connelly MD [address] [place] [address] PCP - General Family Medicine 05/12/24 documented as of this encounter
--- OUTSIDE RECORDS SUMMARY | 2025-02-22 14:42 | XMS_ITS | Clinical Summary ---
Author Organization [facility] Address [address] [place] [address] Care Team Providers Care Time Study Technologist Name Role Phone Chioma Connelly Primary Care Provider [phone] Allergies Active Allergy Reactions Criticality Noted Date [...] her consent to participate in the [employer] [id number] [place] clinical trial. A screening examination was performed, [...] 09/12/2015 Overview (11/15/2024): Stable 2016 on CTscan Encounters Date Type Department Care Team Description 01/23/2025 Orders Only [facility] [address] [place] [phone] Profiler Hand: Tam Lees MD Other neutropenia (HCC) (Primary Dx); Other forms of systemic lupus erythematosus, unspecified organ involvement status (HCC) 12/29/2024 Orders Only [facility] [address] [place] [address] Profiler Hand: Tam Lees MD Lymphopenia (Primary Dx); Other forms of systemic lupus erythematosus, unspecified organ involvement status (HCC) from Last 3 Months Immunizations Immunization Administration Dates Next Due Hepatitis B Vaccine, Unspeci fied Formulation 12/01/2011 Hepatitis B adult (ENGERIX-B ADULT) vaccine 1 mL IM 07/21/2024 INFLUENZA, SPLIT VIRUS, TRIVALENT, PF 07/21/2024 Influenza, Injectable, Madin Lebanon Canine Kidney, Quadrivalent 06/11/2022,02/24/2018 Influenza, Injectable, Madin Dacia Canine Kidney, Preservative Free, Quadrivalent 04/23/2021,02/20/2020,02/24/2019,03/28 Influenza, Trivalent, MDV, Injectable 03/17/2016 ,04/18/2015 Measles, Mumps, and Rubella Vaccine 12/01/2011 Pneumococcal Polysaccharide Vaccine, 23 Valent 06/17/2015 Pneumococcal conjugate PCV20,polysaccharide [id number] conjugate, adjuvant, PF (Prevnar 20) 07/21/2024 Tetanus [...] 11/15/2024 10:28 AM EDT Plan of Treatment Health Maintenance Due Date Last Done Comments HIV Screening 1992 HPV and Pap Smear 1992 Hepatitis C Screening 1992 Varicella Vaccines (1 of 2 - 13+ 2-dose series) 12/29/2011 Cervical Cancer Screening 04/23/2024 Pap Smear 04/23/2024 04/23/2021 Alcohol/Substance Use Screening 06/21/2024 Depression Screening and Follow-Up 06/21/2024 Social Drivers of Health Annual Screening 06/21/2024 Hepatitis B Vaccines (3 of 3 - 19+ 3-dose series) 09/15/2024 07/21/2024, 12/01/2011 COVID-19 Vaccine ( - season) 2025 08/29/2021, 11/19/2020, 10/29/2020 Influenza Vaccine (#1) 2025 , 06/11/2022, 04/23/2021, Additional history exists DTaP,Tdap,and Td Vaccines (2 - Td or Tdap) 07/21/2034 07/21/2024 RSV Vaccine (60+ years old and patients) (1 - 1-dose 75+ series) 2067 Pneumococcal Vaccine: Pediatric (0-5 Years) and At-Risk Patients (6-50 Years) Aged Out 07/21/2024, 06/17/2015 No longer eligibl e based on patient's age to complete this topic Insurance [facility] OUT OF STATE PPO Care Teams Time Study Technologist Relationship Specialty Start Date End Date Chioma Connelly [address] [place] [address] PCP - General 11/07/24
--- OUTSIDE RECORDS SUMMARY | 2025-02-22 14:42 | XMS_ITS | Encounter Summary ---
Author Organization [employer] Address [address] [facility] 7t [place] [address] Care Team Providers Care Brine Mixer Operator Name Role Phone Chioma Connelly MD Primary Care Provider [phone] Reason for Visit * Reason Onset Date Comments Appointment Request 11/28/2024 Encounter Details Date Type Department Care Team ([facility] st Contact Info) Description 11/28/2024 Telephone [facility] MEDICINE [address] [place] [address] Chioma Connelly MD [address] [place], [place] [phone] Appointment Request Social History Tobacco Use Types Packs/Day [...] encounter Miscellaneous Notes * Telephone Encounter - Larua Barker - 11/28/2024 8:56 AM EDT Tc from pt requesting a callback to reschedule appointment for office visit due to weather not feeling good. [phone] documented in this encounter Plan of Treatment Not on file documented as of this encounter Visit Diagnoses Not on filedocumented in this encounter Additional Health Concerns Assessment Noted Time PHQ-9 Depression Total Score: 0 05/12/20 9:01 AM EST documented as of this encounter Care Teams Brine Mixer Operator Relationship Specialty Start Date End Date Chioma Connelly MD [address] [place] [id number] PCP - General Family Medicine 05/12/24 documented as of this encounter
--- OUTSIDE RECORDS SUMMARY | 2025-02-22 14:42 | XMS_ITS | Clinical Summary ---
Author Organization [facility] Address [address] [place] [address] Care Team Providers Care Director Case Management Name Role Phone Janie Pulliam MD Primary Care Provider [phone] Allergies No known active allergies Medications etonogestrel-eluti [...] infection 09/13/2020 Overview (06/11/2024): Tested positive 09/13/20at [facility] pharmacy. Leukopenia 07/28/2019 Overview (06/11/2024): Chronic, no depression of other cell lines, both lymphocytes and neutrophils are low. Probably due to SLE. Anxiety and depression 02/16/2019 Lupus nephritis, ISN/RPS class V ([facility] V24, [facility] V28) 11/22/2018 Raynaud's phenomenon without gangrene 07/23/2017 Pulmonary nodules/lesions, multiple 09/12/2015 Overview (06/11/2024): Stable 2016 on CTscan SLE (systemic lupus erythema tosus) ([facility] V24, [facility] V28) 04/18/2015 Overview (06/11/2024): Onset ~ 2010 [...] proteinuria, hematurias, + anti Sm, +anti- ONLINE MEDIA BUYER. Immunizations Name Administration Dates Next Due Influenza [...] V; chronic changes of parenchyma (done at [facility]) SECTION 2017 PROCEDURE: HISTORICAL DELIVERY [...] - Pfizer risk series) 12/17/2020 11/19/2020, 10/29/2020 Social Influencers of Health Screening 05/23/2022 Cervical Cancer Screening: Pap Smear 04/23/2024 04/23/2021, 04/23/2021 Depression Screening 06/21/2024 Influenza Vaccine (#1) 2025 , 02/20/2020, 02/24/2019, [...] RESULTING AGENCY - 05/09/2021 3:21 PM EST [id number] THINPREP PAP, IMAGED: NEGATIVE FOR SQUAMOUS INTRAEPITHELIAL LESION AND MALIGNANCY . CHASITY IS PRESENT. NOTE: THE PAP TEST IS A SCREENING TEST WITH AN INHERENT FALSE NEGATIVE RATE. AUTOMATED PRESCREENING OF ALL LIQUID BASED SPECIMENS IS PERFORMED BY THE SparkbrowserPREP IMAGING SYSTEM UNLESS OTHERWISE STATED. PHUONG SWAN(ASCP) [...] Recently Relevant to Health Maintenance Care Teams Director Case Management Relationship Specialty Start Date End Date Janie Pulliam MD PCP - General Internal Medicine 01/26/22
--- OUTSIDE RECORDS SUMMARY | 2025-02-22 14:42 | XMS_ITS | Clinical Summary ---
Author Organization [facility] Address [address] [place] [address] Care Team Providers Care Classroom Teacher Name Role Phone Unavailable Primary Care Provider [...] , proteinuria, hematurias, + anti Sm, +anti- CLUTCH INSPECTOR. Family History Medical History Relation Name Comments [...]
--- OUTSIDE RECORDS SUMMARY | 2025-02-22 14:42 | XMS_ITS | Encounter Summary ---
Author Organization [employer] Address [address] [facility] 7t [place] [address] Care Team Providers Care Teacher Public Health Name Role Phone Chioma Connelly MD Primary Care Provider [phone] Encounter Details Date Type Department Care Team ([facility] st Contact Info) Description 12/26/2024 Orders Only [facility] MEDICINE [address] [place], [place] [phone] Chioma Connelly MD [address] [place], [place] [phone] Social History Tobacco Use Types Packs/Day Years [...] documented as of this encounter Care Teams Teacher Public Health Relationship Specialty Start Date End Date Chioma Connelly MD [address] [place] [address] PCP - General Family Medicine 05/12/24 documented as of this encounter
--- OUTSIDE RECORDS SUMMARY | 2025-02-22 14:42 | XMS_ITS | Encounter Summary ---
Author Organization [employer] Address [address] [facility] 7t [place] [address] Care Team Providers Care Associate Loan Officer Name Role Phone Chioma Connelly MD Primary Care Provider [phone] Reason for Visit * Reason Onset Date Comments Nov Recall 02/20/2025 Encounter Details Date Type Department Care Team ([facility] st Contact Info) Description 02/20/[address] [facility] MEDICINE [address] [place], [place] [phone] Chioma Connelly MD [address] [place], [place] [phone] Nov Recall Social History Tobacco Use Types Packs/Day Years [...] encounter Miscellaneous Notes * Telephone Encounter - Lennox Guerrero MA - 02/20/2025 11:50 AM EDT Telephone call to patient to schedule a recall appointment. No answer, Left voicemail to return call to clinic.. Recall letter sent. Visit type: Follow up Appointment notes: weight Month due: April With: Godwin Please schedule appointment above if patient returns call documented in this encounter Plan of Treatment Not on file documented as of this encounter Visit Diagnoses Not on filedocumented in this encounter Additional Health Concerns Assessment Noted Time PHQ-9 Depression Total Score: 0 05/12/20 9:01 AM EST documented as of this encounter Care Teams Associate Loan Officer Relationship Specialty Start Date End Date Chioma Connelly MD [address] [place] [address] PCP - General Family Medicine 05/12/24 documented as of this encounter
--- OUTSIDE RECORDS SUMMARY | 2025-02-22 14:42 | XMS_ITS | Encounter Summary ---
Author Organization [employer] Address [address] [facility] 7t [place] [address] Care Team Providers Care Rail Walker Name Role Phone Chioma Connelly MD Primary Care Provider [phone] Encounter Details Date Type Department Care Team ([facility] st Contact Info) Description 07/03/2024 Orders Only [facility] MEDICINE [address] [place], [place] [phone] Chioma Connelly MD [address] [place], [place] [phone] Class 2 severe obesity with serious comorbidity [...] documented as of this encounter Care Teams Rail Walker Relationship Specialty Start Date End Date Chioma Connelly MD [address] [place] [address] PCP - General Family Medicine 05/12/24 documented as of this encounter
--- OUTSIDE RECORDS SUMMARY | 2025-02-22 14:42 | XMS_ITS | Encounter Summary ---
Author Organization [employer] Address [address] [facility] [address] 7t [place] [address] Care Team Providers Care Rat Farmer Name Role Phone Chioma Connelly MD Primary Care Provider [phone] Encounter Details Date Type Department Care Team (Latest Contact Info) Description 12/25/2024 Results Follow-Up [facility] MEDICINE [address] [place] [address] Rachelle Bryan, CN [address] [place] [address] Bacterial Vaginosis Panel, TSH W/Reflex to FT4, US Pelvis Transvaginal Social History Tobacco Use Types Packs/Day Years [...] documented as of this encounter Care Teams Rat Farmer Relationship Specialty Start Date End Date Chioma Connelly MD [address] [place] [address] PCP - General Family Medicine 05/12/24 documented as of this encounter
--- OUTSIDE RECORDS SUMMARY | 2025-02-22 14:42 | XMS_ITS | Clinical Summary ---
Author Organization [employer] Address [address] [facility] [address] [place] [address] Care Team Providers Care Drainman Name Role Phone Chioma Connelly MD Primary Care Provider [phone] Allergies No known active allergies Medications Etonogestrel (NEXPLANON SC) Activ e hydroxychloroqu ine (Plaquenil) 200 MG tablet Take 2 tablets by mouth Once per day. 1 Active fluticasone (Flonase) 50 MCG/ACT nasal spray Administer 1-2 sprays into each nostril Once per day. Shake gently. Before first use, prime pump. After use, clean tip and replace cap. 16 g 3 5 07/21/19 26 Active cetirizine (ZyrTEC) 10 MG tablet Take 1 tablet (10 mg) by mouth Once per day. 90 tablet 2 5 04/17/20 25 Active phentermine 30 MG capsule Take 1 capsule (30 mg) by mouth before breakfast. 30 capsule 2 5 03/06/20 25 Active Omeprazole 20 MG tablet delayed-release Take 1 tablet (20 mg) by mouth Once per day. 90 tablet 3 5 12/27/19 26 Active Active Problems Problem Noted Date Diagnosed [...] infection 09/13/2020 Overview (05/14/2024): Tested positive 09/13/[facility]at [facility]. 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 Resolved Problems Problem Noted Date Diagnosed Date Resolved Date Other forms of systemic lupus erythematosus 05/14/2024 05/14/2024 Raynaud's disease 08/15/2023 05/14/2024 Encounters Date Type Department Care Team Description 02/22/2025 Orders Only [facility] [place] [address] Ralph Espinoza CNM 02/22/2025 Results Follow-Up [facility] [address] [facility] [place] [place] [address] Ralph Espinoza CNM US Pelvis Transvaginal 02/20/2025 Telephone [facility] [place] [address] Chioma Connelly MD Nov Recall 01/03/2025 Telephone [facility] [place] [address] Ralph Espinoza CNM 12/29/2024 Orders Only GENERIC EXTERNAL DATA DEPARTMENT Provider, Generic External Data 12/26/2024 Orders Only [facility] [place] [address] Chioma Connelly MD 12/25/2024 Orders Only [facility] [place] [address] Ralph Espinoza CNM Right ovarian cyst (Primary Dx) 12/25/2024 Results Follow-Up [facility] [place] [address] Ralph Espinoza CNM Bacterial Vaginosis Panel, TSH W/Reflex to FT4, US Pelvis Transvaginal 12/21/2024 1:45 PM EDT Office Visit [facility] [place] [address] Ralph Espinoza CNM Pelvic pain (Primary Dx); Night sweats; Vaginal discharge; Introital dyspareunia 12/21/2024 Travel 12/20/2024 Telephone [facility] [place] [address] Ralph Espinoza CNM chart prep 12/15/2024 Refill [facility] [address] [place] [address] Chioma Connelly MD 12/06/2024 Orders Only [facility] MEDICINE [address] [place] [address] Chioma Connelly MD 12/05/2024 Refill [facility] [address] [place] [address] Chioma Connelly MD 12/05/2024 Refill [facility] MEDICINE [address] [place] [phone] Chioma Connelly MD Body mass index (BMI) 36.0-36.9, adult 11/28/2024 Refill [facility] [address] [place] [address] Chioma Connelly MD 11/28/2024 Telephone [facility] MEDICINE [address] [place] [phone] Chioma Connelly MD Appointment Request 11/27/2024 Telephone [facility] MEDICINE [address] [place] [phone] Amy Rubio MA Chart Prep from Last 3 Months Immunizations Immunization Administration Dates Next Due Hep B, Unspecified 12/01/2011 Hep B, adult 07/21/2024 INFLUENZA INJECTABLE QUADRIV ALANT CCIIV4 MDCK Multi-dose vial 06/11/2022,02/24/2018 Influenza Injectable Quadriv alant Preservative Free IIV4 MDCK 04/23/2021,02/20/2020,02/24/2019,03/28 Influenza, IIV3, injectable 03/17/2016, 5 Influenza, seasonal, injecta ble, preservative free 07/21/2024,03/17/2016,04/18/2015 MMR 12/01/2011 PPD Test 09/29/2017,03/07/2015 Pneumococcal Conjugate PCV 20 07/21/2024 Pneumococcal Polysaccharide PPSV23 06/17/2015 Tdap 07/21/2024 Family History Medical History Relation Name Comments Endometriosis Mother hyst in 40s Fibroids Mother Endometriosis Mother's Sister Fibroids Mother's Sister Relation Name Status Comments Mother Mother's Sister Social History Tobacco Use Types Packs/Day Years [...] want or need it 06/22 Comments No Intention Date Recorded No desire to become (finding) 0 12/21/2024 Sex and Gender Information Value Date Recorded Sex Assigned at Female 01/25/2024 1:32 PM EDT Legal Sex Female 1:27 PM EDT Gender Identity Female 05/12/2024 9:05 AM EST Sexual Orientation Straight 05/10/2024 9: 52 AM EST Last Filed Vital Signs Vital Sign Reading Time Taken Comments Blood Pressure 120/80 12/21/2024 1:53 PM EDT Pulse 72 12/21/2024 1:53 PM EDT Temperature 37.3 C (99.2 F) 12/21/2024 1:53 PM EDT Respiratory Rate 20 12/21/2024 1:53 PM EDT Oxygen Saturation 98% 07/21/2024 9:57 AM EST Inhaled Oxygen Concentration - - Weight 93.9 kg (207 lb) 12/21/2024 1:53 PM EDT Height 160 cm (5' 3 ) 12/21/2024 1:53 PM EDT Body Mass Index 36.67 12/21/2024 1:53 PM EDT Plan of Treatment Health Maintenance Due Date Last Done Comments HIV Screening 1992 Lipid Panel 1992 HPV Vaccines (1 - 3-dose series) 2007 Hepatitis C Screening 2010 Zoster Vaccines (1 of 2) 2011 Cervical Cancer Screening 05/09/2024 HPV/Cotest 05/09/2024 Pap Smear 05/09/2024 05/09/2021 Hepatitis B Vaccines (3 of 3 - 19+ 3-dose series) 09/15/2024 07/21/2024, 12/01/2011 COVID-19 Vaccine ( - 2024- season) 2025 08/29/2021, 11/19/2020, 10/29/2020 Influenza Vaccine (#1) 2025 , 06/11/2022, 04/23/2021, Additional history exists Alcohol/Substance Use Screening 05/12/2025 05/12/2024 Depression Screening 05/12/2025 05/12/2024, 05/12/20 24 SDOH Screening 07/11/2025 07/11/2024 Disability Screening 07/21/2025 07/21/2024 Family Planning (PISQ) 12/21/2025 12/21/2024 Tobacco Screening 12/21/2025 12/21/2024 DTaP/Tdap/Td Vaccines (2 - Td or Tdap) 07/21/2034 07/21/2024 RSV Patients and Patients Aged 60 years or older (1 - 1-dose 75+ series) 2067 Pneumococcal Vaccine: Pediatrics (0 to 5 Years) and At-Risk Patients (6 to 49) Years Completed 07/21/2024, 06/17/2015 HIB Vaccines Aged Out [...] Procedure Name Priority Date/Time Associated Diagnosis Comments US PELVIS TRANSVAGINAL Routine 02/22/2025 1:32 PM EDT Right ovarian cyst US PELVIS TRANSVAGINAL Urgent 01/02/2025 3:10 PM EDT Pelvic pain DNA (DS) ANTIBODY Routine 12/29/2024 2:5 5 PM EDT COMPLEMENT COMPONENT C4C Routine 12/29/2024 2:55 PM EDT COMPLEMENT COMPONENT C3C Routine 12/29/2024 2:55 PM EDT SED RATE BY MODIFIED WESTERGREN Routine 12/29/2024 2:55 PM EDT C-REACTIVE PROTEIN Routine 12/29/2024 2: 55 PM EDT ALT Routine 12/29/2024 2:55 PM EDT AST Routine 12/29/2024 2:55 PM EDT CREATININE, SERUM Routine 12/29/2024 2:5 5 PM EDT PROTEIN CREATININE RATIO, URINE Routine 12/29/2024 2:55 PM EDT COMPLETE BLOOD COUNT MAN DIF Routine 12/29/2024 2:55 PM EDT URINALYSIS, COMPLETE Routine 12/29/2024 2:55 PM EDT ESTRADIOL Routine 12/21/2024 2:33 PM EDT Night sweats FSH Routine 12/21/2024 2:33 PM EDT Night sweats TSH W/REFLEX TO FT4 Routine 12/21/2024 2 :33 PM EDT Night sweats BACTERIAL VAGINOSIS PANEL Routine 12/21/2024 2:21 PM EDT Vaginal discharge Introital dyspareunia PAP SMEAR Routine 05/09/2021 12:00 AM EST from Last 3 Months or Most Recently Relevant to Health Maintenance Results * US Pelvis Transvaginal (02/22/2025 1:32 PM EDT) Only the most recent of2 resultswithin the time period is included. Anatomical Region Laterality Modality Pelvis Ultrasound 02/22/2025 1:32 PM EDT Narrative 02/22/2025 2:33 PM EDT [facility] [place] [address] Ultrasound Report Signed Patient: Marni Hernandez MR#: [id number] : 1990 Acct:[id number] Age/Sex: 34 / F ADM Date: 02/22/25 Loc: HO.HMGCX Attending Dr: Ralph Espinoza CNM Ordering Physician: RALPH ESPINOZA CNM Date of Service: 02/22/25 Procedure(s): US pelvic and transvaginal Accession Number(s): [id number] cc: Chioma Connelly; RALPH ESPINOZA CNM Reason for Exam: 6wk f/u ultrasound for right ovarian cyst EXAMINATION: US PELVIS CLINICAL INFORMATION: Six-week follow-up of a 3.2 cm complex right ovarian cyst COMPARISON: None available. TECHNIQUE: Ultrasound of the pelvis is performed using both transabdominal and transvaginal transducers along with Doppler. Transvaginal imaging is performed due to inadequate visualization transabdominally. FINDINGS: Uterus: The uterus is anteverted and measures 6.5 x 3.6 x 3.7 cm. The double wall endometrial thickness is 4 mm. The uterus is smooth in contour and has normal myometrial echogenicity. No visible fibroid. Adnexa: Both ovaries are visualized. There is normal color flow to the adnexa. There is no ovarian torsion. There is no pelvic ascites or fluid collection. Right ovary measures 2.4 x 1.4 x 1.8 cm. Hemorrhagic cyst in the right ovary has resolved. Left ovary measures 4.2 x 2.6 x 2.9. cm. There is a 3.4 x 2.3 x 2.4 cm mostly anechoic cyst possibly with a thin septation that does not demonstrates blood flow on color Doppler. US/US pelvic and transvaginal IMPRESSION: New 3.4 cm indeterminate left ovarian cyst possibly with a hairline thin septation. Follow-up ultrasound in 6-12 weeks. Resolved complex right ovarian cyst. Electronically signed by: Eric Schaffer MD 02/22/2025 02:30 PM EDT Dictated By: Eric Schaffer MD Signed By: <Electronically signed by Eric Schaffer MD in OV> 02/22/25 1430 DD/ 1332 TD/TT: 02/22/[address] Teller: Procedure Note Donotuseinterpreter, Image - 02/22/2025 [facility] [place] [facility] [place] [address] Ultrasound Report Signed Patient: Marni Hernandez#: [id number] : 1990Acct:[id number] Age/Sex: 34 / FADM Date: 02/22/25 Loc: HO.HMGCX Attending Dr: Ralph Espinoza CNM Ordering Physician: RALPH ESPINOZA CNM Date of Service: 02/22/25 Procedure(s): US pelvic and transvaginal Accession Number(s): [id number] cc: Chioma Connelly; RALPH ESPINOZA CNM Reason for Exam: 6wk f/u ultrasound for right ovarian cyst EXAMINATION: US PELVIS CLINICAL INFORMATION: Six-week follow-up of a 3.2 cm complex right ovarian cyst COMPARISON: None available. TECHNIQUE: Ultrasound of the pelvis is performed using both transabdominal and transvaginal transducers along with Doppler. Transvaginal imaging is performed due to inadequate visualization transabdominally. FINDINGS: Uterus: The uterus is anteverted and measures 6.5 x 3.6 x 3.7 cm. The double wall endometrial thickness is 4 mm. The uterus is smooth in contour and has normal myometrial echogenicity. No visible fibroid. Adnexa: Both ovaries are visualized. There is normal color flow to the adnexa. There is no ovarian torsion. There is no pelvic ascites or fluid collection. Right ovary measures 2.4 x 1.4 x 1.8 cm. Hemorrhagic cyst in the right ovary has resolved. Left ovary measures 4.2 x 2.6 x 2.9. cm. There is a 3.4 x 2.3 x 2.4 cm mostly anechoic cyst possibly with a thin septation that does not demonstrates blood flow on color Doppler. US/US pelvic and transvaginal IMPRESSION: New 3.4 cm indeterminate left ovarian cyst possibly with a hairline thin septation. Follow-up ultrasound in 6-12 weeks. Resolved complex right ovarian cyst. Electronically signed by: Eric Schaffer MD 02/22/2025 02:30 PM EDT RP Dictated By: Eric Schaffer MD Signed By: <Electronically signed by Eric Schaffer MD in OV> 02/22/25 1430 DD/ 1332 TD/TT: 02/22/[address] Teller: us Ralph HERR IMG US PROCEDURES Final R esult * Protein Creatinine Ratio, Urine (12/29/2024 2:55 PM EDT) Creatinine, Urine 65.45 mg/dL [facility] Protein, Total, Random Urine <7 <12 mg/dL [facility] Protein/Creatin ine Ratio, Ur TNP <0.2 [facility] Comment:Unable to calculate urine protein creatinine ratio due tolow creatinine or protein result. 12/29/2024 2:55 PM EDT 12/29/2024 5:28 PM EDT us Generic External Data Provider LAB URINE ORDERAB LES Final Result [facility] [address] [place] [address] [phone] * (ABNORMAL) Complete Blood Count Manual Diff (12/29/2024 2:55 PM EDT) White Blood Count 2.2(L) 4.8 - 10.8 X10*3/uL [facility] Red Blood Count 4.08(L) 4.20 - 5.50 X10*6/uL [facility] Hemoglobin 12.5 12.0 - 16.0 g/dl [facility] Hematocrit 35.5(L) 37.0 - 47.0 % [facility] Mean Corpuscular Volume 87.0 80.0 - 98.0 fL [facility] Mean Corpuscular Hemoglobin 30.6 27.0 - 33.0 pg [facility] Mean Corpuscular HGB Conc 35.2(H) 31.0 - 35.0 g/dl [facility] Red Cell Distribution Width 11.5 11.0 - 16.0 % [facility] Platelet Count 177 160 - 400 X10*3/uL [facility] Mean Platelet Volume 10.9 9.4 - 12.3 fL [facility] NRBC Pct Auto 0.0 0.0 - 0.2 /100WBC [facility] NRBC Abs Auto 0.000 0.0 - 0.012 X10*3/uL [facility] Neutrophils % Manual 50 45 - 73 % [facility] Band Neutrophils Percent 0(L) 3 - 5 % [facility] Lymphocytes Percent Manual 34 20 - 40 % [facility] Atypical Lymphs Percent Manual 2 0 - 6 % [facility] Monocytes Percent Manual 12(H) 2 - 11 % [facility] BASOPHILS % MANUAL 2 0 - 2 % [facility] NEUTROPHILS ABSOLUTE MANUAL 1.1(L) 2.0 - 8.3 X10*3/uL [facility] LYMPHOCYTES ABSOLUTE MANUAL 0.7(L) 1.2 - 4.9 X10*3/uL [facility] MONOCYTES ABSOLUTE MANUAL 0.3 0.1 - 1.2 X10*3/uL [facility] Platelet Estimate NORMAL [facility] Platelet Morphology Comment NORMAL [facility] RBC Morphology NORMAL [facility] 12/29/2024 2:55 PM EDT 12/29/2024 5:29 PM EDT Generic External Data Provider LAB BLOOD ORDERAB LES Final Result Performing Organization Address [facility] Co de Phone Number [facility] [address] [place] [phone] * Creatinine, Serum (12/29/2024 2:55 PM EDT) Creatinine, Serum 0.71 0.5 - 1.4 mg/dL [facility] Estimated Glomerular Filt Rate >60 [facility] Comment:Chronic Kidney Disea se: Estimated GFR < 60 mL/min/1.26t5Sclfir Kidney Disease: Estimated GFR < 15 mL/min/1.73m2 12/29/2024 2:55 PM EDT 12/29/2024 5:29 PM EDT Generic External Data Provider LAB BLOOD ORDERAB LES Final Result Performing Organization Address [facility]/ZIP Co de Phone Number [facility] [address] [place] [address] [phone] * (ABNORMAL) DNA (ds) Antibody (12/29/2024 2:55 PM EDT) Anti DNA DS Antibody 41(A) IU/mL [facility] Comment:IU/mL Interpretation < or = 4 Negative 5-9 Indeterminate > or = 10 PositiveTHIS TEST WAS PERFORMED AT:[facility] [place] [id number] LEES MD 12/29/2024 2:55 PM EDT 12/29/2024 5:29 PM EDT Generic External Data Provider LAB BLOOD ORDERAB LES Final Result Performing Organization Address [facility] de Phone Number [facility] [address] [place] [phone] * Urinalysis Complete (12/29/2024 2:55 PM EDT) Color Urine Yellow [facility] Appearance Urine Clear [facility] PH 7.0 5.0 - 9.0 [facility] Glucose Urine UA Negative Negative mg/dL [facility] Urine Blood Negative Negative [facility] Specific Industry - Urine 1.010 1.005 - 1.025 [facility] Urine Protein Negative Neg-Trace mg/dL [facility] Urine Ketones Negative Negative mg/dL [facility] Nitrite Urine Negative Negative [facility] Leukocyte Esterase Urine Negative Negative [facility] RBC Urine 0-2 0 - 2 /HPF [facility] Urine WBC 0-5 0 - 5 /HPF [facility] Urine Squamous Epithelial Cell 0-2 0 - 2 /HPF [facility] Urine Bacteria None Seen None Seen [facility] Hyaline Casts, Urine 0-2 0 - 2 /LPF [facility] 12/29/2024 2:55 PM EDT 12/29/2024 5:28 PM EDT us Generic External Data Provider LAB URINE ORDERAB LES Final Result Performing Organization Address [facility] Co de Phone Number [facility] [address] [place] [phone] * Sed Rate by Bindu Snow (12/29/2024 2:55 PM EDT) Erythrocyte Sedimentation Rate 6 0 - 20 MM/HR [facility] Comment:Patients with polycy themia and many hemoglobin abnormalitiesmay have depressed sed rates whereas patients with anemiamay have elevated sed rates. 12/29/2024 2:55 PM EDT 12/29/2024 5:29 PM EDT us Generic External Data Provider LAB BLOOD ORDERAB LES Final Result Performing Organization Address [facility] Co de Phone Number [facility] [address] [place] [address] [phone] * Complement Component C3c (12/29/2024 2:55 PM EDT) Pathologist [facility] Complement C3 84 83 - 193 mg/dL [facility] Comment:THIS TEST WAS PERFOR MED AT:[employer] [id number] [place] [phone] LEES MD 12/29/2024 2:55 PM EDT 12/29/2024 5:29 PM EDT us Generic External Data Provider LAB BLOOD ORDERAB LES Final Result Performing Organization Address [facility] de Phone Number [facility] [address] [place] [phone] * Complement Component C4c (12/29/2024 2:55 PM EDT) Pathologist [facility] Complement C4 21 15 - 57 mg/dL [facility] Comment:THIS TEST WAS PERFOR MED AT:[employer] [id number] [place] [phone] LEES MD 12/29/2024 2:55 PM EDT 12/29/2024 5:29 PM EDT us Generic External Data Provider LAB BLOOD ORDERAB LES Final Result Performing Organization Address [facility] Co de Phone Number [facility] [address] [place] [phone] * C-reactive Protein (12/29/2024 2:55 PM EDT) C Reactive Protein 0.35 < or = 0.50 mg/dL [facility] 12/29/2024 2:55 PM EDT 12/29/2024 5:29 PM EDT us Generic External Data Provider LAB BLOOD ORDERAB LES Final Result Performing Organization Address City/[facility]/ZIP Co de Phone Number [facility] [address] [place] [phone] * ALT (12/29/2024 2:55 PM EDT) Alanine Aminotransferase 15 0 - 31 U/L [facility] 12/29/2024 2:55 PM EDT 12/29/2024 5:29 PM EDT us Generic External Data Provider LAB BLOOD ORDERAB LES Final Result Performing Organization Address [facility] Co de Phone Number [facility] [address] [place] [phone] * AST (12/29/2024 2:55 PM EDT) Aspartate Amino Transferase 21 5 - 31 U/L [facility] 12/29/2024 2:55 PM EDT 12/29/2024 5:29 PM EDT Generic External Data Provider LAB BLOOD ORDERAB LES Final Result Performing Organization Address [facility] Co de Phone Number [facility] [address] [place] [phone] * TSH W/Reflex to FT4 (12/21/2024 2:33 PM EDT) TSH reflex Free T4 1.17 0.32 - 4.0 uIU/mL [facility] Blood Venous blood specimen / Unknown 12/21/2024 2:33 PM EDT 12/21/2024 4:15 PM EDT [facility]LOOD ORDERABLES Gabriela l Result Performing Organization Address [facility] de Phone Number [facility] [address] [place] [phone] * Estradiol (12/21/2024 2:33 PM EDT) Estradiol Ultra Sensitive 275 pg/mL [facility] Comment:Female Reference Ran ges for Estradiol, Ultrasensitive (pg/mL): Follicular Phase: 39-375 Luteal Phase: 48-440 Postmenopausal Phase: < or = 10This test was developed and its analytical performancecharacteristics have been determined by [employer].It has not been cleared or approved by the FDA. This assayhas been validated pursuant to the CLIA regulations and isused for clinical purposes.THIS TEST WAS PERFORMED AT:[employer] [id number] [facility] [place] [address]LVIMPAMANDA CORREA MD,PHD,ALY Blood Venous blood specimen / Unknown 12/21/2024 2:33 PM EDT 12/21/2024 4:15 PM EDT [facility] LAB BLOOD ORDERABLES Gabriela l Result Performing Organization Address [facility] Co de Phone Number [facility] [address] [place] [phone] * FSH (12/21/2024 2:33 PM EDT) Follicle Stimulating Hormone 4.6 mIU/mL [facility] Comment:Reference Range Fol licular Phase 2.5-10.2 Mid-cycle Peak 3.1-17.7 Luteal Phase 1.5- 9.1 Postmenopausal 23.0-116.3THIS TEST WAS PERFORMED AT:[employer] [address] [phone] LEES MD Blood Venous blood specimen / Unknown 12/21/2024 2:33 PM EDT 12/21/2024 4:15 PM EDT Ralph HERR LAB BLOOD ORDERABLES Gabriela l Result Performing Organization Address City/[facility]/ZIP Co de Phone Number [facility] [address] [place] [phone] * (ABNORMAL) Bacterial Vaginosis Panel (12/21/2024 2:21 PM EDT) TRICHOMONAS VAGINALIS DETECTION BY PCR NOT DETECTED Not Detect [facility] BACTERIAL VAGINOSIS DETECTION BY PCR NEGATIVE Negative [facility] Comment:The BV organism targ ets of the Xpert Xpress MVP test can becommensal in women; Xpert Xpress MVP positive results forbacterial vaginosis should be considered in conjunction withother clinical and patient information to determine thedisease status. Organisms that are not detected by the XpertXpress MVP test have also been reported to be associatedwith BV and aerobic vaginitis.The Xpert Xpress MVP test performance has not been evaluatedin patients under the age of 14. YAMILA GROUP DETECTION BY PCR DETECTED(A) Not Detect [facility] Yamila glab krusei PCR NOT DETECTED Not Detect [facility] Swab Vaginal structure / Unknown 12/21/2024 2:21 PM EDT 12/21/2024 5:02 PM EDT Ralph HERR LAB MICROBIOLOGY - GENERA L ORDERABLES Final Result Performing Organization Address City/[facility]/ZIP Co de Phone Number [facility] [address] [place] [phone] * Pap Smear (05/09/2021 12:00 AM EST) Swab Historical Provider LAB CYTOLOGY ORDERABLES F inal Result EXTERNAL LAB from Last 3 Months or Most Recently Relevant to Health Maintenance Insurance BCBS PPO Care Teams Drainman Relationship Specialty Start Date End Date Chioma Connelly MD [address] [place] [phone] PCP - General Family Medicine 05/12/24
== END 2025-02-22 13:26 | disposition home or self-care (01) ==
LOC: HO.HMGCX 13:25
PROVIDERS: PCP General Practice; Visit Provider Advanced Practice Midwife
DX: N83.201 Unspecified ovarian cyst, right side (principal)
CPT/HCPCS: 76830; 76856

== ENCOUNTER → 2025-02-22 13:29 | Outpatient (BNV) | payer BC, SELFPAY | PROVIDERS: PCP General Practice; Visit Provider Radiology Diagnostic Radiology | DX: N83.202 Unspecified ovarian cyst, left side (principal) | CPT/HCPCS: 76830; 76856 ==

== ENCOUNTER 2025-04-12 13:46 | Outpatient (REF) | payer BC, SELFPAY ==
[2025-04-12 17:45] LABS: MANUAL DIFF FLAG NO
[2025-04-12 18:05] LABS: Hematocrit 36.2 % (37.0-47.0); Hemoglobin 12.3 g/dl (12.0-16.0); Imm Gran Abs Auto 0.01 X10*3/uL (0.00-0.03); Imm Gran Pct Auto 0.3 % (0.0-0.4); Lymphocytes Absolute Auto 1.7 X10*3/uL (1.2-4.9); Mean Corpuscular HGB Conc 34.0 g/dl (31.0-35.0); Mean Corpuscular Hemoglobin 31.1 pg (27.0-33.0); Mean Corpuscular Volume 91.4 fL (80.0-98.0); NRBC Abs Auto 0.000 X10*3/uL (0.0-0.012); NRBC Pct Auto 0.0 /100WBC (0.0-0.2); Platelet Count 206 X10*3/uL (160-400); Red Blood Count 3.96 X10*6/uL (4.20-5.50); White Blood Count 3.7 X10*3/uL (4.8-10.8)
[2025-04-12 18:11] LABS: Alanine Aminotransferase 22 U/L (0-31); Aspartate Amino Transferase 27 U/L (5-31); Estimated Glomerular Filt Rate > 60
--- OUTSIDE RECORDS SUMMARY | 2025-04-12 18:18 | XMS_ITS | Encounter Summary ---
Author Organization [facility] Address [address] [place] [address] Care Team Providers Care Supervisor Plate Forming Name Role Phone Valeriano Hawk MD Primary Care Provider + [phone] Janie Pulliam MD Primary Care Provider [phone] Encounter Details Date Type Department Care Team Description 03/19/2021 Refill Gastroenterology [address] [place] [phone] Grant Sánchez PA-C Social History Tobacco Use [...] have Coronavirus / COVID-19? No / Unsure 03/10/2021 8:53 AM EDT documented as of this encounter Miscellaneous Notes * Telephone Encounter - Roberta Muniz M.A. - 03/19/2021 10:03 AM EDT Jamal 03/10/2021 Nov 04/02/2021 documented in this encounter Plan of Treatment Not on file documented as of this encounter Visit Diagnoses Not on filedocumented in this encounter Care Teams Supervisor Plate Forming Relationship Specialty Start Date End Date Valeriano Hawk MD [address] [place] [address] PCP - General Internal Medicine 05/06/15 01/25/22 Janie Pulliam MD [address] [place] [address] PCP - General Internal Medicine 01/26/22 documented as of this encounter
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
--- OUTSIDE RECORDS SUMMARY | 2025-04-12 18:18 | XMS_ITS | Encounter Summary ---
Author Organization [facility] Address [address] [place] [address] Care Team Providers Care Cnc Manager Name Role Phone Valeriano Hawk MD Primary Care Provider [phone] Janie Pulliam MD Primary Care Provider [phone] Encounter Details Date Type Department Care Team Description 03/04/2017 Release of Information Medical Records [address] [place] [address] Abstract, Provider Social History Tobacco Use Types [...] on filedocumented in this encounter Care Teams Cnc Manager Relationship Specialty Start Date End Date Valeriano Hawk MD [address] [place] [address] PCP - General Internal Medicine 05/06/15 01/25/22 Janie Pulliam MD [address] [place] [address] PCP - General Internal Medicine 01/26/22 documented as of this encounter
--- OUTSIDE RECORDS SUMMARY | 2025-04-12 18:18 | XMS_ITS | Encounter Summary ---
Author Organization [facility] Address [address] [place] [address] Care Team Providers Care Animal Damage Control Agent Name Role Phone Valeriano Hawk MD Primary Care Provider [phone] Janie Pulliam MD Primary Care Provider [phone] Reason for Visit * Reason Onset Date Comments Medication 01/18/2017 Encounter Details Date Type Department Care Team Description 01/18/2017 Telephone Rheumatology - [address] [address] Esther Harrington DO Medication Social History Tobacco [...] phobia documented in this encounter Care Teams Animal Damage Control Agent Relationship Specialty Start Date End Date Valeriano Hawk MD [address] [place] [address] PCP - General Internal Medicine 05/06/15 01/25/22 Janie Pulliam MD [address] [place] [address] PCP - General Internal Medicine 01/26/22 documented as of this encounter
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
--- OUTSIDE RECORDS SUMMARY | 2025-04-12 18:18 | XMS_ITS | Encounter Summary ---
Author Organization [facility] Address [address] [place] [address] Care Team Providers Care Space And Missile Operations Name Role Phone Name, Rony NIXON Primary Care Provider Valeriano Labyo MD Primary Care Provider + [phone] Janie Pulliam MD Primary Care Provider [phone] Encounter Details Date Type Department Care Team Description 02/21/2015 Orders Only Rheumatology - [address] [address] Meaghan Parr MD SLE (systemic lupus erythematosus) (Primary Dx) Social History Tobacco Use Types Packs/Day Years Used Date Smoking Tobacco: Never Alcohol Use Standard Drinks/Week Comments No 0 (1 standard drink = 0.6 oz pur e alcohol) Sex Assigned at Date Recorded Female 05/14/2019 10:11 PM EST Job Start Date Occupation Industry Not on file Not on file Not on file documented as of this encounter Plan of Treatment Not on file documented as of this encounter Procedures Procedure Name Priority Date/Time Associated Diagnosis Comments CHG SKIN TEST TUBERCULOSIS INTRADERMAL Routine 03/07/2015 SLE (systemic lupus erythematosus) documented in this encounter Results * TB INTRADERMAL TEST (03/07/2015) PPD Induration (PPD) 0 mm- Negative 03/07/2015 Meaghan Parr MD LAB documented in this encounter Visit Diagnoses Diagnosis SLE (systemic lupus erythematosus) (HCC)- Primary Systemic lupus erythematosus documented in this encounter Care Teams Space And Missile Operations Relationship Specialty Start Date End Date Name, MD Rony PCP - General Internal Medicine 04/08/12 05/05/15 Valeriano Hawk MD [address] [place] [address] PCP - General Internal Medicine 05/06/15 01/25/22 Janie Pulliam MD [address] [place] [address] PCP - General Internal Medicine 01/26/22 documented as of this encounter
--- OUTSIDE RECORDS SUMMARY | 2025-04-12 18:18 | XMS_ITS | Encounter Summary ---
Author Organization [facility] Address [address] [place] [address] Care Team Providers Care Sports Broadcasting Internship Name Role Phone Valeriano Hawk MD Primary Care Provider + [phone] Janie Pulliam MD Primary Care Provider [phone] Reason for Visit * Reason Onset Date Comments Medication 06/25/2017 Encounter Details Date Type Department Care Team Description 06/25/2017 Telephone Rheumatology - [address] [address] Esther Harrington DO Medication Social History Tobacco [...] encounter Miscellaneous Notes * Telephone Encounter - Esther Harrington DO - 06/25/2017 9:19 AM EST Spoke with Dr. Tariq. If flares continue, could consider starting lowest dose of azathioprine if needed. For now, patient maintained on prednisone and stable now. Will monitor. * Telephone Encounter - Esther Harrington DO - 06/25/2017 8:[address] Tariq office called. Message left. Would like to discuss possible azathioprine if flare occurs again. Dr. Tariq information: [facility] [address] [place] [address] documented in this encounter Plan of Treatment Not on file documented as of this encounter Visit Diagnoses Not on filedocumented in this encounter Care Teams Sports Broadcasting Internship Relationship Specialty Start Date End Date Valeriano Hawk MD [address] [place] [address] PCP - General Internal Medicine 05/06/15 01/25/22 Janie Pulliam MD [address] [place] [address] PCP - General Internal Medicine 01/26/22 documented as of this encounter
--- OUTSIDE RECORDS SUMMARY | 2025-04-12 18:18 | XMS_ITS | Encounter Summary ---
Author Organization [facility] Address [address] [place] [address] Care Team Providers Care Planning Rn Name Role Phone Valeriano Hawk MD Primary Care Provider + [phone] Janie Pulliam MD Primary Care Provider [phone] Encounter Details Date Type Department Care Team Description 11/26/2020 Pt. Non Urgent Medical Question Adult Medicine [address] [address] Valeriano Hawk MD [address] [place] [address] [phone] Social History Tobacco Use Types Packs/Day Years [...] on filedocumented in this encounter Care Teams Planning Rn Relationship Specialty Start Date End Date Valeriano Hawk MD [address] [place] [address] [phone] PCP - General Internal Medicine 05/06/15 01/25/22 Janie Pulliam MD [address] [place] [address] PCP - General Internal Medicine 01/26/22 documented as of this encounter
--- OUTSIDE RECORDS SUMMARY | 2025-04-12 18:18 | XMS_ITS | Encounter Summary ---
Author Organization [facility] Address [address] [place] [address] Care Team Providers Care Manager Trade Name Role Phone Valeriano Hawk MD Primary Care Provider + [phone] Janie Pulliam MD Primary Care Provider [phone] Encounter Details Date Type Department Care Team Description 03/12/2021 Hospital Medical Records [address] [place] [address] Bambi Ellis MD Social History Tobacco Use Types Packs/Day [...] on filedocumented in this encounter Care Teams Manager Trade Relationship Specialty Start Date End Date Valeriano Hawk MD [address] [place], [place] [phone] PCP - General Internal Medicine 05/06/15 01/25/22 Janie Pulliam MD [address] [place] [address] [phone] PCP - General Internal Medicine 01/26/22 documented as of this encounter
--- OUTSIDE RECORDS SUMMARY | 2025-04-12 18:18 | XMS_ITS | Encounter Summary ---
Author Organization [facility] Address [address] [place] [address] Care Team Providers Care Orthopedic Physician Name Role Phone Name, Rony NIXON Primary Care Provider Valeriano Laboy MD Primary Care Provider + [phone] Janie Pulliam MD Primary Care Provider [phone] Encounter Details Date Type Department Care Team Description 01/24/2015 Telephone Adult Medicine [address] [address] Name, MD Rony Social History Tobacco Use [...] on filedocumented in this encounter Care Teams Orthopedic Physician Relationship Specialty Start Date End Date Name, MD Rony PCP - General Internal Medicine 04/08/12 05/05/15 Valeriano Hawk MD [address] [place] [address] PCP - General Internal Medicine 05/06/15 01/25/22 Janie Pulliam MD [address] [place] [address] PCP - General Internal Medicine 01/26/22 documented as of this encounter
--- OUTSIDE RECORDS SUMMARY | 2025-04-12 18:18 | XMS_ITS | Encounter Summary ---
Author Organization [facility] Address [address] [place] [address] Care Team Providers Care Teletypesetter Monitor Name Role Phone Janie Pulliam MD Primary Care Provider [phone] Encounter Details Date Type Department Care Team Description 06/11/2022 Attendant Lodging Facilities Report Medical Records [address] [place] [address] Stuart Gutierrez MD Social History Tobacco Use Types Packs/Day [...] on filedocumented in this encounter Care Teams Teletypesetter Monitor Relationship Specialty Start Date End Date Janie Pulliam MD [address] [place] [address] PCP - General Internal Medicine 01/26/22 documented as of this encounter
--- OUTSIDE RECORDS SUMMARY | 2025-04-12 18:18 | XMS_ITS | Encounter Summary ---
Author Organization [facility] Address [address] [place] [address] Care Team Providers Care Linux Support Engineer Name Role Phone Valeriano Hawk MD Primary Care Provider + [phone] Janie Pulliam MD Primary Care Provider [phone] Encounter Details Date Type Department Care Team Description 08/19/2020 Old Medical Records Medical Records [address] [place] [address] Abstract, Provider Social History Tobacco Use Types [...] on filedocumented in this encounter Care Teams Linux Support Engineer Relationship Specialty Start Date End Date Valeriano Hawk MD [address] [place] [address] PCP - General Internal Medicine 05/06/15 01/25/22 Janie Pulliam MD [address] [place] [address] [phone] PCP - General Internal Medicine 01/26/22 documented as of this encounter
--- OUTSIDE RECORDS SUMMARY | 2025-04-12 18:18 | XMS_ITS | Encounter Summary ---
Author Organization [facility] Address [address] [place] [address] Care Team Providers Care Storage Administrator Name Role Phone Valeriano Hawk MD Primary Care Provider + [phone] Janie Pulliam MD Primary Care Provider [phone] Encounter Details Date Type Department Care Team Description 01/30/2021 Pt. Non Urgent Medic al Question Gastroenterology [address] [place] [id number] Grant Sánchez PA-C Social History Tobacco Use [...] on filedocumented in this encounter Care Teams Storage Administrator Relationship Specialty Start Date End Date Valeriano Hawk MD [address] [place] [address] PCP - General Internal Medicine 05/06/15 01/25/22 Janie Pulliam MD [address] [place] [address] PCP - General Internal Medicine 01/26/22 documented as of this encounter
--- OUTSIDE RECORDS SUMMARY | 2025-04-12 18:18 | XMS_ITS | Encounter Summary ---
Author Organization [facility] Address [address] [place] [address] Care Team Providers Care Cut Tobacco Bulker Name Role Phone Valeriano Hawk MD Primary Care Provider + [phone] Janie Pulliam MD Primary Care Provider [phone] Reason for Referral * Non VERNELL (Priority) - Authorized/Booked Specialty Diagnoses / Procedures Referred By Giacomo gill Referred To Contact Gastroenterology Diagnoses Systemic lupus erythematosus, unspecified SLE type, unspecified organ involvement status (HCC) Lower abdominal pain Procedures REFERRAL TO GASTROENTEROLOGY Ced Wen MD [address] [place] [address] Gastro [place]/[address] [place] [phone] Referral ID Status Reason Start Date Expiration Date V isits Requested Visits Authorized [id number] Authorized/B ooked 12/28/2020 12/28/2021 1 1 Encounter Details Date Type Department Care Team Description 11/13/2020 Pt. Non Urgent Medical Question Rheumatology - [address] [phone] Ced Wen MD Systemic lupus erythematosus, unspecified SLE type, unspecified organ involvement status (HCC) (Primary Dx); Lower abdominal pain; Neutropenia, unspecified type (HCC) Social History Tobacco Use Types Packs/Day [...] encounter Miscellaneous Notes * Telephone Encounter - Merly Bolden L.P.N. - 11/13/2020 11:30 AM EDTFrom: Marni Hernandez To: Diamond Wen Sent: 11/13/2020 10:33 AM EDT Subject: Abdominal Pain Good morning Dr. Wen, At my last appointment, we discussed some abdominal pain I was experiencing. You suggested I see myOB first before referring me to a food beverage attendant. Well, turns out that I actually have an ovarian cyst on my right ovary with some slight abnormalities. I did a blood test for CA-125 about a month ago and that came back with normal levels. I had another ultrasound yesterday and will receive more information at the end of this week. I just wanted to keep you informed. Also, it looks like I don't have a follow up appointment with you. I will call to schedule. Thank you. documented in this encounter Plan of Treatment Not on file documented as of this encounter Results * (ABNORMAL) CBC (AUTO DIFF PLATELET) (01/09/2021 8:58 AM EDT) WHITE BLOOD COUNT 3.1(L) 4.8 - 10.8 x10-3/uL 01/09/2021 11:14 AM EDT [facility] RED BLOOD COUNT 4.2 3.8 - 4.8 x10-6/uL 01/09/2021 11:14 AM EDT [facility] Hemoglobin 13.0 11.5 - 16.0 g/dL 01/09/2021 11:14 AM EDT [facility] Hematocrit 37.6 35 - 47 % 01/09/2021 11:14 AM EDT [facility] MEAN CORPUSCULAR VOLUME 89.5 79 - 98 fL 01/09/2021 11:14 AM EDT [facility] MEAN CORPUSCULAR HEMOGLOBIN 31.0 27 - 32 pg 01/09/2021 11:14 AM EDT [facility] MEAN CORPUSCULAR HGB CONC 34.6 32 - 37 g/dL 01/09/2021 11:14 AM EDT [facility] RED CELL DISTRIBUTION WIDTH 11.9 11 - 15 % 01/09/2021 11:14 AM EDT [facility] PLT COUNT 221 130 - 400 x10-3/uL 01/09/2021 11:14 AM EDT [facility] MEAN PLATELET VOLUME 11.1(H) 7 - 11 fL 01/09/2021 11:14 AM EDT [facility] NRBC % AUTO 0.0 <1 % 01/09/2021 11:14 AM EDT [facility] NEUTROPHILS % 44.5 % 01/09/2021 11:14 AM EDT [facility] LYMPH % 33.1 % 01/09/2021 11:14 AM EDT [facility] MONO % 19.7 % 01/09/2021 11:14 AM EDT [facility] EOS % 2.0 % 01/09/2021 11:14 AM EDT [facility] BASO % 0.7 % 01/09/2021 11:14 AM EDT [facility] IMMATURE GRANULOCYTES % 0.0 % 01/09/2021 11:14 AM EDT [facility] NRBC # AUTO 0.00 <0.1 x10-3/uL 01/09/2021 11:14 AM EDT [facility] NEUT # 1.36(L) 1.5 - 7.0 x10-3/uL 01/09/2021 11:14 AM EDT [facility] LYMPH # 1.01 1 - 5.0 x10-3/uL 01/09/2021 11:14 AM EDT [facility] MONO # 0.60 0.2 - 1.0 x10-3/uL 01/09/2021 11:14 AM EDT [facility] EOS # 0.06 0 - 0.5 x10-3/uL 01/09/2021 11:14 AM EDT [facility] BASO # 0.02 0 - 0.2 x10-3/uL 01/09/2021 11:14 AM EDT [facility] IMMATURE GRANULOCYTES # 0.00 0 - 0.03 x10-3/uL 01/09/2021 11:14 AM EDT [facility] 01/09/2021 8:58 AM EDT 01/09/2021 9:00 AM EDT Narrative [facility] - 01/09/2021 11:14 AM EDT Release to patient->Immediate Ced Wen MD LAB Performing Organization Address [facility] Co de Phone Number [facility] * DNA ANTIBODY, WALES/DOUBLE STRAND (12/31/2020 9:04 AM EDT) ANTI-DNA QUANTITATIVE 125 <200 IU/mL 01/05/2021 10:54 AM EDT [facility] ANTI-DNA INTERPRETATION NEGATIVE NEGATIVE 01/05/2021 10:54 AM EDT [facility] 12/31/2020 9:04 AM EDT 12/31/2020 9:07 AM EDT Narrative [facility] - 01/05/2021 10:54 AM EDT Release to patient->Immediate Ced Wne MD LAB Performing Organization Address [facility] Co de Phone Number [facility] * COMPLEMENT,C4 (12/31/2020 9:04 AM EDT) COMPLEMENT C4 34 16 - 47 mg/dl 12/31/2020 12:27 PM EDT [facility] 12/31/2020 9:04 AM EDT 12/31/2020 9:07 AM EDT Narrative [facility] - 12/31/2020 12:27 PM EDT Release to patient->Immediate Ced Wen MD LAB Performing Organization Address [facility] Co de Phone Number [facility] * COMPLEMENT,C3 (12/31/2020 9:04 AM EDT) COMPLEMENT C3 114 88 - 201 mg/dl 12/31/2020 12:27 PM EDT [facility] 12/31/2020 9:04 AM EDT 12/31/2020 9:07 AM EDT Narrative [facility] - 12/31/2020 12:27 PM EDT Release to patient->Immediate Ced Wen MD LAB Performing Organization Address [facility] de Phone Number [facility] [employer] * (ABNORMAL) C-REACTIVE PROTEIN (12/31/2020 9:04 AM EDT) C-REACTIVE PROTEIN 0.61(H) <0.5 mg/dl 12/31/2020 12:26 PM EDT [facility] 12/31/2020 9:04 AM EDT 12/31/2020 9:07 AM EDT Narrative [facility] - 12/31/2020 12:26 PM EDT Release to patient->Immediate Ced Wen MD LAB Performing Organization Address [facility] de Phone Number [facility] * RBC SEDIMENTATION RATE, NON-AUTO (12/31/2020 9:04 AM EDT) ERYTHROCYTE SEDIMENTATION RATE 4 0 - 20 mm/hr 12/31/2020 12:38 PM EDT [facility] 12/31/2020 9:04 AM EDT 12/31/2020 9:07 AM EDT Narrative [facility] - 12/31/2020 12:38 PM EDT Release to patient->Immediate Ced Wen MD LAB Performing Organization Address [facility] Co de Phone Number [facility] [employer] * (ABNORMAL) CBC (AUTO DIFF PLATELET) (12/31/2020 9:04 AM EDT) WHITE BLOOD COUNT 2.3(L) 4.8 - 10.8 x10-3/uL 12/31/2020 12:10 PM EDT [facility] RED BLOOD COUNT 4.2 3.8 - 4.8 x10-6/uL 12/31/2020 12:10 PM ED[facility] Hemoglobin 12.6 11.5 - 16.0 g/dL 12/31/2020 12:10 PM EDT [facility] Hematocrit 37.1 35 - 47 % 12/31/2020 12:10 PM EDT [facility] MEAN CORPUSCULAR VOLUME 89.4 79 - 98 fL 12/31/2020 12:10 PM EDT [facility] MEAN CORPUSCULAR HEMOGLOBIN 30.4 27 - 32 pg 12/31/2020 12:10 PM EDT [facility] MEAN CORPUSCULAR HGB CONC 34.0 32 - 37 g/dL 12/31/2020 12:10 PM EDT [facility] RED CELL DISTRIBUTION WIDTH 11.5 11 - 15 % 12/31/2020 12:10 PM EDT [facility] PLT COUNT 199 130 - 400 x10-3/uL 12/31/2020 12:10 PM EDT [facility] MEAN PLATELET VOLUME 11.1(H) 7 - 11 fL 12/31/2020 12:10 PM EDT [facility] % AUTO 0.0 <1 % 12/31/2020 12:10 PM EDT [facility] NRBC # AUTO 0.00 <0.1 x10-3/uL 12/31/2020 12:10 PM EDT [facility] NEUTROPHIL 38 % 12/31/2020 12:38 PM EDT [facility] BAND 2 % 12/31/2020 12:38 PM EDT [facility] LYMPHOC[facility]TE 40 % 12/31/2020 12:38 PM EDT [facility] AT[facility]ICAL LYMPHOCYTE 4 % 12/31/2020 12:38 PM EDT [facility] MONOCYTE 13 % 12/31/2020 12:38 PM EDT [facility] EOSINOPHIL 2 % 12/31/2020 12:38 PM EDT [facility] BASOPHIL 1 % 12/31/2020 12:38 PM EDT [facility] NEUT # MANUAL 0.87(L) 1.5 - 7.0 x10-3/uL 12/31/2020 12:38 PM EDT [facility] BANDS ABSOLUTE 0.05(H) 0 - 0 x10-3/uL 12/31/2020 12:38 PM EDT [facility] ABSOLUTE LYMPH 0.92(L) 1.0 - 5.0 x10-3/uL 12/31/2020 12:38 PM EDT [facility] REACT LYMPH ABSOLUTE CALC 0.09(H) 0 - 0 x10-3/uL 12/31/2020 12:38 PM EDT [facility] MONO ABSOLUTE CALC 0.30 0.2 - 1.0 x10-3/uL 12/31/2020 12:38 PM EDT [facility] EOS ABSOLUTE CALC 0.05 0 - 0.5 x10-3/uL 12/31/2020 12:38 PM EDT [facility] BASOS ABSOLUTE CALC 0.02 0 - 0.2 x10-3/uL 12/31/2020 12:38 PM EDT [facility] RBC MORPH COMMENT 1 . 12/31/2020 12:38 PM EDT [facility] Comment:RBC: Morphology agre es with CBC PLATELET MORPHOLOGY . 12/31/2020 12:38 PM EDT [facility] Comment:PLT: Large platelets seen 12/31/2020 9:04 AM EDT 12/31/2020 9:07 AM EDT N[facility]ative [facility] - 12/31/2020 12:38 PM EDT Release to patient->Immediate Ced Wen MD LAB [facility] documented in this encounter Visit Diagnoses Diagnosis Systemic lupus erythematosus, unspecified SLE type, unspecified organ involvement status (HCC)- Primary Lower abdominal pain Abdominal pain, other specified site Neutropenia, unspecified type (HCC) Systemic lupus erythematosus, unspecified SLE type, unspecified organ involvement status (HCC) Lower abdominal pain Abdominal pain, other specified site Systemic lupus erythematosus, unspecified SLE type, unspecified organ involvement status (HCC) Neutropenia, unspecified type (HCC) documented in this encounter Care Teams Cut Tobacco Bulker Relationship Specialty Start Date End Date Valeriano Hawk MD [address] [place] [address] PCP - General Internal Medicine 05/06/15 01/25/22 Janie Pulliam MD [address] [place] [address], [place] [address] PCP - General Internal Medicine 01/26/22 documented as of this encounter
--- OUTSIDE RECORDS SUMMARY | 2025-04-12 18:18 | XMS_ITS | Encounter Summary ---
Author Organization [facility] Address [address] [place] [address] Care Team Providers Care Hot Air Furnace Installer And Repairer Name Role Phone Valeriano Hawk MD Primary Care Provider + [phone] Janie Pulliam MD Primary Care Provider [phone] Reason for Visit * Reason Comments E-prescribe Rx Request Encounter Details Date Type Department Care Team Description 01/31/2019 Refill Adult Medicine [address] [address] Mignon Howard PA [address] [place] [phone] E-prescribe Rx Request Social History Tobacco Use [...] on filedocumented in this encounter Care Teams Hot Air Furnace Installer And Repairer Relationship Specialty Start Date End Date Valeriano Hawk MD [address] [place] [address] PCP - General Internal Medicine 05/06/15 01/25/22 Janie Pulliam MD [address] [place] [address] PCP - General Internal Medicine 01/26/22 documented as of this encounter
--- OUTSIDE RECORDS SUMMARY | 2025-04-12 18:18 | XMS_ITS | Encounter Summary ---
Author Organization [facility] Address [address] [place] [address] Care Team Providers Care Medical Staffing Coordinator Name Role Phone Name, Rony NIXON Primary Care Provider Valeriano Laboy MD Primary Care Provider [phone] Janie Pulliam MD Primary Care Provider [phone] Encounter Details Date Type Department Care Team Description 03/11/2015 Transfer Records Medical Records [address] [place] [id number] Abstract, Provider Social History Tobacco Use Types [...] on filedocumented in this encounter Care Teams Medical Staffing Coordinator Relationship Specialty Start Date End Date Name, MD Rony PCP - General Internal Medicine 04/08/12 05/05/15 Valeriano Hawk MD [address] [place] [phone] PCP - General Internal Medicine 05/06/15 01/25/22 Janie Pulliam MD [address] [place] [address] PCP - General Internal Medicine 01/26/22 documented as of this encounter
--- OUTSIDE RECORDS SUMMARY | 2025-04-12 18:18 | XMS_ITS | Encounter Summary ---
Author Organization [facility] Address [address] [place] [address] Care Team Providers Care Windchill Administrator Name Role Phone Valeriano Hawk MD Primary Care Provider + [phone] Janie Pulliam MD Primary Care Provider [phone] Encounter Details Date Type Department Care Team Description 05/04/2018 Pt. Non Urgent Medic al Question Rheumatology - [address] [address] Esther Harrington DO Social History Tobacco Use [...] AM EST Subject: Care after your departure Mi Doctor Dm Whittaker I was wondering if there are any other doctors/facility you could refer me to for care after your departure next month. Thanks! Nimisha documented in this encounter Plan of Treatment Not on file documented as of this encounter Visit Diagnoses Not on filedocumented in this encounter Care Teams Windchill Administrator Relationship Specialty Start Date End Date Valeriano Hawk MD [address] [place] [phone] PCP - General Internal Medicine 05/06/15 01/25/22 Janie Pulliam MD [address] [place] [address] PCP - General Internal Medicine 01/26/22 documented as of this encounter
--- OUTSIDE RECORDS SUMMARY | 2025-04-12 18:18 | XMS_ITS | Encounter Summary ---
Author Organization [facility] Address [address] [place] [address] Care Team Providers Care Cnc Operator Name Role Phone Valeriano Hawk MD Primary Care Provider [phone] Janie Pulliam MD Primary Care Provider [phone] Encounter Details Date Type Department Care Team Description 12/02/2021 Sales Representatives Report Medical Records [address] [place] [phone] Stuart Gutierrez MD Social History Tobacco Use [...] filedocumented in this encounter Care Teams Cnc Operator Relationship Specialty Start Date End Date Valeriano Hawk MD [address] [place] [address] PCP - General Internal Medicine 05/06/15 01/25/22 Janie Pulliam MD [address] [place] [address] PCP - General Internal Medicine 01/26/22 documented as of this encounter
[2025-04-12 18:38] LABS: Appearance Urine Clear; Glucose Urine UA Negative (Negative); PH 6.5 (5.0-9.0); Specific Gravity - Urine <= 1.005 (1.005-1.025)
[2025-04-12 18:44] LABS: Total Protein Urine Random < 7 mg/dL (<12)
== END 2025-04-12 13:47 | disposition home or self-care (01) ==
LOC: HO.HKASLDS 13:46
PROVIDERS: PCP General Practice; Visit Provider Internal Medicine Rheumatology
DX: M32.9 Systemic lupus erythematosus, unspecified (principal); L98.9 Disorder of the skin and subcutaneous tissue, unspecified; I73.00 Raynaud's syndrome without gangrene; Z79.899 Other long term (current) drug therapy
CPT/HCPCS: 36415; 81001; 82565; 82570; 84156; 84450; 84460; 85025; 85652; 86140; 86160; 86225

== ENCOUNTER 2025-04-12 13:46 | Outpatient (AMB) | payer BC, SELFPAY ==
[2025-04-12 13:54] VITALS: BP 120/84; PULSE 90; O2SAT 97; BMI 34.2
--- NOTE | 2025-04-12 13:54 | MHC.OFFVIS ---
Vital Signs 04/12/25 13:54 Height 5 ft 4 in Weight 199 lb 4.766 oz BMI 34.2 BP 120/84 Blood Pressure Location Rt brachial Position Sitting Pulse 90 Pulse Source Pulse Oximeter Pulse Oximetry (%) 97 Oxygen Delivery Method Room Air Intake Visit Reasons: 3 Months Intake Note: Pt present today for Lupus. Accompanied by: Self / Same As Patient Allergies No Known Allergies Allergy (Verified 04/12/25 13:54) HPI HPI 3 Months: Details: Throughout the summer her pain in her joints was uncontrolled with joint swelling. She had difficulty with her daily tasks. She had called our office a few weeks ago in regards to her flare. She feels relief with prednisone. She has 2 more days of prednisone per taper. At this time she does not have any joint pain, stiffness or swelling. Raynaud's is under control. Denies fevers, dyspnea, pleurisy, oral ulcers, new rashes. She continues to have intermittent spots on her fingers. Physical Exam Vital Signs: Last Vital Signs Pulse 90 04/12/25 13:54 BP 120/84 04/12/25 13:54 Pulse Ox 97 04/12/25 13:54 Oxygen Delivery Method Room Air 04/12/25 13:54 BMI result Body Mass Index 34.2 Const Other: General: Comfortable Respiratory: Normal breath sounds Cardiovascular: Regular rate and rhythm, no murmurs Skin: She does not have erythematous spots on palmar aspect of fingers or palm MSK: No tender joints. No synovitis. Normal range of motion of upper extremities and lower extremities. Assessment & Plan Assessment & Plan (1) Systemic lupus erythematosus (SLE) in adult: Comment: She has inflammatory arthritis, cutaneous lesions, and active Raynaud's phenomenon currently on prednisone course with benefit. We discussed the importance of adding on treatment to her maintenance regimen for control of her disease. 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 Labs reveal persistent leukopenia, elevated CRP and elevated double-stranded DNA. She has failed mono therapy with hydroxychloroquine. Benlysta is indicated to control her disease manifestations. Patient's insurance will approve home infusions but not infusions at [facility]. Benlysta subcutaneous injections were painful for her in the past. She prefers infusion over subcutaneous injections. I will try to set up a peer to peeras it is not standard of care to have Benlysta administered as a home infusion. Best outcomes and safe administration of Benlysta occurs in a hospital setting. Rheumatology history: Onset of systemic lupus erythematosus in 2010. 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 During she had thrombocytopenia and leukopenia prior to SLE diagnosis. Methotrexate was added for inflammatory arthritis but discontinued after a month due to leukopenia noted on labs (WCC did not decrease significantly). HCQ 2014 (G6PD deficient). Benlysta 2017 to 05/2021 initially on subcutaneous injection then switch to infusions with improved efficacy. Patient was afraid of the Benlysta subcutaneous injection needle. Benlysta was not restarted when she switched to [facility] from [employer] (Dr. aHnnon) as patient was clinically quiescent. She developed cutaneous manifestation of lupus 07/2024 with erythematous spots on fingers and palms resolved with topical steroid. 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 Code(s): M32.9 - Systemic lupus erythematosus, unspecified Category: Medical Plan: Continue hydroxychloroquine 400 mg daily. Requesting clinic note from surveillance exam for HCQ ocular toxicity the patient had done 10/2024 x2 Patient will contact our office with the name of the topical steroid that was prescribed by her log loader that was effective in controlling her skin lesions. She has ran out of the medication, which I will refill for patient. Patient is unable to follow up with Dermatology because she has a bill from her previous workup and appointments that she can not afford at this time to pay off. She will complete prednisone course in 2 days. She will call office if symptoms reoccur My office will arrange peer to peer for Benlysta infusion insurance denial RTC 3 months (2) Skin lesions: Code(s): L98.9 - Disorder of the skin and subcutaneous tissue, unspecified Category: Medical Plan: See above (3) Other senior living (current) drug therapy: Code(s): Z79.899 - Other petroleum terminal plant operator (current) drug therapy Category: Medical Plan: See above (4) Raynaud disease: Comment: Controlled on nifedipine Code(s): I73.00 - Raynaud's syndrome without gangrene Category: Medical Plan: Continue nifedipine 30 mg XL daily Return to clinic in 3 months Plan See above Orders: Orders Complete Blood Count Auto Diff 04/12/25 M32.9 - Systemic lupus erythematosus, unspecified Erythrocyte Sedimentation Rate 04/12/25 M32.9 - Systemic lupus erythematosus, unspecified Protein Creatinine Ratio, Ur 04/12/25 M32.9 - Systemic lupus erythematosus, unspecified Alanine Aminotransferase 04/12/25 M32.9 - Systemic lupus erythematosus, unspecified Aspartate Amino Transferase 04/12/25 M32.9 - Systemic lupus erythematosus, unspecified Complement C4 04/12/25 M32.9 - Systemic lupus erythematosus, unspecified Complement C3 04/12/25 M32.9 - Systemic lupus erythematosus, unspecified Creatinine 04/12/25 M32.9 - Systemic lupus erythematosus, unspecified Anti DNA DS Antibody 04/12/25 M32.9 - Systemic lupus erythematosus, unspecified UA ClnCatch+Micro w/rflx Cult 04/12/25 M32. - Systemic lupus erythematosus, unspecified C Reactive Protein 04/12/25 M32.9 - Systemic lupus erythematosus, unspecified Medications: Refilled hydroxychloroquine (Plaquenil) 400 mg (2 x 200 mg) PO DAILY 90 days 180 tabs 1RF Coding Level of Care Code Est Pt Level 4 (73976) Complex EM visit Add On G2211 Diagnoses Systemic lupus erythematosus (SLE) in adult M32.9 Skin lesions L98.9 Other senior living (current) drug therapy Z79.899 Raynaud disease I73.00
--- OUTSIDE RECORDS SUMMARY | 2025-04-12 17:41 | XMS_ITS | Encounter Summary ---
Author Organization [employer] Address [address] [facility] 7t [place] [address] Care Team Providers Care Tab Machine Operator Name Role Phone Chioma Connelly MD Primary Care Provider [phone] Reason for Visit * Reason Onset Date Comments Med Refill 12/05/2024 Encounter Details Date Type Department Care Team (Late st Contact Info) Description 12/05/2024 Refill [facility] MED [facility] PEDS [address] [place] [address] Chioma Connelly MD [address] [place] [address] Social History Tobacco Use Types Packs/Day Years [...] documented as of this encounter Care Teams Tab Machine Operator Relationship Specialty Start Date End Date Chioma Connelly MD [address] [place] [address] PCP - General Family Medicine 05/12/24 documented as of this encounter
--- OUTSIDE RECORDS SUMMARY | 2025-04-12 17:41 | XMS_ITS | Encounter Summary ---
Author Organization [employer] Address [address] [facility] 7t [place] [address] Care Team Providers Care Talent Acquisition Assistant Name Role Phone Chioma Connelly MD Primary Care Provider [phone] Encounter Details Date Type Department Care Team ([facility] st Contact Info) Description 12/26/2024 Orders Only [facility] MEDICINE [address] [place], [place] [phone] Chioma Connelly MD [address] [place], [place] [phone] Social History Tobacco Use Types Packs/Day Years [...] documented as of this encounter Care Teams Talent Acquisition Assistant Relationship Specialty Start Date End Date Chioma Connelly MD [address] [place] [address] PCP - General Family Medicine 05/12/24 documented as of this encounter
--- OUTSIDE RECORDS SUMMARY | 2025-04-12 17:41 | XMS_ITS | Encounter Summary ---
Author Organization [employer] Address [address] [facility] 7t [place] [address] Care Team Providers Care Content Specialist Name Role Phone Chioma Connelly MD Primary Care Provider [phone] Reason for Visit * Reason Onset Date Comments Med Refill 07/31/2024 Encounter Details Date Type Department Care Team (Late st Contact Info) Description 07/31/2024 Refill [facility] MED[facility]INE [address] [place], [place] [phone] Chioma Connelly MD [address] [place] [address] Body mass index (BMI) 36.0-36.9, adult Social [...] documented as of this encounter Care Teams Content Specialist Relationship Specialty Start Date End Date Chioma Connelly MD [address] [place] [address] PCP - General Family Medicine 05/12/24 documented as of this encounter
--- OUTSIDE RECORDS SUMMARY | 2025-04-12 17:41 | XMS_ITS | Clinical Summary ---
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 Family History Medical History Relation Name Comments [...]
--- OUTSIDE RECORDS SUMMARY | 2025-04-12 17:41 | XMS_ITS | Clinical Summary ---
Author Organization [facility] Address [address] [place] [address] Care Team Providers Care Rail Bonder Name Role Phone Janie Pulliam MD Primary Care Provider [phone] Allergies No known active allergies Medications etonogestrel-eluti [...] infection 09/13/2020 Overview (06/11/2024): Tested positive 09/13/20at [facility] pharmacy. Leukopenia 07/28/2019 Overview (06/11/2024): Chronic, no depression of other cell lines, both lymphocytes and neutrophils are low. Probably due to SLE. Anxiety and depression 02/16/2019 Lupus nephritis, ISN/RPS class V ([facility], [facility] V28) 11/22/2018 Raynaud's phenomenon without gangrene 07/23/2017 Pulmonary nodules/lesions, multiple 09/12/2015 Overview (06/11/2024): Stable 2016 on [address]scan SLE (systemic lupus erythema tosus) ([facility] V24, 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 Immunizations Immunization Administration Dates Next Due Influenza Quadravalent, MDCK [...] HISTORICAL OTHER SURGICAL HISTORY 03/25/2015 Left PROCEDURE: NM RENAL BIOPSY SURG EXPOSURE KIDNEY; COMMENT: lupus nephritis, membranous type, ISN/RPS class V; chronic changes of parenchyma (done at [facility]) SECTION 2017 PROCEDURE: HISTORICAL DELIVERY ESOPHAGOGASTRODUODENOSCOPY 03/12/2021 PROCEDURE: NM EGD TRANSORAL BIOPSY SINGLE/MULTIPLE; COMMENT: biopsy shows [...] (2 of 2 - PCV) 06/17/2016 06/17/2015 HPV Vaccines (1 - Risk 3-dose SCDM series) 2019 COVID-19 Vaccine (3 - Pfizer risk series) 12/17/2020 11/19/2020, 10/29/2020 Social Influencers of Health Screening 05/23/2022 Cervical Cancer Screening: Pap Smear 04/23/2024 04/23/2021, 04/23/2021 Depression Screening 06/21/2024 Influenza Vaccine (#1) 2025 , 02/20/2020, 02/24/2019, Additional history exists RSV Immunization Adult Patients (1 - 1-dose 75+ series) 2067 HIV Screening Completed 09/20/2017 Hepatitis C Screening [...] RESULTING AGENCY - 05/09/2021 3:21 PM EST [id number] THINPREP PAP, IMAGED: NEGATIVE FOR SQUAMOUS INTRAEPITHELIAL [...] Recently Relevant to Health Maintenance Care Teams Rail Bonder Relationship Specialty Start Date End Date Janie Pulliam MD PCP - General Internal Medicine 01/26/22
--- OUTSIDE RECORDS SUMMARY | 2025-04-12 17:41 | XMS_ITS | Encounter Summary ---
Author Organization [employer] Address [address] [facility] 7t [place] [address] Care Team Providers Care Prevocational/Rehabilitation Counselor Name Role Phone Chioma Connelly MD Primary Care Provider [phone] Reason for Visit * Reason Onset Date Comments Appointment Request 11/28/2024 Encounter Details Date Type Department Care Team ([facility] st Contact Info) Description 11/28/2024 Telephone [facility] MEDICINE [address] [place] [address] Chioma Connelly MD [address] [place], [place] [phone] Appointment Request Social History Tobacco Use Types [...] encounter Miscellaneous Notes * Telephone Encounter - Laura Barker - 11/28/2024 8:56 AM EDT Tc from pt requesting a callback to reschedule appointment for office visit due to weather not feeling good. [phone] documented in this encounter Plan of Treatment Not on file documented as of this encounter Visit Diagnoses Not on filedocumented in this encounter Additional Health Concerns Assessment Noted Time PHQ-9 Depression Total Score: 0 05/12/20 9:01 AM EST documented as of this encounter Care Teams Prevocational/Rehabilitation Counselor Relationship Specialty Start Date End Date Chioma Connelly MD [address] [place] [address] PCP - General Family Medicine 05/12/24 documented as of this encounter
--- OUTSIDE RECORDS SUMMARY | 2025-04-12 17:41 | XMS_ITS | Clinical Summary ---
Author Organization [facility] Address [address] [place] [address] Care Team Providers Care Knockout Worker Name Role Phone Chimoa Connelly Primary Care Provider Allergies Active Allergy Reactions Criticality Noted Date [...] her consent to participate in the [employer] [id number] [place] clinical trial. A screening examination was performed, [...] Department Care Team Description 01/23/2025 Orders Only [facility] [address] [place] [address] Furniture Sander: Tam Lees MD Other neutropenia (Primary Dx); Other forms of systemic lupus erythematosus, unspecified organ involvement status (HCC) from Last 3 Months Immunizations Immunization Administration Dates Next Due Hepatitis B Vaccine, Unspeci fied Formulation 12/01/2011 Hepatitis B adult (ENGERIX-B ADULT) vaccine 1 mL IM 07/21/2024 INFLUENZA, SPLIT VIRUS, TRIVALENT, PF 07/21/2024 Influenza, Injectable, Madin [place] Canine Kidney, Quadrivalent 06/11/2022,02/24/2018 Influenza, Injectable, Madin [place] Canine Kidney, Preservative Free, Quadrivalent 04/23/2021,02/20/2020,02/24/2019,03/28 Influenza, Trivalent, MDV, Injectable 03/17/2016 ,04/18/2015 Measles, Mumps, and Rubella Vaccine 12/01/2011 Pneumococcal Polysaccharide Vaccine, 23 Valent 06/17/2015 Pneumococcal conjugate PCV20,polysaccharide [id number] conjugate, adjuvant, PF (Prevnar 20) 07/21/2024 Tetanus [...] 3-dose series) 09/15/2024 07/21/2024, 12/01/2011 COVID-19 Vaccine (4 - 2024- season) 2025 08/29/2021, 11/19/2020, 10/29/2020 [...] patient's age to complete this topic Insurance BCBS OUT OF STATE PPO Care Teams Knockout Worker Relationship Specialty Start Date End Date Chioma Connelly [address] [place] [address] PCP - General 11/07/24
--- OUTSIDE RECORDS SUMMARY | 2025-04-12 17:41 | XMS_ITS | Encounter Summary ---
Author Organization [employer] Address [address] [facility] 7[address] [place] [address] Care Team Providers Care Insulation Board Head Saw Operator Name Role Phone Chioma Connelly MD Primary Care Provider [phone] Reason for Visit * Reason Onset Date Comments Med Refill 12/15/2024 Encounter Details Date Type Department Care Team (Late st Contact Info) Description 12/15/2024 Refill [facility] MED & PEDS [address] [place] [address] Chioma Connelly MD [address] [place] [address] Social History Tobacco Use Types Packs/Day Years [...] documented as of this encounter Care Teams Insulation Board Head Saw Operator Relationship Specialty Start Date End Date Chioma Connelly MD [address] [place] [address] PCP - General Family Medicine 05/12/24 documented as of this encounter
--- OUTSIDE RECORDS SUMMARY | 2025-04-12 17:41 | XMS_ITS | Clinical Summary ---
Author Organization [employer] Address [address] [facility] 7t [place] [address] Care Team Providers Care Waiter/Waitress Club Name Role Phone Chioma Connelly MD Primary Care Provider [phone] Allergies No known active allergies Medications Etonogestrel [...] mouth before breakfast. 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 Resolved Problems Problem Noted Date Diagnosed Date Resolved Date Other forms of systemic lupus erythematosus 05/14/2024 05/14/2024 Raynaud's disease 08/15/2023 05/14/2024 Encounters Date Type Department Care Team Description 02/22/2025 Orders Only [facility] [address] [place] [address] Rachelle Espinoza CNM Left ovarian cyst (Primary Dx) 02/22/2025 Results Follow-Up [facility] [address] [place] [address] Rachelle Espinoza CNM US Pelvis Transvaginal 02/20/2025 Telephone [facility] [address] [place] [address] Chioma Connelly MD Nov Recall from Last 3 Months Immunizations Immunization Administration [...] series) 09/15/2024 07/21/2024, 12/01/2011 COVID-19 Vaccine ( season) 2025 08/29/2021, 11/19/2020, 10/29/2020 Influenza Vaccine [...] 02/22/2025 1:32 PM EDT Right ovarian cyst PAP SMEAR Routine 05/09/2021 12:00 AM EST from Last 3 Months or Most Recently Relevant to Health Maintenance Results * US Pelvis Transvaginal (02/22/2025 1:32 PM EDT) Anatomical Region Laterality Modality Pelvis Ultrasound 02/22/2025 1:32 PM EDT Narrative 02/22/2025 2:33 PM EDT [facility] [address] [place] [address] [place] [address] Ultrasound Report Signed Patient: Marni Hernandez MR#: [id number] : 1990 Acct:[id number] Age/Sex: 34 / F ADM Date: 02/22/25 Loc: HO.HMGCX Attending Dr: Rachelle Espinoza CNM Ordering Physician: RACHELLE ESPINOZA CNM Date of Service: 02/22/25 Procedure(s): US pelvic and transvaginal Accession Number(s): [id number] cc: Chioma Connelly; RACHELLE ESPINOZA CNM Reason for Exam: 6wk f/u [...] 02/22/25 1430 DD/ 1332 TD/TT: 02/22/25 1342 [employer] Pe Teacher: Procedure Note Donotuseinterpreter, Image - 02/22/2025 [facility] [place] [address] Ultrasound Report Signed Patient: Marni Hernandez#: [id number] : 1990Acct:[id number] Age/Sex: 34 / FADM Date: 02/22/25 Loc: .HMGX Attending Dr: Rachelle Espinoza CNM Ordering Physician: RACHELLE ESPINOZA CNM Date of Service: 02/22/25 Procedure(s): US pelvic and transvaginal Accession Number(s): [id number] cc: Chioma Connelly; RACHELLE ESPINOZA CNM Reason for Exam: 6wk f/u [...] 02/22/25 1430 DD/ 1332 TD/TT: 02/22/25 1342 [employer] Pe Teacher: Rachelle Espinoza CNM IMG US PROCEDURES Final R esult * Pap Smear (05/09/2021 12:00 AM EST) Swab us Historical Provider LAB CYTOLOGY ORDERABLES F inal Result EXTERNAL LAB from Last 3 Months or Most Recently Relevant to Health Maintenance Insurance BS PPO Care Teams Waiter/Waitress Club Relationship Specialty Start Date End Date Chioma Connelly MD [address] [place], [place] [phone] PCP - General Family Medicine 05/12/24
--- OUTSIDE RECORDS SUMMARY | 2025-04-12 17:41 | XMS_ITS | Encounter Summary ---
Author Organization [employer] Address [address] [facility] 7t [place] [address] Care Team Providers Care Workers Compensation Manager Name Role Phone Chioma Connelly MD Primary Care Provider [phone] Encounter Details Date Type Department Care Team ([facility] st Contact Info) Description 06/13/2024 Orders Only [facility] MEDICINE [address] [place], [place] [phone] Chioma Connelly MD [address] [place], [place] [phone] Need for viral immunization (Primary Dx) Social [...] EST) ~Hepatitis B Surface Antibody NONREACTIVE Nonreactive [facility] Comment:Nonreactive: < 8.00 mIU/mL Blood Venous blood specimen / Unknown 07/04/2024 9:30 AM EST 07/04/2024 11:19 AM EST us Chioma Connelly MD LAB BLOOD ORDERABLES Final Res ult [facility] [address] [place] [address] [phone] documented in this encounter Visit Diagnoses Diagnosis Need for viral immunization- Primary Need for prophylactic vaccination and inoculation against other viral diseases documented in this encounter Additional Health Concerns Assessment Noted Time PHQ-9 Depression Total Score: 0 05/12/20 9:01 AM EST documented as of this encounter Care Teams Workers Compensation Manager Relationship Specialty Start Date End Date Chioma Connelly MD [address] [place] [phone] PCP - General Family Medicine 05/12/24 documented as of this encounter
--- OUTSIDE RECORDS SUMMARY | 2025-04-12 17:41 | XMS_ITS | Encounter Summary ---
Author Organization [employer] Address [address] [facility] 7t [place] [address] Care Team Providers Care Cage Loader Name Role Phone Chioma Connelly MD Primary Care Provider [phone] Encounter Details Date Type Department Care Team ([facility] st Contact Info) Description 07/03/[address] [facility] MEDICINE [address] [place], [place] [phone] Chioma Connelly MD [address] [place], [place] [phone] Class 2 severe obesity with serious comorbidity [...] 37.0 to 37.9 in adult, unspecified obesity type- Primary documented in this encounter Additional Health Concerns Assessment Noted Time PHQ-9 Depression Total Score: 0 05/12/20 9:01 AM EST documented as of this encounter Care Teams Cage Loader Relationship Specialty Start Date End Date Chioma Connelly MD [address] [place] [address] PCP - General Family Medicine 05/12/24 documented as of this encounter
--- OUTSIDE RECORDS SUMMARY | 2025-04-12 17:41 | XMS_ITS | Encounter Summary ---
Author Organization [employer] Address [address] [facility] 7t [place] [address] Care Team Providers Care Facing Baster Jumpbasting Name Role Phone Chioma Connelly MD Primary Care Provider [phone] Encounter Details Date Type Department Care Team ([facility] st Contact Info) Description 12/06/2024 Orders Only [facility] MEDICINE [address] [place], [place] [phone] Chioma Connelly MD [address] [place], [place] [phone] Social History Tobacco Use Types Packs/Day Years [...] documented as of this encounter Care Teams Facing Baster Jumpbasting Relationship Specialty Start Date End Date Chioma Connelly MD [address] [place] [address] PCP - General Family Medicine 05/12/24 documented as of this encounter
--- OUTSIDE RECORDS SUMMARY | 2025-04-12 17:42 | XMS_ITS | Encounter Summary ---
Author Organization [employer] Address [address] [facility] [address] 7t [place] [address] Care Team Providers Care Grade Teacher Name Role Phone Chioma Connelly MD Primary Care Provider [phone] Encounter Details Date Type Department Care Team (Latest Contact Info) Description 02/22/2025 Results Follow-Up [facility] MEDICINE [address] [place] [address] Rachelle Bryan, CNM [address] [place] [address] US Pelvis Transvaginal Social History Tobacco Use [...] documented as of this encounter Care Teams Grade Teacher Relationship Specialty Start Date End Date Chioma Connelly MD [address] [place] [address] PCP - General Family Medicine 05/12/24 documented as of this encounter
--- OUTSIDE RECORDS SUMMARY | 2025-04-12 17:42 | XMS_ITS | Data Portability ---
Author Organization RAYMOND Whittaker [facility], [facility] Address [address] [place] [address] Assessment No assessment recorded. Plan of Treatment Reminders Order Date Submit Date Provider Last Modified By Organization Details Last Modified Time Details Appointments None recorded. Lab rapid flu (A+B) 2023 024 [email or web address], [address] [place], [address], 4 10:08:03 SARS CoV 2 (COVID-19) Ag, QL, IA, upper respiratory specimen 2023 024 [email or web address] 2099[facility], [address] [place], [address], 4 10:08:02 rapid strep group A, throat 2022 023 [email or web address] [facility], [address] [place], [address], 3 10:04:56 streptococc us group A, culture, throat 2022 023 [facility] ([facility], [address] [place] [address], [place], [address], 3 10:06:02 Referral None recorded. Procedures None recorded. Surgeries None recorded. Imaging None recorded. Medication Orders polymyxin B sulfate 10,000 unit-trimet hoprim 1 mg/mL eye drops 2022 023 [id number], [address] [place], [address], 09:07:51 fexofenadin e-pseudoeph edrine ER 180 mg-240 mg tablet,ext. release 24 hr 2022 023 [id number], [address] [place], [address], 4 09:08:10 prednisone 20 mg tablet 2022 023 [id number], [address] [place], [address], 09:07:47 Patient TargetsNo targets recorded. Patient Instructions Encounter Date Encounter Id Patient Instructions Last Modified By Organization Details Last Modified Time 07/24/2022 [id number] sore throat: car e instructions [email or web address] Not [...] Department. . Not available 07/24/2022 10:03:45 08/15/2023 [id number] upper respirator y infection (cold): care instructions [...] Range : Negat ricardo Not Available [facility] ([facility]) [address], [place], [address], 07/27/2022 10:06:02 07/24/19 23 07/24/2022 rapid strep group A, throa t Unknown Analyte Normal = Negati ve Not Available [facility] [address] [place], [address], 07/24/2022 09:35:00 07/24/19 23 07/24/2022 rapid strep group A, throa t Unknown Analyte negati ve Not Available [facility] [place] [facility] [address] [place], [address], 07/24/2022 09:35:00 08/15/19 24 08/15/2023 SARS CoV 2 (COVI D-19) Ag, QL, IA, upper respi rator y speci men Unknown Analyte negati ve Not Available [facility] [place] [facility] [address] [place], [address], 08/15/2023 09:34:18 08/15/19 24 08/15/2023 SARS CoV 2 (COVI D-19) Ag, QL, IA, upper respi rator y speci men Unknown Analyte negati ve Not Available [facility] [place] [facility] [address] [place], [address], 08/15/2023 09:34:18 08/15/19 24 08/15/2023 SARS CoV 2 (COVI D-19) Ag, QL, IA, upper respi rator y speci men Unknown Analyte yes Not Available [facility] [address] [place], [address], 08/15/2023 09:34:18 08/15/19 24 08/15/2023 rapid flu (A+B) Unknown Analyte negati ve Not Available [facility] [address] [place], [address], 08/15/2023 09:33:44 08/15/19 24 08/15/2023 rapid flu (A+B) Unknown Analyte negati ve Not Available [facility] [address] [place], [address], 08/15/2023 09:33:44 08/15/19 24 08/15/2023 rapid flu (A+B) Unknown Analyte negati ve Not Available [facility] [address] [place], [address], 08/15/2023 09:33:44 08/15/19 24 08/15/2023 rapid flu (A+B) Unknown Analyte yes Not Available [facility] [address] [place], [address], 08/15/2023 09:33:44 Result Notes None recorded. Problems Name Problem SNOMED Code Status Onset Date Resolution Date Notes Provider Name and Address Organization Details Recorded Time Lupus erythematosus 118800575 Active 2022 DEVANG merritt PA - [facility] 3 09:37:23 Gastroesophag eal reflux disease 006586243 Active 2022 DEVANG merritt PA - [facility] 3 09:37:28 Raynaud's disease 858938602 Active 2023 Erna merritt PA - [facility] 4 09:08:49 Problem Notes None recorded. Procedures Surgical History [...] verbal numeric rating [Score] - Reported Systolic And Diastolic Provider Name and Address Organization Details Last Updated DateTime 3 162.56 cm 36.9 kg/m2 03638.3 6 g 99 % 99 % 83 /min 16 /min 98.1 [degF] 5 118/82 mm[Hg] DEVANG WESTFALL PA - [facility] 3 09:36:06 Date Recorded Body height Body mass index (BMI) Body weight Pain severity - 0-10 verbal numeric rating [Score] - Reported Respiratory rate Body temperature Heart rate Oxygen saturation Oxygen saturation in Arterial blood by Pulse oximetry Systolic And Diastolic Provider Name and Address Organization Details Last Updated DateTime 4 162.56 cm 36.9 kg/m2 88371.3 6 g 6 18 /min 98.1 [degF] 86 /min 97 % 97 % 120/82 mm[Hg] Ernasamantha Broussardhans PA - [facility] 4 09:13:12 Social History Question Answer Notes LastModified by Catarizm Details LastModified Time Tobacco Smoking Status Never Smoker DEVANG RAYMOND Landaverde - [facility] 07/24/2022 09:37:37 Which Illicit Or Recreational [...] Functional Status Question Answer Note LastModified by Catarizm Details LastModified Time Do you use any [...] virus, trivalent, preservative 6 completed RAYMOND Pettit [facility] 08/15/2023 09:07:27 Influenza, split virus, trivalent, preservative 5 completed RAYMOND Pettit [facility] 08/15/2023 09:07:27 Past Encounters Encounter ID Performer Location Encounter Start Date Encounter Closed Date Diagnosis/Indication Diagnosis SNOMED-CT Code Diagnosis ICD10 Code Diagnosis IMO Codes Diagnosis Note [id number] [id number] [place] [address] 12/20/2020 15:53:04 12/20/2020 19:11:57 [id number] [address] [place] [facility] [address] 12/12/2021 08:51:04 12/12/2021 16:06:55 [id number] [address] [place] [facility] [place] [address] 01/14/2022 11:38:31 01/14/2022 11:58:35 [id number] Harish Lemos NP [address] [place] [address] 07/24/2022 08:37:38 07/24/2022 10:08:18 Pharyngitis 308241317 J02.9 Acute sinusitis 38886259 J01.90 Acute conj unctivitis of bilateral eyes 2651883385 20417 H10.33 [id number] RAYMOND Stoll [address] [place] [facility] [place] [address] 08/15/2023 08:44:09 08/15/2023 10:08:54 Acute pharyngitis 386761715 J02.9 Upper resp iratory infection 77680542 J06.9 Health Concerns Section Related Observation LastModified by Organization Detteresa steven LastModified Time None Recorded Concern Status LastModified by Organization Details LastModified Time None Recorded Advance Directives Directive None Recorded Payers Insurance Date Sequence Insurance Name Policy Number Policy Schaefer Covered Member ID Schaefer Member ID Guarantor Name 01/25/2024 1 WEB[employer] RU Marni Hernandez [id number] Marni Hernandez 08/15/2023 1 [employer] (PPO) RU Marni Hernandez [id number] Marni Hernandez 08/15/2023 1 [employer] [id number] Marni Hernandez [id number] Marni Hernandez 01/25/2024 1 WEB-TPA - [employer] (PPO) Marni Hernandez [id number] Marni Hernandez Notes Date Note Type Note Provider Name and Address Organization Details Recorded Time 3 text/html Eye problemsReported by PatientHPIFor eye symptoms, patient reportssensitivity to light,redness,blurred vision, anddischargebut reportsno pain in the eyes. For source of patient information, patient reportsinformation obtained from patient,patient arrived at urgent care ambulatory, andlearning styles: auditory. For location, patient reportsright. For severity, patient reportsmoderate. For onset/timing, patient [id number]. For modifying factors, patient reportsnothing gives relief. For aretha aggravating factors, patient reportsbright light makes it worse. Sore throatReported by Patient CongestionReported by Patientnasal congestion with post nasal drip x 3 days. denies any fever or fever with chills. no SOB or respiratory distress. Harish Lemos NP [address] [place], [address], PA - [facility] 07/24/2022 10:05:28 4 text/html CongestionReported by PatientHPIFor associated symptoms, patient reportscoughbut reportsno fever,no chills,no hemoptysis, andno shortness of breath(sore throat). For quality, patient reportspressureandache. For severity, patient reportsmoderate. For duration, patient reports3 days. For aggravating factors, patient reportsnone. For alleviating factors, patient reportsnone. For context, (states get sinus infection 2-3 times per year). RAYMOND Mercado [address] [place], [address], PA - [facility] 08/15/2023 10:08:22 OBGyn Episode No OBEpisode recorded.
== END 2025-04-12 14:24 | disposition home or self-care (01) ==
LOC: HO.RHES 13:47
PROVIDERS: PCP General Practice; Visit Provider Internal Medicine Rheumatology
DX: M32.9 Systemic lupus erythematosus, unspecified (principal); L98.9 Disorder of the skin and subcutaneous tissue, unspecified; Z79.899 Other long term (current) drug therapy; I73.00 Raynaud's syndrome without gangrene
CPT/HCPCS: 99214

== ENCOUNTER 2025-04-30 14:08 | Outpatient (REF) | payer BC, SELFPAY ==
--- NOTE | ~2025-04-30 | US_ITS ---
EXAMINATION: US PELVIS CLINICAL INFORMATION: 3.4 cm left ovarian cyst. Follow-up. COMPARISON: February 22, 2025. TECHNIQUE: Ultrasound of the pelvis is performed using both transabdominal and transvaginal transducers along with Doppler. Transvaginal imaging is performed due to inadequate visualization transabdominally. FINDINGS: Uterus: The uterus is anteverted and measures 11 x 3 x 3 cm. Volume: 65 cc. The double wall endometrial thickness is 4 mm. No gross masses in the myometrium. Cervix appears closed. Adnexa: The ovaries are identified with flow on color Doppler interrogation.. There is a 3.4 cm well-defined anechoic lesion without septations or nodular component centered in the left adnexa. No free fluid in the cul-de-sac. Right ovary measures 2 x 2 x 2 cm. Volume: 3.3 cc. Left ovary measures 4 x 3 x 3 cm. Volume: 20 cc. US/US pelvic and transvaginal IMPRESSION: 3.4 cm simple cyst, left ovary. No ovarian torsion. No uterine fibroid. Electronically signed by: Vasiliy Magana MD 04/30/2025 03:09 PM [facility]
--- OUTSIDE RECORDS SUMMARY | 2025-04-30 16:28 | XMS_ITS | Encounter Summary ---
Author Organization [employer] Address [address] [facility] 7t [place] [address] Care Team Providers Care Acute Coordinator Name Role Phone Chioma Connelly MD Primary Care Provider [phone] Encounter Details Date Type Department Care Team ([facility] st Contact Info) Description 06/13/2024 Orders Only [facility] MED[facility] [address] [place], [place] [phone] Chioma Connelly MD [address] [place], [place] [phone] Need for viral immunization (Primary Dx) Social [...] EST) ~Hepatitis B Surface Antibody NONREACTIVE Nonreactive [facility] Comment:Nonreactive: < 8.00 mIU/mL Blood Venous blood specimen / Unknown 07/04/2024 9:30 AM EST 07/04/2024 11:19 AM EST us Chioma Connelly MD LAB BLOOD ORDERABLES Final Res ult [facility] [address] [place] [address] [phone] documented in this encounter Visit Diagnoses Diagnosis Need for viral immunization- Primary Need for prophylactic vaccination and inoculation against other viral diseases documented in this encounter Additional Health Concerns Assessment Noted Time PHQ-9 Depression Total Score: 0 05/12/20 9:01 AM EST documented as of this encounter Care Teams Acute Coordinator Relationship Specialty Start Date End Date Chioma Connelly MD [address] [place] [phone] PCP - General Family Medicine 05/12/24 documented as of this encounter
--- OUTSIDE RECORDS SUMMARY | 2025-04-30 16:28 | XMS_ITS | Encounter Summary ---
Author Organization [employer] Address [address] [facility] 7t [place] [address] Care Team Providers Care Industrial Engineer Name Role Phone Chioma Connelly MD Primary Care Provider [phone] Reason for Visit * Reason Onset Date Comments Med Refill 07/31/2024 Encounter Details Date Type Department Care Team (Late st Contact Info) Description 07/31/2024 Refill [facility] MEDICINE [address] [place], [place] [phone] Chioma Connelly MD [address] [place] [address] Body mass index (BMI) 36.0-36.9, adult Social [...] documented as of this encounter Care Teams Industrial Engineer Relationship Specialty Start Date End Date Chioma Connelly MD [address] [place] [address] PCP - General Family Medicine 05/12/24 documented as of this encounter
--- OUTSIDE RECORDS SUMMARY | 2025-04-30 16:28 | XMS_ITS | Encounter Summary ---
Author Organization [employer] Address [address] [facility] [address] [place] [address] Care Team Providers Care Swim Instructor Name Role Phone Chioma Connelly MD Primary Care Provider [phone] Encounter Details Date Type Department Care Team (Latest Contact Info) Description 02/22/2025 Results Follow-Up [facility] MEDICINE [address] [place] [address] Rachelle Bryan, CNM [address] [place] [address] [place] Pelvis Transvaginal Social History Tobacco Use [...] documented as of this encounter Care Teams Swim Instructor Relationship Specialty Start Date End Date Chioma Connelly MD [address] [place] [address] PCP - General Family Medicine 05/12/24 documented as of this encounter
--- OUTSIDE RECORDS SUMMARY | 2025-04-30 16:28 | XMS_ITS | Clinical Summary ---
Author Organization [employer] Address [address] [facility] 7t [place] [address] Care Team Providers Care Sole Leather Cutting Machine Operator Name Role Phone Chioma Connelly MD Primary Care Provider [phone] Allergies No known active allergies Medications Etonogestrel [...] Once per day. 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 Resolved Problems Problem Noted Date Diagnosed Date Resolved Date Other forms of systemic lupus erythematosus 05/14/2024 05/14/2024 Raynaud's disease 08/15/2023 05/14/2024 Encounters Date Type Department Care Team Description 02/22/[address] [facility] [address] [facility] [place] [address] Rachelle Espinoza CNM Left ovarian cyst (Primary Dx) 02/22/2025 Results Follow-Up [facility] [address] [facility] [place] [address] Rachelle Espinoza CNM US Pelvis Transvaginal 02/20/2025 Telephone [facility] [address] [facility] [place] [address] Chioma Connelly MD Nov Recall from Last [...] Associated Diagnosis Comments US PELVIS TRANSVAGINAL Routine 04/30/2025 2:22 PM EST Left ovarian cyst US PELVIS TRANSVAGINAL Routine 02/22/2025 1:32 PM EDT Right ovarian cyst PAP SMEAR Routine 05/09/2021 12:00 AM EST from Last 3 Months or Most Recently Relevant to Health Maintenance Results * US Pelvis Transvaginal (04/30/2025 2:22 PM EST) Only the most recent of2 resultswithin the time period is included. Anatomical Region Laterality Modality Pelvis Ultrasound 04/30/2025 2:22 PM EST Narrative 04/30/2025 3:12 PM EST [place] [address] Ultrasound Report Signed Patient: Marni Hernandez MR#: [id number] : 1990 Acct:[id number] Age/Sex: 34 / F ADM Date: 04/30/25 Loc: HO.US Attending Dr: Rachelle Espinoza CNM Ordering Physician: RACHELLE ESPINOZA CNM Date of Service: 04/30/25 Procedure(s): US pelvic and transvaginal Accession Number(s): [id number] cc: Chioma Connelly; RACHELLE ESPINOZA CNM Reason for Exam: f/u for left ovarian cyst, due in 6-12 weeks EXAMINATION: US PELVIS CLINICAL INFORMATION: 3.4 cm left ovarian cyst. Follow-up. COMPARISON: February 22, 2025. TECHNIQUE: Ultrasound of the pelvis is performed using both transabdominal and transvaginal transducers along with Doppler. Transvaginal imaging is performed due to inadequate visualization transabdominally. FINDINGS: Uterus: The uterus is anteverted and measures 11 x 3 x 3 cm. Volume: 65 cc. The double wall endometrial thickness is 4 mm. No gross masses in the myometrium. Cervix appears closed. Adnexa: The ovaries are identified with flow on color Doppler interrogation.. There is a 3.4 cm well-defined anechoic lesion without septations or nodular component centered in the left adnexa. No free fluid in the cul-de-sac. Right ovary measures 2 x 2 x 2 cm. Volume: 3.3 cc. Left ovary measures 4 x 3 x 3 cm. Volume: 20 cc. US/US pelvic and transvaginal IMPRESSION: 3.4 cm simple cyst, left ovary. No ovarian torsion. No uterine fibroid. Electronically signed by: Vasiliy Magana MD 04/30/2025 03:09 PM [facility] Dictated By: Vasiliy Mott MD Signed By: <Electronically signed by Vasiliy Robles MD in OV> 04/30/25 1509 DD/ 1422 TD/TT: 04/30/25 1442 Senior Java Software Engineer: Procedure Note Donotuseinterpreter, Image - 04/30/2025 [place] [address] Ultrasound Report Signed Patient: Marni Hernanedz#: [id number] : 1990Acct:[id number] Age/Sex: 34 / FADM Date: 04/30/25 Loc: HO.US Attending Dr: Rachelle Espinoza CNM Ordering Physician: RACHELLE ESPINOZA CNM Date of Service: 04/30/25 Procedure(s): US pelvic and transvaginal Accession Number(s): [id number] cc: Chioma Connelly; RACHELLE ESPINOZA CNM Reason for Exam: f/u for left ovarian cyst, due in 6-12 weeks EXAMINATION: US PELVIS CLINICAL INFORMATION: 3.4 cm left ovarian cyst. Follow-up. COMPARISON: February 22, 2025. TECHNIQUE: Ultrasound of the pelvis is performed using both transabdominal and transvaginal transducers along with Doppler. Transvaginal imaging is performed due to inadequate visualization transabdominally. FINDINGS: Uterus: The uterus is anteverted and measures 11 x 3 x 3 cm. Volume: 65 cc. The double wall endometrial thickness is 4 mm. No gross masses in the myometrium. Cervix appears closed. Adnexa: The ovaries are identified with flow on color Doppler interrogation.. There is a 3.4 cm well-defined anechoic lesion without septations or nodular component centered in the left adnexa. No free fluid in the cul-de-sac. Right ovary measures 2 x 2 x 2 cm. Volume: 3.3 cc. Left ovary measures 4 x 3 x 3 cm. Volume: 20 cc. US/US pelvic and transvaginal IMPRESSION: 3.4 cm simple cyst, left ovary. No ovarian torsion. No uterine fibroid. Electronically signed by: Vasiliy Magana MD 04/30/2025 03:09 PM EST RP Dictated By: Vasiliy Mott MD Signed By: <Electronically signed by Vasiliy Robles MDin OV> 04/30/25 1509 DD/ 1422 TD/TT: 04/30/25 1442 Senior Java Software Engineer: Rachelle Espinoza CNM IM US PROCEDURES Edited Result - Final * Pap Smear (05/09/2021 12:00 AM EST) Swab Historical Provider LAB CYTOLOGY ORDERABLES F inal Result EXTERNAL LAB from Last 3 Months or Most Recently Relevant to Health Maintenance Insurance [facility] PPO Care Teams Sole Leather Cutting Machine Operator Relationship Specialty Start Date End Date Chioma Connelly MD [address] [place] [address] PCP - General Family Medicine 05/12/24
--- OUTSIDE RECORDS SUMMARY | 2025-04-30 16:28 | XMS_ITS | Encounter Summary ---
Author Organization [employer] Address [address] [facility] 7t [place] [address] Care Team Providers Care Merchandising Assistant Name Role Phone Chioma Connelly MD Primary Care Provider [phone] Encounter Details Date Type Department Care Team ([facility] st Contact Info) Description 07/03/2024 Orders Only [facility]INE [address] [place], [place] [phone] Chioma Connelly MD [address] [place], [place] [phone] Class 2 severe obesity with serious comorbidity [...] documented as of this encounter Care Teams Merchandising Assistant Relationship Specialty Start Date End Date Chioma Connelly MD [address] [place] [address] PCP - General Family Medicine 05/12/24 documented as of this encounter
--- OUTSIDE RECORDS SUMMARY | 2025-04-30 16:28 | XMS_ITS | Encounter Summary ---
Author Organization [employer] Address [address] [facility] 7t [place] [address] Care Team Providers Care Production Machine Shop Supervisor Name Role Phone Chioma Connelly MD Primary Care Provider [phone] Reason for Visit * Reason Onset Date Comments Med Refill 12/05/2024 Encounter Details Date Type Department Care Team (Late st Contact Info) Description 12/05/2024 Refill [facility] [address] [place] [address] Chioma Connelly MD [address] [place] [address] Social History Tobacco Use Types Packs/Day Years [...] as of this encounter Care Teams Production Machine Shop Supervisor Relationship Specialty Start Date End Date Chioma Connelly MD [address] [place] [address] PCP - General Family Medicine 05/12/24 documented as of this encounter
--- OUTSIDE RECORDS SUMMARY | 2025-04-30 16:28 | XMS_ITS | Encounter Summary ---
Author Organization [employer] Address [address] [facility] 7t [place] [address] Care Team Providers Care Physics Technical Officer Name Role Phone Chioma Connelly MD Primary Care Provider [phone] Reason for Visit * Reason Onset Date Comments Med Refill 12/15/2024 Encounter Details Date Type Department Care Team (Late st Contact Info) Description 12/15/[address] [facility] MED & PEDS [address] [place] [address] Chioma Connelly MD [address] [place] [address] Social History Tobacco Use Types Packs/Day Years [...] documented as of this encounter Care Teams Physics Technical Officer Relationship Specialty Start Date End Date Chioma Connelly MD [address] [place] [address] PCP - General Family Medicine 05/12/24 documented as of this encounter
--- OUTSIDE RECORDS SUMMARY | 2025-04-30 16:28 | XMS_ITS | Encounter Summary ---
Author Organization [employer] Address [address] [facility] 7t [place] [address] Care Team Providers Care Clip Baker Name Role Phone Chioma Connelly MD Primary Care Provider [phone] Reason for Visit * Reason Onset Date Comments Appointment Request 11/28/2024 Encounter Details Date Type Department Care Team ([facility] st Contact Info) Description 11/28/2024 Telephone [facility] [address] [place] [address] Chioma Connelly MD [address] [place], [place] [phone] Appointment Request Social History Tobacco Use Types [...] is your housing situation today? I have vaelntino kaplan 05/12/[address] you [...] visit due to weather not feeling good. [phone] documented in this encounter Plan of Treatment Not on file documented as of this encounter Visit Diagnoses Not on filedocumented in this encounter Additional Health Concerns Assessment Noted Time PHQ-9 Depression Total Score: 0 05/12/20 9:01 AM EST documented as of this encounter Care Teams Clip Baker Relationship Specialty Start Date End Date Chioma Connelly MD [address] [place] [address] PCP - General Family Medicine 05/12/24 documented as of this encounter
--- OUTSIDE RECORDS SUMMARY | 2025-04-30 16:28 | XMS_ITS | Encounter Summary ---
Author Organization [employer] Address [address] [facility] 7t [place] [address] Care Team Providers Care Systems Software Engineer Name Role Phone Chioma Connelly MD Primary Care Provider [phone] Encounter Details Date Type Department Care Team ([facility] st Contact Info) Description 12/26/2024 Orders Only [facility] MEDICINE [address] [place], [place] [phone] Chioma Connelly MD [address] [place], [place] [phone] Social History Tobacco Use Types Packs/Day Years [...] documented as of this encounter Care Teams Systems Software Engineer Relationship Specialty Start Date End Date Chioma Connelly MD [address] [place] [address] PCP - General Family Medicine 05/12/24 documented as of this encounter
--- OUTSIDE RECORDS SUMMARY | 2025-04-30 16:28 | XMS_ITS | Data Portability ---
Author Organization [facility]D [facility] [facility], [address] Address [address] [place] [address] Assessment No assessment recorded. Plan of Treatment Reminders Order Date Submit Date Provider Last Modified By Organization Details Last Modified Time Details Appointments None recorded. Lab rapid flu (A+B) 2023 024 [email or web address] [address], [address] [place], [address], 4 10:08:03 SARS CoV 2 (COVID-19) Ag, QL, IA, upper respiratory specimen 2023 024 [email or web address] 2099[facility] [address], [address] [place], [address], 4 10:08:02 rapid strep group A, throat 2022 023 [email or web address] 2099[facility] [address], [address] [place], [address], 3 10:04:56 streptococc us group A, culture, throat 2022 023 [facility] ([facility], [address] [place] [address], [place], [address], 3 10:06:02 Referral None recorded. Procedures None recorded. Surgeries None recorded. Imaging None recorded. Medication Orders polymyxin B sulfate 10,000 unit-trimet hoprim 1 mg/mL eye drops 2022 023 [id number], [address] [place], [address], 09:07:51 fexofenadin e-pseudoeph edrine ER 180 mg-240 mg tablet,ext. release 24 hr 2022 023 [id number], [address] [place], [address], 4 09:08:10 prednisone 20 mg tablet 2022 023 [id number], [address] [place], [address], 09:07:47 Patient TargetsNo targets recorded. Patient Instructions Encounter Date Encounter Id Patient Instructions Last Modified By Organization Details Last Modified Time 07/24/2022 [id number] sore throat: car e instructions [email or web address] Not [...] Department. . Not available 07/24/2022 10:03:45 08/15/2023 [id number] upper respirator y infection (cold): care instructions [...] Range : Negat ricardo Not Available [facility] ([facility]) [address], [place], [address], 07/27/2022 10:06:02 07/24/19 23 07/24/2022 rapid strep group A, throa t Unknown Analyte Normal = Negati ve Not Available [facility] [address] [place], [address], 07/24/2022 09:35:00 07/24/19 23 07/24/2022 rapid strep group A, throa t Unknown Analyte negati ve Not Available [facility] [address] [place], [address], 07/24/2022 09:35:00 08/15/19 24 08/15/2023 SARS CoV 2 (COVI D-19) Ag, QL, IA, upper respi rator y speci men Unknown Analyte negati ve Not Available [facility] [address] [place], [address], 08/15/2023 09:34:18 08/15/19 24 08/15/2023 SARS CoV 2 (COVI D-19) Ag, QL, IA, upper respi rator y speci men Unknown Analyte negati ve Not Available [facility] [address] [place], [address], 08/15/2023 09:34:18 08/15/19 24 08/15/2023 SARS CoV 2 (COVI D-19) Ag, QL, IA, upper respi rator y speci men Unknown Analyte yes Not Available [facility] [address] [place], [address], 08/15/2023 09:34:18 08/15/19 24 08/15/2023 rapid flu (A+B) Unknown Analyte negati ve Not Available [facility] [address] [place], [address], 08/15/2023 09:33:44 08/15/19 24 08/15/2023 rapid flu (A+B) Unknown Analyte negati ve Not Available [facility] [address] [place], [address], 08/15/2023 09:33:44 08/15/19 24 08/15/2023 rapid flu (A+B) Unknown Analyte negati ve Not Available [facility] [place], [address], 08/15/2023 09:33:44 08/15/19 24 08/15/2023 rapid flu (A+B) Unknown Analyte yes Not Available [facility] [address] [place], [address], 08/15/2023 09:33:44 Result Notes None recorded. Problems Name Problem SNOMED Code Status Onset Date Resolution Date Notes Provider Name and Address Organization Details Recorded Time Lupus erythematosus 291340974 Active 2022 DEVANG merritt PA - [facility] 3 09:37:23 Gastroesophag eal reflux disease 815262005 Active 2022 DEVANG merritt PA - [facility] 3 09:37:28 Raynaud's disease 674761564 Active 2023 Erna merritt PA - [facility] [...] Updated DateTime 3 162.56 cm 36.9 kg/m2 43997.3 6 g 99 % 99 % 83 [...] Updated DateTime 4 162.56 cm 36.9 kg/m2 52660.3 6 g 6 18 /min 98.1 [degF] 86 /min 97 % 97 % 120/82 mm[Hg] Ernasamantha Broussardhans PA - [facility] 4 09:13:12 Social History Question Answer Notes LastModified by [employer] Details LastModified Time Tobacco Smoking Status Never [...] Functional Status Question Answer Note LastModified by [employer] Details LastModified Time Do you use any [...] ICD10 Code Diagnosis IMO Codes Diagnosis Note [id number] [address] [facility] [place] [address] 12/20/2020 15:53:04 12/20/2020 19:11:57 [id number] [address] [facility] [place] [address] 12/12/2021 08:51:04 12/12/2021 16:06:55 [id number] [address] [facility] [place] [address] 01/14/2022 11:38:31 01/14/2022 11:58:35 [id number] Harish Lemos NP [address] [place] [address] 07/24/2022 08:37:38 07/24/2022 10:08:18 Pharyngitis 354550721 J02.9 Acute sinusitis 91843300 J01.90 Acute conj unctivitis of bilateral eyes 0114368615 92275 H10.33 [id number] RAYMOND Stoll [address] [facility] [place] [address] 08/15/2023 08:44:09 08/15/2023 10:08:54 Acute pharyngitis 010489398 J02.9 Upper resp iratory infection 82427397 J06.9 Health Concerns Section Related Observation LastModified by Organization Detteresa steven LastModified Time None Recorded Concern Status LastModified by Organization Details LastModified Time None Recorded Advance Directives Directive None Recorded Payers Insurance Date Sequence Insurance Name Policy Number Policy Schaefer Covered Member ID Schaefer Member ID Guarantor Name 01/25/2024 1 WEB-TPA RU Marni Hernandez [id number] Marni Hernandez 08/15/2023 1 [employer]ET[employer] (PPO) RU Marni Hernandez [id number] Marni Hernandez 08/15/2023 1 [employer] [id number] Marni Hernandez [id number] Marni Hernandez 01/25/2024 1 WEB-TPA - [employer] (PPO) Marni Hernandez [id number] Marni Hernandez Notes Date Note Type Note Provider Name and Address Organization Details Recorded Time 3 text/html Eye problemsReported by PatientHPIFor eye symptoms, patient reportssensitivity to light,redness,blurred vision, anddischargebut reportsno pain in the eyes. For source of patient information, patient reportsinformation obtained from patient,patient arrived at urgent care ambulatory, andlearning styles: auditory. For location, patient reportsright. For severity, patient reportsmoderate. For onset/timing, patient [id number]. For modifying factors, patient reportsnothing gives relief. For aretha aggravating factors, patient reportsbright light makes it worse. Sore throatReported by Patient CongestionReported by Patientnasal congestion with post nasal drip x 3 days. denies any fever or fever with chills. no SOB or respiratory distress. Harish Lemos NP [address] [place], [address], PA - [facility] 07/24/2022 10:05:28 4 text/html CongestionReported by PatientHPIFor associated symptoms, patient reportscoughbut reportsno fever,no chills,no hemoptysis, andno shortness of breath(sore throat). For quality, patient reportspressureandache. For severity, patient reportsmoderate. For duration, patient reports3 days. For aggravating factors, patient reportsnone. For alleviating factors, patient reportsnone. For context, (states get sinus infection 2-3 times per year). RAYMOND Mercado [address] [place], [address], PA - [facility] 08/15/2023 10:08:22 OBGyn Episode No OBEpisode recorded.
--- OUTSIDE RECORDS SUMMARY | 2025-04-30 16:28 | XMS_ITS | Clinical Summary ---
Author Organization [facility] Address [address] [place] [address] Care Team Providers Care Screen Printing Machine Operator Name Role Phone Janie Pulliam MD Primary Care Provider [phone] Allergies No known active allergies Medications etonogestrel-eluti [...] 09/13/2020 Overview (06/11/2024): Tested positive 09/13/20at [facility] pharmacy. Leukopenia 07/28/2019 Overview (06/11/2024): Chronic, no depression of other cell lines, both lymphocytes and neutrophils are low. Probably due to SLE. Anxiety and depression 02/16/2019 Lupus nephritis, ISN/RPS class V ([facility] V24, [facility] V28) 11/22/2018 Raynaud's phenomenon without gangrene 07/23/2017 Pulmonary nodules/lesions, multiple 09/12/2015 Overview (06/11/2024): Stable [address] SLE (systemic lupus erythema tosus) ([facility] V24, [facility] V28) 04/18/2015 Overview (06/11/2024): Onset ~ 2010 [...] proteinuria, hematurias, + anti Sm, +anti- HEALTH SERVICES COORDINATOR. Immunizations Immunization Administration Dates Next Due Influenza [...] HISTORICAL OTHER SURGICAL HISTORY 03/25/2015 Left PROCEDURE: [place] RENAL BIOPSY SURG EXPOSURE KIDNEY; COMMENT: lupus nephritis, membranous type, ISN/RPS class V; chronic changes of parenchyma (done at [facility]) SECTION 2017 PROCEDURE: HISTORICAL DELIVERY ESOPHAGOGASTRODUODENOSCOPY 03/12/2021 PROCEDURE: GA EGD TRANSORAL BIOPSY SINGLE/MULTIPLE; COMMENT: biopsy shows [...] RESULTING AGENCY - 05/09/2021 3:21 PM EST [id number] THINPREP PAP, IMAGED: NEGATIVE FOR SQUAMOUS INTRAEPITHELIAL [...] Recently Relevant to Health Maintenance Care Teams Screen Printing Machine Operator Relationship Specialty Start Date End Date Janie Pulliam MD PCP - General Internal Medicine 01/26/22
--- OUTSIDE RECORDS SUMMARY | 2025-04-30 16:28 | XMS_ITS | Clinical Summary ---
Author Organization [facility] Address [address] [place] [address] Care Team Providers Care Manager Of Marketing Name Role Phone Chioma Connelly Primary Care Provider [phone] Allergies Active Allergy Reactions Criticality Noted Date Comments Sulfa (Sulfonamide Antibiotics) Unknown 10/20 Medications etonogestreL (NEXPLANON) 68 mg implant 68 mg by subdermal route once. Active cetirizine (ZyrTEC) 10 mg tablet Take 10 mg by mouth daily. Active amLODIPine (NORVASC) 2.5 mg tablet Take [...] her consent to participate in the [employer] [id number] EDEN clinical trial. A screening examination was performed, [...] Vaccine, 23 Valent 06/17/2015 Pneumococcal conjugate PCV20,polysaccharide [id number] conjugate, adjuvant, PF (Prevnar 20) 07/21/2024 Tetanus [...] (2 - Td or Tdap) 07/21/2034 07/21/2024 Pneumococcal Vaccine: Pediatric (0-5 Years) and At-Risk Patients (6-50 Years) Aged Out 07/21/2024, 06/17/2015 No longer eligibl e based on patient's age to complete this topic Insurance [employer] OUT [employer] STATE PPO Care Teams Manager Of Marketing Relationship Specialty Start Date End Date Chioma Connelly [address] [place] [address] PCP - General 11/07/24
--- OUTSIDE RECORDS SUMMARY | 2025-04-30 16:28 | XMS_ITS | Encounter Summary ---
Author Organization [employer] Address [address] [facility] 7t [place] [address] Care Team Providers Care Upset Welding Machine Operator Name Role Phone Chioma Connelly MD Primary Care Provider [phone] Encounter Details Date Type Department Care Team ([facility] st Contact Info) Description 12/06/2024 Orders Only [facility] MEDICINE [address] [place], [place] [phone] Chioma Connelly MD [address] [place], [place] [phone] Social History Tobacco Use Types Packs/Day Years [...] documented as of this encounter Care Teams Upset Welding Machine Operator Relationship Specialty Start Date End Date Chioma Connelly MD [address] [place] [address] PCP - General Family Medicine 05/12/24 documented as of this encounter
== END 2025-04-30 14:09 | disposition home or self-care (01) ==
LOC: HO.US 14:08
PROVIDERS: PCP General Practice; Visit Provider Advanced Practice Midwife
DX: N83.202 Unspecified ovarian cyst, left side (principal)
CPT/HCPCS: 76830; 76856

== ENCOUNTER → 2025-04-30 14:11 | Outpatient (BNV) | payer BC, SELFPAY | PROVIDERS: PCP General Practice; Visit Provider Radiology Diagnostic Radiology | DX: N83.202 Unspecified ovarian cyst, left side (principal) | CPT/HCPCS: 76830; 76856 ==